=== PATIENT | female | born 1950 | race Caucasian/White ===

== ENCOUNTER → 2018-05-26 08:07 | Outpatient (CLI) | payer MEDICARE, SELFPAY ==
[2018-05-26 08:41] LABS: Abs Immature Grans 0.03 k/cumm (0.0-0.09); Absolute Basophil Count 0.04 k/cumm (0.0-0.2); Absolute Eosinophil Count 0.18 k/cumm (0.0-0.7); Absolute Lymphocyte Count 1.25 k/cumm (1.2-3.4); Absolute Monocyte Count 0.64 k/cumm (0.11-0.7); Absolute Neutrophil Count 5.29 k/cumm (1.2-6.7); Basophils % 0.5; Eosinophils % 2.4; HCT 39.8 % (36.0-46.0); HGB 13.3 g/dL (12.0-15.5); Immature Grans % 0.4; Lymphocytes % 16.8; Mean Corp. HGB Concentration 33.4 g/dL (32.0-36.0); Mean Corpuscular Hemoglobin 30.5 pg (27.0-33.0); Mean Corpuscular Volume 91.3 fL (80-95); Monocytes % 8.6; Neutrophils % 71.3; Platelet Count 199 x1000/uL (130-400); RBC 4.36 m/cumm (4.00-5.20); RBC Distribution Width 12.8 % (11.7-14.6); White Blood Cell Count 7.43 k/cumm (4.4-10.8)
[2018-05-26 09:48] LABS: ALT 25 U/L (12-78); AST 21 U/L (15-37); Albumin 3.7 g/dL (3.4-5.0); Alkaline Phosphatase 71 U/L (46-116); Anion Gap 6.6 mmol/L (3-11); BUN 16 mg/dL (7-18); Bilirubin, Total 0.4 mg/dL (0.2-1.0); CO2 27.4 mmol/L (21.0-32.0); CREATININE 0.99 mg/dL (0.55-1.02); Calcium 8.8 mg/dL (8.5-10.1); Chloride 106 mmol/L (98-107); Cholesterol 199 mg/dL (50-200); Estimated GFR 55.95 (mL/min/1.73m2); Glucose 101 mg/dL (70-100); HDL Cholesterol 42 mg/dL (40-60); LDL CHOLESTEROL 133 mg/dL (<100); Potassium 4.6 mmol/L (3.5-5.1); Sodium 140 mmol/L (136-145); Total Protein 7.2 g/dL (6.4-8.2); Triglyceride 114 mg/dL (30-150)
== END ==
PROVIDERS: PCP Nurse Practitioner; Visit Provider Nurse Practitioner
DX: E78.5 Hyperlipidemia, unspecified (principal); I10 Essential (primary) hypertension; J44.9 Chronic obstructive pulmonary disease, unspecified
CPT/HCPCS: 36415; 80053; 80061; 83721; 85025

== ENCOUNTER 2018-07-12 00:34 | Outpatient (CLI) | payer MEDICARE, SELFPAY ==
--- NOTE | 2018-07-12 11:11 | DI.MAMMO_ITS ---
SYMPTOM/DIAGNOSIS BREAST CA SCREENING Z12.31 MAMMOGRAMS: Mammograms were interpreted according to the usual protocol including computer analysis with CAD system, tomosynthesis and C view imaging. Comparison with prior examinations. Breast density B. No masses or microcalcifications are seen. There are stable nodules in both breasts. IMPRESSION: No evidence for malignancy. Yearly mammography is recommended. Category 2, B MQSA ASSESSMENT OF FINDINGS: Negative with benign findings. Category 2. Patient will receive a letter notifying them of these results. BI-RADS category B. There are scattered areas of fibroglandular density..
== END 2018-07-12 00:54 ==
PROVIDERS: PCP Nurse Practitioner; Visit Provider Nurse Practitioner
DX: Z12.31 Encounter for screening mammogram for malignant neoplasm of breast (principal)
CPT/HCPCS: 77063; 77067

== ENCOUNTER 2019-02-08 08:17 | Outpatient (REF) | payer MEDICARE, SELFPAY ==
[2019-02-09 11:48] LABS: ALT 30 U/L (12-78); AST 23 U/L (15-37); Albumin 3.7 g/dL (3.4-5.0); Alkaline Phosphatase 80 U/L (46-116); Anion Gap 8.7 mmol/L (3-11); BUN 13 mg/dL (7-18); Bilirubin, Total 0.3 mg/dL (0.2-1.0); CO2 27.3 mmol/L (21.0-32.0); CREATININE 0.87 mg/dL (0.55-1.02); Chloride 104 mmol/L (98-107); Cholesterol 214 mg/dL (50-200); Glucose 94 mg/dL (70-100); HDL Cholesterol 37 mg/dL (40-60); LDL CHOLESTEROL 142 mg/dL (<100); Potassium 4.5 mmol/L (3.5-5.1); Sodium 140 mmol/L (136-145); Total Protein 7.2 g/dL (6.4-8.2); Triglyceride 242 mg/dL (30-150)
[2019-02-09 11:55] LABS: HCT 39.9 % (36.0-46.0); HGB 13.1 g/dL (12.0-15.5); Mean Corp. HGB Concentration 32.8 g/dL (32.0-36.0); Mean Corpuscular Hemoglobin 29.7 pg (27.0-33.0); Mean Corpuscular Volume 90.5 fL (80-95); Platelet Count 224 x1000/uL (130-400); RBC 4.41 m/cumm (4.00-5.20); RBC Distribution Width 13.4 % (11.7-14.6); White Blood Cell Count 6.79 k/cumm (4.4-10.8)
== END 2019-02-08 08:37 ==
LOC: LBN 08:17
PROVIDERS: PCP Nurse Practitioner; Visit Provider Nurse Practitioner
DX: E78.5 Hyperlipidemia, unspecified (principal); I10 Essential (primary) hypertension; N18.9 Chronic kidney disease, unspecified; J44.9 Chronic obstructive pulmonary disease, unspecified
CPT/HCPCS: 80053; 80061; 83721; 85027

== ENCOUNTER 2019-08-14 01:47 | Outpatient (CLI) | payer MEDICARE, SELFPAY ==
--- NOTE | 2019-08-14 09:00 | DI.MAMMO_ITS ---
EXAM: MG MAMMO SCREENING CLINICAL HISTORY: screening. TECHNIQUE: Bilateral full field digital CC and MLO mammographic images were obtained with 3D tomosyn thesis and utilizing computer aided detection (CAD). COMPARISON: Available for comparison. FINDINGS: Masses/Architectural Distortion: No suspicious masses are present. There are stable bilateral breast nodules. Microcalcifications: No suspicious pleomorphic-type are seen. Skin Thickening/Nipple Retraction: None. IMPRESSION: 1. No significant interval change with no specific features of malignancy noted. 2. Unless there is more urgent need, screening mammography is recommended, as per [employer] guidelines. ACR BI-RAD Category- 2 Breast Density - Category B - Scattered areas of fibroglandular density A negative radiographic report should not delay biopsy if a dominant or clinically suspicious mass is present. Up to ten percent of cancers are not identified on mammography. A negative report may reinforce clinical impression. Adenosis and dense breasts may obscure an underlying neoplasm. False positive reports average 6 to 10%.
== END 2019-08-14 02:07 ==
PROVIDERS: PCP Nurse Practitioner; Visit Provider Nurse Practitioner
DX: Z12.31 Encounter for screening mammogram for malignant neoplasm of breast (principal)
CPT/HCPCS: 77063; 77067

== ENCOUNTER 2020-05-14 02:06 | Outpatient (CLI) | payer MEDICARE, SELFPAY ==
[2020-05-14 09:44] LABS: HCT 42.5 % (36.0-46.0); HGB 13.9 g/dL (12.0-15.5); Mean Corp. HGB Concentration 32.7 g/dL (32.0-36.0); Mean Corpuscular Volume 91.8 fL (80-95); Mean Platelet Volume 11.3 fL (8.0-11.0); Platelet Count 231 x1000/uL (130-400); RBC 4.63 m/cumm (4.00-5.20); RBC Distribution Width 13.1 % (11.7-14.6); White Blood Cell Count 6.64 k/cumm (4.4-10.8)
[2020-05-14 10:48] LABS: ALT 22 U/L (14-59); AST 18 U/L (15-37); Albumin 3.6 g/dL (3.4-5.0); Alkaline Phosphatase 67 U/L (46-116); Anion Gap 8.5 mmol/L (3-11); BUN 9 mg/dL (7-18); Bilirubin, Total 0.3 mg/dL (0.2-1.0); CO2 28.5 mmol/L (21.0-32.0); CREATININE 0.91 mg/dL (0.55-1.02); Calcium 9.2 mg/dL (8.5-10.1); Calculated LDL 127 mg/dL (<100); Chloride 106 mmol/L (98-107); Cholesterol 193 mg/dL (<200); Glucose 95 mg/dL (74-106); HDL Cholesterol 38 mg/dL (40-60); Potassium 4.8 mmol/L (3.5-5.1); Sodium 143 mmol/L (136-145); Total Protein 6.8 g/dL (6.4-8.2); Triglyceride 144 mg/dL (<150)
== END 2020-05-14 02:26 ==
PROVIDERS: PCP Nurse Practitioner; Visit Provider Nurse Practitioner
DX: E78.5 Hyperlipidemia, unspecified (principal); J44.9 Chronic obstructive pulmonary disease, unspecified; N18.9 Chronic kidney disease, unspecified; R00.2 Palpitations; R74.8 Abnormal levels of other serum enzymes
CPT/HCPCS: 36415; 80053; 80061; 85027

== ENCOUNTER 2021-06-11 14:55 | Outpatient (REF) | payer MEDICARE, SELFPAY ==
[2021-06-11 15:11] LABS: HCT 40.5 % (36.0-46.0); HGB 13.1 g/dL (11.2-15.7); MCH 29.7 pg (27.0-33.0); MCHC 32.3 % (32.0-36.0); MCV 91.8 fL (80-95); MPV 11.7 fL (8.0-11.0); Platelet Count 240 10^3/uL (130-400); RBC 4.41 10^6/uL (3.93-5.22); RDW 12.2 % (11.7-14.6); RDW-SD 41.4 fL; WBC 8.18 10^3/uL (4.4-10.8)
[2021-06-11 15:21] LABS: ALT 20 U/L (14-59); AST 23 U/L (15-37); Albumin 3.6 g/dL (3.4-5.0); Alkaline Phosphatase 64 U/L (46-116); BUN 13 mg/dL (7-18); Bilirubin, Total 0.2 mg/dL (0.2-1.0); Calcium 8.8 mg/dL (8.5-10.1); Calculated LDL 112 mg/dL (<100); Chloride 107 mmol/L (98-107); Cholesterol 185 mg/dL (<200); Estimated GFR 54.81 (mL/min/1.73m2); Glucose 116 mg/dL (74-106); HDL Cholesterol 44 mg/dL (40-60); Potassium 4.8 mmol/L (3.5-5.1); Sodium 143 mmol/L (136-145); Triglyceride 148 mg/dL (<150)
[2021-06-11 15:24] LABS: Hemoglobin A1C 5.9 % (<5.7)
== END 2021-06-11 14:56 | disposition home or self-care (01) ==
LOC: LBN 14:55
PROVIDERS: PCP Nurse Practitioner; Visit Provider Nurse Practitioner
DX: E78.5 Hyperlipidemia, unspecified; I10 Essential (primary) hypertension; J44.9 Chronic obstructive pulmonary disease, unspecified; N18.9 Chronic kidney disease, unspecified; E11.9 Type 2 diabetes mellitus without complications
CPT/HCPCS: 80053; 80061; 85027; 83036

== ENCOUNTER 2022-02-12 16:57 | Inpatient (IN) | payer MEDICARE, SELFPAY ==
[2022-02-12] VITALS (45 sets, daily range): BP systolic 146–187; BP diastolic 83–123; PULSE 88–119; RESP 4–29; TEMP 36.5–37.5; O2SAT 89–100
--- NOTE | 2022-02-12 16:45 | RT.EKG_ITS ---
APPROVED REPORT Exam: Resting ECG Reason for Exam: DYSPNEA Patient Location: E HR:106 bpm ECG Measurements Heart Rate 106 AXIS OH 164 P 61 QRSd 142 QRS 49 QT 361 T 120 QTc 479 Conclusion Sinus tachycardia LVH with secondary repolarization abnormality. ST elevation secondary to LVH. Similar to previous 03/29/17
--- NOTE | 2022-02-12 17:27 | ED.GENADUL_ITS ---
Discharge Plan Disposition Patient Disposition: [facility] INPATIENT Condition: Serious Discharge Details Clinical Impression: Non-ST elevation VA (NSTEMI), CHF exacerbation, COPD exacerbation Admit Date/Time: 02/12/22 22:07 Admit Provider: Jj Calles Attending Provider: Jj Calles Primary Care Provider: Kathleen Joyce ED Provider: Rola Valverde Discharge Data Discharge Date/Time-TO BE ENTERED AT DEPARTURE: 02/12/22 23:35 Medical Decision Making 71-year-old female with a history of COPD, hypertension, chronic kidney disease, degenerative joint disease, hyperlipidemia and depression presents to the ER with chief complaint of shortness of breath nausea vomiting diarrhea and fever at home for 3 days. Patient reports increased weakness, shortness of breath over the last month. She reports that she was recently diagnosed with diverticulitis and finished antibiotics on Wednesday she denies any abdominal pain. She is vaccinated for COVID. She denies any productive cough has been using her inhalers as prescribed. She denies any chest pain, back pain or shoulder pain. She does normally wear 2 L nasal cannula of oxygen at home 24 hours a day she is satting 97% on 2 L at this time. EKG does show a left bundle branch block with repolarization abnormality she does have some abnormal ST elevation in V4 V5 V6. 1707: EKG was reviewed by [Dr. Carson John ER attending, please see his official report review. There was no old EKG available for review. Cardiac work-up ordered including serial troponin, chest x-ray, 324 mg aspirin, COVID test, lipase and stool studies to rule out C. difficile due to recent antibiotic use and history of diverticulitis. Differential diagnosis includes not limited to COPD exacerbation, VA, NSTEMI, C. difficile, viral gastroenteritis, COVID-19, pneumonia. 1907: Initial troponin elevated at 152, lipase 65, COVID is negative, glucose 134, sodium 135 lactate 1.9 white blood cell count 10.94, 1918: [facility] transfer Center regarding patient case and details at this time they are only excepting if patient meets STEMI criteria. Repeat troponin and EKG ordered for now. [facility]AD CXR result: Clinical indication: Shortness of breath and other: HX of copd, R/O pna TECHNIQUE: Imaging protocol: XR of the chest. Views: 1 view. COMPARISON: CT CHEST FOR PULMONARY EMBOLUS 03/29/2017 9:53 PM FINDINGS: Lungs: Bilateral hyperinflation is present. Atelectasis and/or early infiltrative changes noted within both lung bases. Pleural spaces: There is no evidence of pneumothorax. There are no pleural effusions present. Heart/Mediastinum: Unremarkable. No cardiomegaly. Vasculature: The vasculature demonstrates diffuse mild atherosclerotic calcification. Bones/joints: The thoracic spine demonstrates mild degenerative changes at multiple levels. IMPRESSION: 1. Bilateral hyperinflation is present. 2. Atelectasis and/or early infiltrative changes noted within both lung bases. 1942: Spoke with Dr. Terry with [facility] cardiology regarding patient case and details he is requesting a old EKG to compare, at this time she does not think this is a STEMI, Will consult with [facility] cardi[facility] pending repeat troponin. This could be multifactorial. 2002: Repeat troponin 198. Patient reevaluation she is sitting on side of the bed tachypneic there is some mild expiratory wheezes bilaterally. She is hypertensive. Metoprolol IV ordered. 125 mg Solu-Medrol, DuoNeb ordered. Blood cultures x2. I did discuss possible pneumonia and the elevated troponin. 2026: [facility] Repaged to speak with Cardiology. 2037: Spoke again with Dr. Mcneil who requests more information and states she Cannot comment on if this is ACS or not I did discuss previous medical records and repeat troponin. 2043: [facility] Transfer Center contacted. 2100: Spoke with Dr. Samuel with cardiology at [facility] he does not recommend heparin drip at this time he does recommend admission for CHF exacerbation trending troponin, diuresing with 40 mg of Lasix and ordering a nuclear med perfusion scan. Hospitalist paged. Heparin drip cancelled. 2144: Dr. Calles agrees to accept patient for admission here. 2311: Received a call from [facility] cardiology Dr. Castillo again with [facility] who recommends anticoagulation, Cardiology consultation and repeat echo or Stress test. Patient receiving additional DuoNeb, increased wheezing, O2 sat decreased to 91%. On DuoNeb O2 sat 95%. Medical Records Medical records reviewed: Yes I reviewed the patient's medical records. Medical records narrative: Patient has had a exercise stress test in 2017, echocardiogram from 2017 shows Date of study: 03/30/2017 ? Transthoracic Echocardiography M-mode, complete 2D, complete spectral Doppler, and color Doppler *STUDY CONCLUSIONS* Summary: 1. Left ventricle: The cavity size was normal. Wall thickness was ?? normal. Systolic function was mildly reduced. The estimated ejection ?? fraction was 45-50%. Hypokinesis of the basal-midanteroseptal and ?? inferoseptal myocardium. Hypokinesis of the entireanterior ?? myocardium. 2. Right ventricle: The cavity size was normal. Wall thickness was ?? normal. Systolic function was normal. HPI General Mode of arrival: EMS . Date/Time Provider Initiated Documentation: 02/12/22 17:16 . Limitations to Documentation: no limitations . Information obtained by: patient, RN notes reviewed and old records reviewed . HPI Narrative: 71-year-old female with a history of COPD, hypertension, chronic kidney disease, degenerative joint disease, hyperlipidemia and depression presents to the ER with chief complaint of shortness of breath nausea vomiting diarrhea and fever at home for 3 days. Patient reports increased weakness, shortness of breath over the last month. She reports that she was recently diagnosed with diverticulitis and finished antibiotics on Wednesday she denies any abdominal pain. She is vaccinated for COVID. She denies any productive cough has been using her inhalers as prescribed. She denies any chest pain, back pain or shoulder pain. She does normally wear 2 L nasal cannula of oxygen at home 24 hours a day she is satting 97% on 2 L at this time. EKG does show a left bundle branch block with repolarization abnormality she does have some abnormal ST elevation in V4 V5 V6. Related Data Home Medications Medication Instructions Recorded Confirmed ascorbic acid (vitamin C) 1,000 mg 1,000 mg PO DAILY 03/29/17 02/12/22 tablet (C-1000) aspirin 81 mg tablet,delayed 81 mg PO DAILY 03/29/17 02/12/22 release (Aspir-) omega-3 fatty acids-fish oil 340 1 ea PO DAILY 03/29/17 02/12/22 mg-1,000 mg capsule (Fish Oil) bisacodyl 5 mg tablet (Correctol) 5 mg PO DAILY tab 01/19/20 02/12/22 bismuth subsalicylate 262 mg 2 tab PO DAILY PRN tab 01/19/20 02/12/22 tablet (Pepto-Bismol) calcium carbonate 333 mg-magnesium tab PO DAILY tab 01/19/20 01/27/22 oxide 133 mg-zinc gluc 5 mg tablet cholecalciferol (vitamin D3) 25 1,000 unit PO DAILY 01/19/20 02/12/22 mcg (1,000 unit) capsule denture care products #1 01/19/20 01/27/22 denture cleanser #1 tab 01/19/20 01/27/22 menthol 8 mg lozenges 8 mg MM DAILY PRN each 01/19/20 02/12/22 toothpaste (Sensodyne) #113 gm 01/19/20 01/27/22 Inogen Oxygen Concentrator #1 ea 04/01/20 01/27/22 Nasal Cannula O2 Tubing #2 each 05/23/20 01/27/22 ibuprofen 400 mg tablet 400 mg PO TID PRN #270 tab-cap 03/03/21 02/12/22 citalopram 20 mg tablet 40 mg PO DAILY #180 tab-cap 05/15/21 02/12/22 ipratropium 20 mcg-albuterol 100 1 puff IH QID #12 gm 05/16/21 02/12/22 mcg/actuation mist for inhalation (Combivent Respimat) atenolol 50 mg tablet 50 mg PO DAILY #90 tab-cap 06/09/21 02/12/22 betamethasone valerate 0.1 % 1 applic TOPICAL BID PRN #30 gm 10/13/21 02/12/22 topical cream tetrahydrozoline 0.05 % eye drops 1 drp OPHTHALMIC (EYE) TID #15 ml 10/23/21 02/12/22 albuterol sulfate 2.5 mg (3 mL) INHALATION Q4H PRN 12/01/21 02/12/22 #180 ml fenofibrate nanocrystallized 48 mg See Rx Instructions .ROUTE 12/01/21 02/12/22 tablet .COMPLEX #90 tab simvastatin 80 mg tablet See Rx Instructions .ROUTE 12/01/21 02/12/22 .COMPLEX #45 tab ipratropium bromide 0.02 % 5 ml INHALATION Q6H PRN #300 ml 12/16/21 02/12/22 solution for inhalation fluticasone propionate 50 See Rx Instructions .ROUTE 01/26/22 02/12/22 mcg/actuation nasal .COMPLEX #48 ml spray,suspension Oxygen Concentrator #1 ea 01/27/22 01/27/22 ciprofloxacin HCl 500 mg tablet 500 mg PO BID #20 tab 01/27/22 02/12/22 fluticasone furoate 100 1 inh INHALATION DAILY #60 ea 01/27/22 02/12/22 mcg-vilanterol 25 mcg/dose inhalation powder (Breo Ellipta) lisinopril 10 mg tablet 10 mg PO DAILY #90 tab-cap NS 01/27/22 02/12/22 omeprazole 40 mg capsule,delayed 40 mg PO DAILY #90 tab-cap 01/27/22 02/12/22 release umeclidinium 62.5 mcg/actuation 1 inh INHALATION DAILY #30 ea 01/27/22 02/12/22 blister powder for inhalation pregabalin 150 mg capsule (Lyrica) 150 mg PO BID #180 tab-cap 02/09/22 02/12/22 Previous Rx's Medication Instructions Recorded Inogen Oxygen Concentrator #1 ea 04/01/20 Nasal Cannula O2 Tubing #2 each 05/23/20 ibuprofen 400 mg tablet 400 mg PO TID PRN #270 tab-cap 03/03/21 citalopram 20 mg tablet 40 mg PO DAILY #180 tab-cap 05/15/21 ipratropium 20 mcg-albuterol 100 1 puff IH QID #12 gm 05/16/21 mcg/actuation mist for inhalation (Combivent Respimat) atenolol 50 mg tablet 50 mg PO DAILY #90 tab-cap 06/09/21 betamethasone valerate 0.1 % 1 applic TOPICAL BID PRN #30 gm 10/13/21 topical cream tetrahydrozoline 0.05 % eye drops 1 drp OPHTHALMIC (EYE) TID #15 ml 10/23/21 albuterol sulfate 2.5 mg (3 mL) INHALATION Q4H PRN 12/01/21 #180 ml fenofibrate nanocrystallized 48 mg See Rx Instructions .ROUTE 12/01/21 tablet .COMPLEX #90 tab simvastatin 80 mg tablet See Rx Instructions .ROUTE 12/01/21 .COMPLEX #45 tab ipratropium bromide 0.02 % 5 ml INHALATION Q6H PRN #300 ml 12/16/21 solution for inhalation fluticasone propionate 50 See Rx Instructions .ROUTE 01/26/22 mcg/actuation nasal .COMPLEX #48 ml spray,suspension Oxygen Concentrator #1 ea 01/27/22 ciprofloxacin HCl 500 mg tablet 500 mg PO BID #20 tab 01/27/22 fluticasone furoate 100 1 inh INHALATION DAILY #60 ea 01/27/22 mcg-vilanterol 25 mcg/dose inhalation powder (Breo Ellipta) lisinopril 10 mg tablet 10 mg PO DAILY #90 tab-cap NS 01/27/22 omeprazole 40 mg capsule,delayed 40 mg PO DAILY #90 tab-cap 01/27/22 release umeclidinium 62.5 mcg/actuation 1 inh INHALATION DAILY #30 ea 01/27/22 blister powder for inhalation pregabalin 150 mg capsule (Lyrica) 150 mg PO BID #180 tab-cap 02/09/22 Allergies Allergy/AdvReac Type Severity Reaction Status Date / Time Latex, Natural Rubber Allergy Intermediate rash; Verified 01/27/22 11:23 contact dermatitis codeine [Codeine] AdvReac Intermediate Headache Verified 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/22 11:23 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 Intermediate contact Uncoded 01/27/22 11:23 dermatitis General Stated Complaint: RespSymp ZACKERY: 3 Review of Systems All systems reviewed & are unremarkable except as noted in HPI and below Cardiovascular Cardiovascular: Denies chest pain, Denies pedal edema, Denies claudication, Denies lightheadedness, Denies radiating jaw, neck or arm pain and Reports dyspnea Respiratory Respiratory: Denies hemoptysis, Denies excessive phlegm production, Reports dyspnea and Denies wheezing Gastrointestinal Gastrointestinal: Reports as per HPI, Denies abdominal pain, Reports diarrhea, Reports nausea and Denies vomiting Allergic/Immunologic Allergic/Immunologic: Denies wheezing PFSH All Active Problems (Updated 02/12/22 @ 22:33 by Jj Calles MD) Diarrhea (Acute) Elevated lactic acid level (Acute) Non-ST elevation VA (NSTEMI) (Acute) CHF exacerbation (Acute) COPD exacerbation (Acute) Depression (Chronic 02/18/17) Exercise hypoxemia (Acute) ENEDELIA FOWLER III, MD, PULMONOLOGY Bronchiectasis without complication (Acute) Enedelia Fowler III, MD, 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 Gastroesophageal reflux disease (Acute 02/18/17) Fibromyalgia (Acute 02/18/17) Deviated nasal septum (Acute 07/01/17) DJD (degenerative joint disease) (Acute 02/18/17) Severe Chronic kidney disease (Acute 02/18/17) Palpitations (Acute) Elevated troponin I level (Acute) COPD (chronic obstructive pulmonary disease) (Acute) Gold stage 3, Enedelia Fowler MD Anxiety (Acute) Incidental lung nodule, > 3mm and < 8mm (Acute) Hypertension (Acute) Medical History Tobacco use disorder (02/26/17) Surgical History Dilation and curettage (~1984) Ligation of fallopian tube (~1984) Open Carpal Tunnel release Tonsillectomy and adenoidectomy Family History Mother Essential hypertension Heart disease COPD (chronic obstructive pulmonary disease) Father DJD (degenerative joint disease) Sister Hyperlipidemia Myocardial infarction Daughter [id number] deficiency Social History Smoking/Tobacco Use Status: Never Smoking risk assessment performed?: Yes Alcohol Intake: never Drug use: Never Substance use type: does not use Do you feel safe at home: Yes Do you feel safe in your relationship?: Yes History History Para 2 Hx # Term Pregnancies Multiple births Hx # Pregnancies Ectopic pregnancies AB induced Hx Number of Living Children AB spontaneous Exam Narrative Exam Narrative: Constitutional: Alert and oriented x3. Appears stated age. Normal body habitus. Head: Normocephalic, no trauma. Eyes: Pupils PERRL, Red reflex noted, EOM's intact. Eyelids symmetrical without lesions, discharge, or swelling. ENT: Bilateral TM's WNL, External ear normal to inspection, no mastoid TTP, swelling, or erythema, Nasal turbinates WNL, no nasal discharge. Normal dentition, Posterior pharynx WNL, no exudate. Chest: Mildly tachycardic at a rate of 100, S1, S2, distal pulses intact. Resp: Lungs diminished to auscultation bilaterally. prolonged expiratory phase. Abdomen: Soft, non-distended, Normoactive bowel sounds all 4 quads. Musculoskeletal: Unable to assess gait, 5/5 strength to all four extremities. No pedal edema noted. Skin: No suspicious rashes or lesions. Capillary refill less than 2 sec. Neurologic: Cranial nerves II-XII intact. Alert and oriented x 3. Motor: No deficits noted. Sensory: Intact bilaterally all 4 extremities. Reflexes: DTR's intact bilaterally.. Hematologic/Lymphatic: No ecchymosis, no lymphadenopathy. Course Vital Signs Vital signs: Vital Signs Temperature 36.9 C 02/12/22 16:58 Pulse 100 H 02/12/22 16:58 Respiratory Rate 20 02/12/22 16:58 Blood Pressure 176/89 H 02/12/22 16:58 Pulse Oximetry 97 02/12/22 16:58 Temperature 36.9 C 02/12/22 16:58 Temperature Source Tympanic 02/12/22 16:58 Pulse 100 H 02/12/22 16:58 Respiratory Rate 20 02/12/22 16:58 Respiratory Effort Short of Breath 02/12/22 17:14 Respiratory Depth Shallow 02/12/22 17:14 Blood Pressure 176/89 H 02/12/22 16:58 Blood Pressure Position Sitting 02/12/22 16:58 Pulse Oximetry 97 02/12/22 16:58 Oxygen Delivery Method Nasal Cannula 02/12/22 16:58 Oxygen Flow Rate 4 02/12/22 16:58
--- NOTE | 2022-02-12 17:45 | DI.RAD_ITS ---
Exam(s) XR PORTABLE CHEST AP EXAM: XR PORTABLE CHEST AP CLINICAL HISTORY: R/O PNA, SOB, Hx COPD TECHNIQUE: 2D digital imaging was performed. COMPARISON: CR,RF UPPER GI SERIES(P) from 01/25/2012 CT CHEST FOR PULMONARY EMBOLUS from 03/29/2017 FINDINGS: LUNGS: Underlying emphysematous and fibrotic changes. Question of mild patchy infiltrates versus mil d atelectasis. No focal consolidation. No pleural abnormality seen. HEART: Normal. MEDIASTINUM: Normal. BONES: Scoliosis. IMPRESSION: Question of mild atelectasis or early infiltrates. DATA REPOSITORY: RADIATION DOSE DELIVERED:
[2022-02-12 17:50] LABS: Source Nasal/Nares
[2022-02-12 17:53] LABS: Abs Immature Grans 0.03 10^3/uL (0.0-0.06); Absolute Basophil Count 0.03 10^3/uL (0.0-0.2); Absolute Eosinophil Count 0.02 10^3/uL (0.0-0.7); Absolute Lymphocyte Count 1.38 10^3/uL (1.2-3.4); Absolute Monocyte Count 0.71 10^3/uL (0.1-0.8); Basophils % 0.3; Eosinophils % 0.2; HCT 42.9 % (36.0-46.0); HGB 14.5 g/dL (11.2-15.7); Immature Grans % 0.3; Lymphocytes % 12.6; MCH 29.4 pg (27.0-33.0); MCHC 33.8 % (32.0-36.0); MCV 87 fL (80-95); MPV 10.6 fL (8.0-11.0); Monocytes % 6.5; Neutrophils % 80.1; Platelet Count 255 10^3/uL (130-400); RBC 4.93 10^6/uL (3.93-5.22); RDW 11.9 % (11.7-14.6); WBC 10.94 10^3/uL (4.4-10.8)
[2022-02-12] MEDS: Aspirin 81 MG CHEW 324 MG CH (17:57)
[2022-02-12 18:01] LABS: Absolute Neutrophil Count 8.76 10^3/uL (1.2-6.7)
[2022-02-12 18:15] LABS: ALT 27 U/L (14-59); AST 21 U/L (15-37); Alkaline Phosphatase 64 U/L (46-116); Anion Gap 8.3 mmol/L (3-11); BUN 11 mg/dL (7-18); Bilirubin, Total 0.5 mg/dL (0.2-1.0); CO2 28.7 mmol/L (21.0-32.0); CREATININE 0.9 mg/dL (0.55-1.02); Calcium 9.4 mg/dL (8.5-10.1); Chloride 98 mmol/L (98-107); Glucose 134 mg/dL (74-106); Lipase 65 U/L (73-393); Potassium 4.4 mmol/L (3.5-5.1); Sodium 135 mmol/L (136-145)
[2022-02-12 18:16] LABS: Troponin I 152 ng/L (<or=60)
--- NOTE | 2022-02-12 18:24 | NUR.NOTE ---
Nursing Note: Spoke to patient's daughter - updated on plan of care. Patient's phone given to her.
[2022-02-12 18:33] LABS: COVID-19 PCR Negative (Negative)
--- NOTE | 2022-02-12 18:36 | DI.VRAD_ITS ---
PROCEDURE INFORMATION: Exam: XR Chest Exam date and time: 02/12/2022 5:51 PM Age: 71 years old Clinical indication: Shortness of breath and other: HX of copd, R/O pna TECHNIQUE: Imaging protocol: XR of the chest. Views: 1 view. COMPARISON: CT CHEST FOR PULMONARY EMBOLUS 03/29/2017 9:53 PM FINDINGS: Lungs: Bilateral hyperinflation is present. Atelectasis and/or early infiltrative changes noted within both lung bases. Pleural spaces: There is no evidence of pneumothorax. There are no pleural effusions present. Heart/Mediastinum: Unremarkable. No cardiomegaly. Vasculature: The vasculature demonstrates diffuse mild atherosclerotic calcification. Bones/joints: The thoracic spine demonstrates mild degenerative changes at multiple levels. IMPRESSION: 1. Bilateral hyperinflation is present. 2. Atelectasis and/or early infiltrative changes noted within both lung bases. Dictated and Authenticated by: Andrea Bourne MD. Ordering:JORDAN Canela MD
[2022-02-12 18:46] LABS: Lactate 1.9 mmol/L (0.6-1.4)
--- NOTE | 2022-02-12 19:00 | RT.EKG_ITS ---
APPROVED REPORT Exam: Resting ECG Reason for Exam: Elevated Trop, Repeat Patient Location: E HR:95 bpm ECG Measurements Heart Rate 95 AXIS KS 153 P 83 QRSd 143 QRS 25 QT 388 T 135 QTc 487 Conclusion Sinus rhythm...normal P axis, V-rate 60- 99 Left bundle branch block...QRSd>120, broad/notched R
[2022-02-12 19:47] LABS: INR 1.1 (0.9-1.1); PTT Activated 25.5 sec (21.0-27.5); Prothrombin Time 10.8 sec (9.3-11.0)
[2022-02-12 20:01] LABS: Troponin I 198 ng/L (<or=60)
[2022-02-12 20:12] LABS: NT-proBNP 2501 pg/mL (<300)
[2022-02-12] MEDS: Albuterol/Ipratropium 3 ML UPD VIAL UPD (21:07)
[2022-02-12] MEDS: methylPREDNISolone SUCC 125 MG VIAL IVP (21:08)
[2022-02-12] MEDS: Metoprolol 5 MG/5 ML VIAL IVP (21:08)
[2022-02-12] MEDS: Furosemide 40 MG/4 ML VIAL IVP (21:15)
--- NOTE | 2022-02-12 22:21 | W.PM.HP.N ---
Assessment and Plan Assessment and plan (1) COPD exacerbation: Status: Acute Assessment and plan: Her main problem is a COPD exacerbation. I suspect that the slightly elevated troponin is probably stress related from the COPD exacerbation. I will treat her with piperacillin/tazobactam, bronchodilators and steroids. I am choosing the piperacillin because of a recent ciprofloxacin that she was on. I do not see a significant pneumonia on x-ray (2) Elevated troponin I level: Status: Acute Assessment and plan: I suspect the elevated troponin is due to the stress from her COPD exacerbation. We will check an echocardiogram tomorrow. Her troponins will be followed. (3) Elevated lactic acid level: Status: Acute Assessment and plan: This can be rechecked tomorrow. (4) Diarrhea: Status: Acute Assessment and plan: C. difficile study is pending. History of Present Illness History of Present Illness Chief Complaint: dyspnea Narrative: This 71-year-old female came to the hospital because of dyspnea. She has a history of COPD and is oxygen dependent. She normally uses 3 L/min but over the last week she has increased to 4 L/min. Her oximetries were ranging from 91-92 before she increased the oxygen and now she is running 93 to 94% oxygen saturation. Her breathing is gotten worse over the last 2 days. She was treated January 27 for diverticulitis with ciprofloxacin. She finished that antibiotic a few days ago. She lives by herself although her daughter lives nearby who helps her considerably. She has not been around anyone that has been sick. She has had 3 coronavirus vaccine doses. She not been traveling. She not been coughing but has had increasing shortness of breath. She has not had any chest pain, cough leg swelling. She thinks she had a fever but does not have a thermometer to check her temperature. She felt cold and hot and sweaty at times. She has had some diarrhea over the last 2 days has been no blood in it. She quit smoking in 2012. She does not drink alcohol. She presented to the emergency room and was found to have a slightly elevated lactate, BNP that was approximately 2500 and troponins have ranged from 152, was 200. [facility] cardiology was consulted as well as with [facility]. He received [facility] recommended diuresis and check a myocardial perfusion scan and follow troponins. He did receive some steroids and bronchodilators here but states she still feels short of breath and lays back. She did not complain of any orthopnea home. Review of Systems Constitutional Constitutional: Reports chills, Reports fever(s), Denies headache(s), Reports lethargy and Reports poor appetite ENT Ears, Nose, Mouth, and Throat: Denies headache(s) Cardiovascular Cardiovascular: Denies chest pain, Denies chest pain with activity, Denies irregular heart rhythm, Denies radiating jaw, neck or arm pain, Denies palpitations, Reports dyspnea, Reports dyspnea on exertion, Denies orthopnea and Denies slow heart rate Respiratory Respiratory: Denies cough, Denies hemoptysis, Denies pain with cough, Reports dyspnea and Reports dyspnea on exertion Gastrointestinal Gastrointestinal: Denies abdominal pain, Denies melena, Denies heartburn, Reports diarrhea, Reports nausea, Denies vomiting and Denies hematemesis Genitourinary Genitourinary: Denies difficulty voiding and Denies dysuria Neurologic Neurologic: Denies abnormal speech, Denies headache(s) and Denies convulsions Endocrine Endocrine: Denies palpitations PFSH All Active Problems (Updated 02/12/22 @ 22:33 by Jj Calles MD) Diarrhea (Acute) Elevated lactic acid level (Acute) Non-ST elevation [place] (NSTEMI) (Acute) CHF exacerbation (Acute) COPD exacerbation (Acute) Depression (Chronic 02/18/17) Exercise hypoxemia (Acute) ENEDELIA FOWLER III, MD, PULMONOLOGY Bronchiectasis without complication (Acute) Enedelia Fowler III, MD, regional account director Nasal congestion (Acute 07/01/17) Lung nodules (Acute 04/16/17) Hyperlipidemia (Acute 02/18/17) H/O contact dermatitis and eczema (Acute 02/18/17) Affects Hands, including the palms and the anticubital fossa, and her neck. 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 Gastroesophageal reflux disease (Acute 02/18/17) Fibromyalgia (Acute 02/18/17) Deviated nasal septum (Acute 07/01/17) DJD (degenerative joint disease) (Acute 02/18/17) Severe Chronic kidney disease (Acute 02/18/17) Palpitations (Acute) Elevated troponin I level (Acute) COPD (chronic obstructive pulmonary disease) (Acute) Gold stage 3, Enedelia Fowler MD Anxiety (Acute) Incidental lung nodule, > 3mm and < 8mm (Acute) Hypertension (Acute) Medical History Tobacco use disorder (02/26/17) Surgical History Dilation and curettage (~1984) Ligation of fallopian tube (~1984) Open Carpal Tunnel release Tonsillectomy and adenoidectomy Family History Mother Essential hypertension Heart disease COPD (chronic obstructive pulmonary disease) Father DJD (degenerative joint disease) Sister Hyperlipidemia Myocardial infarction Daughter [id number] deficiency Social History Smoking/Tobacco Use Status: Never Smoking risk assessment performed?: Yes Alcohol Intake: never Drug use: Never Substance use type: does not use Do you feel safe at home: Yes Do you feel safe in your relationship?: Yes History History Para 2 Hx # Term Pregnancies Multiple births Hx # Pregnancies Ectopic pregnancies AB induced Hx Number of Living Children AB spontaneous Meds Allergies and Home Medications Allergies Allergy/AdvReac Type Severity Reaction Status Date / Time Latex, Natural Rubber Allergy Intermediate rash; Verified 01/27/22 11:23 contact dermatitis codeine [Codeine] AdvReac Intermediate Headache Verified 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/22 11:23 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 Intermediate contact Uncoded 01/27/22 11:23 dermatitis Home Medications Medication Instructions Recorded Confirmed Type ascorbic acid (vitamin C) 1,000 mg 1,000 mg PO DAILY 03/29/17 02/12/22 History tablet (C-1000) aspirin 81 mg tablet,delayed 81 mg PO DAILY 03/29/17 02/12/22 History release (Aspir-) omega-3 fatty acids-fish oil 340 1 ea PO DAILY 03/29/17 02/12/22 History mg-1,000 mg capsule (Fish Oil) bisacodyl 5 mg tablet (Correctol) 5 mg PO DAILY tab 01/19/20 02/12/22 History bismuth subsalicylate 262 mg 2 tab PO DAILY PRN tab 01/19/20 02/12/22 History tablet (Pepto-Bismol) calcium carbonate 333 mg-magnesium tab PO DAILY tab 01/19/20 01/27/22 History oxide 133 mg-zinc gluc 5 mg tablet cholecalciferol (vitamin D3) 25 1,000 unit PO DAILY 01/19/20 02/12/22 History mcg (1,000 unit) capsule denture care products #1 01/19/20 01/27/22 History denture cleanser #1 tab 01/19/20 01/27/22 History menthol 8 mg lozenges 8 mg MM DAILY PRN each 01/19/20 02/12/22 History toothpaste (Sensodyne) #113 gm 01/19/20 01/27/22 History Inogen Oxygen Concentrator #1 ea 04/01/20 01/27/22 Rx Nasal Cannula O2 Tubing #2 each 05/23/20 01/27/22 Rx ibuprofen 400 mg tablet 400 mg PO TID PRN #270 tab-cap 03/03/21 02/12/22 Rx citalopram 20 mg tablet 40 mg PO DAILY #180 tab-cap 05/15/21 02/12/22 Rx ipratropium 20 mcg-albuterol 100 1 puff IH QID #12 gm 05/16/21 02/12/22 Rx mcg/actuation mist for inhalation (Combivent Respimat) atenolol 50 mg tablet 50 mg PO DAILY #90 tab-cap 06/09/21 02/12/22 Rx betamethasone valerate 0.1 % 1 applic TOPICAL BID PRN #30 gm 10/13/21 02/12/22 Rx topical cream tetrahydrozoline 0.05 % eye drops 1 drp OPHTHALMIC (EYE) TID #15 ml 10/23/21 02/12/22 Rx albuterol sulfate 2.5 mg (3 mL) INHALATION Q4H PRN 12/01/21 02/12/22 Rx #180 ml fenofibrate nanocrystallized 48 mg See Rx Instructions .ROUTE 12/01/21 02/12/22 Rx tablet .COMPLEX #90 tab simvastatin 80 mg tablet See Rx Instructions .ROUTE 12/01/21 02/12/22 Rx .COMPLEX #45 tab ipratropium bromide 0.02 % 5 ml INHALATION Q6H PRN #300 ml 12/16/21 02/12/22 Rx solution for inhalation fluticasone propionate 50 See Rx Instructions .ROUTE 01/26/22 02/12/22 Rx mcg/actuation nasal .COMPLEX #48 ml spray,suspension Oxygen Concentrator #1 ea 01/27/22 01/27/22 Rx ciprofloxacin HCl 500 mg tablet 500 mg PO BID #20 tab 01/27/22 02/12/22 Rx fluticasone furoate 100 1 inh INHALATION DAILY #60 ea 01/27/22 02/12/22 Rx mcg-vilanterol 25 mcg/dose inhalation powder (Breo Ellipta) lisinopril 10 mg tablet 10 mg PO DAILY #90 tab-cap NS 01/27/22 02/12/22 Rx omeprazole 40 mg capsule,delayed 40 mg PO DAILY #90 tab-cap 01/27/22 02/12/22 Rx release umeclidinium 62.5 mcg/actuation 1 inh INHALATION DAILY #30 ea 01/27/22 02/12/22 Rx blister powder for inhalation pregabalin 150 mg capsule (Lyrica) 150 mg PO BID #180 tab-cap 02/09/22 02/12/22 Rx Exam Const General: cooperative, not in acute distress and ill appearing Nutritional Appearance: obese Orientation: alert, awake and oriented x3 Neck Neck: normal visual inspection, trachea midline and no JVD Thyroid: thyroid normal Resp Auscultation: diminished lung sounds, no rales, no rhonchi and no wheezes Cardio Rate: regular rate Rhythm: regular rhythm Heart Sounds: S1 normal, S2 normal, no gallops and no murmurs GI Palpation: soft, no hepatosplenomegaly, not firm and nontender Skin General skin exam: no rashes or lesions noted Extrem General: normal to inspection, no calf tenderness, no clubbing, no cyanosis and no edema Results Labs Result diagrams: 02/12/22 17:24 02/12/22 17:24 Labs: Laboratory Results - last 24 hr 02/12/22 02/12/22 02/12/22 17:24 17:24 17:24 WBC 10.94 H RBC 4.93 Hgb 14.5 Hct 42.9 MCV 87 MCH 29.4 MCHC 33.8 RDW 11.9 Plt Count 255 MPV 10.6 Immature Gran % 0.3 Neutrophils % 80.1 Lymphocytes % 12.6 Monocytes % 6.5 Eosinophils % 0.2 Basophils % 0.3 Nucleated RBC % 0.0 Absolute Neutrophils 8.76 H Absolute Lymphocytes 1.38 Absolute Monocytes 0.71 Absolute Eosinophils 0.02 Absolute Basophils 0.03 PT INR APTT VBG Lactate Sodium 135 L Potassium 4.4 Chloride 98 Carbon Dioxide 28.7 Anion Gap 8.3 BUN 11 Creatinine 0.9 Estimated GFR/1.73 m2 >= 60.00 Glucose 134 H Calcium 9.4 Total Bilirubin 0.5 AST 21 ALT 27 Alkaline Phosphatase 64 Troponin I 152 H* NT-Pro-B Natriuret Pep Total Protein 8.0 Albumin 4.0 Lipase 65 COVID-19 Source Nasal/Nares SARS-CoV-2 (PCR) Negative 02/12/22 02/12/22 02/12/22 18:40 19:25 19:25 WBC RBC Hgb Hct MCV MCH MCHC RDW Plt Count MPV Immature Gran % Neutrophils % Lymphocytes % Monocytes % Eosinophils % Basophils % Nucleated RBC % Absolute Neutrophils Absolute Lymphocytes Absolute Monocytes Absolute Eosinophils Absolute Basophils PT 10.8 INR 1.1 APTT 25.5 VBG Lactate 1.9 H Sodium Potassium Chloride Carbon Dioxide Anion Gap BUN Creatinine Estimated GFR/1.73 m2 Glucose Calcium Total Bilirubin AST ALT Alkaline Phosphatase Troponin I 198 H* NT-Pro-B Natriuret Pep Total Protein Albumin Lipase COVID-19 Source SARS-CoV-2 (PCR) 02/12/22 19:25 WBC RBC Hgb Hct MCV MCH MCHC RDW Plt Count MPV Immature Gran % Neutrophils % Lymphocytes % Monocytes % Eosinophils % Basophils % Nucleated RBC % Absolute Neutrophils Absolute Lymphocytes Absolute Monocytes Absolute Eosinophils Absolute Basophils PT INR APTT VBG Lactate Sodium Potassium Chloride Carbon Dioxide Anion Gap BUN Creatinine Estimated GFR/1.73 m2 Glucose Calcium Total Bilirubin AST ALT Alkaline Phosphatase Troponin I NT-Pro-B Natriuret Pep 2501 H Total Protein Albumin Lipase COVID-19 Source SARS-CoV-2 (PCR) Last Vital Signs Temp 36.5 C 02/12/22 19:37 Pulse 103 H 02/12/22 21:38 Resp 29 H 02/12/22 21:50 BP 163/85 H 02/12/22 21:01 Pulse Ox 92 02/12/22 21:50
[2022-02-12] MEDS: Albuterol 2.5 MG/3 ML INH SOLN VIAL IH (22:59)
[2022-02-12] MEDS: PIPERACILLIN/TAZO 4.5 GM in Normal Saline 100 ML IVPB (23:00)
[2022-02-12] MEDS: Albuterol/Ipratropium 3 ML UPD VIAL (23:01)
[2022-02-12 23:30] LABS: BE (Venous) 4 mmol/L (-2-3); HCO3 (Venous) 29 mmol/L (23-28); O2 Sat (Venous) 64 %; TCO2 (Venous) 26 mmol/L (24-29); pCO2 (Venous) 51 mmHg (41-51); pH (Venous) 7.37 (7.31-7.41); pO2 (Venous) 35 mmHg
[2022-02-13] VITALS (10 sets, daily range): BP systolic 95–156; BP diastolic 58–79; PULSE 68–107; RESP 18–21; TEMP 36–37.5; O2SAT 88–97
[2022-02-13] MEDS: methylPREDNISolone SUCC 125 MG VIAL 80 MG IVP (01:35)
[2022-02-13] MEDS: Levalbuterol 1.25 MG/3 ML UPD VIAL UPD (01:35)
[2022-02-13 01:36] LABS: Troponin I 170 ng/L (<or=60)
[2022-02-13] MEDS: Enoxaparin 40 MG/0.4 ML SYR SC (01:46)
[2022-02-13] MEDS: Normal Saline Flush 10 ML SYR IVP ×3 (01:46→12:04)
[2022-02-13] MEDS: Pregabalin 50 MG CAP 150 MG PO ×3 (01:47→20:03)
[2022-02-13] MEDS: Simvastatin 40 MG TAB PO ×2 (01:47→20:03)
[2022-02-13 02:28] LABS: Bilirubin Negative (Negative); Blood Trace-intact (Negative); Clarity Clear (Clear); Glucose Negative (Negative); Ketones Negative (Negative); Leukocyte Esterase Trace (Negative); Nitrite Negative (Negative); Urobilinogen 0.2 EU/dL (Up TO 0.2)
[2022-02-13 02:41] LABS: Bacteria Few HPF (Negative); C & S Indicated? Yes; Casts Negative LPF (Negative); Crystals Few Amorphous HPF (Negative); Epithelial Cells Negative HPF (Negative); Mucus Negative (Negative); Other Cells Negative (Negative); RBC Negative HPF (0-2)
[2022-02-13] MEDS: Normal Saline 500 ML IV (05:38)
[2022-02-13] MEDS: PIPERACILLIN/TAZO 4.5 GM in Normal Saline 100 ML IVPB (05:39)
[2022-02-13] MEDS: Ipratropium 0.5 MG/2.5 ML UPD VIAL IH (05:40)
[2022-02-13 06:25] LABS: Lactate 1.9 mmol/L (0.6-1.4)
[2022-02-13 06:27] LABS: Abs Immature Grans 0.06 10^3/uL (0.0-0.06); Absolute Basophil Count 0.01 10^3/uL (0.0-0.2); Absolute Eosinophil Count 0.01 10^3/uL (0.0-0.7); Absolute Lymphocyte Count 0.59 10^3/uL (1.2-3.4); Absolute Neutrophil Count 8.99 10^3/uL (1.2-6.7); Basophils % 0.1; Eosinophils % 0.1; HCT 43.2 % (36.0-46.0); HGB 14.3 g/dL (11.2-15.7); Immature Grans % 0.6; MCH 29.3 pg (27.0-33.0); MCHC 33.1 % (32.0-36.0); MCV 89 fL (80-95); MPV 10.6 fL (8.0-11.0); Neutrophils % 92.2; Platelet Count 223 10^3/uL (130-400); RBC 4.88 10^6/uL (3.93-5.22); RDW 11.9 % (11.7-14.6); RDW-SD 38.1 fL; WBC 9.76 10^3/uL (4.4-10.8)
[2022-02-13 06:45] LABS: Anion Gap 11.2 mmol/L (3-11); BUN 18 mg/dL (7-18); CO2 27.8 mmol/L (21.0-32.0); CREATININE 1.2 mg/dL (0.55-1.02); Calcium 9.3 mg/dL (8.5-10.1); Chloride 97 mmol/L (98-107); Estimated GFR 44.29 (mL/min/1.73m2); Glucose 160 mg/dL (74-106); Potassium 3.8 mmol/L (3.5-5.1); Sodium 136 mmol/L (136-145)
[2022-02-13 06:46] LABS: Troponin I 128 ng/L (<or=60)
[2022-02-13] MEDS: Fenofibrate, Micronized 48 MG TAB PO (08:04)
[2022-02-13] MEDS: Aspirin E.C. 81 MG TABEC PO (08:04)
[2022-02-13] MEDS: Atenolol 50 MG TAB PO (08:05)
[2022-02-13] MEDS: Citalopram 20 MG TAB 40 MG PO (08:06)
[2022-02-13] MEDS: Omega-3 Fatty Acids 1000 MG CAP PO (08:06)
[2022-02-13] MEDS: Omeprazole 20 MG CAPCR 40 MG PO (08:06)
[2022-02-13] MEDS: Bisacodyl 5 MG TABEC PO (08:06)
[2022-02-13] MEDS: Lisinopril 10 MG TAB PO (08:06)
--- NOTE | 2022-02-13 08:25 | CCONE_ITS ---
Date of service: 02/13/22 Time of Service: 08:25 Assessment and Plan Assessment and plan (1) COPD exacerbation: Status: Acute Assessment and plan: This is the primary problem. I agree with the hospitalist in this regard. It is being appropriately addressed (2) Demand ischemia: Status: Acute Assessment and plan: Type II myocardial infarction, due to demand ischemia, due to COPD exacerbation I do not think the patient requires systemic anticoagulation (3) Hypertension: Status: Acute Assessment and plan: Chronic (4) Elevated troponin I level: Status: Acute Assessment and plan: See #2 At some point she should have a pharmacologic myocardial perfusion imaging study repeated. This does not necessarily need to be done as an inpatient (5) Cardiomyopathy: Status: Acute Assessment and plan: Patient has previously documented mild left ventricular dysfunction based on echocardiogram from 2017. I do not think that she has congestive heart failure based on the information available. When echocardiogram is available, this should be repeated (6) LBBB (left bundle branch block): Status: Acute Assessment and plan: Chronic, dating back at least to 2017 History of Present Illness History of Present Illness Chief Complaint: Shortness of breath Narrative: This is 1 of several [facility] admissions for this 71-year-old woman. She reportedly has a history of chronic obstructive pulmonary disease which is oxygen dependent. She has a chronic left bundle branch block. In 2017 she had an echocardiogram which showed mildly reduced left ventricular systolic function with an EF of 45 to 50%. A myocardial perfusion imaging study done at that time showed no evidence of myocardial ischemia Patient presented to the hospital complaining of worsening shortness of breath and fever. She is currently on enteric precautions because of diarrhea and she was not interviewed or examined. The chart was reviewed in detail Findings have included a mildly elevated troponin, initially 198 and following up to 170 and 128 EKG shows a left bundle branch block, no acute change Chest x-ray describes hyperinflation, no evidence of vascular congestion The patient reportedly did not experience chest discomfort Review of Systems Narrative: Not obtained, patient not examined COUNT INCLUDES THE [facility] All Active Problems (Updated 02/13/22 @ 08:29 by Nano Garcia MD) LBBB (left bundle branch block) (Acute) Cardiomyopathy (Acute) Demand ischemia (Acute) Diarrhea (Acute) Elevated lactic acid level (Acute) Non-ST elevation [place] (NSTEMI) (Acute) CHF exacerbation (Acute) COPD exacerbation (Acute) Depression (Chronic 02/18/17) Exercise hypoxemia (Acute) ENEDELIA FOWLER III, MD, PULMONOLOGY Bronchiectasis without complication (Acute) Enedelia Fowler III, MD, application chemist Nasal congestion (Acute 07/01/17) Lung nodules (Acute 04/16/17) Hyperlipidemia (Acute 02/18/17) H/O contact dermatitis and eczema (Acute 02/18/17) Affects Hands, including the palms and the anticubital fossa, and her neck. 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 Gastroesophageal reflux disease (Acute 02/18/17) Fibromyalgia (Acute 02/18/17) Deviated nasal septum (Acute 07/01/17) DJD (degenerative joint disease) (Acute 02/18/17) Severe Chronic kidney disease (Acute 02/18/17) Palpitations (Acute) Elevated troponin I level (Acute) COPD (chronic obstructive pulmonary disease) (Acute) Gold stage 3, Enedelia Fowler MD Anxiety (Acute) Incidental lung nodule, > 3mm and < 8mm (Acute) Hypertension (Acute) Medical History Tobacco use disorder (02/26/17) Surgical History Dilation and curettage (~1984) Ligation of fallopian tube (~1984) Open Carpal Tunnel release Tonsillectomy and adenoidectomy Family History Mother Essential hypertension Heart disease COPD (chronic obstructive pulmonary disease) Father DJD (degenerative joint disease) Sister Hyperlipidemia Myocardial infarction Daughter [id number] deficiency Social History Smoking/Tobacco Use Status: Never Smoking risk assessment performed?: Yes Alcohol Intake: never Drug use: Never Substance use type: does not use Do you feel safe at home: Yes Do you feel safe in your relationship?: Yes History History Para 2 Hx # Term Pregnancies Multiple births Hx # Pregnancies Ectopic pregnancies AB induced Hx Number of Living Children AB spontaneous Exam Narrative Exam Narrative: Patient was not examined Results Last Vital Signs Temp 37.4 C 02/13/22 07:27 Pulse 107 H 02/13/22 07:27 Resp 18 02/13/22 07:27 BP 156/79 H 02/13/22 07:27 Pulse Ox 88 L 02/13/22 07:27 Labs Result diagrams: 02/13/22 06:20 02/13/22 06:20 Labs: Laboratory Results - last 24 hr 02/12/22 02/12/22 02/12/22 17:24 17:24 17:24 WBC 10.94 H RBC 4.93 Hgb 14.5 Hct 42.9 MCV 87 MCH 29.4 MCHC 33.8 RDW 11.9 Plt Count 255 MPV 10.6 Immature Gran % 0.3 Neutrophils % 80.1 Lymphocytes % 12.6 Monocytes % 6.5 Eosinophils % 0.2 Basophils % 0.3 Nucleated RBC % 0.0 Absolute Neutrophils 8.76 H Absolute Lymphocytes 1.38 Absolute Monocytes 0.71 Absolute Eosinophils 0.02 Absolute Basophils 0.03 PT INR APTT VBG pH VBG pCO2 VBG pO2 VBG HCO3 VBG Total CO2 VBG O2 Saturation VBG Base Excess VBG Lactate Sodium 135 L Potassium 4.4 Chloride 98 Carbon Dioxide 28.7 Anion Gap 8.3 BUN 11 Creatinine 0.9 Estimated GFR/1.73 m2 >= 60.00 Glucose 134 H Calcium 9.4 Total Bilirubin 0.5 AST 21 ALT 27 Alkaline Phosphatase 64 Troponin I 152 H* NT-Pro-B Natriuret Pep Total Protein 8.0 Albumin 4.0 Lipase 65 Urine Color Urine Clarity Urine pH Ur Specific Radcliffe Urine Protein Urine Ketones Urine Blood Urine Nitrite Urine Bilirubin Urine Urobilinogen Ur Leukocyte Esterase Urine RBC Urine WBC Ur Epithelial Cells Urine Crystals Urine Bacteria Urine Casts Urine Mucus Urine Other Ur Culture Indicated? Urine Glucose COVID-19 Source Nasal/Nares SARS-CoV-2 (PCR) Negative 02/12/22 02/12/22 02/12/22 18:40 19:25 19:25 WBC RBC Hgb Hct MCV MCH MCHC RDW Plt Count MPV Immature Gran % Neutrophils % Lymphocytes % Monocytes % Eosinophils % Basophils % Nucleated RBC % Absolute Neutrophils Absolute Lymphocytes Absolute Monocytes Absolute Eosinophils Absolute Basophils PT 10.8 INR 1.1 APTT 25.5 VBG pH VBG pCO2 VBG pO2 VBG HCO3 VBG Total CO2 VBG O2 Saturation VBG Base Excess VBG Lactate 1.9 H Sodium Potassium Chloride Carbon Dioxide Anion Gap BUN Creatinine Estimated GFR/1.73 m2 Glucose Calcium Total Bilirubin AST ALT Alkaline Phosphatase Troponin I 198 H* NT-Pro-B Natriuret Pep Total Protein Albumin Lipase Urine Color Urine Clarity Urine pH Ur Specific Radcliffe Urine Protein Urine Ketones Urine Blood Urine Nitrite Urine Bilirubin Urine Urobilinogen Ur Leukocyte Esterase Urine RBC Urine WBC Ur Epithelial Cells Urine Crystals Urine Bacteria Urine Casts Urine Mucus Urine Other Ur Culture Indicated? Urine Glucose COVID-19 Source SARS-CoV-2 (PCR) 02/12/22 02/12/22 02/13/22 19:25 23:26 00:33 WBC RBC Hgb Hct MCV MCH MCHC RDW Plt Count MPV Immature Gran % Neutrophils % Lymphocytes % Monocytes % Eosinophils % Basophils % Nucleated RBC % Absolute Neutrophils Absolute Lymphocytes Absolute Monocytes Absolute Eosinophils Absolute Basophils PT INR APTT VBG pH 7.37 VBG pCO2 51 VBG pO2 35 VBG HCO3 29 H VBG Total CO2 26 VBG O2 Saturation 64 VBG Base Excess 4 H VBG Lactate Sodium Potassium Chloride Carbon Dioxide Anion Gap BUN Creatinine Estimated GFR/1.73 m2 Glucose Calcium Total Bilirubin AST ALT Alkaline Phosphatase Troponin I NT-Pro-B Natriuret Pep 2501 H Total Protein Albumin Lipase Urine Color Yellow Urine Clarity Clear Urine pH 5.0 Ur Specific Radcliffe 1.020 Urine Protein Negative Urine Ketones Negative Urine Blood Trace-intact H Urine Nitrite Negative Urine Bilirubin Negative Urine Urobilinogen 0.2 Ur Leukocyte Esterase Trace H Urine RBC Negative Urine WBC 3-5 Ur Epithelial Cells Negative Urine Crystals Few Amorphous Urine Bacteria Few Urine Casts Negative Urine Mucus Negative Urine Other Negative Ur Culture Indicated? Yes Urine Glucose Negative COVID-19 Source SARS-CoV-2 (PCR) 02/13/22 02/13/22 02/13/22 01:05 06:20 06:20 WBC 9.76 RBC 4.88 Hgb 14.3 Hct 43.2 MCV 89 MCH 29.3 MCHC 33.1 D RDW 11.9 Plt Count 223 MPV 10.6 Immature Gran % 0.6 Neutrophils % 92.2 Lymphocytes % 6.0 Monocytes % 1.0 Eosinophils % 0.1 Basophils % 0.1 Nucleated RBC % 0.0 Absolute Neutrophils 8.99 H Absolute Lymphocytes 0.59 L Absolute Monocytes 0.10 Absolute Eosinophils 0.01 Absolute Basophils 0.01 PT INR APTT VBG pH VBG pCO2 VBG pO2 VBG HCO3 VBG Total CO2 VBG O2 Saturation VBG Base Excess VBG Lactate Sodium 136 Potassium 3.8 Chloride 97 L Carbon Dioxide 27.8 Anion Gap 11.2 H BUN 18 Creatinine 1.2 H Estimated GFR/1.73 m2 44.29 Glucose 160 H Calcium 9.3 Total Bilirubin AST ALT Alkaline Phosphatase Troponin I 170 H* 128 H* NT-Pro-B Natriuret Pep Total Protein Albumin Lipase Urine Color Urine Clarity Urine pH Ur Specific Radcliffe Urine Protein Urine Ketones Urine Blood Urine Nitrite Urine Bilirubin Urine Urobilinogen Ur Leukocyte Esterase Urine RBC Urine WBC Ur Epithelial Cells Urine Crystals Urine Bacteria Urine Casts Urine Mucus Urine Other Ur Culture Indicated? Urine Glucose COVID-19 Source SARS-CoV-2 (PCR) 02/13/22 06:20 WBC RBC Hgb Hct MCV MCH MCHC RDW Plt Count MPV Immature Gran % Neutrophils % Lymphocytes % Monocytes % Eosinophils % Basophils % Nucleated RBC % Absolute Neutrophils Absolute Lymphocytes Absolute Monocytes Absolute Eosinophils Absolute Basophils PT INR APTT VBG pH VBG pCO2 VBG pO2 VBG HCO3 VBG Total CO2 VBG O2 Saturation VBG Base Excess VBG Lactate 1.9 H Sodium Potassium Chloride Carbon Dioxide Anion Gap BUN Creatinine Estimated GFR/1.73 m2 Glucose Calcium Total Bilirubin AST ALT Alkaline Phosphatase Troponin I NT-Pro-B Natriuret Pep Total Protein Albumin Lipase Urine Color Urine Clarity Urine pH Ur Specific Radcliffe Urine Protein Urine Ketones Urine Blood Urine Nitrite Urine Bilirubin Urine Urobilinogen Ur Leukocyte Esterase Urine RBC Urine WBC Ur Epithelial Cells Urine Crystals Urine Bacteria Urine Casts Urine Mucus Urine Other Ur Culture Indicated? Urine Glucose COVID-19 Source SARS-CoV-2 (PCR)
--- NOTE | 2022-02-13 08:30 | RT.EKG_ITS ---
APPROVED REPORT Exam: Resting ECG Reason for Exam: NSTEMI Patient Location: I HR:96 bpm ECG Measurements Heart Rate 96 AXIS NM 169 P 80 QRSd 142 QRS 25 QT 392 T 154 QTc 496 Conclusion Sinus rhythm... Left bundle branch block...QRSd>120, broad/notched R
--- NOTE | 2022-02-13 09:10 | DI.RAD_ITS ---
Exam(s) XR CHEST 2V PA LATERAL EXAM: XR CHEST 2V PA LATERAL CLINICAL HISTORY: dyspnea, copd exac. TECHNIQUE: 2D digital imaging was performed. COMPARISON: CR,XR XR PORTABLE CHEST AP from 02/12/2022 FINDINGS: MEDIASTINUM: Normal. HEART: Normal. PULMONARY VASCULATURE: Normal. LUNGS: Fibrotic changes. No visible infiltrate, effusion or pulmonary edema. PLEURAL SPACE: No pleural effusion or pneumothorax. BONE:Unremarkable for age. IMPRESSION: No acute abnormality. DATA REPOSITORY: RADIATION DOSE DELIVERED:
[2022-02-13] MEDS: Fluticasone NASAL SPRAY 16 GM BTL NS ×2 (09:51→20:02)
[2022-02-13 10:31] LABS: Procalcitonin < 0.1 ng/mL
[2022-02-13] MEDS: cefTRIAXone 1 GM/50 ML BAG IVPB (12:04)
[2022-02-13 13:30] LABS: Lab Add On Test DONE
--- NOTE | 2022-02-13 14:49 | PHA.REVIEW ---
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 Cardiology consult for + troponin: recommends MPI as outpt, elevated trops likely due to demand ischemia from COPD exacerbation, Hx of NSTEMI. Tapering IV steroids, has scheduled updrafts - Renal Dosing Renal Dosing: BUN 18 mg/dL (7-18) 02/13/22 06:20 Creatinine 1.2 mg/dL (0.55-1.02) H 02/13/22 06:20 Medications needing adjustments: Intervened (Zosyn 4.5gram q6h started overnight, should be renally adjusted, MD decided to change to Ceftriaxone) List of meds needing interventions: Zosyn (dc'd), watch Lovenox dose closely, Lyrica dose max 225mg/day for Fibromyalgia....currently 300mg/day, will ask provider to adjust - Anticoagulation Anticoagulation: Hgb 14.3 g/dL (11.2-15.7) 02/13/22 06:20 Hct 43.2 % (36.0-46.0) 02/13/22 06:20 Plt Count 223 10^3/uL (130-400) 02/13/22 06:20 INR 1.1 (0.9-1.1) 02/12/22 19:25 Creatinine 1.2 mg/dL (0.55-1.02) H 02/13/22 06:20 DVT Prophylaxis: Reviewed Medications: Enoxaparin (watch CrCl closely if SCr worsens, will require dose adjustment to 30mg) - Opiate Usage Evaluate Pain Scale/Pains Meds: N/A - Relevant Labs Sodium 136 mmol/L (136-145) 02/13/22 06:20 Potassium 3.8 mmol/L (3.5-5.1) 02/13/22 06:20 Chloride 97 mmol/L (98-107) L 02/13/22 06:20 Electrolytes, C-Reactive P, ESR: Reviewed (Procal <0.1, Probnp 2501, Troponin trending down) - DM Control DM Control: Glucose 160 mg/dL (74-106) H 02/13/22 06:20 Insulin Dosing: Reviewed (On IV steroids, not diabetic) - Heart Failure/TX Heart Failure/TX: Troponin I 128 ng/L (<or=60) H* 02/13/22 06:20 NT-Pro-B Natriuret Pep 2501 pg/mL (<300) H 02/12/22 19:25 EF%, SHITAL's, B-Blockers, Diuretics: Reviewed (Atenolol, Lisinopril) - BP Control BP Control: Blood Pressure 100/63 Blood Pressure 156/79 Blood Pressure 114/69 - Qtc Review If Elevated: Reviewed (QTC 487) List meds needing interventions: Citalopram, Symbicort...monitor - IV to PO Switch IV Medications: Reviewed (IV steroids, IV Anbx) - Home Meds Home Med List reviewed: Reviewed Relevent Home Meds Not ordered & why?: Symbicort substituted for Breo-Ellipta home med, Patient's own med (Betamethasone valerate cream-NF, Visine eye drops-NF) - Current meds Current Medication Order Review: Intervened (Will request dose adjustment of Lyrica for renal function)
--- NOTE | 2022-02-13 16:25 | W.PM.PROGNOT ---
Date of Service Date of service: 02/13/22 Time of Service: 12:00 Assessment and Plan Assessment and plan (1) COPD exacerbation: Status: Acute Assessment and plan: Her main problem is a COPD exacerbation. Pip/ivonne disontinued. Ceftriaxone 1 gm every 24 h IV started. (2) Elevated troponin I level: Status: Acute Assessment and plan: Troponins down trending 0 (3) Elevated lactic acid level: Status: Resolved Assessment and plan: This can be rechecked tomorrow. (4) Diarrhea: Status: Resolved Assessment and plan: C. difficile study is pending. Subjective Subjective Patient reports: no new complaints, feels better, tolerating liquids well, tolerating a regular diet, voiding w/o difficulty, vomiting and shortness of breath (decreased); denies nausea or fever Exam Const General: cooperative, not in acute distress and ill appearing Nutritional Appearance: obese Orientation: alert, awake and oriented x3 Neck Neck: normal visual inspection, trachea midline and no JVD Thyroid: thyroid normal Chest Chest: normal inspection of the chest Resp Effort & Inspection: able to speak in complete sentences and cough Quality of cough: dry Auscultation: diminished lung sounds, no rales, no rhonchi and no wheezes Cardio Rate: regular rate Rhythm: regular rhythm Heart Sounds: S1 normal, S2 normal, no gallops and no murmurs GI Palpation: soft, no hepatosplenomegaly, not firm and nontender Skin General skin exam: no rashes or lesions noted Extrem General: normal to inspection, no calf tenderness, no clubbing, no cyanosis and no edema Objective Last Vital Signs Temp 37.1 C 02/13/22 15:34 Pulse 85 02/13/22 15:34 Resp 20 02/13/22 15:34 BP 99/66 L 02/13/22 15:34 Pulse Ox 90 L 02/13/22 15:34 Laboratory Results - last 24 hr 02/12/22 02/12/22 02/12/22 17:24 17:24 17:24 WBC 10.94 H RBC 4.93 Hgb 14.5 Hct 42.9 MCV 87 MCH 29.4 MCHC 33.8 RDW 11.9 Plt Count 255 MPV 10.6 Immature Gran % 0.3 Neutrophils % 80.1 Lymphocytes % 12.6 Monocytes % 6.5 Eosinophils % 0.2 Basophils % 0.3 Nucleated RBC % 0.0 Absolute Neutrophils 8.76 H Absolute Lymphocytes 1.38 Absolute Monocytes 0.71 Absolute Eosinophils 0.02 Absolute Basophils 0.03 PT INR APTT VBG pH VBG pCO2 VBG pO2 VBG HCO3 VBG Total CO2 VBG O2 Saturation VBG Base Excess VBG Lactate Sodium 135 L Potassium 4.4 Chloride 98 Carbon Dioxide 28.7 Anion Gap 8.3 BUN 11 Creatinine 0.9 Estimated GFR/1.73 m2 >= 60.00 Glucose 134 H Calcium 9.4 Total Bilirubin 0.5 AST 21 ALT 27 Alkaline Phosphatase 64 Troponin I 152 H* NT-Pro-B Natriuret Pep Total Protein 8.0 Albumin 4.0 Lipase 65 Procalcitonin Urine Color Urine Clarity Urine pH Ur Specific [place] Urine Protein Urine Ketones Urine Blood Urine Nitrite Urine Bilirubin Urine Urobilinogen Ur Leukocyte Esterase Urine RBC Urine WBC Ur Epithelial Cells Urine Crystals Urine Bacteria Urine Casts Urine Mucus Urine Other Ur Culture Indicated? Urine Glucose COVID-19 Source Nasal/Nares SARS-CoV-2 (PCR) Negative Add-On Test Request 02/12/22 02/12/22 02/12/22 18:40 19:25 19:25 WBC RBC Hgb Hct MCV MCH MCHC RDW Plt Count MPV Immature Gran % Neutrophils % Lymphocytes % Monocytes % Eosinophils % Basophils % Nucleated RBC % Absolute Neutrophils Absolute Lymphocytes Absolute Monocytes Absolute Eosinophils Absolute Basophils PT 10.8 INR 1.1 APTT 25.5 VBG pH VBG pCO2 VBG pO2 VBG HCO3 VBG Total CO2 VBG O2 Saturation VBG Base Excess VBG Lactate 1.9 H Sodium Potassium Chloride Carbon Dioxide Anion Gap BUN Creatinine Estimated GFR/1.73 m2 Glucose Calcium Total Bilirubin AST ALT Alkaline Phosphatase Troponin I 198 H* NT-Pro-B Natriuret Pep Total Protein Albumin Lipase Procalcitonin Urine Color Urine Clarity Urine pH Ur Specific [place] Urine Protein Urine Ketones Urine Blood Urine Nitrite Urine Bilirubin Urine Urobilinogen Ur Leukocyte Esterase Urine RBC Urine WBC Ur Epithelial Cells Urine Crystals Urine Bacteria Urine Casts Urine Mucus Urine Other Ur Culture Indicated? Urine Glucose COVID-19 Source SARS-CoV-2 (PCR) Add-On Test Request 02/12/22 02/12/22 02/13/22 19:25 23:26 00:33 WBC RBC Hgb Hct MCV MCH MCHC RDW Plt Count MPV Immature Gran % Neutrophils % Lymphocytes % Monocytes % Eosinophils % Basophils % Nucleated RBC % Absolute Neutrophils Absolute Lymphocytes Absolute Monocytes Absolute Eosinophils Absolute Basophils PT INR APTT VBG pH 7.37 VBG pCO2 51 VBG pO2 35 VBG HCO3 29 H VBG Total CO2 26 VBG O2 Saturation 64 VBG Base Excess 4 H VBG Lactate Sodium Potassium Chloride Carbon Dioxide Anion Gap BUN Creatinine Estimated GFR/1.73 m2 Glucose Calcium Total Bilirubin AST ALT Alkaline Phosphatase Troponin I NT-Pro-B Natriuret Pep 2501 H Total Protein Albumin Lipase Procalcitonin Urine Color Yellow Urine Clarity Clear Urine pH 5.0 Ur Specific [place] 1.020 Urine Protein Negative Urine Ketones Negative Urine Blood Trace-intact H Urine Nitrite Negative Urine Bilirubin Negative Urine Urobilinogen 0.2 Ur Leukocyte Esterase Trace H Urine RBC Negative Urine WBC 3-5 Ur Epithelial Cells Negative Urine Crystals Few Amorphous Urine Bacteria Few Urine Casts Negative Urine Mucus Negative Urine Other Negative Ur Culture Indicated? Yes Urine Glucose Negative COVID-19 Source SARS-CoV-2 (PCR) Add-On Test Request 02/13/22 02/13/22 02/13/22 01:05 06:20 06:20 WBC 9.76 RBC 4.88 Hgb 14.3 Hct 43.2 MCV 89 MCH 29.3 MCHC 33.1 D RDW 11.9 Plt Count 223 MPV 10.6 Immature Gran % 0.6 Neutrophils % 92.2 Lymphocytes % 6.0 Monocytes % 1.0 Eosinophils % 0.1 Basophils % 0.1 Nucleated RBC % 0.0 Absolute Neutrophils 8.99 H Absolute Lymphocytes 0.59 L Absolute Monocytes 0.10 Absolute Eosinophils 0.01 Absolute Basophils 0.01 PT INR APTT VBG pH VBG pCO2 VBG pO2 VBG HCO3 VBG Total CO2 VBG O2 Saturation VBG Base Excess VBG Lactate Sodium 136 Potassium 3.8 Chloride 97 L Carbon Dioxide 27.8 Anion Gap 11.2 H BUN 18 Creatinine 1.2 H Estimated GFR/1.73 m2 44.29 Glucose 160 H Calcium 9.3 Total Bilirubin AST ALT Alkaline Phosphatase Troponin I 170 H* 128 H* NT-Pro-B Natriuret Pep Total Protein Albumin Lipase Procalcitonin Urine Color Urine Clarity Urine pH Ur Specific [place] Urine Protein Urine Ketones Urine Blood Urine Nitrite Urine Bilirubin Urine Urobilinogen Ur Leukocyte Esterase Urine RBC Urine WBC Ur Epithelial Cells Urine Crystals Urine Bacteria Urine Casts Urine Mucus Urine Other Ur Culture Indicated? Urine Glucose COVID-19 Source SARS-CoV-2 (PCR) Add-On Test Request 02/13/22 02/13/22 02/13/22 06:20 06:20 06:20 WBC RBC Hgb Hct MCV MCH MCHC RDW Plt Count MPV Immature Gran % Neutrophils % Lymphocytes % Monocytes % Eosinophils % Basophils % Nucleated RBC % Absolute Neutrophils Absolute Lymphocytes Absolute Monocytes Absolute Eosinophils Absolute Basophils PT INR APTT VBG pH VBG pCO2 VBG pO2 VBG HCO3 VBG Total CO2 VBG O2 Saturation VBG Base Excess VBG Lactate 1.9 H Sodium Potassium Chloride Carbon Dioxide Anion Gap BUN Creatinine Estimated GFR/1.73 m2 Glucose Calcium Total Bilirubin AST ALT Alkaline Phosphatase Troponin I NT-Pro-B Natriuret Pep Total Protein Albumin Lipase Procalcitonin < 0.1 Urine Color Urine Clarity Urine pH Ur Specific [place] Urine Protein Urine Ketones Urine Blood Urine Nitrite Urine Bilirubin Urine Urobilinogen Ur Leukocyte Esterase Urine RBC Urine WBC Ur Epithelial Cells Urine Crystals Urine Bacteria Urine Casts Urine Mucus Urine Other Ur Culture Indicated? Urine Glucose COVID-19 Source SARS-CoV-2 (PCR) Add-On Test Request DONE Reviewed Pertinent PMH: Yes
--- NOTE | 2022-02-13 16:44 | INITIAL_ITS ---
- If Service Date Differs Date of service: 02/13/22 Time of Service: 16:44 Care Management Initial Assess REASON FOR HOSPITALIZATION:: COPD Exacerbation PAST MEDICAL HISTORY/PAST SURGICAL HISTORY:: Diarrhea (Acute). Elevated lactic acid level (Acute). Non-ST elevation [place] (NSTEMI) (Acute). CHF exacerbation (Acute). COPD exacerbation (Acute). Depression (Chronic 02/18/17). Exercise hypoxemia (Acute). ENEDELIA FOWLER III, MD, PULMONOLOGY. Bronchiectasis without complication (Acute). 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 Nasal congestion (Acute 07/01/17). Lung nodules (Acute 04/16/17). Hyperlipidemia (Acute 02/18/17). H/O contact dermatitis and eczema (Acute 02/18/17). Affects Hands, including the palms and the anticubital fossa, and her neck. 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 Gastroesophageal reflux disease (Acute 02/18/17). Fibromyalgia (Acute 02/18/17). Deviated nasal septum (Acute 07/01/17). DJD (degenerative joint disease) (Acute 02/18/17). Severe. Chronic kidney disease (Acute 02/18/17). Palpitations (Acute). Elevated troponin I level (Acute). COPD (chronic obstructive pulmonary disease) (Acute). Gold stage 3, Enedelia Fowler MD. Anxiety (Acute). Incidental lung nodule, > 3mm and < 8mm (Acute). Hypertension (Acute). Medical History . Tobacco use disorder (02/26/17). Surgical History . Dilation and curettage (~1984). Ligation of fallopian tube (~1984). Open Carpal Tunnel release. Tonsillectomy and adenoidectomy PREVIOUS FUNCTIONAL STATUS/SOCIAL/FAMILY SUPPORTS:: Celia resides alone in her apartment in [place]. She reports a large family, all who are all very supportive. 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 Enjoys spending time with her children, grandchildren, and gardening. Her main support person is her daughter, Jame who also helps with groceries and housekeeping. She also has oxygen at home, but is independent with most ADLs. CURRENT FUNCTIONAL STATUS:: Celia continues to be closely monitored and treated for CHF. Awaiting ECHO per MD, troponins are being trended as well. CM continues to follow. ADVANCE DIRECTIVES:: None on file. Has patient been provided with info about the portal/API?: Yes Did the patient sign up for the portal?: Yes CODE STATUS:: Full Code INSURANCE COVERAGE / FINANCIAL ISSUES:: Medicare, Financial Asst CURRENT HOME/COMMUNITY SERVICES/EQUIPMENT:: Oxygen, grab bars, tub seat, handrails, ramp, walker PRIMARY CARE PHYSICIAN:: Kathleen Joyce POTENTIAL DISCHARGE NEEDS:: ECHO, trending troponins. Follow up appointments. PATIENT/FAMILY EDUCATION NEEDS:: Review discharge instructions, discuss Ask Me Three. ANTICIPATED BARRIERS TO DISCHARGE:: Awaiting ECHO. TRANSPORTATION:: Via private vehicle with family. PLAN:: Anticipate Celia will return home once medically cleared, she will be evaluated for additional needs prior to discharge. CM continues to follow.
[2022-02-13] MEDS: methylPREDNISolone SUCC 40 MG VIAL IVP (20:02)
[2022-02-13] MEDS: Budesonide/Formoterol 80/4.5 6.9 GM 60 PUFF INH IH (20:02)
[2022-02-14 03:44] VITALS: BP 96/56; PULSE 66; RESP 20; TEMP 35.9; O2SAT 99
[2022-02-14 05:54] LABS: HCT 40.4 % (36.0-46.0); HGB 13.3 g/dL (11.2-15.7); MCH 29.6 pg (27.0-33.0); MCHC 32.9 % (32.0-36.0); MCV 90 fL (80-95); MPV 10.7 fL (8.0-11.0); Platelet Count 248 10^3/uL (130-400); RDW-SD 39.2 fL; WBC 13.52 10^3/uL (4.4-10.8)
[2022-02-14 06:19] VITALS: PULSE 78
[2022-02-14 07:18] VITALS: BP 127/82; PULSE 81; RESP 18; TEMP 36.4; O2SAT 95
[2022-02-14] MEDS: Budesonide/Formoterol 80/4.5 6.9 GM 60 PUFF INH IH (07:27)
[2022-02-14] MEDS: Umeclidinium 7 CAP INHALER IH (07:28)
[2022-02-14 07:49] VITALS: PULSE 76
[2022-02-14] MEDS: methylPREDNISolone SUCC 40 MG VIAL IVP (08:02)
[2022-02-14] MEDS: Normal Saline Flush 10 ML SYR IVP (08:02)
[2022-02-14] MEDS: Fenofibrate, Micronized 48 MG TAB PO (08:03)
[2022-02-14] MEDS: Enoxaparin 40 MG/0.4 ML SYR SC (08:03)
[2022-02-14] MEDS: Omeprazole 20 MG CAPCR 40 MG PO (08:04)
[2022-02-14] MEDS: Omega-3 Fatty Acids 1000 MG CAP PO (08:04)
[2022-02-14] MEDS: Lisinopril 10 MG TAB PO (08:04)
[2022-02-14] MEDS: Citalopram 20 MG TAB 40 MG PO (08:05)
[2022-02-14] MEDS: Bisacodyl 5 MG TABEC PO (08:05)
[2022-02-14] MEDS: Aspirin E.C. 81 MG TABEC PO (08:05)
[2022-02-14] MEDS: Atenolol 50 MG TAB PO (08:05)
[2022-02-14] MEDS: Fluticasone NASAL SPRAY 16 GM BTL NS (08:07)
[2022-02-14] MEDS: Normal Saline 500 ML 100 ML IV (11:56)
[2022-02-14] MEDS: cefTRIAXone 1 GM/50 ML BAG IVPB (11:56)
[2022-02-14 12:03] VITALS: BP 113/68; PULSE 77; RESP 18; TEMP 37.2; O2SAT 90
--- NOTE | 2022-02-14 12:30 | W.PM.DS.N ---
Date of service: 02/14/22 Time of Service: 12:30 DS: Diagnosis Discharge Diagnosis (1) COPD exacerbation: Status: Acute Asessment and Plan: Pt was started on Methylprdnisolone IV Will be discharged home prednisone 40 mg oral daily for 5 days then stop. Will continue COPD home drug regimen upon discharge. (2) Elevated troponin I level: Status: Acute Asessment and Plan: Resolved (3) Diarrhea: Status: Resolved Asessment and Plan: Resolved Discharge Plan Disposition Patient Disposition: HOME Condition: Stable Discharge Details Reason For Visit: COPD Exacerbation Admit Date/Time: 02/12/22 22:07 Admit Provider: Jj Calles Attending Provider: Jj Calles Primary Care Provider: Kathleen Joyce Hospital Course Hospital Course: patient presented to the ED for shortness of breath. work up in the ED showed increased oxygen requirement from her baseline of 3 to 4-5 l/nc. Differentials on admission initially included heart failure vs copd exacerbation. Cardiology was consulted and recommendations are for outpatient myocardial perfusion and echocardiogram which will be deferred to outpatient provider to arrange. Work up most consistent with COPD exacerbation and managed with IV methylprednisolone, IV ceftriaxone, short acting bronchodilators, and combination LABA-corticosteroids. Patient is improving and stable, feeling that she is back to baseline. She will be discharged home on her home med regimen for COPD. Patient verbalized that she understood that she must take her rescue inhaler if she feels increased shortness of breath. Procalcitonin was negative and ceftriaxone was discontinued prior to discharge. 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 Troponin was elevated and peaked at 170 but trended down and at 120 at discharge most likely demand ischemia, patient remained chest pain free and hemodynamically stable. discharge discussed with DR Roe. Home Meds and New Rx's Prescriptions: New prednisone 20 mg tablet 40 mg PO DAILY Qty: 10 0RF Continued (DME) Nasal Cannula O2 Tubing Qty: 2 12RF Rx Instructions: As directed omeprazole 40 mg capsule,delayed release(DR/EC) 40 mg PO DAILY Qty: 90 3RF Breo Ellipta 100-25 mcg/dose blister with device 1 inh inhalation DAILY Qty: 60 12RF lisinopril 10 mg tablet 10 mg PO DAILY Qty: 90 3RF umeclidinium 62.5 mcg/actuation blister with device 1 inh inhalation DAILY Qty: 30 12RF (DME) Oxygen Concentrator with portability See Rx Instructions .Route .MEDSUPPLY Qty: 1 0RF Rx Instructions: As directed. Desaturates to 79% on RA at rest. calcium carb-mag ox-zinc gluc 333-133-5 mg tablet PO DAILY 0RF cholecalciferol (vitamin D3) 25 mcg (1,000 unit) capsule 1,000 unit PO DAILY 0RF Correctol 5 mg tablet 5 mg PO DAILY 0RF Pepto-Bismol 262 mg tablet 2 tab PO DAILY PRN0RF Rx Instructions: do not exceed 16 tabs per 24 hrs menthol 8 mg lozenge 8 mg MM DAILY PRN0RF (DME) Sensodyne Toothpaste See Rx Instructions .ROUTE .MEDSUPPLY Qty: 113 0RF Rx Instructions: daily as needed (DME) denture care products Cream See Rx Instructions .ROUTE .MEDSUPPLY Qty: 1 0RF Rx Instructions: daily ([facility] denture cleanser Tablet, Effervescent See Rx Instructions .ROUTE .MEDSUPPLY Qty: 1 0RF Rx Instructions: daily (DME) Inogen Oxygen Concentrator 3L NC Qty: 1 0RF Rx Instructions: 3L NC ibuprofen 400 mg tablet 400 mg PO TID PRN (Reason: fever or pain) Qty: 270 3RF citalopram 20 mg tablet 40 mg PO DAILY Qty: 180 3RF Combivent Respimat 20-100 mcg/actuation mist 1 puff IH QID Qty: 12 3RF Rx Instructions: Please dispense 3 month supply if insurance allows atenolol 50 mg tablet 50 mg PO DAILY Qty: 90 3RF betamethasone valerate 0.1 % cream 1 applic Topical BID PRN (Reason: rash hands) Qty: 30 6RF Rx Instructions: APPLY TO HANDS NEEDED tetrahydrozoline 0.05 % drops 1 drp ophthalmic (eye) TID Qty: 15 12RF Rx Instructions: OU TID PRN fenofibrate nanocrystallized 48 mg tablet See Rx Instructions .ROUTE .COMPLEX Qty: 90 3RF Dose Instruction: TAKE ONE TABLET BY MOUTH EVERY DAY Rx Instructions: TAKE ONE TABLET BY MOUTH EVERY DAY simvastatin 80 mg tablet See Rx Instructions .ROUTE .COMPLEX Qty: 45 3RF Dose Instruction: TAKE 1/2 TABLET BY MOUTH DAILY Rx Instructions: TAKE 1/2 TABLET BY MOUTH DAILY albuterol sulfate 2.5 mg /3 mL (0.083 %) solution for nebulization 2.5 mg inhalation Q4H PRN (Reason: shortness of breath or wheezing) Qty: 180 3RF fluticasone propionate 50 mcg/actuation spray,suspension See Rx Instructions .ROUTE .COMPLEX Qty: 48 3RF Dose Instruction: INSTILL 2 SPRAYS NASALLY TWICE DAILY Rx Instructions: INSTILL 2 SPRAYS NASALLY TWICE DAILY pregabalin [Lyrica] 150 mg capsule 150 mg PO BID Qty: 180 2RF ipratropium bromide 0.02 % Solution 2.5 ml INHALATION Q8H PRN PRN (Reason: Shortness Of Breath Or Wheezing) 0RF ascorbic acid (vitamin C) [C-1000] 1,000 MG tablet 1,000 mg PO DAILY 0RF aspirin [Aspir-81] 81 MG tablet,delayed release (DR/EC) 81 mg PO DAILY 0RF Fish Oil 1 EACH capsule 1 ea PO DAILY 0RF Discontinued ciprofloxacin HCl 500 mg tablet 500 mg PO BID Qty: 20 0RF Discharge Instructions Instructions: COPD (Chronic Obstructive Pulmonary Disease) (DC) Stand Alone Forms: Nursing Discharge Form Referrals: Kathleen Joyce NP [Primary Care Provider] - (Please call Wednesday to make an appointment for 1 week.) Activity:: Activity as Tolerated Equipment/Supplies:: No Equipment Needed Diet:: As Tolerated Discharge Orders Discharge Orders: Discharge Order (Routine); Ordered 02/14/22 Ordered By: Tammy Mancilla Discharge Data Discharge Date/Time-TO BE ENTERED AT DEPARTURE: 02/14/22 13:27 DS: Summary Time Spent with Patient providing and/or coordinating discharge services: Greater than 30 minutes Status at Discharge Functional status at discharge: independent ambulation Overall status at discharge: patient is back to baseline Mental Status: mental status grossly normal Speech and Movement: speech and movement normal Mood: congruent mood Affect: normal affect Exam Const General: cooperative and not in acute distress Nutritional Appearance: obese Orientation: alert, awake and oriented x3 Neck Neck: normal visual inspection and no JVD Chest Chest: normal inspection of the chest Resp Effort & Inspection: able to speak in complete sentences Auscultation: diminished lung sounds, no rales, no rhonchi and no wheezes Cardio Rate: regular rate Rhythm: regular rhythm GI Palpation: soft and nontender Skin General skin exam: no rashes or lesions noted Extrem General: normal to inspection, no calf tenderness and no edema Psych Mental Status: mental status grossly normal Speech and Movement: speech and movement normal Mood: congruent mood Affect: normal affect DS: Data Vitals/I&O Vitals and I&O: Vital Signs Temperature 99.0 F 02/14/22 12:03 Temperature Source Tympanic 02/14/22 12:03 Pulse 77 02/14/22 12:03 Pulse Rhythm Regular 02/14/22 09:14 Pulse 107 H 02/12/22 21:50 Respiratory Rate 18 02/14/22 12:03 Respiratory Effort Non-Labored 02/14/22 09:14 Respiratory Depth Normal 02/14/22 09:14 Respiratory Pattern Normal 02/14/22 09:14 Blood Pressure 113/68 02/14/22 12:03 Blood Pressure Mean 105 02/12/22 21:01 Blood Pressure Position Sitting 02/12/22 16:58 Pulse Oximetry 90 L 02/14/22 12:03 Oxygen Delivery Method Nasal Cannula 02/14/22 12:03 Oxygen Flow Rate 4 02/14/22 12:03 Pain Level 0 02/14/22 03:44 Intake & Output 02/13/22 02/14/22 02/14/22 23:59 11:59 23:59 Intake Total 50.813 / 350.813 360 / 360 Output Total 400 / 1150 400 / 400 Balance -349.187 / -799.187 -40 / -40 Weight 155 lb 13.869 oz Intake: IV 50.813 / 300.813 0 / 0 Oral 0 / 50 360 / 360 Output: Urine 400 / 1150 400 / 400 Other: Urine Color Yellow Straw Urine Appearance Clear Clear Urine Odor Strong Voiding Methods Toilet Bedside Commode Data Completed and Pending Labs on day of discharge: Labs from last 24 hours 02/14/22 02/13/22 05:32 06:20 WBC 13.52 H RBC 4.50 Hgb 13.3 Hct 40.4 MCV 90 MCH 29.6 MCHC 32.9 RDW 12.0 Plt Count 248 MPV 10.7 Add-On Test Request DONE Preliminary micro results at discharge 02/13/22 00:33 Urine Culture - Preliminary Urine - Reflex from Ua 02/12/22 20:36 Blood Culture - Preliminary Blood NO GROWTH 24 HOURS 02/12/22 20:30 Blood Culture - Preliminary Blood NO GROWTH 24 HOURS PFSH All Active Problems (Updated 02/15/22 @ 00:04 by ELINA VÁZQUEZ) Cardiomyopathy (Acute) Demand ischemia (Acute) Non-ST elevation [place] (NSTEMI) (Acute) CHF exacerbation (Acute) COPD exacerbation (Acute) Depression (Chronic 02/18/17) Exercise hypoxemia (Acute) ENEDELIA FOWLER III, MD, PULMONOLOGY Bronchiectasis without complication (Acute) 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 Gastroesophageal reflux disease (Acute 02/18/17) Fibromyalgia (Acute 02/18/17) Deviated nasal septum (Acute 07/01/17) DJD (degenerative joint disease) (Acute 02/18/17) Severe Chronic kidney disease (Acute 02/18/17) Palpitations (Acute) Elevated troponin I level (Acute) COPD (chronic obstructive pulmonary disease) (Acute) Gold stage 3, Enedelia Fowler MD Anxiety (Acute) Incidental lung nodule, > 3mm and < 8mm (Acute) Hypertension (Acute) Medical History Tobacco use disorder (02/26/17) Surgical History Dilation and curettage (~1984) Ligation of fallopian tube (~1984) Open Carpal Tunnel release Tonsillectomy and adenoidectomy Family History Mother Essential hypertension Heart disease COPD (chronic obstructive pulmonary disease) Father DJD (degenerative joint disease) Sister Hyperlipidemia Myocardial infarction Daughter [id number] deficiency Social History Smoking/Tobacco Use Status: Never Smoking risk assessment performed?: Yes Alcohol Intake: never Drug use: Never Substance use type: does not use Do you feel safe at home: Yes Do you feel safe in your relationship?: Yes History History Para 2 Hx # Term Pregnancies Multiple births Hx # Pregnancies Ectopic pregnancies AB induced Hx Number of Living Children AB spontaneous
--- NOTE | 2022-02-14 16:23 | PDOC.CMDIS ---
- If Service Date Differs Date of service: 02/14/22 Time of Service: 16:23 LACE Index Scoring Tool - Questions: Length of Stay (in days): 2 Acuity (Admit via E.D.?): Yes Comorbidities: Congestive Heart Failure, Chronic Pulmonary Disease E.D. Visits: 1 - Answers: Total Score: 11 Risk of Readmission: High Risk Care Management Discharge Reason for Hospitalization: COPD Exacerbation Discharge Plan: Celia is discharged home with no services. She will follow up with her PCP and plan of care as instructed. She is transported home via private vehicle by family. Patient/Family Education Needs: Review of discharge instructions; discuss [employer] Me [employer].
== END 2022-02-14 13:27 | disposition home or self-care (01) | DRG 190 ==
LOC: ER 22:45 → MS 23:32
PROVIDERS: Family Medicine; Nurse Practitioner Family; Admitting Provider Family Medicine; Emergency Provider Registered Nurse Emergency; PCP Nurse Practitioner; Visit Provider Family Medicine
DX: J44.1 Chronic obstructive pulmonary disease with (acute) exacerbation (principal); I21.A1 Myocardial infarction type 2; E87.2 Acidosis; I42.9 Cardiomyopathy, unspecified; I12.9 Hypertensive chronic kidney disease with stage 1 through stage 4 chronic kidney disease, or unspecified chronic kidney disease; N18.9 Chronic kidney disease, unspecified; E78.5 Hyperlipidemia, unspecified; F32.A Depression, unspecified; I44.7 Left bundle-branch block, unspecified; R19.7 Diarrhea, unspecified; Z99.81 Dependence on supplemental oxygen; I25.2 Old myocardial infarction; R91.8 Other nonspecific abnormal finding of lung field; M79.7 Fibromyalgia; K21.9 Gastro-esophageal reflux disease without esophagitis; F41.9 Anxiety disorder, unspecified
CPT/HCPCS: 36415; 80048; 80053; 82805; 83690; 84145; 85027; 87040; 87635; 93005; 94640; 96361; 96374; 96375; 99222; 99285; J1650; 71045; 71046; 81003; 81015; 83605; 83880; 84484; 85025; 85610; 85730; 87086; 93010; 99223; J0696; J1940; J2543; J2930; J7613; J7614; J7620; J7644

== ENCOUNTER → 2022-02-13 07:38 | Outpatient (BNVA) | payer MEDICARE, SELFPAY | PROVIDERS: PCP Nurse Practitioner; Referring Provider Nurse Practitioner; Visit Provider Internal Medicine Cardiovascular Disease | DX: R69 Illness, unspecified (principal) ==

== ENCOUNTER → 2022-03-18 07:46 | Outpatient (CLI) | payer MEDICARE, SELFPAY | PROVIDERS: PCP Nurse Practitioner; Visit Provider Nurse Practitioner ==

== ENCOUNTER 2022-05-19 13:06 | Inpatient (IN) | payer MEDICARE, SELFPAY ==
[2022-05-19] VITALS (44 sets, daily range): BP systolic 114–185; BP diastolic 63–126; PULSE 102–137; RESP 8–36; TEMP 36–36.7; O2SAT 88–97
--- NOTE | 2022-05-19 13:00 | RT.EKG_ITS ---
APPROVED REPORT Exam: Resting ECG Reason for Exam: sob Patient Location: E HR:123 bpm ECG Measurements Heart Rate 123 AXIS AR 135 P 82 QRSd 130 QRS 55 QT 348 T 194 QTc 498 Conclusion Sinus tachycardia...rate> 99 LVH with secondary repolarization abnormality...multi-LVH criteria, abnrm ST-T Sinus. LBBB. No STEMI. No significant change from previous EKG.
--- NOTE | 2022-05-19 13:00 | DI.RAD_ITS ---
Exam(s) XR PORTABLE CHEST AP EXAM: XR PORTABLE CHEST AP CLINICAL HISTORY: sob, r/o acute disease TECHNIQUE: 2D digital imaging was performed of the chest. One image was obtained. An AP view was ob tained. COMPARISON: CR,XR XR PORTABLE CHEST AP from 02/12/2022 CR XR CHEST 2V PA LATERAL from 02/13/2022 FINDINGS: MEDIASTINUM: Normal. HEART: Normal. PULMONARY VASCULATURE: Normal. LUNGS: There is a question of pulmonary nodule overlying the posterior aspect of the left 6th rib. T here is overlying monitoring equipment. The lungs are hyperinflated consistent with underlying COPD. No focal consolidating infiltrates are present. PLEURAL SPACE: No pleural effusion or pneumothorax. BONE:Within normal limits for the patient's age. OTHER FINDINGS:Normal. IMPRESSION: 1. No focal consolidating infiltrate. 2. COPD. 3. Question of a pulmonary nodule in the upper left mid lung. There are superimposing structures in this region and a dedicated PA and lateral view of the chest within the department is recommended for further evaluation. DATA REPOSITORY: RADIATION DOSE DELIVERED:
[2022-05-19] MEDS: Levalbuterol 1.25 MG/3 ML UPD VIAL UPD (13:14)
[2022-05-19 13:15] LABS: Source Nasal/Nares
--- NOTE | 2022-05-19 13:16 | ED.GENADUL_ITS ---
Discharge Plan Disposition Patient Disposition: [facility] INPATIENT Condition: Stable Discharge Details Clinical Impression: Acute exacerbation of chronic obstructive pulmonary disease, Acute exacerbation of congestive heart failure, Elevated troponin Admit Date/Time: 05/19/22 16:58 Admit Provider: Skye Navas Attending Provider: Skye Navas Primary Care Provider: Kathleen Joyce ED Provider: Cathryn Taylor Discharge Data Discharge Date/Time-TO BE ENTERED AT DEPARTURE: 05/19/22 17:33 Medical Decision Making 1300 -- 71-year-old female with a history of former tobacco dependence, COPD chronically on 3 L nasal cannula oxygen, fibromyalgia, anxiety, hypertension, hyperlipidemia who presents for fatigue and shortness of breath for the past several days. Oxygen saturation 98% on 5 L on arrival. Respiratory rate 30s. She has diminished breath sounds throughout. She appears significantly anxious. She has no lower extremity edema or crackles on lung exam. Differential diagnosis includes COPD, CHF, COVID, pneumonia, ACS, pneumothorax. Will obtain screening labs, portable chest x-ray, give duo nebs, Solu-Medrol, Ativan and reassess. ABG notes a pH of 7.4, PCO2 42, PO2 69. After DuoNeb, she has oxygen saturation 91% on 5 L and appears more comfortable but still anxious. We will give a dose of morphine. Labs reviewed. White blood cell count 14.94. Magnesium 1.6. Troponin 137. EKG notes questionable ST elevation in anterior leads but this did not appear significantly different compared to previous EKG with left bundle branch block from January 2022. Magnesium 1.6, will replete. Will order full dose aspirin and consult [facility] cardiology. Suspect most likely demand ischemia in the setting of COPD versus CHF. 1400 --patient reassessed and she feels better. Breath sounds improved throughout. Heart rate slightly decreased to 120s. Oxygen saturation 93% on 4 L. 1500 --discussed with [facility] cardiology and feel that the EKG does not appear significantly different from previous EKG in January 2022. No recommendation for NSTEMI treatment at this time. Would like repeat troponin. BNP 21017. We will give 40 mg Lasix IV. COVID-negative. 1630 -- Troponin uptrending to 144. EKG no significant change from earlier today. EKGs reviewed with [facility] cardiology and does not appear c/w STEMI or NSTEMI and no recommendation for nstemi treatement. Pt does not want transfer to [facility]. [facility] recommends trending troponins and EKGs and obtaining echocardiogram. CT chest negative for PE but does note a 2 cm right upper lung mass which is concerning for possible carcinoma. These findings were reviewed with patient and daughter at bedside. Daughter feels that patient would likely not want intervention for this lung mass. Patient appears much more comfortable, heart rate 110s, oxygen saturation on percent on 4 L. Case discussed with hospitalist who accepts patient for admission. Medical Records Medical records reviewed: Yes I reviewed the patient's medical records. Imaging Data Radiologic Study: Radiologist's impression: XR PORTABLE CHEST AP CLINICAL HISTORY:? sob, r/o acute disease TECHNIQUE:? 2D digital imaging was performed of the chest. One image was obtained.? An AP view was obtained. COMPARISON:? CR,XR XR PORTABLE CHEST AP from 02/12/2022 CR XR CHEST 2V PA ? LATERAL from 02/13/2022 FINDINGS: MEDIASTINUM: Normal.? HEART: Normal. PULMONARY VASCULATURE: Normal. LUNGS: There is a question of pulmonary nodule overlying the posterior aspect of the left 6th rib.? There is overlying monitoring equipment.? The lungs are hyperinflated consistent with underlying COPD.? No focal consolidating infiltrates are present. PLEURAL SPACE: No pleural effusion or pneumothorax. BONE:Within normal limits for the patient's age. OTHER FINDINGS:Normal.? IMPRESSION: 1. No focal consolidating infiltrate. 2. COPD. 3. Question of a pulmonary nodule in the upper left mid lung.? There are superimposing structures in this region and a dedicated PA and lateral view of the chest within the department is recommended for further evaluation.? CT CHEST PE CTA CLINICAL HISTORY: ? shortness of breath, r/o PE. TECHNIQUE:? Imaging Protocol:? Axial CT angiography was performed with multi- slice acquisition and multi-planar and/or 3D reconstructions. CONTRAST MATERIAL:? Intravenous: Omnipaque 350 contrast volume:100 mL COMPARISON:? CT CHEST FOR PULMONARY EMBOLUS from 03/29/2017 FINDINGS: Tracheobronchial tree: Patent where visualized. Pulmonary parenchyma: There is a 2 x 1.6 cm spiculated mass in the right upper lobe.? No other pulmonary nodules are seen.? No consolidating infiltrates are pr esent.? Moderate centrilobular emphysematous changes are present.? Pulmonary Arteries: No evidence of filling defect to suggest pulmonary emboli. Mediastinum and Julia: No dominant adenopathy or fluid collection.? The esophagus is unremarkable.? Visualized thyroid gland: Unremarkable.? Pleura: No effusion or pneumothorax. Heart: The heart is not dilated. No coronary artery calcifications are seen. No pericardial effusion.? Aorta: Thoracic aorta non-dilated. No evidence of dissection. Atherosclerosis is present. Upper abdomen:? There is a cyst again seen in the left kidney.? Soft tissues: Unremarkable.? Bones: Within normal limits for the patient's age. IMPRESSION: 1. No evidence of pulmonary embolism, thoracic aortic dissection or aneurysm.? 2. 2 x 1.6 cm spiculated nodule in the right upper lobe.? Primary diagnostic concern is for bronchogenic carcinoma.? PET-CT scan should be considered for further evaluation. 3. Moderate centrilobular emphysema. Lab Data Lab results reviewed: Yes I reviewed the patient's lab results. Labs: Laboratory Tests Range/Units 05/19/22 05/19/22 05/19/22 13:05 13:10 13:10 WBC (4.4-10.8) 10^3/uL RBC (3.93-5.22) 10^6/uL Hgb (11.2-15.7) g/dL Hct (36.0-46.0) % MCV (80-95) fL MCH (27.0-33.0) pg MCHC (32.0-36.0) % RDW (11.7-14.6) % Plt Count (130-400) 10^3/uL MPV (8.0-11.0) fL Immature Gran % Neutrophils % Lymphocytes % Monocytes % Eosinophils % Basophils % Nucleated RBC % (0.0-0.3) % Absolute Neutrophils (1.2-6.7) 10^3/uL Absolute Lymphocytes (1.2-3.4) 10^3/uL Absolute Monocytes (0.1-0.8) 10^3/uL Absolute Eosinophils (0.0-0.7) 10^3/uL Absolute Basophils (0.0-0.2) 10^3/uL ABG Sample Site ABG pH (7.35-7.45) ABG pCO2 (35-45) mmHg ABG pO2 (80-105) mmHg ABG HCO3 (22-26) mmol/L ABG Total CO2 (23-27) mmol/L ABG O2 Saturation (95-98) % ABG Base Excess (-2-3) mmol/L Oxygen Liter Flow L Sodium (136-145) mmol/L 138 Potassium (3.5-5.1) mmol/L 3.8 Chloride (98-107) mmol/L 99 Carbon Dioxide (21.0-32.0) mmol/L 26.9 Anion Gap (3-11) mmol/L 12.1 H BUN (7-18) mg/dL 23 H Creatinine (0.55-1.02) mg/dL 1.2 H Estimated GFR/1.73 m2 (mL/min/1.73m2) 44.29 Glucose (74-106) mg/dL 147 H Calcium (8.5-10.1) mg/dL 11.0 H Magnesium (1.8-2.4) mg/dL 1.6 L Total Bilirubin (0.2-1.0) mg/dL 0.7 AST (15-37) U/L 35 ALT (14-59) U/L 30 Alkaline Phosphatase (46-116) U/L 68 Troponin I (<or=60) ng/L 137 H* NT-Pro-B Natriuret Pep (<300) pg/mL 46071 H Total Protein (6.4-8.2) g/dL 9.0 H Albumin (3.4-5.0) g/dL 4.5 Procalcitonin ng/mL COVID-19 Source Nasal/Nares SARS-CoV-2 (PCR) (Negative) Negative Range/Units 05/19/22 05/19/22 05/19/22 13:10 13:10 13:35 WBC (4.4-10.8) 10^3/uL 14.94 H RBC (3.93-5.22) 10^6/uL 5.42 H Hgb (11.2-15.7) g/dL 16.1 H Hct (36.0-46.0) % 47.5 H MCV (80-95) fL 88 MCH (27.0-33.0) pg 29.7 MCHC (32.0-36.0) % 33.9 RDW (11.7-14.6) % 12.3 Plt Count (130-400) 10^3/uL 389 MPV (8.0-11.0) fL 11.3 H Immature Gran % 0.6 Neutrophils % 86.3 Lymphocytes % 7.6 Monocytes % 5.2 Eosinophils % 0.0 Basophils % 0.3 Nucleated RBC % (0.0-0.3) % 0.0 Absolute Neutrophils (1.2-6.7) 10^3/uL 12.89 H Absolute Lymphocytes (1.2-3.4) 10^3/uL 1.14 L Absolute Monocytes (0.1-0.8) 10^3/uL 0.78 Absolute Eosinophils (0.0-0.7) 10^3/uL 0.00 Absolute Basophils (0.0-0.2) 10^3/uL 0.04 ABG Sample Site Left Radial ABG pH (7.35-7.45) 7.40 ABG pCO2 (35-45) mmHg 42 ABG pO2 (80-105) mmHg 69 L ABG HCO3 (22-26) mmol/L 26 ABG Total CO2 (23-27) mmol/L 23 ABG O2 Saturation (95-98) % 93 L ABG Base Excess (-2-3) mmol/L 1 Oxygen Liter Flow L 5 Sodium (136-145) mmol/L Potassium (3.5-5.1) mmol/L Chloride (98-107) mmol/L Carbon Dioxide (21.0-32.0) mmol/L Anion Gap (3-11) mmol/L BUN (7-18) mg/dL Creatinine (0.55-1.02) mg/dL Estimated GFR/1.73 m2 (mL/min/1.73m2) Glucose (74-106) mg/dL Calcium (8.5-10.1) mg/dL Magnesium (1.8-2.4) mg/dL Total Bilirubin (0.2-1.0) mg/dL AST (15-37) U/L ALT (14-59) U/L Alkaline Phosphatase (46-116) U/L Troponin I (<or=60) ng/L NT-Pro-B Natriuret Pep (<300) pg/mL Total Protein (6.4-8.2) g/dL Albumin (3.4-5.0) g/dL Procalcitonin ng/mL < 0.1 COVID-19 Source SARS-CoV-2 (PCR) (Negative) Range/Units 05/19/22 15:40 WBC (4.4-10.8) 10^3/uL RBC (3.93-5.22) 10^6/uL Hgb (11.2-15.7) g/dL Hct (36.0-46.0) % MCV (80-95) fL MCH (27.0-33.0) pg MCHC (32.0-36.0) % RDW (11.7-14.6) % Plt Count (130-400) 10^3/uL MPV (8.0-11.0) fL Immature Gran % Neutrophils % Lymphocytes % Monocytes % Eosinophils % Basophils % Nucleated RBC % (0.0-0.3) % Absolute Neutrophils (1.2-6.7) 10^3/uL Absolute Lymphocytes (1.2-3.4) 10^3/uL Absolute Monocytes (0.1-0.8) 10^3/uL Absolute Eosinophils (0.0-0.7) 10^3/uL Absolute Basophils (0.0-0.2) 10^3/uL ABG Sample Site ABG pH (7.35-7.45) ABG pCO2 (35-45) mmHg ABG pO2 (80-105) mmHg ABG HCO3 (22-26) mmol/L ABG Total CO2 (23-27) mmol/L ABG O2 Saturation (95-98) % ABG Base Excess (-2-3) mmol/L Oxygen Liter Flow L Sodium (136-145) mmol/L Potassium (3.5-5.1) mmol/L Chloride (98-107) mmol/L Carbon Dioxide (21.0-32.0) mmol/L Anion Gap (3-11) mmol/L BUN (7-18) mg/dL Creatinine (0.55-1.02) mg/dL Estimated GFR/1.73 m2 (mL/min/1.73m2) Glucose (74-106) mg/dL Calcium (8.5-10.1) mg/dL Magnesium (1.8-2.4) mg/dL Total Bilirubin (0.2-1.0) mg/dL AST (15-37) U/L ALT (14-59) U/L Alkaline Phosphatase (46-116) U/L Troponin I (<or=60) ng/L 144 H* NT-Pro-B Natriuret Pep (<300) pg/mL Total Protein (6.4-8.2) g/dL Albumin (3.4-5.0) g/dL Procalcitonin ng/mL COVID-19 Source SARS-CoV-2 (PCR) (Negative) ECG Data Attestation: I personally reviewed and interpreted this ECG (s) as follows: Interpretation: #1 -- Rate of 123, sinus, questionable anterior ST elevation but does not meet full criteria for STEMI. No significant change from previous EKG. #2 -- Rate of 127, sinus, LBBB, no STEMI, no significant change from previous EKG. HPI General Mode of arrival: EMS . Date/Time Provider Initiated Documentation: 05/19/22 13:32 . Limitations to Documentation: no limitations . Information obtained by: patient . HPI Narrative: Patient is a 71-year-old female with a former history of tobacco dependence, COPD chronically on 3 L nasal cannula oxygen, CHF, NSTEMI hypertension, who was admitted 3 months ago for COPD and CHF exacerbation presents with fatigue and shortness of breath for the past few days. EMS reports which oxygen saturation of 86 to 88% on 6 L O2 and was unable to tolerate facemask. She was reportedly started on IV fluids and given 1 dose of albuterol en route per EMS. She states he has felt warm at times but denies any known fever. She denies any cough, chest pain, vomiting, diarrhea. She states she has received a total of 3 doses of the COVID-vaccine. Related Data Home Medications Medication Instructions Recorded Confirmed ascorbic acid (vitamin C) 1,000 mg 1,000 mg PO DAILY 03/29/17 05/19/22 tablet (C-1000) aspirin 81 mg tablet,delayed 81 mg PO DAILY 03/29/17 05/19/22 release (Aspir-) omega-3 fatty acids-fish oil 340 1 ea PO DAILY 03/29/17 05/19/22 mg-1,000 mg capsule (Fish Oil) bisacodyl 5 mg tablet (Correctol) 5 mg PO DAILY 01/19/20 05/19/22 bismuth subsalicylate 262 mg 2 tab PO DAILY PRN 01/19/20 05/19/22 tablet (Pepto-Bismol) calcium carbonate 333 mg-magnesium 1 tab PO DAILY 01/19/20 05/19/22 oxide 133 mg-zinc gluc 5 mg tablet cholecalciferol (vitamin D3) 25 1,000 unit PO DAILY 01/19/20 05/19/22 mcg (1,000 unit) capsule denture care products ##1 01/19/20 02/17/22 denture cleanser #1 tab 01/19/20 02/17/22 menthol 8 mg lozenges 8 mg mucous membrane DAILY PRN 01/19/20 05/19/22 toothpaste (Sensodyne toothpaste) #113 grams 01/19/20 02/17/22 Inogen Oxygen Concentrator #1 ea 04/01/20 02/17/22 Nasal Cannula O2 Tubing #2 ea 05/23/20 02/17/22 ibuprofen 400 mg tablet 400 mg PO TID PRN fever or pain 03/03/21 05/19/22 #270 tab-caps atenolol 50 mg tablet 50 mg PO DAILY #90 tab-caps 06/09/21 05/19/22 betamethasone valerate 0.1 % 1 applic topical BID PRN rash 10/13/21 05/19/22 topical cream hands #30 grams tetrahydrozoline 0.05 % eye drops 1 drp ophthalmic (eye) TID #15 mL 10/23/21 05/19/22 albuterol sulfate 2.5 mg/3 mL 2.5 mg (3 mL) inhalation Q4H PRN 12/01/21 05/19/22 (0.083 %) solution for nebulization shortness of breath or wheezing #180 mL fenofibrate nanocrystallized 48 mg See Rx Instructions .Route 12/01/21 05/19/22 tablet .COMPLEX #90 tabs simvastatin 80 mg tablet See Rx Instructions .Route 12/01/21 05/19/22 .COMPLEX #45 tabs fluticasone propionate 50 See Rx Instructions .Route 01/26/22 05/19/22 mcg/actuation nasal .COMPLEX #48 mL spray,suspension Oxygen Concentrator #1 ea 01/27/22 02/17/22 lisinopril 10 mg tablet 10 mg PO DAILY #90 tab-caps 01/27/22 05/19/22 omeprazole 40 mg capsule,delayed 40 mg PO DAILY #90 tab-caps 01/27/22 05/19/22 release umeclidinium 62.5 mcg/actuation 1 inh inhalation DAILY #30 ea 01/27/22 05/19/22 blister powder for inhalation pregabalin 150 mg capsule (Lyrica) 150 mg PO BID #180 tab-caps 02/09/22 05/19/22 ipratropium bromide 0.02 % 2.5 ml inhalation Q8H PRN PRN 02/13/22 05/19/22 solution for inhalation Shortness Of Breath Or Wheezing prednisone 20 mg tablet 40 mg PO DAILY #10 tabs 02/14/22 02/17/22 budesonide-formoterol HFA 80 2 puff inhalation BID #10.2 grams 02/17/22 02/17/22 mcg-4.5 mcg/actuation aerosol inhaler (Symbicort) ipratropium 20 mcg-albuterol 100 1 puff inhalation QID #12 grams 04/06/22 05/19/22 mcg/actuation mist for inhalation (Combivent Respimat) citalopram 20 mg tablet 40 mg PO DAILY #180 tab-caps 05/11/22 05/19/22 Previous Rx's Medication Instructions Recorded Inogen Oxygen Concentrator #1 ea 04/01/20 Nasal Cannula O2 Tubing #2 ea 05/23/20 ibuprofen 400 mg tablet 400 mg PO TID PRN fever or pain 03/03/21 #270 tab-caps atenolol 50 mg tablet 50 mg PO DAILY #90 tab-caps 06/09/21 betamethasone valerate 0.1 % 1 applic topical BID PRN rash 10/13/21 topical cream hands #30 grams tetrahydrozoline 0.05 % eye drops 1 drp ophthalmic (eye) TID #15 mL 10/23/21 albuterol sulfate 2.5 mg/3 mL 2.5 mg (3 mL) inhalation Q4H PRN 12/01/21 (0.083 %) solution for nebulization shortness of breath or wheezing #180 mL fenofibrate nanocrystallized 48 mg See Rx Instructions .Route 12/01/21 tablet .COMPLEX #90 tabs simvastatin 80 mg tablet See Rx Instructions .Route 12/01/21 .COMPLEX #45 tabs fluticasone propionate 50 See Rx Instructions .Route 01/26/22 mcg/actuation nasal .COMPLEX #48 mL spray,suspension Oxygen Concentrator #1 ea 01/27/22 lisinopril 10 mg tablet 10 mg PO DAILY #90 tab-caps 01/27/22 omeprazole 40 mg capsule,delayed 40 mg PO DAILY #90 tab-caps 01/27/22 release umeclidinium 62.5 mcg/actuation 1 inh inhalation DAILY #30 ea 01/27/22 blister powder for inhalation pregabalin 150 mg capsule (Lyrica) 150 mg PO BID #180 tab-caps 02/09/22 prednisone 20 mg tablet 40 mg PO DAILY #10 tabs 02/14/22 budesonide-formoterol HFA 80 2 puff inhalation BID #10.2 grams 02/17/22 mcg-4.5 mcg/actuation aerosol inhaler (Symbicort) ipratropium 20 mcg-albuterol 100 1 puff inhalation QID #12 grams 04/06/22 mcg/actuation mist for inhalation (Combivent Respimat) citalopram 20 mg tablet 40 mg PO DAILY #180 tab-caps 05/11/22 Allergies Allergy/AdvReac Type Severity Reaction Status Date / Time Latex, Natural Rubber Allergy Intermediate rash; Verified 05/19/22 13:01 contact dermatitis codeine [Codeine] AdvReac Intermediate Headache Verified 05/19/22 13:01 household coater carbon paper Allergy Intermediate contact Uncoded 05/19/22 13:01 dermatitis General Stated Complaint: SOB ZACKERY: 2 Review of Systems All systems reviewed & are unremarkable except as noted in HPI and below Constitutional Constitutional: Denies chills, Denies excessive sweating, Reports fatigue, Denies fever(s), Denies weakness and Denies weight loss Eyes Eyes: Reports system reviewed and no additional complaints, except as documented and Denies blurry vision ENT Ears, Nose, Mouth, and Throat: Denies vertigo, Denies dizziness, Denies otalgia, Denies nasal congestion, Denies sore throat and Denies throat swelling Cardiovascular Cardiovascular: Denies chest pain, Denies syncope, Denies rapid heart rate and Reports dyspnea Respiratory Respiratory: Denies chest congestion, Denies cough, Denies pain on inspiration and Reports dyspnea Gastrointestinal Gastrointestinal: Denies abdominal pain, Denies diarrhea and Denies vomiting Genitourinary Genitourinary: Denies hematuria, Denies dysuria and Denies flank pain Musculoskeletal Musculoskeletal: Denies back pain and Denies joint swelling Integumentary/Breasts Skin/Breast: Denies lesions and Denies rash Neurologic Neurologic: Denies behavioral changes, Denies confusion, Denies vertigo, Denies dizziness, Denies syncope, Denies localized weakness and Denies weakness Psychiatric Psychiatric: Denies behavioral changes, Denies confusion and Denies depression Endocrine Endocrine: Denies excessive sweating and Reports fatigue Hematologic/Lymphatic Hematologic/Lymphatic: Denies easy bruising and Denies lymphadenopathy Allergic/Immunologic Allergic/Immunologic: Denies throat swelling PFSH All Active Problems (Updated 05/20/22 @ 17:23 by Tammy Mancilla, BRYANNA) Discharge planning issues (Acute) Acute exacerbation of chronic obstructive pulmonary disease (Acute) Acute exacerbation of congestive heart failure (Acute) Elevated troponin (Acute) Demand ischemia (Acute) CHF exacerbation (Acute) COPD exacerbation (Acute) Exercise hypoxemia (Acute) ENEDELIA FOWLER III, MD, PULMONOLOGY Bronchiectasis without complication (Acute) Enedelia Fowler III, MD, information technology professor Nasal congestion (Acute 07/01/17) Lung nodules (Acute 04/16/17) H/O contact dermatitis and eczema (Acute 02/18/17) Affects Hands, including the palms and the anticubital fossa, and her neck. 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 Deviated nasal septum (Acute 07/01/17) DJD (degenerative joint disease) (Acute 02/18/17) Severe Palpitations (Acute) Elevated troponin I level (Acute) COPD (chronic obstructive pulmonary disease) (Acute) Gold stage 3, Enedelia Fowler MD Incidental lung nodule, > 3mm and < 8mm (Acute) Hypertension (Acute) Medical History (Updated 05/20/22 @ 17:23 by Tammy Mancilla NP) Anxiety Cardiomyopathy CHF (congestive heart failure) Chronic kidney disease (02/18/17) COPD (chronic obstructive pulmonary disease) on chronic supplemental oxygen Depression (02/18/17) Fibromyalgia (02/18/17) Gastroesophageal reflux disease (02/18/17) Hyperlipidemia (02/18/17) LBBB (left bundle branch block) Non-ST elevation RI (NSTEMI) Surgical History Dilation and curettage (~1984) Ligation of fallopian tube (~1984) Open Carpal Tunnel release Tonsillectomy and adenoidectomy Family History Mother Essential hypertension Heart disease COPD (chronic obstructive pulmonary disease) Father DJD (degenerative joint disease) Sister Hyperlipidemia Myocardial infarction Daughter [id number] deficiency Social History Smoking/Tobacco Use Status: Former Tobacco Use tobacco type: cigarettes Quit Date: 10/18/13 Smoking risk assessment performed?: Yes Alcohol Intake: never Drug use: Never Substance use type: does not use Do you feel safe at home: Yes Do you feel safe in your relationship?: Yes History History Para 2 Hx # Term Pregnancies Multiple births Hx # Pregnancies Ectopic pregnancies AB induced Hx Number of Living Children AB spontaneous Exam Const General: cooperative Orientation: alert and awake HENMT Head: normal to inspection Ears: hearing grossly normal bilaterally, external ears normal and TM's normal bilaterally General nose exam: external nose normal Face and sinus: normal facial exam Mouth: mucous membranes dry Teeth and gingiva: dentition normal Throat: posterior oropharynx normal Eyes General: appearance normal, both eyes and all related structures Eyelids: eyelids normal Pupils: PERRL EOM: EOM intact bilaterally Neck Neck: normal visual inspection Lymphatic: no lymphadenopathy noted Chest Chest: normal inspection of the chest Resp Effort & Inspection: normal respiratory effort and able to speak in complete sentences Auscultation: diminished lung sounds bilaterally throughout Cardio Rate: tachycardic Rhythm: regular rhythm GI Inspection: normal to inspection Palpation: soft, not firm, no guarding, no hepatosplenomegaly, no masses and nontender Auscultation: normal bowel sounds Back/Spine/Pelvis Back: no CVA tenderness Skin General skin exam: no rashes or lesions noted Neuro General: patient alert and patient awake Cognition: normal cognition Speech: speech normal Gait: normal gait Motor: muscle tone normal throughout Sensory Exam: no sensory deficits noted Extrem General: normal to inspection, full ROM, capillary refill normal and no edema Psych Appearance: grossly normal Mental Status: mental status grossly normal Speech and Movement: speech and movement normal Affect: normal affect Thought Process: normal Course Vital Signs Vital signs: Vital Signs Temperature 97.0 F L 05/19/22 12:56 Pulse 130 H 05/19/22 12:56 Respiratory Rate 33 H 05/19/22 12:56 Pulse Oximetry 90 L 05/19/22 12:56 Temperature 97.0 F L 05/19/22 12:56 Pulse 130 H 05/19/22 12:56 Respiratory Rate 33 H 05/19/22 12:56 Respiratory Effort Accessory Muscle Use 05/19/22 12:58 Blood Pressure Position Sitting 05/19/22 12:56 Pulse Oximetry 90 L 05/19/22 12:56 Oxygen Delivery Method Nasal Cannula 05/19/22 12:56 Oxygen Flow Rate 6 05/19/22 12:56 Pain Level 0 05/19/22 12:56 Lab/Test Results Lab/Test Results: Laboratory Tests Range/Units 05/19/22 13:10 COVID-19 Source Nasal/Nares Critical Care Time Critical Care Time Critical Care Time: Yes Total Critical Care Time: 30 Attestation: I spent 30 minutes of critical care time with this patient. This does not include time spent on separately reported billable procedures.
[2022-05-19] MEDS: Ipratropium 0.5 MG/2.5 ML UPD VIAL UPD ×2 (13:18→19:47)
[2022-05-19 13:20] LABS: Abs Immature Grans 0.09 10^3/uL (0.0-0.06); Absolute Basophil Count 0.04 10^3/uL (0.0-0.2); Absolute Lymphocyte Count 1.14 10^3/uL (1.2-3.4); Absolute Monocyte Count 0.78 10^3/uL (0.1-0.8); Absolute Neutrophil Count 12.89 10^3/uL (1.2-6.7); Basophils % 0.3; HCT 47.5 % (36.0-46.0); HGB 16.1 g/dL (11.2-15.7); Immature Grans % 0.6; Lymphocytes % 7.6; MCH 29.7 pg (27.0-33.0); MCHC 33.9 % (32.0-36.0); MCV 88 fL (80-95); MPV 11.3 fL (8.0-11.0); Monocytes % 5.2; Neutrophils % 86.3; Platelet Count 389 10^3/uL (130-400); RBC 5.42 10^6/uL (3.93-5.22); RDW 12.3 % (11.7-14.6); RDW-SD 39.2 fL; WBC 14.94 10^3/uL (4.4-10.8)
[2022-05-19] MEDS: LORazepam 20 MG/10 ML VIAL IVP ×2 (13:20→16:45)
[2022-05-19] MEDS: Normal Saline 250 ML IV (13:28)
[2022-05-19] MEDS: methylPREDNISolone SUCC 125 MG VIAL IVP (13:29)
[2022-05-19 13:37] LABS: ALT 30 U/L (14-59); AST 35 U/L (15-37); Albumin 4.5 g/dL (3.4-5.0); Alkaline Phosphatase 68 U/L (46-116); Anion Gap 12.1 mmol/L (3-11); BUN 23 mg/dL (7-18); Bilirubin, Total 0.7 mg/dL (0.2-1.0); CO2 26.9 mmol/L (21.0-32.0); CREATININE 1.2 mg/dL (0.55-1.02); Chloride 99 mmol/L (98-107); Estimated GFR 44.29 (mL/min/1.73m2); Glucose 147 mg/dL (74-106); Magnesium 1.6 mg/dL (1.8-2.4); Potassium 3.8 mmol/L (3.5-5.1); Sodium 138 mmol/L (136-145)
[2022-05-19 13:39] LABS: BE 1 mmol/L (-2-3); HCO3 26 mmol/L (22-26); pCO2 42 mmHg (35-45); pO2 69 mmHg (80-105); sO2 93 % (95-98); tCO2 23 mmol/L (23-27)
[2022-05-19 13:41] LABS: Troponin I 137 ng/L (<or=60)
[2022-05-19 13:43] LABS: FIO2L 5 L; Site Left Radial
--- NOTE | 2022-05-19 13:57 | NUR.NOTE ---
Nursing Note:O2 titrated to 4 l/m via NC, sats 91-92%, continue to monitor.
[2022-05-19] MEDS: Aspirin 325 MG TAB PO (14:10)
[2022-05-19] MEDS: MAGNESIUM SULFATE 2 GM/50 ML BAG IVPB (14:10)
[2022-05-19] MEDS: MORPHine 4 MG/ML SYR IVP (14:11)
[2022-05-19 14:14] LABS: COVID-19 PCR Negative (Negative)
--- NOTE | 2022-05-19 14:27 | NUR.NOTE ---
Nursing Note: Pt daughter at bedside, pt reports feeling better denies pain or new concerns, remains on 4 l/m NC with sats 90-92%, continue to monitor.
--- NOTE | 2022-05-19 14:30 | DI.CT_ITS ---
Exam(s) CT CHEST PE CTA EXAM: CT CHEST PE CTA CLINICAL HISTORY: shortness of breath, r/o PE. TECHNIQUE: Imaging Protocol: Axial CT angiography was performed with multi-slice acquisition and mu lti-planar and/or 3D reconstructions. CONTRAST MATERIAL: Intravenous: Omnipaque 350 contrast volume:100 mL COMPARISON: CT CHEST FOR PULMONARY EMBOLUS from 03/29/2017 FINDINGS: Tracheobronchial tree: Patent where visualized. Pulmonary parenchyma: There is a 2 x 1.6 cm spiculated mass in the right upper lobe. No other pulmon mehul nodules are seen. No consolidating infiltrates are present. Moderate centrilobular emphysematou s changes are present. Pulmonary Arteries: No evidence of filling defect to suggest pulmonary emboli. Mediastinum and Julia: No dominant adenopathy or fluid collection. The esophagus is unremarkable. Visualized thyroid gland: Unremarkable. Pleura: No effusion or pneumothorax. Heart: The heart is not dilated. No coronary artery calcifications are seen. No pericardial effusion. Aorta: Thoracic aorta non-dilated. No evidence of dissection. Atherosclerosis is present. Upper abdomen: There is a cyst again seen in the left kidney. Soft tissues: Unremarkable. Bones: Within normal limits for the patient's age. IMPRESSION: 1. No evidence of pulmonary embolism, thoracic aortic dissection or aneurysm. 2. 2 x 1.6 cm spiculated nodule in the right upper lobe. Primary diagnostic concern is for bronchoge jimbo carcinoma. PET-CT scan should be considered for further evaluation. 3. Moderate centrilobular emphysema. 4. Results of this exam have been verbally communicated with provider. RADIATION DOSE DELIVERED: 433.2mGy.cm Total DLP DATA REPOSITORY: All CT scans at this facility are submitted to the National Radiology Data Registry (NRDR) Dose Index Registry (DIR) with the [employer] (ACR). RADIATION OPTIMIZATION: All CT scans at this facility use at least one of these dose optimization te chniques: automated exposure control; mA and/or kV adjustment per patient size (includes targeted exa ms where dose is matched to clinical indication); or iterative reconstruction.
[2022-05-19 14:50] LABS: NT-proBNP 11240 pg/mL (<300)
--- NOTE | 2022-05-19 15:00 | RT.EKG_ITS ---
APPROVED REPORT Exam: Resting ECG Reason for Exam: sob Patient Location: E HR:127 bpm ECG Measurements Heart Rate 127 AXIS NJ 130 P 79 QRSd 138 QRS 59 QT 353 T 221 QTc 514 Conclusion Sinus tachycardia...rate> 99 Left bundle branch block...QRSd>120, broad/notched R ST elevation secondary to IVCD...Multiple VCG criteria. Sinus. LBBB. No STEMI. I have reviewed and interpreted ECG and agree with software generated interpretation.
--- NOTE | 2022-05-19 15:02 | NUR.NOTE ---
Nursing Note: Pt to DI via stretcher for ordered exam, no new complaints.
[2022-05-19 15:07] LABS: Procalcitonin < 0.1 ng/mL
[2022-05-19] MEDS: Normal Saline Flush 10 ML SYR IVP ×2 (15:16→20:33)
[2022-05-19] MEDS: Omnipaque 350 MG/ML 100 ML BTL IJ (15:18)
--- NOTE | 2022-05-19 15:46 | NUR.NOTE ---
Nursing Note: Pt return from DI, monitor continued, O2 via NC 4 l/m via NC, pt states breathing feels good, repeat EKG done, repeat trop. drawn. Daughter remains at bedside.
[2022-05-19] MEDS: Furosemide 40 MG/4 ML VIAL IVP (15:49)
[2022-05-19 16:21] LABS: Troponin I 144 ng/L (<or=60)
--- NOTE | 2022-05-19 16:55 | NUR.NOTE ---
Nursing Note: Pt up to [facility] to void, medicated w/ativan for sympton control, daughter remains at bedside. Pt sitting in recliner per request. Continue to monitor.
--- NOTE | 2022-05-19 16:59 | W.PM.HP.N ---
Date of service: 05/19/22 Time of Service: 16:59 Assessment and Plan Assessment and plan (1) COPD exacerbation: Status: Acute Assessment and plan: responded to nebs, given steroids. no antibiotics indicated at this time. admit to med/surg covid negative continue schedule inhalers, steroids, wean oxygen as able discussed code status, would like to remain full code for now. unsure if really would want ventilator but not wanting to decide now. palliative consult will be placed to help with decision making. (2) Acute exacerbation of congestive heart failure: Status: Acute Assessment and plan: receive IV lasix in the ED monitor I&O, weights will check echo in am. on asa, bb and jude. (3) Demand ischemia: Status: Acute Assessment and plan: ED provider reviewed EKG and troponins with DR Nune[place] [facility] no acute changes on EKG and trops flat. will continue to trend overnight. does not want transfer [place] [facility] (4) Lung nodules: Status: Acute (5) Hypertension: Status: Acute Assessment and plan: continue lisinopril monitor and adjust as needed. discussed with DR Navas History of Present Illness History of Present Illness Chief Complaint: shortness of breath Narrative: 71-year-old female with a history of former tobacco dependence, COPD chronically on 3 L nasal cannula oxygen, fibromyalgia, anxiety, hypertension, hyperlipidemia who presents for fatigue and shortness of breath for the past several days. work up in the ED most concerning for copd exacerbation. she received IV steroids, updrafts with improvement in her symptoms. her procal normal so no indication for abx. she was given lasix 40 mg IVP for some possible CHF. she will be admitted to hospitalist services for further evaluation and management Review of Systems All systems reviewed & are unremarkable except as noted in HPI and below Constitutional Constitutional: Denies fever(s) Cardiovascular Cardiovascular: Denies chest pain and Reports dyspnea Respiratory Respiratory: Reports dyspnea Gastrointestinal Gastrointestinal: Denies abdominal pain PFSH All Active Problems (Updated 05/19/22 @ 17:22 by Cathryn Taylor DO) Acute exacerbation of chronic obstructive pulmonary disease (Acute) Acute exacerbation of congestive heart failure (Acute) Elevated troponin (Acute) Demand ischemia (Acute) CHF exacerbation (Acute) COPD exacerbation (Acute) Exercise hypoxemia (Acute) ENEDELIA FOWLER III, MD, PULMONOLOGY Bronchiectasis without complication (Acute) Enedelia Fowler III, MD, 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 Deviated nasal septum (Acute 07/01/17) DJD (degenerative joint disease) (Acute 02/18/17) Severe Palpitations (Acute) Elevated troponin I level (Acute) COPD (chronic obstructive pulmonary disease) (Acute) Gold stage 3, Enedelia Fowler MD Incidental lung nodule, > 3mm and < 8mm (Acute) Hypertension (Acute) Medical History (Updated 05/19/22 @ 17:22 by Cathryn Taylor DO) Anxiety Cardiomyopathy CHF (congestive heart failure) Chronic kidney disease (02/18/17) COPD (chronic obstructive pulmonary disease) on chronic supplemental oxygen Depression (02/18/17) Fibromyalgia (02/18/17) Gastroesophageal reflux disease (02/18/17) Hyperlipidemia (02/18/17) LBBB (left bundle branch block) Non-ST elevation CT (NSTEMI) Surgical History Dilation and curettage (~1984) Ligation of fallopian tube (~1984) Open Carpal Tunnel release Tonsillectomy and adenoidectomy Family History Mother Essential hypertension Heart disease COPD (chronic obstructive pulmonary disease) Father DJD (degenerative joint disease) Sister Hyperlipidemia Myocardial infarction Daughter [id number] deficiency Social History Smoking/Tobacco Use Status: Former Tobacco Use tobacco type: cigarettes Quit Date: 10/18/13 Smoking risk assessment performed?: Yes Alcohol Intake: never Drug use: Never Substance use type: does not use Do you feel safe at home: Yes Do you feel safe in your relationship?: Yes History History Para 2 Hx # Term Pregnancies Multiple births Hx # Pregnancies Ectopic pregnancies AB induced Hx Number of Living Children AB spontaneous Meds Allergies and Home Medications Allergies Allergy/AdvReac Type Severity Reaction Status Date / Time Latex, Natural Rubber Allergy Intermediate rash; Verified 05/19/22 13:01 contact dermatitis codeine [Codeine] AdvReac Intermediate Headache Verified 05/19/22 13:01 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 Intermediate contact Uncoded 05/19/22 13:01 dermatitis Home Medications Medication Instructions Recorded Confirmed Type ascorbic acid (vitamin C) 1,000 mg 1,000 mg PO DAILY 03/29/17 05/19/22 History tablet (C-1000) aspirin 81 mg tablet,delayed 81 mg PO DAILY 03/29/17 05/19/22 History release (Aspir-) omega-3 fatty acids-fish oil 340 1 ea PO DAILY 03/29/17 05/19/22 History mg-1,000 mg capsule (Fish Oil) bisacodyl 5 mg tablet (Correctol) 5 mg PO DAILY 01/19/20 05/19/22 History bismuth subsalicylate 262 mg 2 tab PO DAILY PRN 01/19/20 05/19/22 History tablet (Pepto-Bismol) calcium carbonate 333 mg-magnesium 1 tab PO DAILY 01/19/20 05/19/22 History oxide 133 mg-zinc gluc 5 mg tablet cholecalciferol (vitamin D3) 25 1,000 unit PO DAILY 01/19/20 05/19/22 History mcg (1,000 unit) capsule denture care products ##1 01/19/20 02/17/22 History denture cleanser #1 tab 01/19/20 02/17/22 History menthol 8 mg lozenges 8 mg mucous membrane DAILY PRN 01/19/20 05/19/22 History toothpaste (Sensodyne toothpaste) #113 grams 01/19/20 02/17/22 History [employer] Oxygen Concentrator #1 ea 04/01/20 02/17/22 Rx Nasal Cannula O2 Tubing #2 ea 05/23/20 02/17/22 Rx ibuprofen 400 mg tablet 400 mg PO TID PRN fever or pain 03/03/21 05/19/22 Rx #270 tab-caps atenolol 50 mg tablet 50 mg PO DAILY #90 tab-caps 06/09/21 05/19/22 Rx betamethasone valerate 0.1 % 1 applic topical BID PRN rash 10/13/21 05/19/22 Rx topical cream hands #30 grams tetrahydrozoline 0.05 % eye drops 1 drp ophthalmic (eye) TID #15 mL 10/23/21 05/19/22 Rx albuterol sulfate 2.5 mg/3 mL 2.5 mg (3 mL) inhalation Q4H PRN 12/01/21 05/19/22 Rx (0.083 %) solution for nebulization shortness of breath or wheezing #180 mL fenofibrate nanocrystallized 48 mg See Rx Instructions .Route 12/01/21 05/19/22 Rx tablet .COMPLEX #90 tabs simvastatin 80 mg tablet See Rx Instructions .Route 12/01/21 05/19/22 Rx .COMPLEX #45 tabs fluticasone propionate 50 See Rx Instructions .Route 01/26/22 05/19/22 Rx mcg/actuation nasal .COMPLEX #48 mL spray,suspension Oxygen Concentrator #1 ea 01/27/22 02/17/22 Rx lisinopril 10 mg tablet 10 mg PO DAILY #90 tab-caps 01/27/22 05/19/22 Rx omeprazole 40 mg capsule,delayed 40 mg PO DAILY #90 tab-caps 01/27/22 05/19/22 Rx release umeclidinium 62.5 mcg/actuation 1 inh inhalation DAILY #30 ea 01/27/22 05/19/22 Rx blister powder for inhalation pregabalin 150 mg capsule (Lyrica) 150 mg PO BID #180 tab-caps 02/09/22 05/19/22 Rx ipratropium bromide 0.02 % 2.5 ml inhalation Q8H PRN PRN 02/13/22 05/19/22 History solution for inhalation Shortness Of Breath Or Wheezing prednisone 20 mg tablet 40 mg PO DAILY #10 tabs 02/14/22 02/17/22 Rx budesonide-formoterol HFA 80 2 puff inhalation BID #10.2 grams 02/17/22 02/17/22 Rx mcg-4.5 mcg/actuation aerosol inhaler (Symbicort) ipratropium 20 mcg-albuterol 100 1 puff inhalation QID #12 grams 04/06/22 05/19/22 Rx mcg/actuation mist for inhalation (Combivent Respimat) citalopram 20 mg tablet 40 mg PO DAILY #180 tab-caps 05/11/22 05/19/22 Rx Exam Const General: cooperative, acute distress moderate and respiratory, frail appearing and ill appearing (older than stated age) chronically Nutritional Appearance: average body habitus Orientation: alert, awake and oriented x3 HENMT Head: normal to inspection, normocephalic and atraumatic Resp Effort & Inspection: respiratory distress, tachypneic and uses accessory muscles Auscultation: diminished lung sounds (throughout ), no rales, no rhonchi and no wheezes Cardio Rate: tachycardic Rhythm: regular rhythm Neuro General: patient alert, patient awake and patient oriented x3 Extrem General: no pedal edema Results Labs Result diagrams: 05/19/22 13:10 05/19/22 13:10 Labs: Laboratory Results - last 24 hr 05/19/22 05/19/22 05/19/22 13:05 13:10 13:10 WBC RBC Hgb Hct MCV MCH MCHC RDW Plt Count MPV Immature Gran % Neutrophils % Lymphocytes % Monocytes % Eosinophils % Basophils % Nucleated RBC % Absolute Neutrophils Absolute Lymphocytes Absolute Monocytes Absolute Eosinophils Absolute Basophils ABG Sample Site ABG pH ABG pCO2 ABG pO2 ABG HCO3 ABG Total CO2 ABG O2 Saturation ABG Base Excess Oxygen Liter Flow Sodium 138 Potassium 3.8 Chloride 99 Carbon Dioxide 26.9 Anion Gap 12.1 H BUN 23 H Creatinine 1.2 H Estimated GFR/1.73 m2 44.29 Glucose 147 H Calcium 11.0 H Magnesium 1.6 L Total Bilirubin 0.7 AST 35 ALT 30 Alkaline Phosphatase 68 Troponin I 137 H* NT-Pro-B Natriuret Pep 06869 H Total Protein 9.0 H Albumin 4.5 Procalcitonin COVID-19 Source Nasal/Nares SARS-CoV-2 (PCR) Negative 05/19/22 05/19/22 05/19/22 13:10 13:10 13:35 WBC 14.94 H RBC 5.42 H Hgb 16.1 H Hct 47.5 H MCV 88 MCH 29.7 MCHC 33.9 RDW 12.3 Plt Count 389 MPV 11.3 H Immature Gran % 0.6 Neutrophils % 86.3 Lymphocytes % 7.6 Monocytes % 5.2 Eosinophils % 0.0 Basophils % 0.3 Nucleated RBC % 0.0 Absolute Neutrophils 12.89 H Absolute Lymphocytes 1.14 L Absolute Monocytes 0.78 Absolute Eosinophils 0.00 Absolute Basophils 0.04 ABG Sample Site Left Radial ABG pH 7.40 ABG pCO2 42 ABG pO2 69 L ABG HCO3 26 ABG Total CO2 23 ABG O2 Saturation 93 L ABG Base Excess 1 Oxygen Liter Flow 5 Sodium Potassium Chloride Carbon Dioxide Anion Gap BUN Creatinine Estimated GFR/1.73 m2 Glucose Calcium Magnesium Total Bilirubin AST ALT Alkaline Phosphatase Troponin I NT-Pro-B Natriuret Pep Total Protein Albumin Procalcitonin < 0.1 COVID-19 Source SARS-CoV-2 (PCR) 05/19/22 15:40 WBC RBC Hgb Hct MCV MCH MCHC RDW Plt Count MPV Immature Gran % Neutrophils % Lymphocytes % Monocytes % Eosinophils % Basophils % Nucleated RBC % Absolute Neutrophils Absolute Lymphocytes Absolute Monocytes Absolute Eosinophils Absolute Basophils ABG Sample Site ABG pH ABG pCO2 ABG pO2 ABG HCO3 ABG Total CO2 ABG O2 Saturation ABG Base Excess Oxygen Liter Flow Sodium Potassium Chloride Carbon Dioxide Anion Gap BUN Creatinine Estimated GFR/1.73 m2 Glucose Calcium Magnesium Total Bilirubin AST ALT Alkaline Phosphatase Troponin I 144 H* NT-Pro-B Natriuret Pep Total Protein Albumin Procalcitonin COVID-19 Source SARS-CoV-2 (PCR) Last Vital Signs Temp 36.1 C L 05/19/22 12:56 Pulse 128 H 05/19/22 15:45 Resp 25 H 05/19/22 15:45 BP 149/126 H 05/19/22 15:45 Pulse Ox 90 L 05/19/22 15:45
[2022-05-19] MEDS: Pregabalin 50 MG CAP 150 MG PO (19:47)
[2022-05-19] MEDS: Enoxaparin 40 MG/0.4 ML SYR SC (19:47)
[2022-05-19] MEDS: Simvastatin 40 MG TAB PO (19:47)
[2022-05-19 20:24] LABS: Troponin I 109 ng/L (<or=60)
[2022-05-20] VITALS (18 sets, daily range): BP systolic 86–134; BP diastolic 54–80; PULSE 58–122; RESP 8–24; TEMP 36–37.5; O2SAT 91–98
[2022-05-20 06:59] LABS: Abs Immature Grans 0.06 10^3/uL (0.0-0.06); Absolute Basophil Count 0.01 10^3/uL (0.0-0.2); Absolute Lymphocyte Count 1.14 10^3/uL (1.2-3.4); Absolute Neutrophil Count 8.96 10^3/uL (1.2-6.7); Basophils % 0.1; HCT 44.9 % (36.0-46.0); HGB 14.7 g/dL (11.2-15.7); Immature Grans % 0.5; Lymphocytes % 10.4; MCH 29.7 pg (27.0-33.0); MCHC 32.7 % (32.0-36.0); MCV 91 fL (80-95); MPV 11.4 fL (8.0-11.0); Monocytes % 7.3; Neutrophils % 81.7; Platelet Count 317 10^3/uL (130-400); RBC 4.95 10^6/uL (3.93-5.22); RDW 12.8 % (11.7-14.6); RDW-SD 41.8 fL; WBC 10.97 10^3/uL (4.4-10.8)
[2022-05-20 07:15] LABS: Anion Gap 10.8 mmol/L (3-11); BUN 38 mg/dL (7-18); CO2 29.2 mmol/L (21.0-32.0); CREATININE 1.2 mg/dL (0.55-1.02); Calcium 10.3 mg/dL (8.5-10.1); Chloride 100 mmol/L (98-107); Estimated GFR 44.29 (mL/min/1.73m2); Glucose 137 mg/dL (74-106); Magnesium 2.4 mg/dL (1.8-2.4); Potassium 3.7 mmol/L (3.5-5.1); Sodium 140 mmol/L (136-145)
[2022-05-20] MEDS: Umeclidinium 7 CAP INHALER IH (07:31)
[2022-05-20] MEDS: Ipratropium 0.5 MG/2.5 ML UPD VIAL UPD ×4 (07:32→19:44)
[2022-05-20] MEDS: Aspirin E.C. 81 MG TABEC PO (08:20)
[2022-05-20] MEDS: Citalopram 20 MG TAB 40 MG PO (08:20)
[2022-05-20] MEDS: Fenofibrate, Micronized 48 MG TAB PO (08:20)
[2022-05-20] MEDS: Omega-3 Fatty Acids 1000 MG CAP PO (08:20)
[2022-05-20] MEDS: Cholecalciferol (Vitamin D3) 1,000 UNIT TAB 1000 UNITS PO (08:20)
[2022-05-20] MEDS: Pregabalin 50 MG CAP 150 MG PO ×2 (08:20→19:39)
[2022-05-20] MEDS: Omeprazole 20 MG CAPCR 40 MG PO (08:20)
[2022-05-20] MEDS: Furosemide 20 MG/2 ML VIAL 40 MG IVP ×2 (08:20→16:00)
[2022-05-20] MEDS: Lisinopril 10 MG TAB PO (08:21)
[2022-05-20] MEDS: predniSONE 20 MG TAB 40 MG PO (08:21)
[2022-05-20] MEDS: Atenolol 50 MG TAB PO (08:21)
[2022-05-20] MEDS: Ascorbic Acid 500 MG TAB 1000 MG PO (08:21)
[2022-05-20] MEDS: Normal Saline Flush 10 ML SYR IVP ×3 (08:21→22:29)
--- NOTE | 2022-05-20 08:33 | INITIAL_ITS ---
- If Service Date Differs Date of service: 05/20/22 Time of Service: 08:33 Care Management Initial Assess REASON FOR HOSPITALIZATION:: Acute COPD Exacerbation PAST MEDICAL HISTORY/PAST SURGICAL HISTORY:: All Active Problems (Updated 05/19/22 @ 17:22 by Cathryn Taylor DO). Acute exacerbation of chronic obstructive pulmonary disease (Acute). Acute exacerbation of congestive heart failure (Acute). Elevated troponin (Acute). Demand ischemia (Acute). CHF exacerbation (Acute). COPD exacerbation (Acute). Exercise hypoxemia (Acute). ENEDELIA FOWLER III, MD, PULMONOLOGY. Bronchiectasis without complication (Acute). 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 Nasal congestion (Acute 07/01/17). Lung nodules (Acute 04/16/17). H/O contact dermatitis and eczema (Acute 02/18/17). Affects Hands, including the palms and the anticubital fossa, and her neck. 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 Deviated nasal septum (Acute 07/01/17). DJD (degenerative joint disease) (Acute 02/18/17). Severe. Palpitations (Acute). Elevated troponin I level (Acute). COPD (chronic obstructive pulmonary disease) (Acute). Gold stage 3, Enedelia Fowler MD. Incidental lung nodule, > 3mm and < 8mm (Acute). Hypertension (Acute). Medical History (Updated 05/19/22 @ 17:22 by Cathryn Taylor DO). Anxiety. Cardiomyopathy. CHF (congestive heart failure). Chronic kidney disease (02/18/17). COPD (chronic obstructive pulmonary disease). on chronic supplemental oxygen. Depression (02/18/17). Fibromyalgia (02/18/17). Gastroesophageal reflux disease (02/18/17). Hyperlipidemia (02/18/17). LBBB (left bundle branch block). Non-ST elevation [place] (NSTEMI). Surgical History . Dilation and curettage (~1984). Ligation of fallopian tube (~1984). Open Carpal Tunnel release. Tonsillectomy and adenoidectomy PREVIOUS FUNCTIONAL STATUS/SOCIAL/FAMILY SUPPORTS:: Celia is retired and resides alone in her apartment in [place]. She is independent with most of ADLs. Her main support person is her daughter, Jame who she identifies as her paid caregiver through [employer]. Jame helps her with transportation, housekeeping and grocery shopping. Timmy shares that she has a large family, all who are all very supportive. She enjoys spending time with her children, grandchildren and likes to garden. CURRENT FUNCTIONAL STATUS:: Celia was lying in bed when CM met with her. She is alert, oriented and easy to engage in conversation. Celia shares that her daughter is her caregiver through [employer]. Celia is familiar with [facility] and [facility], and not interested at this time. She is however agreeable to a palliative consult and HH services, if needed. ADVANCE DIRECTIVES:: On File, [facility]CA is Jame Nava Has patient been provided with info about the portal/API?: Yes Did the patient sign up for the portal?: Yes CODE STATUS:: Full Code INSURANCE COVERAGE / FINANCIAL ISSUES:: Medicare. Financial Assist CURRENT HOME/COMMUNITY SERVICES/EQUIPMENT:: Celia is connected with [employer]: Caregiver/daughter Jame: helps with housekeeping, grocery shopping, transportation etc. Grab bars, tub seat, handrails, ramp, FWW walker. Oxygen through [employer] PRIMARY CARE PHYSICIAN:: Kathleen Joyce POTENTIAL DISCHARGE NEEDS:: Outpatient follow up appointments, New [facility] services (if indicated) PATIENT/FAMILY EDUCATION NEEDS:: Review discharge instructions, discuss Ask Me Three. TRANSPORTATION:: Via private vehicle with daughter Jame. PLAN:: Anticipate, Celia will return home with new [facility] RN/PT/OT (if indicated) once medically cleared per provider. She will transport via private vehicle with Jame. Celia will follow discharge plan of care as prescribed and follow up with Palliative Care and Community providers.
--- NOTE | 2022-05-20 10:52 | CHAPLAIN ---
Celia was resting in bed when I visited. She said she is feeling better, but was given medicine that gave her the shakes so she was shaking during the night. She was waiting to meet with the doctor, and I don't know what kind of news I'll get. BRYANNA Munoz, came in while I was there. Celia's daughter, Joaquín, also arrived. Celia had told me that Joaquín has visited her and she expects her granddaughter, Zenon, to visit today.
--- NOTE | 2022-05-20 11:20 | W.PM.PROGNOT ---
Date of Service Date of service: 05/20/22 Time of Service: 11:20 Assessment and Plan Assessment and plan (1) COPD exacerbation: Status: Acute Assessment and plan: responded to nebs, given steroids. no antibiotics indicated at this time. covid negative continue schedule inhalers, steroids, wean oxygen as able discussed code status, would like to remain full code for now. unsure if really would want ventilator but not wanting to decide now. palliative consult will be placed to help with decision making. (2) Acute exacerbation of congestive heart failure: Status: Acute Assessment and plan: continue BID lasix monitor I&O, weights echo results pending on asa, bb and jude. (3) Demand ischemia: Status: Acute Assessment and plan: ED provider reviewed EKG and troponins [place]une[place] [facility] [place] acute changes on EKG and trops flat. remained flat, does not want transfer to [facility] (4) Lung nodules: Status: Acute Assessment and plan: will f/u outpatient (5) Hypertension: Status: Acute Assessment and plan: continue lisinopril monitor and adjust as needed. (6) Discharge planning issues: Status: Acute Assessment and plan: anticipate discharge to retirement facility vs home with home health services. discussed with DR Navas Subjective Subjective Patient reports: no new complaints, feels better, tolerating liquids well, tolerating a regular diet, shortness of breath and afebrile Exam Const General: cooperative, frail appearing and ill appearing (older than stated age) chronically Nutritional Appearance: average body habitus Orientation: alert, awake and oriented x3 HENMT Head: normal to inspection, normocephalic and atraumatic Resp Auscultation: diminished lung sounds (throughout ), no rales, no rhonchi and no wheezes Cardio Rate: tachycardic Rhythm: regular rhythm Neuro General: patient alert, patient awake and patient oriented x3 Extrem General: no pedal edema Objective Last Vital Signs Temp 37.5 C 05/20/22 07:20 Pulse 121 H 05/20/22 07:32 Resp 23 05/20/22 07:20 BP 134/80 05/20/22 07:20 Pulse Ox 91 L 05/20/22 07:32 Laboratory Results - last 24 hr 05/19/22 05/19/22 05/19/22 13:05 13:10 13:10 WBC RBC Hgb Hct MCV MCH MCHC RDW Plt Count MPV Immature Gran % Neutrophils % Lymphocytes % Monocytes % Eosinophils % Basophils % Nucleated RBC % Absolute Neutrophils Absolute Lymphocytes Absolute Monocytes Absolute Eosinophils Absolute Basophils ABG Sample Site ABG pH ABG pCO2 ABG pO2 ABG HCO3 ABG Total CO2 ABG O2 Saturation ABG Base Excess Oxygen Liter Flow Sodium 138 Potassium 3.8 Chloride 99 Carbon Dioxide 26.9 Anion Gap 12.1 H BUN 23 H Creatinine 1.2 H Estimated GFR/1.73 m2 44.29 Glucose 147 H Calcium 11.0 H Magnesium 1.6 L Total Bilirubin 0.7 AST 35 ALT 30 Alkaline Phosphatase 68 Troponin I 137 H* NT-Pro-B Natriuret Pep 06502 H Total Protein 9.0 H Albumin 4.5 Procalcitonin COVID-19 Source Nasal/Nares SARS-CoV-2 (PCR) Negative 05/19/22 05/19/22 05/19/22 13:10 13:10 13:35 WBC 14.94 H RBC 5.42 H Hgb 16.1 H Hct 47.5 H MCV 88 MCH 29.7 MCHC 33.9 RDW 12.3 Plt Count 389 MPV 11.3 H Immature Gran % 0.6 Neutrophils % 86.3 Lymphocytes % 7.6 Monocytes % 5.2 Eosinophils % 0.0 Basophils % 0.3 Nucleated RBC % 0.0 Absolute Neutrophils 12.89 H Absolute Lymphocytes 1.14 L Absolute Monocytes 0.78 Absolute Eosinophils 0.00 Absolute Basophils 0.04 ABG Sample Site Left Radial ABG pH 7.40 ABG pCO2 42 ABG pO2 69 L ABG HCO3 26 ABG Total CO2 23 ABG O2 Saturation 93 L ABG Base Excess 1 Oxygen Liter Flow 5 Sodium Potassium Chloride Carbon Dioxide Anion Gap BUN Creatinine Estimated GFR/1.73 m2 Glucose Calcium Magnesium Total Bilirubin AST ALT Alkaline Phosphatase Troponin I NT-Pro-B Natriuret Pep Total Protein Albumin Procalcitonin < 0.1 COVID-19 Source SARS-CoV-2 (PCR) 05/19/22 05/19/22 05/20/22 15:40 19:56 06:05 WBC RBC Hgb Hct MCV MCH MCHC RDW Plt Count MPV Immature Gran % Neutrophils % Lymphocytes % Monocytes % Eosinophils % Basophils % Nucleated RBC % Absolute Neutrophils Absolute Lymphocytes Absolute Monocytes Absolute Eosinophils Absolute Basophils ABG Sample Site ABG pH ABG pCO2 ABG pO2 ABG HCO3 ABG Total CO2 ABG O2 Saturation ABG Base Excess Oxygen Liter Flow Sodium 140 Potassium 3.7 Chloride 100 Carbon Dioxide 29.2 Anion Gap 10.8 BUN 38 H Creatinine 1.2 H Estimated GFR/1.73 m2 44.29 Glucose 137 H Calcium 10.3 H Magnesium 2.4 Total Bilirubin AST ALT Alkaline Phosphatase Troponin I 144 H* 109 H* NT-Pro-B Natriuret Pep Total Protein Albumin Procalcitonin COVID-19 Source SARS-CoV-2 (PCR) 05/20/22 06:05 WBC 10.97 H RBC 4.95 Hgb 14.7 Hct 44.9 MCV 91 MCH 29.7 MCHC 32.7 RDW 12.8 Plt Count 317 MPV 11.4 H Immature Gran % 0.5 Neutrophils % 81.7 Lymphocytes % 10.4 Monocytes % 7.3 Eosinophils % 0.0 Basophils % 0.1 Nucleated RBC % 0.0 Absolute Neutrophils 8.96 H Absolute Lymphocytes 1.14 L Absolute Monocytes 0.80 Absolute Eosinophils 0.00 Absolute Basophils 0.01 ABG Sample Site ABG pH ABG pCO2 ABG pO2 ABG HCO3 ABG Total CO2 ABG O2 Saturation ABG Base Excess Oxygen Liter Flow Sodium Potassium Chloride Carbon Dioxide Anion Gap BUN Creatinine Estimated GFR/1.73 m2 Glucose Calcium Magnesium Total Bilirubin AST ALT Alkaline Phosphatase Troponin I NT-Pro-B Natriuret Pep Total Protein Albumin Procalcitonin COVID-19 Source SARS-CoV-2 (PCR)
[2022-05-20] MEDS: Enoxaparin 40 MG/0.4 ML SYR SC (18:03)
[2022-05-20] MEDS: Simvastatin 40 MG TAB PO (19:39)
[2022-05-20] MEDS: Normal Saline 250 ML IV (22:34)
[2022-05-21] VITALS (11 sets, daily range): BP systolic 98–113; BP diastolic 60–65; PULSE 57–105; RESP 17–20; TEMP 35.6–36.8; O2SAT 87–98
[2022-05-21] MEDS: Normal Saline 250 ML IV (01:29)
[2022-05-21 07:29] LABS: Anion Gap 4.3 mmol/L (3-11); BUN 66 mg/dL (7-18); CO2 31.7 mmol/L (21.0-32.0); CREATININE 2.9 mg/dL (0.55-1.02); Calcium 8.4 mg/dL (8.5-10.1); Chloride 99 mmol/L (98-107); Glucose 92 mg/dL (74-106); Potassium 3.5 mmol/L (3.5-5.1); Sodium 135 mmol/L (136-145)
[2022-05-21] MEDS: Pregabalin 50 MG CAP 150 MG PO (07:33)
[2022-05-21] MEDS: Fenofibrate, Micronized 48 MG TAB PO (07:33)
[2022-05-21] MEDS: Furosemide 20 MG/2 ML VIAL 40 MG IVP (07:33)
[2022-05-21] MEDS: Lisinopril 10 MG TAB PO (07:34)
[2022-05-21] MEDS: Cholecalciferol (Vitamin D3) 1,000 UNIT TAB 1000 UNITS PO (07:34)
[2022-05-21] MEDS: Omega-3 Fatty Acids 1000 MG CAP PO (07:34)
[2022-05-21] MEDS: Citalopram 20 MG TAB 40 MG PO (07:34)
[2022-05-21] MEDS: Aspirin E.C. 81 MG TABEC PO (07:34)
[2022-05-21] MEDS: Omeprazole 20 MG CAPCR 40 MG PO (07:34)
[2022-05-21] MEDS: Atenolol 50 MG TAB PO (07:34)
[2022-05-21] MEDS: Ascorbic Acid 500 MG TAB 1000 MG PO (07:34)
[2022-05-21] MEDS: predniSONE 20 MG TAB 40 MG PO (07:34)
[2022-05-21] MEDS: Normal Saline Flush 10 ML SYR IVP (07:35)
[2022-05-21] MEDS: Mylanta Suspension 30 ML CUP PO (08:23)
[2022-05-21] MEDS: Ipratropium 0.5 MG/2.5 ML UPD VIAL UPD ×4 (08:32→19:24)
[2022-05-21] MEDS: Levalbuterol 1.25 MG/3 ML UPD VIAL UPD ×3 (08:33→16:21)
[2022-05-21] MEDS: Umeclidinium 7 CAP INHALER IH (08:33)
[2022-05-21] MEDS: Acetaminophen 325 MG TAB PO ×2 (08:58→16:18)
[2022-05-21] MEDS: Normal Saline 500 ML IV (09:32)
--- NOTE | 2022-05-21 11:11 | PDOC.CMPRO ---
- If Service Date Differs Date of service: 05/21/22 Time of Service: 11:11 Care Management Progress Note S/O: Celia remains inpatient, pleasant in interaction and daily visits with family. CM requested PT consult from ENVIRONMENTAL SERVICES TECHNICIAN, CM continues to follow. A: 71 year old female admitted to [facility] 05/19/22 for acute exacerbation of COPD and CHF P: Celia will return home with new [facility] RN/PT/OT (if indicated) once medically cleared per provider. She will transport via private vehicle with J[facility]. Celia will follow discharge plan of care as prescribed and follow up with Palliative Care and Community providers.
--- NOTE | 2022-05-21 11:49 | PGE_ITS ---
Date of Service Date of service: 05/21/22 Time of Service: 11:49 Assessment and Plan Assessment and plan (1) COPD exacerbation: Status: Acute Assessment and plan: responded to nebs, given steroids. no antibiotics indicated at this time. covid negative continue schedule inhalers, steroids, wean oxygen as able discussed code status, would like to remain full code for now. unsure if really would want ventilator but not wanting to decide now. palliative consult will be placed to help with decision making. (2) Acute exacerbation of congestive heart failure: Status: Acute Assessment and plan: appears dry now lasix stopped in setting of TARIQ monitor I&O, weights on asa, bb and jude (placed on hold for TARIQ). echo: LV normal size, mildly reduced, EF 45% (3) Demand ischemia: Status: Acute Assessment and plan: ED provider reviewed EKG and troponins with DR Nunez from cardiology at [facility]. no acute changes on EKG and trops flat. remained flat, does not want transfer to [facility] (4) Lung nodules: Status: Acute Assessment and plan: will f/u outpatient (5) Hypertension: Status: Acute Assessment and plan: blood pressures soft, discontinue lisinopril (TARIQ) monitor and adjust as needed. (6) Acute kidney injury: Status: Acute Assessment and plan: will stop IV lasix, given fluid bolus lisinopril placed on hold avoid nephrotoxic drugs, renal dosing (7) Discharge planning issues: Status: Acute Assessment and plan: anticipate discharge to half-way facility vs home with home health services. discussed with Dr Gibbs Subjective Subjective Patient reports: no new complaints, feels better, tolerating liquids well, tolerating a regular diet, shortness of breath (markedly improved and at baseline) and afebrile; denies nausea Exam Const General: cooperative, frail appearing and ill appearing (older than stated age) chronically Nutritional Appearance: average body habitus Orientation: alert, awake and oriented x3 HENMT Head: normal to inspection, normocephalic and atraumatic Mouth: moist mucous membranes abnormal (dry) Resp Auscultation: diminished lung sounds (throughout but moving more air than yesterday), no rales, no rhonchi and wheezes expiratory wheezes and lower bilaterally (faint) Cardio Rate: tachycardic Rhythm: regular rhythm Skin General skin exam: no rashes or lesions noted, abnormal elasticity, decreased turgor (tenting) and dry skin Neuro General: patient alert, patient awake and patient oriented x3 Extrem General: no pedal edema Objective Last Vital Signs Temp 36.8 C 05/21/22 11:13 Pulse 66 05/21/22 11:13 Resp 18 05/21/22 11:13 BP 99/63 L 05/21/22 11:13 Pulse Ox 96 05/21/22 11:13 Laboratory Results - last 24 hr 05/21/22 06:43 Sodium 135 L Potassium 3.5 Chloride 99 Carbon Dioxide 31.7 Anion Gap 4.3 BUN 66 H Creatinine 2.9 H D Estimated GFR/1.73 m2 16.00 Glucose 92 Calcium 8.4 L
[2022-05-21] MEDS: Potassium Chloride 20 MEQ TABCR PO (12:08)
--- NOTE | 2022-05-21 12:20 | RESPIRATORY ---
Pt has her own Inogen System at home. Pt states that she personally bought her Inogen system out of pocket, as well as her home O2 concentrator. Pt gets al of her extra O2 supples on [employer] as needed and does not use a DME company. Pt's daughter stated she will bring in the Inogen system for the pt's discharge. Pt's baseline is 3 Lpm 24/7 at home.
--- NOTE | 2022-05-21 14:35 | IN_ITS ---
Date of service: 05/21/22 Time of Service: 14:35 PT Notes Visit Reasons: Acute Exacerbation of COPD and CHF Physical Therapy Inpatient Initial Evaluation Date: 05/21/2022 Referring Doctor: Tammy Mancilla NP PT Orders: PT CONSULT: Eval/treat Precautions: Fall. Standard. Low endurance, needs frequent rests. Activity as tolerated. on 3 L of O2/min via NC. Patient Profile/Admitting Diagnosis: Celia is a 71-year-old female who presented to the ED on 05/19/2022 due to complaints of worsening fatigue and shortness of breath for the past several days. Patient is diagnosed with COPD exacerbation, CHF exacerbation, demand ischemia, lung nodule, and hypertension. PMHX: All Active Problems?(Updated 05/19/22 @ 17:22 by Cathryn Taylor DO) Acute exacerbation of chronic obstructive pulmonary disease (Acute) Acute exacerbation of congestive heart failure (Acute) Elevated troponin (Acute) Demand ischemia (Acute) CHF exacerbation (Acute) COPD exacerbation (Acute) Exercise hypoxemia (Acute) ENEDELIA FOWLER III, MD, PULMONOLOGY Bronchiectasis without complication (Acute) Enedelia Fowler III, MD, cleaning and washing equipment operator Nasal congestion (Acute 07/01/17) Lung nodules (Acute 04/16/17) H/O contact dermatitis and eczema (Acute 02/18/17) Affects Hands, including the palms and the anticubital fossa, and her neck. 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 Deviated nasal septum (Acute 07/01/17) DJD (degenerative joint disease) (Acute 02/18/17) Severe Palpitations (Acute) Elevated troponin I level (Acute) COPD (chronic obstructive pulmonary disease) (Acute) Gold stage 3, Enedelia Fowler MDIncidental lung nodule, > 3mm and < 8mm (Acute) Hypertension (Acute) Medical History?(Updated 05/19/22 @ 17:22 by Cathryn Taylor DO) Anxiety Cardiomyopathy CHF (congestive heart failure) Chronic kidney disease (02/18/17) COPD (chronic obstructive pulmonary disease) on chronic supplemental oxygen Depression (02/18/17) Fibromyalgia (02/18/17) Gastroesophageal reflux disease (02/18/17) Hyperlipidemia (02/18/17) LBBB (left bundle branch block) Non-ST elevation [place] (NSTEMI) Surgical History? Dilation and curettage (~1984) Ligation of fallopian tube (~1984) Open Carpal Tunnel release Tonsillectomy and adenoidectomy Social History/Home Situation: Lives alone in a private home with 4 steps to enter. Sister and sister's family live downstairs from her. She is independent with mobility ADLs using no assistive device. Intermittently able to do her own self-care, meals, and dressing. On chronic oxygen supplementation at 3 L/min via NC at home. Daughter and granddaughter helps whenever needed. Equipment Owned/DME: 4WW, SPC Subjective: Agreeable to PT consult. Reports some minimal shortness of breath with activity that resolved with rest. Denies headache, chest pain, and dizziness throughout session. Be able to either home health PT or SNF placement depending on what she will need. Does not feel safe going home today or tomorrow. Objective: General Observation: Supine in bed, sleeping but was able to awaken when her name was called. Oxygen supp via NC in place. On consistent oxygen pulse oximeter. Telemetry monitoring in place. Mental Status: Alert and oriented as to person, place, time, and purpose. Able to pay attention, focus, and respond appropriately. Pain: Denies Vital Signs: SaO2 ranged from 84% to 92% on 3L during mobility assessment ROM: Right Upper Extremity: Shoulder Flexion WFL. Shoulder abduction WFL. Elbow flexion WFL. Wrist flexion WFL. Functional opening and closing of hand WFL. Left Upper Extremity: Shoulder Flexion WFL. Shoulder abduction WFL. Elbow flexion WFL. Wrist flexion WFL. Functional opening and closing of hand WFL. Right Lower Extremity: Hip flexion WFL. Hip abduction WFL. Knee flexion WFL. Ankle dorsiflexion WFL. Ankle plantarflexion WFL. Left Lower Extremity: Hip flexion WFL. Hip abduction WFL. Knee flexion WFL. Ankle dorsiflexion WFL. Ankle plantarflexion WFL. Strength: Right Upper Extremity: Shoulder flexors 4-/5. Shoulder abductors 4-/5. Elbow flexors 4-/5. Elbow extensors 4-/5. Ultrasound Applications Specialist strong. Left Upper Extremity: Shoulder flexors 4-/5. Shoulder abductors 4-/5. Elbow flexors 4-/5. Elbow extensors 4-/5. Ultrasound Applications Specialist strong. Right Lower Extremity: Hip flexors 4-/5. Hip abductors 4-/5. Knee flexors 4-/5. Knee extensors 4-/5. Ankle dorsiflexors 4-/5. Ankle plantarflexors 4-/5. Left Lower Extremity: Hip flexors 4-/5. Hip abductors 4-/5. Knee flexors 4-/5. Knee extensors 4-/5. Ankle dorsiflexors 4-/5. Ankle plantarflexors 4-/5. Bed Mobility/Transfers: Supine to sit with stand by assist Sit to stand with contact-guard assist Stand to sit with standby assist Bed to reclining chair contact-guard assist Gait: Instructed patient with level surface ambulation of 150 feet requiring assist. Sandra decreased. Step height decreased. Step length decreased. Oxygen saturation ranged from 85% to 92% on 3 L of oxygen during ambulation activity. Mild shortness of breath no loss of balance. Patient minimal fatigue from activity. Balance: Static Sitting: Normal Dynamic Sitting: Normal Static Standing: Fair Dynamic Standing: Fair Special Tests: Mobility Limitations Standardized Measure [facility] AM-PAC 6 clicks Basic Mobility Inpatient Short Form: Raw Score: 18 CMS Score: 47% deficit Informed Consent/Education: Patient was instructed in purpose of PT consult and plan of care. Agreeable to proceed with established PT POC to achieve personal goals. Assessment: Patient presents with clinical signs and symptoms consistent with current/admitting diagnoses that have resulted to mobility limitations, gait instability, generalized weakness, and overall ADL decline as demonstrated by the following impairment level findings: 1. Decreased strength to B UE/LE major muscle groups 2. Impaired sitting/standing balance 3. Impaired activity tolerance 4. Shortness of breath 5. Fatigue Impairments are contributing to the following functional limitations: 1. Decline in bed mobility skills 2. Decline in transfer skills 3. Difficulty with ambulation without assistive device and physical assistance 4. Increased completion time for mobility ADL performance 5. Increased risk for falls 6. Difficulty with managing steps alone safely Patient is assessed as a 77212 moderate complexity based on the following: History: 71-year-old female with past medical history as indicated above Examination: Demonstrable impairment in strength, balance, and mobility level with underlying impairments and functional limitations as exhibited above as well as deficit score of 47% utilizing the [facility] Mobility Inpatient Short Form Presentation: Evolving Decision Makin moderate complexity Goals: Goals X1 week 1. Supine-Sit independent 2. Sit-Supine independent 3. Sit-Stand independent 4. Stand-Sit independent with 4WW 5. Bed-Chair independent with 4WW 6. Chair-Bed independent with 4WW 7. Independent gait on level surface with use of 4WW for at least 100 feet without report of pain nor dyspnea 8. Independent stair negotiation while holding onto 1 rail for at least 5 steps without report of pain nor dyspnea 9. Independent with home exercise program 10. Good static and dynamic standing balance/tolerance Plan of Care/Treatment Plan: 1-2x/day, 7 days/week x 1 week. Plan of care has been reviewed with the PUBLIC INFORMATION RELATIONS MANAGER providing the service under Physical Therapy direction. Initiate Physical Therapy intervention for pain management as needed, strengthening, bed mobility, transfers, gait, stairs, balance training, and use of assistive device. DISCHARGE RECOMMENDATIONS: [] Home with no services [] [X] Home with services. Patient will benefit from home health PT services in order to progress mobility level using least restrictive assistive ambulatory device, assess home safety, identify additional equipment needs, and establish a functional maintenance program that will increase ability of patient to remain at home. [] Home with outpatient PT [] [] SNF for continued rehabilitation [] [] Intermediate Care [] [] SNF versus LTC based on ability to participate and progress [] TREATMENT CODE/TIME: 05529 x 20 minutes, 23522 x 25 minutes beginning at 14:35 PM. Thank you for the opportunity to participate in the care of this patient. Fernanda Mercado PT, DPT, CLT [facility] [place], [place]
--- NOTE | 2022-05-21 16:08 | CHAPLAIN ---
I had a follow up visit with Celia today. She said she is feeling better, moving and talking more easily. She said she [facility] before going home. When I asked what she does to relax, Celia stated that she is often very anxious. Her daughter was treated for breast cancer last year, and Celai worries about her daughter's health. She has a hard time not worrying, and sometimes watches tv as a distraction. This summer has been especially hard on her breathing because of higher than usual temperatures.
[2022-05-21] MEDS: Enoxaparin 30 MG/0.3 ML SYR SC (17:45)
[2022-05-21] MEDS: Simvastatin 40 MG TAB PO (19:23)
[2022-05-22] VITALS (9 sets, daily range): BP systolic 122–137; BP diastolic 69–84; PULSE 62–77; RESP 8–18; TEMP 36.4–36.7; O2SAT 92–99
[2022-05-22 07:09] LABS: HCT 36.4 % (36.0-46.0); MCH 29.9 pg (27.0-33.0); MCV 91 fL (80-95); MPV 11.3 fL (8.0-11.0); Platelet Count 196 10^3/uL (130-400); RBC 4.01 10^6/uL (3.93-5.22); RDW 11.9 % (11.7-14.6); RDW-SD 40.2 fL; WBC 10.95 10^3/uL (4.4-10.8)
[2022-05-22] MEDS: Ipratropium 0.5 MG/2.5 ML UPD VIAL UPD ×2 (07:44→12:36)
[2022-05-22] MEDS: Umeclidinium 7 CAP INHALER IH (07:44)
[2022-05-22] MEDS: Levalbuterol 1.25 MG/3 ML UPD VIAL UPD ×2 (07:47→12:36)
[2022-05-22] MEDS: Normal Saline Flush 10 ML SYR IVP (08:00)
[2022-05-22] MEDS: Cholecalciferol (Vitamin D3) 1,000 UNIT TAB 1000 UNITS PO (08:00)
[2022-05-22] MEDS: Ascorbic Acid 500 MG TAB 1000 MG PO (08:01)
[2022-05-22] MEDS: predniSONE 20 MG TAB 40 MG PO (08:01)
[2022-05-22] MEDS: Atenolol 50 MG TAB PO (08:01)
[2022-05-22] MEDS: Omega-3 Fatty Acids 1000 MG CAP PO (08:01)
[2022-05-22] MEDS: Pregabalin 25 MG CAP 75 MG PO (08:01)
[2022-05-22] MEDS: Aspirin E.C. 81 MG TABEC PO (08:01)
[2022-05-22] MEDS: Omeprazole 20 MG CAPCR 40 MG PO (08:02)
[2022-05-22] MEDS: Citalopram 20 MG TAB 40 MG PO (08:02)
--- NOTE | 2022-05-22 08:34 | CMPROGNOTE_ITS ---
- If Service Date Differs Date of service: 05/22/22 Time of Service: 08:34 Care Management Progress Note S/O: Celia was lying in bed when CM met with her. She is alert, oriented and easy to engage in conversation. She would like to discharge home with New [facility] service. She has caregiver services through [facility]. Palliative care is also consulted. Celia shares that she is flexible with her discharge plan and would be willing to go to [facility] for STR, if absolutely needed. CM faxed referral to [facility]. A: 71 year old female admitted to [facility] 05/19/22 for acute exacerbation of COPD and CHF P: Celia will discharge to SNF for STR vs return home with new [facility] RN/PT/OT (if indicated) once medically cleared per provider. Transportation will be dependent on disposition. Celia will follow discharge plan of care as prescribed and follow up with Palliative Care and Community providers.
[2022-05-22 10:05] LABS: Anion Gap 7.4 mmol/L (3-11); BUN 55 mg/dL (7-18); CO2 30.6 mmol/L (21.0-32.0); CREATININE 1.4 mg/dL (0.55-1.02); Calcium 8.7 mg/dL (8.5-10.1); Chloride 99 mmol/L (98-107); Estimated GFR 37.07 (mL/min/1.73m2); Glucose 99 mg/dL (74-106); Sodium 137 mmol/L (136-145)
[2022-05-22] MEDS: Fluticasone NASAL SPRAY 16 GM BTL NS (12:54)
--- NOTE | 2022-05-22 13:21 | PT.INTREAT ---
Date of service: 05/22/22 Time of Service: 13:04 PT Notes Visit Reasons: Acute Exacerbation of COPD and CHF Inpatient Physical Therapy Treatment Note [facility] Date: 05/22/2022 PRECAUTIONS: Fall, activity as tolerated SUBJECTIVE: Celia is pleasant and agreeable to participating in PT. She reports that she feels tired today, but she will do what she can. OBJECTIVE: PAIN: No c/o pain BED MOBILITY/TRANSFERS Supine-sit: I with HOB at 40 degrees Sit-stand: SBA Stand-sit: SBA GAIT Assistive Device: FWW Weight bearing: Full Assist: SBA Distance: 150' Deviation: Mild SOB, slow pacing VITALS: SaO2: unable to get good reading via finger probe, patient asymptomatic on 2L O2 supplemental O2 with gait training ASSESSMENT: Patient demonstrates limited activity tolerance due to fatigue. She tolerates gait training with very mild SOB on 2L supplemental O2. PLAN: Continue with global strengthening and general conditioning for improved activity tolerance. TREATMENT CODE/TIME: 10 minutes; 99136 (13:04)
[2022-05-22] MEDS: Refresh PLUS Eye Drops 0.4ml 1 EACH OU (13:55)
--- NOTE | 2022-05-22 14:17 | W.PM.PROGNOT ---
Date of Service Date of service: 05/22/22 Time of Service: 14:17 Assessment and Plan Assessment and plan (1) COPD exacerbation: Status: Acute Assessment and plan: responded to nebs, given steroids. no antibiotics indicated at this time. covid negative continue schedule inhalers, steroids, at home oxygen delivery discussed code status, would like to remain full code for now. unsure if really would want ventilator but not wanting to decide now. palliative consult will be placed to help with decision making. (2) Acute exacerbation of congestive heart failure: Status: Acute Assessment and plan: appears euvolemic continue to monitor I&O, weights on asa, bb and jude (placed on hold for TARIQ). echo: LV normal size, mildly reduced, EF 45% (3) Demand ischemia: Status: Resolved Assessment and plan: ED provider reviewed EKG and troponins with DR Nunez from cardiology at [facility]. no acute changes on EKG and trops flat. remained flat, does not want transfer to [facility] (4) Lung nodules: Status: Acute Assessment and plan: will f/u outpatient (5) Hypertension: Status: Acute Assessment and plan: blood pressures stable, Continue to hold lisinopril (TARIQ) for now monitor and adjust as needed. (6) Acute kidney injury: Status: Acute Assessment and plan: improving. no further lasix or fluids at this time lisinopril placed on hold avoid nephrotoxic drugs, renal dosing check labs in am. (7) Discharge planning issues: Status: Acute Assessment and plan: anticipate discharge to [facility], case management consulted and referrals will be sent. discussed with Dr Gibbs Subjective Subjective Patient reports: no new complaints, feels better, tolerating liquids well, tolerating a regular diet, shortness of breath (at baseline) and afebrile Exam Const General: cooperative, frail appearing and ill appearing (older than stated age) chronically Nutritional Appearance: average body habitus Orientation: alert, awake and oriented x3 HENMT Head: normal to inspection, normocephalic and atraumatic Mouth: moist mucous membranes abnormal (dry) Resp Auscultation: diminished lung sounds (throughout but moving more air than yesterday), no rales, no rhonchi and wheezes expiratory wheezes and lower bilaterally (faint) Cardio Rate: tachycardic Rhythm: regular rhythm Skin General skin exam: no rashes or lesions noted Neuro General: patient alert, patient awake and patient oriented x3 Extrem General: no pedal edema Objective Last Vital Signs Temp 36.7 C 05/22/22 11:12 Pulse 68 05/22/22 11:12 Resp 18 05/22/22 11:12 BP 122/69 05/22/22 11:12 Pulse Ox 92 05/22/22 11:12 Laboratory Results - last 24 hr 05/22/22 05/22/22 06:45 06:45 WBC 10.95 H RBC 4.01 Hgb 12.0 D Hct 36.4 MCV 91 MCH 29.9 MCHC 33.0 RDW 11.9 Plt Count 196 MPV 11.3 H Sodium 137 Potassium 4.0 Chloride 99 Carbon Dioxide 30.6 Anion Gap 7.4 BUN 55 H Creatinine 1.4 H D Estimated GFR/1.73 m2 37.07 Glucose 99 Calcium 8.7
--- NOTE | 2022-05-22 15:15 | W.PM.DS.N ---
Date of service: 05/22/22 Time of Service: 15:15 DS: Diagnosis Discharge Diagnosis (1) COPD exacerbation: Status: Acute (2) Acute exacerbation of congestive heart failure: Status: Acute (3) Demand ischemia: Status: Resolved (4) Lung nodules: Status: Acute (5) Hypertension: Status: Acute (6) Acute kidney injury: Status: Acute Discharge Plan Disposition Patient Disposition: SNF (LEVEL 1) [facility] Condition: Stable Discharge Details Reason For Visit: Acute Exacerbation of COPD and CHF Admit Date/Time: 05/19/22 16:58 Admit Provider: Skye Navas Attending Provider: Skye Navas Primary Care Provider: Kathleen Joyce Hospital Course Hospital Course: This is a 71-year-old female with a history of former tobacco dependence, COPD chronically on 3 L nasal cannula oxygen, fibromyalgia, anxiety, hypertension, hyperlipidemia who presented to the emergency department for c/o fatigue and shortness of breath.? Her work up in the ED most concerning for copd exacerbation.?She received IV steroids, updrafts with improvement in her symptoms. her procal normal so no indication for antibiotics.? She was given lasix 40 mg IVP for some possible CHF and admitted to the hospitalist services for further evaluation and management. she continued to received treatment for copd exacerbation and IV lasix. Echocardiogram showed EF of 45%, unable to assess regional wall motion d/t limited images, right ventricle normal size and function. One day of diuresis and her creatinine increased from 1.2 to 2.9 with BUN 38 to 66. Her lasix was stopped and she was given 3 fluid boluses. She was also noted to be hypotensive with sbp in high 90's. this improved with hydration and creatinine now down to 1.4 and BP 120's. will defer further medication recommendations such as entresto and jardiance to outpatient providers in setting of recent TARIQ and hypotension. Her respiratory status has returned to baseline and she is oxygenating well on her home O2 flow of 3 liters nc. She should continue prednisone burst of 40 mg daily for 4 more days to complete a 7 day course. she was working with physical therapy and will benefit from inpatient rehabilitation and referrals sent. she has been accepted by [facility] and rehab. \ discharge discussed with Dr Gibbs [place] Meds and New Rx's Prescriptions: Continued budesonide-formoterol [Symbicort] 80-4.5 mcg/actuation HFA aerosol inhaler 2 puff inhalation BID Qty: 10.2 12RF (DME) Nasal Cannula O2 Tubing Qty: 2 12RF Rx Instructions: As directed omeprazole 40 mg capsule,delayed release(DR/EC) 40 mg PO DAILY Qty: 90 3RF lisinopril 10 mg tablet 10 mg PO DAILY Qty: 90 3RF umeclidinium 62.5 mcg/actuation blister with device 1 inh inhalation DAILY Qty: 30 12RF (DME) Oxygen Concentrator with portability See Rx Instructions .Route .MEDSUPPLY Qty: 1 0RF Rx Instructions: As directed. Desaturates to 79% on RA at rest. calcium carb-mag ox-zinc gluc 333-133-5 mg tablet 1 tab PO DAILY cholecalciferol (vitamin D3) 25 mcg (1,000 unit) capsule 1,000 unit PO DAILY Correctol 5 mg tablet 5 mg PO DAILY Pepto-Bismol 262 mg tablet 2 tab PO DAILY PRN Rx Instructions: do not exceed 16 tabs per 24 hrs menthol 8 mg lozenge 8 mg MM DAILY PRN (DME) Sensodyne Toothpaste See Rx Instructions .ROUTE .MEDSUPPLY Qty: 113 Rx Instructions: daily as needed (DME) denture care products Cream See Rx Instructions .ROUTE .MEDSUPPLY Qty: 1 Rx Instructions: daily (DME) denture cleanser Tablet, Effervescent See Rx Instructions .ROUTE .MEDSUPPLY Qty: 1 Rx Instructions: daily (DME) Inogen Oxygen Concentrator 3L NC Qty: 1 0RF Rx Instructions: 3L NC ibuprofen 400 mg tablet 400 mg PO TID PRN (Reason: fever or pain) Qty: 270 3RF atenolol 50 mg tablet 50 mg PO DAILY Qty: 90 3RF betamethasone valerate 0.1 % cream 1 applic Topical BID PRN (Reason: rash hands) Qty: 30 6RF Rx Instructions: APPLY TO HANDS NEEDED tetrahydrozoline 0.05 % drops 1 drp ophthalmic (eye) TID Qty: 15 12RF Rx Instructions: OU TID PRN fenofibrate nanocrystallized 48 mg tablet See Rx Instructions .ROUTE .COMPLEX Qty: 90 3RF Dose Instruction: TAKE ONE TABLET BY MOUTH EVERY DAY Rx Instructions: TAKE ONE TABLET BY MOUTH EVERY DAY simvastatin 80 mg tablet See Rx Instructions .ROUTE .COMPLEX Qty: 45 3RF Dose Instruction: TAKE 1/2 TABLET BY MOUTH DAILY Rx Instructions: TAKE 1/2 TABLET BY MOUTH DAILY albuterol sulfate 2.5 mg /3 mL (0.083 %) solution for nebulization 2.5 mg inhalation Q4H PRN (Reason: shortness of breath or wheezing) Qty: 180 3RF fluticasone propionate 50 mcg/actuation spray,suspension See Rx Instructions .ROUTE .COMPLEX Qty: 48 3RF Dose Instruction: INSTILL 2 SPRAYS NASALLY TWICE DAILY Rx Instructions: INSTILL 2 SPRAYS NASALLY TWICE DAILY pregabalin [Lyrica] 150 mg capsule 150 mg PO BID Qty: 180 2RF Combivent Respimat 20-100 mcg/actuation mist 1 puff IH QID Qty: 12 3RF Rx Instructions: Please dispense 3 month supply if insurance allows citalopram 20 mg tablet 40 mg PO DAILY Qty: 180 3RF ipratropium bromide 0.02 % Solution 2.5 ml INHALATION Q8H PRN PRN (Reason: Shortness Of Breath Or Wheezing) prednisone 20 mg tablet 40 mg PO DAILY Qty: 10 0RF ascorbic acid (vitamin C) [C-1000] 1,000 MG tablet 1,000 mg PO DAILY aspirin [Aspir-81] 81 MG tablet,delayed release (DR/EC) 81 mg PO DAILY Fish Oil 1 EACH capsule 1 ea PO DAILY Discharge Instructions Instructions: COPD (Chronic Obstructive Pulmonary Disease) (DC) Stand Alone Forms: Nursing Discharge Form Referrals: Kathleen Joyce NP [Primary Care Provider] - (upon discharge from rehab) Activity:: Activity as Tolerated Equipment/Supplies:: No Equipment Needed Diet:: As Tolerated Discharge Orders Discharge Orders: Discharge Order (Routine); Ordered 05/22/22 Ordered By: Tammy Mancilla DS: Summary Time Spent with Patient providing and/or coordinating discharge services: Greater than 30 minutes Status at Discharge Functional status at discharge: uses cane/walker Overall status at discharge: patient is progressing back to baseline Mental Status: mental status grossly normal Speech and Movement: speech and movement normal Mood: congruent mood Affect: normal affect Exam Const General: cooperative, frail appearing and ill appearing (older than stated age) chronically Nutritional Appearance: average body habitus Orientation: alert, awake and oriented x3 HENMT Head: normal to inspection, normocephalic and atraumatic Mouth: moist mucous membranes abnormal (dry) Resp Auscultation: diminished lung sounds (throughout but moving more air than yesterday), no rales, no rhonchi and wheezes expiratory wheezes and lower bilaterally (faint) Cardio Rhythm: regular rhythm Skin General skin exam: no rashes or lesions noted and abnormal elasticity Neuro General: patient alert, patient awake and patient oriented x3 Extrem General: no pedal edema Psych Mental Status: mental status grossly normal Speech and Movement: speech and movement normal Mood: congruent mood Affect: normal affect DS: Data Vitals/I&O Vitals and I&O: Vital Signs Temperature 36.7 C 05/22/22 15:00 Temperature Source Tympanic 05/22/22 15:00 Pulse 73 05/22/22 15:00 Pulse Rhythm Regular 05/22/22 07:53 Pulse 113 H 05/19/22 17:25 Respiratory Rate 18 05/22/22 15:00 Respiratory Effort 05/22/22 07:53 Respiratory Depth Normal 05/22/22 07:53 Respiratory Pattern Normal 05/22/22 07:53 Blood Pressure 134/70 05/22/22 15:00 Blood Pressure Mean 83 05/19/22 17:25 Blood Pressure Position Sitting 05/19/22 12:56 Pulse Oximetry 93 05/22/22 15:00 Oxygen Delivery Method Nasal Cannula 05/22/22 15:00 Oxygen Flow Rate 3 05/22/22 15:00 Pain Level 0 05/22/22 10:08 Comment 05/22/22 10:08 Intake & Output 05/21/22 05/22/22 05/22/22 23:59 11:59 23:59 Intake Total 400 / 1350 410 / 410 0 / 410 Output Total 550 / 650 1425 / 2150 725 / 2150 Balance -150 / 700 -1015 / -1740 -725 / -1740 Weight 70.1 kg Intake: IV Oral 400 / 600 400 / 400 0 / 400 Output: Urine 550 / 650 1425 / 2150 725 / 2150 Other: Urine Color Yellow Yellow Yellow Straw Urine Appearance Cloudy Clear Clear Voiding Methods Indwelling Catheter Indwelling Catheter Data Completed and Pending Labs on day of discharge: Labs from last 24 hours 05/22/22 05/22/22 06:45 06:45 WBC 10.95 H RBC 4.01 Hgb 12.0 D Hct 36.4 MCV 91 MCH 29.9 MCHC 33.0 RDW 11.9 Plt Count 196 MPV 11.3 H Sodium 137 Potassium 4.0 Chloride 99 Carbon Dioxide 30.6 Anion Gap 7.4 BUN 55 H Creatinine 1.4 H D Estimated GFR/1.73 m2 37.07 Glucose 99 Calcium 8.7 PFSH All Active Problems (Updated 05/22/22 @ 14:19 by Tammy Mancilla NP) Acute kidney injury (Acute) Discharge planning issues (Acute) Acute exacerbation of chronic obstructive pulmonary disease (Acute) Acute exacerbation of congestive heart failure (Acute) Elevated troponin (Acute) CHF exacerbation (Acute) COPD exacerbation (Acute) Exercise hypoxemia (Acute) ENEDELIA FOWLER III, MD, PULMONOLOGY Bronchiectasis without complication (Acute) 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 Deviated nasal septum (Acute 07/01/17) DJD (degenerative joint disease) (Acute 02/18/17) Severe Palpitations (Acute) Elevated troponin I level (Acute) COPD (chronic obstructive pulmonary disease) (Acute) Gold stage 3, Enedelia Fowler MD Incidental lung nodule, > 3mm and < 8mm (Acute) Hypertension (Acute) Medical History (Updated 05/22/22 @ 14:19 by Tammy Mancilla NP) Anxiety Cardiomyopathy CHF (congestive heart failure) Chronic kidney disease (02/18/17) COPD (chronic obstructive pulmonary disease) on chronic supplemental oxygen Depression (02/18/17) Fibromyalgia (02/18/17) Gastroesophageal reflux disease (02/18/17) Hyperlipidemia (02/18/17) LBBB (left bundle branch block) Non-ST elevation [place] (NSTEMI) Surgical History Dilation and curettage (~1984) Ligation of fallopian tube (~1984) Open Carpal Tunnel release Tonsillectomy and adenoidectomy Family History Mother Essential hypertension Heart disease COPD (chronic obstructive pulmonary disease) Father DJD (degenerative joint disease) Sister Hyperlipidemia Myocardial infarction Daughter Gquys-[id number] deficiency Social History Smoking/Tobacco Use Status: Former Tobacco Use tobacco type: cigarettes Quit Date: 10/18/13 Smoking risk assessment performed?: Yes Alcohol Intake: never Drug use: Never Substance use type: does not use Do you feel safe at home: Yes Do you feel safe in your relationship?: Yes History History Para 2 Hx # Term Pregnancies Multiple births Hx # Pregnancies Ectopic pregnancies AB induced Hx Number of Living Children AB spontaneous
--- NOTE | 2022-05-22 15:15 | PDOC.CMDIS ---
- If Service Date Differs Date of service: 05/22/22 Time of Service: 15:15 LACE Index Scoring Tool - Questions: Length of Stay (in days): 3 Acuity (Admit via E.D.?): Yes Comorbidities: Previous M.I., Congestive Heart Failure, Chronic Pulmonary Disease, Liver or Renal Disease E.D. Visits: 2 - Answers: Total Score: 13 Risk of Readmission: High Risk Care Management Discharge Reason for Hospitalization: Acute COPD Exacerbation Discharge Plan: Celia is discharged to [facility] for STR prior to returning home. Transport provided by facility w/c van. Pt will follow up with her community providers and discharge plan of care as prescribed. Celia spoke with her daughter Jame about this discharge plan prior to discharging. Patient/Family Education Needs: Review discharge instructions, limitations, medications and plan to follow up with community providers. ask me three. Services Needed at Discharge: Group Home Facility ([facility] for STR)
--- NOTE | 2022-05-22 18:40 | INDS_ITS ---
Date of service: 05/22/22 PT Notes Visit Reasons: Acute Exacerbation of COPD and CHF Physical Therapy Inpatient Initial Evaluation Date: 05/22/2022 Dates of Ssrvice: 05/21/2022 through 05/22/2022 This is a clinical summary of care provided for the duration of dates listed above. No charge was made in the completion of this documentation. Referring Doctor:Jerzy Mancilla NP PT Orders: PT CONSULT: Eval/treat Precautions: Fall. Standard. Low endurance, needs frequent rests.? Activity as tolerated. on 3 L of O2/min via NC. Patient Profile/Admitting Diagnosis:? Celia is a 71-year-old female who presented to the ED on 05/19/2022 due to complaints of worsening fatigue and shortness of breath for the past several days.? Patient is diagnosed with COPD exacerbation, CHF exacerbation, demand ischemia, lung nodule, and hypertension. 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 Deviated nasal septum (Acute 07/01/17) DJD (degenerative joint disease) (Acute 02/18/17) Severe Palpitations (Acute) Elevated troponin I level (Acute) COPD (chronic obstructive pulmonary disease) (Acute) Gold stage 3, Enedelia Fowler MDIncidental lung nodule, > 3mm and < 8mm (Acute) Hypertension (Acute) Medical History?(Updated 05/19/22 @ 17:22 by Cathryn Taylor DO) Anxiety Cardiomyopathy CHF (congestive heart failure) Chronic kidney disease (02/18/17) COPD (chronic obstructive pulmonary disease) on chronic supplemental oxygen Depression (02/18/17) Fibromyalgia (02/18/17) Gastroesophageal reflux disease (02/18/17) Hyperlipidemia (02/18/17) LBBB (left bundle branch block) Non-ST elevation [place] (NSTEMI) Surgical History? Dilation and curettage (~1984) Ligation of fallopian tube (~1984) Open Carpal Tunnel release Tonsillectomy and adenoidectomy Social History/Home Situation: Lives alone in a private home with 4 steps to enter.? Sister and sister's family live downstairs from her.? She is independent with mobility ADLs using no assistive device.? Intermittently able to do her own self-care, meals, and dressing.? On chronic oxygen supplementation at 3 L/min via NC at home.? Daughter and granddaughter helps whenever needed. Equipment Owned/DME: 4WW, SPC Subjective: NT. See most recent INTERMEDIATE CARD TENDER notes. Objective: General Observation: NT. See most recent INTERMEDIATE CARD TENDER notes. Mental Status: NT. See most recent INTERMEDIATE CARD TENDER notes. Pain: NT. See most recent INTERMEDIATE CARD TENDER notes. Vital Signs: NT. See most recent INTERMEDIATE CARD TENDER notes. ROM: Right Upper Extremity: ? Shoulder Flexion WFL. Shoulder abduction WFL. Elbow flexion WFL. Wrist flexion WFL. Functional opening and closing of hand WFL. Left Upper Extremity:? Shoulder Flexion WFL. Shoulder abduction WFL. Elbow flexion WFL. Wrist flexion WFL. Functional opening and closing of hand WFL. Right Lower Extremity: Hip flexion WFL. Hip abduction WFL. Knee flexion WFL. Ankle dorsiflexion WFL. Ankle plantarflexion WFL. Left Lower Extremity: Hip flexion WFL. Hip abduction WFL. Knee flexion WFL. Ankle dorsiflexion WFL. Ankle plantarflexion WFL. Strength: Right Upper Extremity: Shoulder flexors 4-/5. Shoulder abductors 4-/5. Elbow flexors 4-/5. Elbow extensors 4-/5. Order Selector strong. Left Upper Extremity: Shoulder flexors 4-/5. Shoulder abductors 4-/5. Elbow flexors 4-/5. Elbow extensors 4-/5. Order Selector strong. Right Lower Extremity: Hip flexors 4-/5. Hip abductors 4-/5. Knee flexors 4-/5. Knee extensors 4-/5. Ankle dorsiflexors 4-/5. Ankle plantarflexors 4-/5. Left Lower Extremity: Hip flexors 4-/5. Hip abductors 4-/5. Knee flexors 4-/5. Knee extensors 4-/5. Ankle dorsiflexors 4-/5. Ankle plantarflexors 4-/5. BED MOBILITY/TRANSFERS? Supine-sit: I with HOB at 40 degrees? Sit-stand: SBA ? Stand-sit: SBA ? GAIT? Assistive Device: FWW ? Weight bearing: Full Assist: SBA? Distance:? 150'? Deviation: Mild SOB, slow pacing ? Balance: Static Sitting: Normal Dynamic Sitting: Normal Static Standing: Fair Dynamic Standing: Fair Assessment: Patient presents with clinical signs and symptoms consistent with current/admitting diagnoses that have resulted to mobility limitations, gait instability, generalized weakness, and overall ADL decline as demonstrated by the following impairment level findings: 1.? Decreased strength to B UE/LE major muscle groups 2.? Impaired sitting/standing balance 3.? Impaired activity tolerance 4.? Shortness of breath 5.? Fatigue Impairments are contributing to the following functional limitations: 1.? Decline in bed mobility skills 2.? Decline in transfer skills 3.? Difficulty with ambulation without assistive device and physical assistance 4.? Increased completion time for mobility ADL performance 5.? Increased risk for falls 6.? Difficulty with managing steps alone safely Goals: Goals X1 week 1. Supine-Sit independent MET 2. Sit-Supine independent NOT MET 3. Sit-Stand independent NOT MET 4. Stand-Sit independent with 4WW NOT MET 5. Bed-Chair independent with 4WW NOT MET 6. Chair-Bed independent with 4WW NOT MET 7. Independent gait on level surface with use of 4WW for at least 100 feet without report of pain nor dyspnea NOT MET 8. Independent stair negotiation while holding onto 1 rail for at least 5 steps without report of pain nor dyspnea NOT MET 9. Independent with home exercise program NOT MET 10. Good static and dynamic standing balance/tolerance NOT MET DISCHARGE RECOMMENDATIONS: [] ? Home with no services [] [X] ? Home with services.? Patient will benefit from home health PT services in order to progress mobility level using least restrictive assistive ambulatory device, assess home safety, identify additional equipment needs, and establish a functional maintenance program that will increase ability of patient to remain at home. [] ? Home with outpatient PT [] [] ? SNF for continued rehabilitation [] [] ? Desk Director Care [] [] ? SNF versus LTC based on ability to participate and progress [] TREATMENT CODE/TIME: WAGNER Thank you for the opportunity to participate in the care of this patient. Fernanda Mercado PT, DPT, CLT [facility] [place], [place]
== END 2022-05-22 15:53 | disposition skilled nursing facility (03) | DRG 191 ==
LOC: ER 17:17 → MS 17:33
PROVIDERS: Family Medicine; Nurse Practitioner Acute Care; Admitting Provider Internal Medicine; Emergency Provider Physician Assistant; PCP Nurse Practitioner; Visit Provider Internal Medicine
DX: J44.1 Chronic obstructive pulmonary disease with (acute) exacerbation (principal); I13.0 Hypertensive heart and chronic kidney disease with heart failure and stage 1 through stage 4 chronic kidney disease, or unspecified chronic kidney disease; I24.8 Other forms of acute ischemic heart disease; N17.9 Acute kidney failure, unspecified; I42.9 Cardiomyopathy, unspecified; R91.8 Other nonspecific abnormal finding of lung field; I50.9 Heart failure, unspecified; Z99.81 Dependence on supplemental oxygen; M79.7 Fibromyalgia; F41.9 Anxiety disorder, unspecified; E78.5 Hyperlipidemia, unspecified; N18.9 Chronic kidney disease, unspecified; K21.9 Gastro-esophageal reflux disease without esophagitis; F32.A Depression, unspecified; I44.7 Left bundle-branch block, unspecified; I25.2 Old myocardial infarction; I95.9 Hypotension, unspecified
CPT/HCPCS: 36415; 71275; 80048; 80053; 82805; 84145; 85027; 87635; 93005; 94640; 96361; 96365; 96366; 96375; 96376; 97162; 97530; 99291; J1650; 71045; 83735; 83880; 84484; 85025; 93010; 93306; 94664; 94667; 94760; 99223; 99233; 99239; J1940; J1941; J2270; J2930; J3490; J7512; J7614; J7644

== ENCOUNTER 2022-05-23 08:59 | Emergency (ER) | payer MEDICARE, SELFPAY ==
[2022-05-23 08:58] VITALS: BP 177/89; PULSE 79; RESP 16; TEMP 36.3; O2SAT 95
--- NOTE | 2022-05-23 09:07 | ED.GENADUL_ITS ---
Discharge Plan Disposition Patient Disposition: SNF (LEVEL 1) [facility] Discharge Details Clinical Impression: COPD (chronic obstructive pulmonary disease) Primary Care Provider: Kathleen Joyce ED Provider: Donny Huber Home Meds and New Rx's Prescriptions: No Action budesonide-formoterol [Symbicort] 80-4.5 mcg/actuation HFA aerosol inhaler 2 puff inhalation BID Qty: 10.2 12RF (DME) Nasal Cannula O2 Tubing Qty: 2 12RF Rx Instructions: As directed omeprazole 40 mg capsule,delayed release(DR/EC) 40 mg PO DAILY Qty: 90 3RF lisinopril 10 mg tablet 10 mg PO DAILY Qty: 90 3RF umeclidinium 62.5 mcg/actuation blister with device 1 inh inhalation DAILY Qty: 30 12RF (DME) Oxygen Concentrator with portability See Rx Instructions .Route .MEDSUPPLY Qty: 1 0RF Rx Instructions: As directed. Desaturates to 79% on RA at rest. calcium carb-mag ox-zinc gluc 333-133-5 mg tablet 1 tab PO DAILY cholecalciferol (vitamin D3) 25 mcg (1,000 unit) capsule 1,000 unit PO DAILY Correctol 5 mg tablet 5 mg PO DAILY Pepto-Bismol 262 mg tablet 2 tab PO DAILY PRN Rx Instructions: do not exceed 16 tabs per 24 hrs menthol 8 mg lozenge 8 mg MM DAILY PRN (DME) Sensodyne Toothpaste See Rx Instructions .ROUTE .MEDSUPPLY Qty: 113 Rx Instructions: daily as needed (DME) denture care products Cream See Rx Instructions .ROUTE .MEDSUPPLY Qty: 1 Rx Instructions: daily (DME) denture cleanser Tablet, Effervescent See Rx Instructions .ROUTE .MEDSUPPLY Qty: 1 Rx Instructions: daily (DME) Inogen Oxygen Concentrator 3L NC Qty: 1 0RF Rx Instructions: 3L NC ibuprofen 400 mg tablet 400 mg PO TID PRN (Reason: fever or pain) Qty: 270 3RF atenolol 50 mg tablet 50 mg PO DAILY Qty: 90 3RF betamethasone valerate 0.1 % cream 1 applic Topical BID PRN (Reason: rash hands) Qty: 30 6RF Rx Instructions: APPLY TO HANDS NEEDED tetrahydrozoline 0.05 % drops 1 drp ophthalmic (eye) TID Qty: 15 12RF Rx Instructions: OU TID PRN fenofibrate nanocrystallized 48 mg tablet See Rx Instructions .ROUTE .COMPLEX Qty: 90 3RF Dose Instruction: TAKE ONE TABLET BY MOUTH EVERY DAY Rx Instructions: TAKE ONE TABLET BY MOUTH EVERY DAY simvastatin 80 mg tablet See Rx Instructions .ROUTE .COMPLEX Qty: 45 3RF Dose Instruction: TAKE 1/2 TABLET BY MOUTH DAILY Rx Instructions: TAKE 1/2 TABLET BY MOUTH DAILY albuterol sulfate 2.5 mg /3 mL (0.083 %) solution for nebulization 2.5 mg inhalation Q4H PRN (Reason: shortness of breath or wheezing) Qty: 180 3RF fluticasone propionate 50 mcg/actuation spray,suspension See Rx Instructions .ROUTE .COMPLEX Qty: 48 3RF Dose Instruction: INSTILL 2 SPRAYS NASALLY TWICE DAILY Rx Instructions: INSTILL 2 SPRAYS NASALLY TWICE DAILY pregabalin [Lyrica] 150 mg capsule 150 mg PO BID Qty: 180 2RF Combivent Respimat 20-100 mcg/actuation mist 1 puff IH QID Qty: 12 3RF Rx Instructions: Please dispense 3 month supply if insurance allows citalopram 20 mg tablet 40 mg PO DAILY Qty: 180 3RF ipratropium bromide 0.02 % Solution 2.5 ml INHALATION Q8H PRN PRN (Reason: Shortness Of Breath Or Wheezing) prednisone 20 mg tablet 40 mg PO DAILY Qty: 10 0RF ascorbic acid (vitamin C) [C-1000] 1,000 MG tablet 1,000 mg PO DAILY aspirin [Aspir-81] 81 MG tablet,delayed release (DR/EC) 81 mg PO DAILY Fish Oil 1 EACH capsule 1 ea PO DAILY Discharge Instructions Additional Instructions: It is imperative that the patient maintain her nasal cannula with her oxygen. She is oxygen dependent and being off the oxygen will make her confused HPI General Date/Time Provider Initiated Documentation: 05/23/22 09:06 . HPI Narrative: 71-year-old lady sent from jail for evaluation of altered mental status. She was discharged from the hospital yesterday, she has been admitted for COPD exacerbation. She has been at the jail for less than 24 hours. She was found to be off her oxygen this morning with saturation 70s and 80s. She is oxygen dependent COPD year. She was argumentative with staff stating that she did not want to be there., EMS was activated and she was placed back on oxygen with normalization of her mental status and transferred to the emergency department. Upon arrival to the emergency department she has no complaints. She reemphasized the fact that she does not want to be in the jail and would rather be home but she also acknowledges that she was told that it was unsafe for her to go home, in she also extremely pelvis that her son does not want her at home because she needs more care than he can provide for her. She denies any headaches, chest pain, any increasing shortness of breath, no abdominal pain. Related Data Home Medications Medication Instructions Recorded Confirmed ascorbic acid (vitamin C) 1,000 mg 1,000 mg PO DAILY 03/29/17 05/23/22 tablet (C-1000) aspirin 81 mg tablet,delayed 81 mg PO DAILY 03/29/17 05/23/22 release (Aspir-) omega-3 fatty acids-fish oil 340 1 ea PO DAILY 03/29/17 05/23/22 mg-1,000 mg capsule (Fish Oil) bisacodyl 5 mg tablet (Correctol) 5 mg PO DAILY 01/19/20 05/23/22 bismuth subsalicylate 262 mg 2 tab PO DAILY PRN 01/19/20 05/23/22 tablet (Pepto-Bismol) calcium carbonate 333 mg-magnesium 1 tab PO DAILY 01/19/20 05/23/22 oxide 133 mg-zinc gluc 5 mg tablet cholecalciferol (vitamin D3) 25 1,000 unit PO DAILY 01/19/20 05/23/22 mcg (1,000 unit) capsule denture care products ##1 01/19/20 05/23/22 denture cleanser #1 tab 01/19/20 05/23/22 menthol 8 mg lozenges 8 mg mucous membrane DAILY PRN 01/19/20 05/23/22 toothpaste (Sensodyne toothpaste) #113 grams 01/19/20 05/23/22 Inogen Oxygen Concentrator #1 ea 04/01/20 05/23/22 Nasal Cannula O2 Tubing #2 ea 05/23/20 05/23/22 ibuprofen 400 mg tablet 400 mg PO TID PRN fever or pain 03/03/21 05/23/22 #270 tab-caps atenolol 50 mg tablet 50 mg PO DAILY #90 tab-caps 06/09/21 05/23/22 betamethasone valerate 0.1 % 1 applic topical BID PRN rash 10/13/21 05/23/22 topical cream hands #30 grams tetrahydrozoline 0.05 % eye drops 1 drp ophthalmic (eye) TID #15 mL 10/23/21 05/23/22 albuterol sulfate 2.5 mg/3 mL 2.5 mg (3 mL) inhalation Q4H PRN 12/01/21 05/23/22 (0.083 %) solution for nebulization shortness of breath or wheezing #180 mL fenofibrate nanocrystallized 48 mg See Rx Instructions .Route 12/01/21 05/23/22 tablet .COMPLEX #90 tabs simvastatin 80 mg tablet See Rx Instructions .Route 12/01/21 05/23/22 .COMPLEX #45 tabs fluticasone propionate 50 See Rx Instructions .Route 01/26/22 05/23/22 mcg/actuation nasal .COMPLEX #48 mL spray,suspension Oxygen Concentrator #1 ea 01/27/22 05/23/22 lisinopril 10 mg tablet 10 mg PO DAILY #90 tab-caps 01/27/22 05/23/22 omeprazole 40 mg capsule,delayed 40 mg PO DAILY #90 tab-caps 01/27/22 05/23/22 release umeclidinium 62.5 mcg/actuation 1 inh inhalation DAILY #30 ea 01/27/22 05/23/22 blister powder for inhalation pregabalin 150 mg capsule (Lyrica) 150 mg PO BID #180 tab-caps 02/09/22 05/23/22 ipratropium bromide 0.02 % 2.5 ml inhalation Q8H PRN PRN 02/13/22 05/23/22 solution for inhalation Shortness Of Breath Or Wheezing prednisone 20 mg tablet 40 mg PO DAILY #10 tabs 02/14/22 05/23/22 budesonide-formoterol HFA 80 2 puff inhalation BID #10.2 grams 02/17/22 05/23/22 mcg-4.5 mcg/actuation aerosol inhaler (Symbicort) ipratropium 20 mcg-albuterol 100 1 puff inhalation QID #12 grams 04/06/22 05/23/22 mcg/actuation mist for inhalation (Combivent Respimat) citalopram 20 mg tablet 40 mg PO DAILY #180 tab-caps 05/11/22 05/23/22 Previous Rx's Medication Instructions Recorded Inogen Oxygen Concentrator #1 ea 04/01/20 Nasal Cannula O2 Tubing #2 ea 05/23/20 ibuprofen 400 mg tablet 400 mg PO TID PRN fever or pain 03/03/21 #270 tab-caps atenolol 50 mg tablet 50 mg PO DAILY #90 tab-caps 06/09/21 betamethasone valerate 0.1 % 1 applic topical BID PRN rash 10/13/21 topical cream hands #30 grams tetrahydrozoline 0.05 % eye drops 1 drp ophthalmic (eye) TID #15 mL 10/23/21 albuterol sulfate 2.5 mg/3 mL 2.5 mg (3 mL) inhalation Q4H PRN 12/01/21 (0.083 %) solution for nebulization shortness of breath or wheezing #180 mL fenofibrate nanocrystallized 48 mg See Rx Instructions .Route 12/01/21 tablet .COMPLEX #90 tabs simvastatin 80 mg tablet See Rx Instructions .Route 12/01/21 .COMPLEX #45 tabs fluticasone propionate 50 See Rx Instructions .Route 01/26/22 mcg/actuation nasal .COMPLEX #48 mL spray,suspension Oxygen Concentrator #1 ea 01/27/22 lisinopril 10 mg tablet 10 mg PO DAILY #90 tab-caps 01/27/22 omeprazole 40 mg capsule,delayed 40 mg PO DAILY #90 tab-caps 01/27/22 release umeclidinium 62.5 mcg/actuation 1 inh inhalation DAILY #30 ea 01/27/22 blister powder for inhalation pregabalin 150 mg capsule (Lyrica) 150 mg PO BID #180 tab-caps 02/09/22 prednisone 20 mg tablet 40 mg PO DAILY #10 tabs 02/14/22 budesonide-formoterol HFA 80 2 puff inhalation BID #10.2 grams 02/17/22 mcg-4.5 mcg/actuation aerosol inhaler (Symbicort) ipratropium 20 mcg-albuterol 100 1 puff inhalation QID #12 grams 04/06/22 mcg/actuation mist for inhalation (Combivent Respimat) citalopram 20 mg tablet 40 mg PO DAILY #180 tab-caps 05/11/22 Allergies Allergy/AdvReac Type Severity Reaction Status Date / Time Latex, Natural Rubber Allergy Intermediate rash; Verified 05/19/22 13:01 contact dermatitis codeine [Codeine] AdvReac Intermediate Headache Verified 05/19/22 13:01 household pattern stamper Allergy Intermediate contact Uncoded 05/19/22 13:01 dermatitis General Stated Complaint: AMS/LOC ZACKERY: 3 Review of Systems Narrative: Constitutional negative for fevers and chills. Negative for malaise fatigue HEENT no sore throat Cardiovascular no chest pain Respiratory chronic shortness of breath worse with exertion, oxygen dependence currently without any respiratory complaints is very department. no abdominal pain no nausea vomiting GI no dysuria frequency MSK no myalgias no arthralgias Skin no rashes Neurological no headaches Hematological not on blood thinners PFSH All Active Problems (Updated 05/23/22 @ 09:40 by Donny Huber MD) Acute kidney injury (Acute) Acute exacerbation of chronic obstructive pulmonary disease (Acute) Acute exacerbation of congestive heart failure (Acute) Elevated troponin (Acute) CHF exacerbation (Acute) COPD exacerbation (Acute) Exercise hypoxemia (Acute) ENEDELIA FOWLER III, MD, PULMONOLOGY Bronchiectasis without complication (Acute) Enedelia Fowler III, MD, printer assistant Nasal congestion (Acute 07/01/17) Lung nodules (Acute 04/16/17) H/O contact dermatitis and eczema (Acute 02/18/17) Affects Hands, including the palms and the anticubital fossa, and her neck. 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 Deviated nasal septum (Acute 07/01/17) DJD (degenerative joint disease) (Acute 02/18/17) Severe Palpitations (Acute) Elevated troponin I level (Acute) COPD (chronic obstructive pulmonary disease) (Acute) Gold stage 3, Enedelia Fowler MD Incidental lung nodule, > 3mm and < 8mm (Acute) Hypertension (Acute) Medical History (Updated 05/23/22 @ 09:40 by Donny Huber MD) Anxiety Cardiomyopathy CHF (congestive heart failure) Chronic kidney disease (02/18/17) COPD (chronic obstructive pulmonary disease) on chronic supplemental oxygen Depression (02/18/17) Fibromyalgia (02/18/17) Gastroesophageal reflux disease (02/18/17) Hyperlipidemia (02/18/17) LBBB (left bundle branch block) Non-ST elevation OK (NSTEMI) Surgical History Dilation and curettage (~1984) Ligation of fallopian tube (~1984) Open Carpal Tunnel release Tonsillectomy and adenoidectomy Family History Mother Essential hypertension Heart disease COPD (chronic obstructive pulmonary disease) Father DJD (degenerative joint disease) Sister Hyperlipidemia Myocardial infarction Daughter [id number] deficiency Social History Smoking/Tobacco Use Status: Former Tobacco Use tobacco type: cigarettes Quit Date: 10/18/13 Smoking risk assessment performed?: Yes Alcohol Intake: never Drug use: Never Substance use type: does not use Do you feel safe at home: Yes Do you feel safe in your relationship?: Yes History History Para 2 Hx # Term Pregnancies Multiple births Hx # Pregnancies Ectopic pregnancies AB induced Hx Number of Living Children AB spontaneous Exam Narrative Exam Narrative: Awake alert [place] x3 calm no acute distress, Nasal cannula with normal work of breathing HEENT PERRLA EOMI MMM anicteric Supple neck Chest is clear to auscultation bilaterally with decreased breath sounds bilaterally Regular rhythm and rate no murmurs Abdomen soft nondistended nontender Back normal inspection MSK moving all 4 extremities. No lower extremity edema Skin no rashes Psych adequate mood and affect. Neuro grossly intact. Course Patient arrived to the emergency department with normal mental status. She acknowledges that she does not want to be in the jail but that she cannot be home alone. I have discussed this with her son who says that it is not prudent for her to be home alone and he cannot take care of his mother at home. Agree that her combativeness at the jail is most probably secondary to the hypoxia from her not using her oxygen. Again currently in the emergency department asymptomatic. She will be observed for short period in the emergency department and discharged back to the jail. Vital Signs Vital signs: Vital Signs Temperature 36.3 C L 05/23/22 08:58 Pulse 79 05/23/22 08:58 Respiratory Rate 16 05/23/22 08:58 Blood Pressure 177/89 H 05/23/22 08:58 Pulse Oximetry 95 05/23/22 08:58 Temperature 36.3 C L 05/23/22 08:58 Temperature Source Temporal Artery Scan 05/23/22 08:58 Pulse 79 05/23/22 08:58 Respiratory Rate 16 05/23/22 08:58 Respiratory Effort 05/23/22 09:03 Blood Pressure 177/89 H 05/23/22 08:58 Blood Pressure Position Sitting 05/23/22 08:58 Pulse Oximetry 95 05/23/22 08:58 Oxygen Delivery Method Nasal Cannula 05/23/22 08:58 Pain Level 0 05/23/22 08:58
[2022-05-23 09:50] VITALS: RESP 18; O2SAT 95
[2022-05-23 10:42] VITALS: RESP 22
== END 2022-05-23 10:42 | disposition skilled nursing facility (03) ==
PROVIDERS: Emergency Provider Emergency Medicine; PCP Nurse Practitioner
DX: J44.9 Chronic obstructive pulmonary disease, unspecified (principal); Z99.81 Dependence on supplemental oxygen; Z87.891 Personal history of nicotine dependence; Z79.51 Long term (current) use of inhaled steroids; Z79.52 Long term (current) use of systemic steroids
CPT/HCPCS: 99283; 99282

== ENCOUNTER 2022-05-28 15:59 | Outpatient (REF) | payer MEDICARE, SELFPAY ==
[2022-05-28 16:47] LABS: Abs Immature Grans 0.19 10^3/uL (0.0-0.06); Absolute Basophil Count 0.05 10^3/uL (0.0-0.2); Absolute Eosinophil Count 0.21 10^3/uL (0.0-0.7); Absolute Lymphocyte Count 1.88 10^3/uL (1.2-3.4); Absolute Monocyte Count 1.06 10^3/uL (0.1-0.8); Basophils % 0.4; Eosinophils % 1.6; HCT 38.7 % (36.0-46.0); HGB 12.8 g/dL (11.2-15.7); Immature Grans % 1.4; Lymphocytes % 14.2; MCH 30.4 pg (27.0-33.0); MCHC 33.1 % (32.0-36.0); MCV 92 fL (80-95); MPV 12.1 fL (8.0-11.0); Neutrophils % 74.4; Platelet Count 232 10^3/uL (130-400); RBC 4.21 10^6/uL (3.93-5.22); RDW 12.2 % (11.7-14.6); RDW-SD 41.2 fL; WBC 13.22 10^3/uL (4.4-10.8)
[2022-05-28 16:49] LABS: Absolute Neutrophil Count 9.84 10^3/uL (1.2-6.7)
[2022-05-28 16:52] LABS: Anion Gap 4.6 mmol/L (3-11); BUN 13 mg/dL (7-18); CO2 36.4 mmol/L (21.0-32.0); CREATININE 0.9 mg/dL (0.55-1.02); Calcium 8.9 mg/dL (8.5-10.1); Chloride 101 mmol/L (98-107); Glucose 98 mg/dL (74-106); Potassium 4.2 mmol/L (3.5-5.1); Sodium 142 mmol/L (136-145)
== END 2022-05-28 16:00 | disposition home or self-care (01) ==
LOC: LBN 15:59
PROVIDERS: PCP Nurse Practitioner; Visit Provider Family Medicine
DX: I50.9 Heart failure, unspecified (principal); I10 Essential (primary) hypertension
CPT/HCPCS: 80048; 85025

== ENCOUNTER 2022-06-29 16:47 | Inpatient (IN) | payer MEDICARE, SELFPAY ==
[2022-06-29] VITALS (44 sets, daily range): BP systolic 84–198; BP diastolic 54–122; PULSE 0–138; RESP 4–31; TEMP 36.8–38.2; O2SAT 85–98
--- NOTE | 2022-06-29 17:15 | DI.RAD_ITS ---
Exam(s) XR PORTABLE CHEST AP EXAM: XR PORTABLE CHEST AP CLINICAL HISTORY: SOB and fever TECHNIQUE: 2D digital imaging was performed. COMPARISON: CR XR CHEST 2V PA LATERAL from 02/13/2022 CR XR PORTABLE CHEST AP from 05/19/[address] CHEST PE CTA from 05/19/2022 FINDINGS: LUNGS: Underlying emphysematous and fibrotic changes. There is a question of superimposed increased densities in the lung bases. A left upper lobe nodule is again noted. No pleural abnormality seen. HEART: Normal. AORTA: Normal. BONES: Unremarkable for age. Soft tissues: Unremarkable. IMPRESSION: Question of increased densities in the lung bases which could represent atelectasis versus pneumonia. Clinical correlation recommended. Left upper lobe nodule. This had a suspicious appearance on christopher or CT. DATA REPOSITORY: RADIATION DOSE DELIVERED:
[2022-06-29] MEDS: methylPREDNISolone SUCC 125 MG VIAL IVP (17:48)
[2022-06-29] MEDS: Normal Saline 500 ML IV (17:48)
[2022-06-29] MEDS: Albuterol/Ipratropium 3 ML UPD VIAL UPD (17:48)
[2022-06-29 17:51] LABS: Lactate 0.8 mmol/L (0.6-1.4)
[2022-06-29 18:16] LABS: ALT 25 U/L (14-59); AST 23 U/L (15-37); Albumin 3.4 g/dL (3.4-5.0); Alkaline Phosphatase 65 U/L (46-116); Anion Gap 5.9 mmol/L (3-11); BUN 13 mg/dL (7-18); Bilirubin, Total 0.6 mg/dL (0.2-1.0); C-Reactive Protein 11.26 mg/dL (0.0-0.3); CO2 33.1 mmol/L (21.0-32.0); CREATININE 0.7 mg/dL (0.55-1.02); Calcium 9.3 mg/dL (8.5-10.1); Chloride 100 mmol/L (98-107); Estimated GFR 92.41 (mL/min/1.73m2); Glucose 129 mg/dL (74-106); LDH 189 U/L (81-234); Potassium 3.9 mmol/L (3.5-5.1); Sodium 139 mmol/L (136-145); Total Protein 7.8 g/dL (6.4-8.2); Troponin I < 50 ng/L (<or=60)
[2022-06-29 18:35] LABS: COVID-19 PCR Negative (Negative); Influenza A PCR Negative (Negative); Influenza B PCR Negative (Negative); RSV PCR Negative (Negative)
[2022-06-29 18:41] LABS: Source Nasopharynx
[2022-06-29 18:44] LABS: Ferritin 101 ng/mL (8-252)
[2022-06-29 18:47] LABS: Abs Immature Grans 0.07 10^3/uL (0.0-0.06); Absolute Basophil Count 0.03 10^3/uL (0.0-0.2); Absolute Monocyte Count 1.11 10^3/uL (0.1-0.8); Absolute Neutrophil Count 14.31 10^3/uL (1.2-6.7); Basophils % 0.2; HCT 35.6 % (36.0-46.0); Immature Grans % 0.4; Lymphocytes % 6.6; MCH 30.3 pg (27.0-33.0); MCHC 33.7 % (32.0-36.0); MCV 90 fL (80-95); MPV 11.3 fL (8.0-11.0); Monocytes % 6.7; Neutrophils % 86.1; Platelet Count 171 10^3/uL (130-400); RBC 3.96 10^6/uL (3.93-5.22); RDW 11.9 % (11.7-14.6); RDW-SD 39.6 fL; WBC 16.62 10^3/uL (4.4-10.8)
[2022-06-29 18:48] LABS: D-Dimer 677 ng/mlFEU (<500)
--- NOTE | 2022-06-29 20:17 | DI.VRAD_ITS ---
PROCEDURE INFORMATION: Exam: XR Chest Exam date and time: 06/29/2022 6:59 PM Age: 71 years old Clinical indication: Other: SOB and fever TECHNIQUE: Imaging protocol: Radiologic exam of the chest. Views: 1 view. COMPARISON: 1. CR XR PORTABLE CHEST AP 05/19/2022 2:[address] CHEST PE CTA 05/19/2022 3:47 PM FINDINGS: Lungs: There is pulmonary hyperinflation consistent with known emphysematous changes. There is redemonstration of the pulmonary nodule in the left upper lobe. In the left lower lobe, there are nonspecific confluent opacities. Pleural spaces: No pleural effusion or pneumothorax. Heart/Mediastinum: Normal in size. Bones/joints: No acute fracture is identified. IMPRESSION: 1. Interim development of confluent opacities in the left lower lobe that may be secondary to atelectasis or in the appropriate clinical setting, pneumonia. 2. Redemonstration of the left upper lobe nodule, no significantly changed from the comparison AP view of the chest and CTA of the chest of 05/19/2022. Dictated and Authenticated by: Eric Hathaway MD. Ordering:[id number] Paulino MD
--- NOTE | 2022-06-29 21:00 | RT.EKG_ITS ---
APPROVED REPORT Exam: Resting ECG Reason for Exam: sob Patient Location: E HR:101 bpm ECG Measurements Heart Rate 101 AXIS MA 162 P 88 QRSd 140 QRS 42 QT 387 T 89 QTc 503 Conclusion Sinus tachycardia...rate> 99 Left bundle branch block...QRSd>120, broad/notched R ST elevation secondary to IVCD...Multiple VCG criteria Physician: LBBB, negative for sgarbossa
[2022-06-29 21:59] LABS: Troponin I < 50 ng/L (<or=60)
--- NOTE | 2022-06-29 22:49 | W.ED.GENAD ---
Discharge Plan Disposition Patient Disposition: [facility] INPATIENT Condition: Fair Discharge Details Clinical Impression: Pneumonia, COPD exacerbation Admit Date/Time: 06/29/22 23:15 Admit Provider: Lazaro Jj Attending Provider: Lazaro Jj Primary Care Provider: Kathleen Joyce ED Provider: Jefferson Sargent Discharge Data Discharge Date/Time-TO BE ENTERED AT DEPARTURE: 06/29/22 23:49 Medical Decision Making Patient presenting to the emergency department for chief complaint of shortness of breath and not feeling well. She states that yesterday she started feeling like she was coming down with a cold but today became acutely short of breath. Patient has oxygen dependent COPD along with pulmonary nodule anxiety with panic attacks, history of CHF cardiomyopathy, chronic kidney disease hyperlipidemia and CAD. Physical exam shows a chronically ill-appearing patient with noted tachycardia but is able to speak in full sentences and is otherwise stable. We will plan on checking labs, COVID, chest x-ray. Pending results we will give patient duo nebs and Solu-Medrol. Review of vital signs show slightly hypertensive tachycardic patient that is febrile with O2 sat of 90%. Patient is typically on 3 to 4 L of oxygen. EMS did report that patient was not on oxygen when they arrived. Labs show a significant leukocytosis with shift, slightly elevated D-dimer but with age adjustment is none worrisome for thrombosis. Normal lactate. CMP with elevated carbon oxide level negative initial troponin, slightly elevated CRP and patient negative for COVID influenza and RSV. Chest x-ray does show concerning finding of left lower lobe opacities along with a left upper lobe nodule with no significant change compared to previous imaging. We will start patient on ceftriaxone and doxycycline IV and plan on admitting patient for COPD exacerbation and acute pneumonia. Imaging Data Radiologic Study: Attestation: I personally reviewed and interpreted this imaging study as follows: Imaging: X-Ray Radiologist's impression: FINDINGS: Lungs: There is pulmonary hyperinflation consistent with known emphysematous changes. There is redemonstration of the pulmonary nodule in the left upper lobe. In the left lower lobe, there are nonspecific confluent opacities. Pleural spaces: No pleural effusion or pneumothorax. Heart/Mediastinum: Normal in size. Bones/joints: No acute fracture is identified. IMPRESSION: 1. Interim development of confluent opacities in the left lower lobe that may be secondary to atelectasis or in the appropriate clinical setting, pneumonia. 2. Redemonstration of the left upper lobe nodule, no significantly changed from the comparison AP view of the chest and CTA of the chest of 05/19/2022. Lab Data Lab results reviewed: Yes I reviewed the patient's lab results. HPI General Mode of arrival: EMS. Date/Time Provider Initiated Documentation: 06/29/22 17:04. Limitations to Documentation: no limitations. Information obtained by: patient and RN notes reviewed. History of Present Illness 71 year old F presents to the emergency department with the chief complaint of Shortness of breath, feeling ill, described as moderate and similar to prior episodes, with intensity rated at 5. Quality is described as other (Tightness), and is localized to the chest. Patient reports no radiation. Patient started experiencing this day(s) (1) Related Data Home Medications Medication Instructions Recorded Confirmed ascorbic acid (vitamin C) 1,000 mg 1,000 mg PO DAILY 03/29/17 06/30/22 tablet (C-1000) aspirin 81 mg tablet,delayed 81 mg PO DAILY 03/29/17 06/30/22 release (Aspir-) omega-3 fatty acids-fish oil 340 1 ea PO DAILY 03/29/17 06/30/22 mg-1,000 mg capsule (Fish Oil) bisacodyl 5 mg tablet (Correctol) 5 mg PO PRN PRN 01/19/20 06/30/22 bismuth subsalicylate 262 mg 2 tab PO DAILY PRN 01/19/20 06/30/22 tablet (Pepto-Bismol) calcium carbonate 333 mg-magnesium 1 tab PO DAILY 01/19/20 06/30/22 oxide 133 mg-zinc gluc 5 mg tablet cholecalciferol (vitamin D3) 25 1,000 unit PO DAILY 01/19/20 06/30/22 mcg (1,000 unit) capsule denture care products ##1 01/19/20 06/24/22 denture cleanser #1 tab 01/19/20 06/24/22 menthol 8 mg lozenges 8 mg mucous membrane DAILY PRN 01/19/20 06/30/22 toothpaste (Sensodyne toothpaste) #113 grams 01/19/20 05/23/22 Inogen Oxygen Concentrator #1 ea 04/01/20 06/24/22 Nasal Cannula O2 Tubing #2 ea 05/23/20 05/23/22 betamethasone valerate 0.1 % 1 applic topical BID PRN rash 10/13/21 06/30/22 topical cream hands #30 grams tetrahydrozoline 0.05 % eye drops 1 drp ophthalmic (eye) TID #15 mL 10/23/21 06/30/22 albuterol sulfate 2.5 mg/3 mL 2.5 mg (3 mL) inhalation Q4H PRN 12/01/21 06/30/22 (0.083 %) solution for nebulization shortness of breath or wheezing #180 mL fenofibrate nanocrystallized 48 mg See Rx Instructions .Route 12/01/21 06/30/22 tablet .COMPLEX #90 tabs fluticasone propionate 50 See Rx Instructions .Route 01/26/22 06/30/22 mcg/actuation nasal .COMPLEX #48 mL spray,suspension Oxygen Concentrator #1 ea 01/27/22 05/23/22 lisinopril 10 mg tablet 10 mg PO DAILY #90 tab-caps 01/27/22 06/30/22 omeprazole 40 mg capsule,delayed 40 mg PO DAILY #90 tab-caps 01/27/22 06/30/22 release umeclidinium 62.5 mcg/actuation 1 inh inhalation DAILY #30 ea 01/27/22 06/30/22 blister powder for inhalation pregabalin 150 mg capsule (Lyrica) 150 mg PO BID #180 tab-caps 02/09/22 06/30/22 budesonide-formoterol HFA 80 2 puff inhalation BID #10.2 grams 02/17/22 06/30/22 mcg-4.5 mcg/actuation aerosol inhaler (Symbicort) ipratropium 20 mcg-albuterol 100 1 puff inhalation QID #12 grams 04/06/22 06/30/22 mcg/actuation mist for inhalation (Combivent Respimat) citalopram 20 mg tablet 40 mg PO DAILY #180 tab-caps 05/11/22 06/30/22 ondansetron HCl 4 mg tablet 4 mg PO Q6H 06/23/22 06/30/22 zinc gluconate 50 mg tablet 50 mg PO DAILY 06/23/22 06/30/22 Nebulizer machine for HHN #1 ea 06/24/22 06/24/22 Nebulizer supplies/tubing #1 ea 06/24/22 06/24/22 ipratropium bromide 0.02 % 2.5 ml inhalation Q8H PRN PRN 06/24/22 06/30/22 solution for inhalation Shortness Of Breath Or Wheezing #150 mL lorazepam 0.5 mg tablet 0.5 mg PO DAILY PRN anxiety #20 06/24/22 06/30/22 tabs atenolol 50 mg tablet 50 mg PO DAILY #90 tab-caps 06/25/22 06/30/22 ibuprofen 400 mg tablet 400 mg PO TID PRN fever or pain 06/25/22 06/30/22 #270 tab-caps Previous Rx's Medication Instructions Recorded Inogen Oxygen Concentrator #1 ea 04/01/20 Nasal Cannula O2 Tubing #2 ea 05/23/20 betamethasone valerate 0.1 % 1 applic topical BID PRN rash 10/13/21 topical cream hands #30 grams tetrahydrozoline 0.05 % eye drops 1 drp ophthalmic (eye) TID #15 mL 10/23/21 albuterol sulfate 2.5 mg/3 mL 2.5 mg (3 mL) inhalation Q4H PRN 12/01/21 (0.083 %) solution for nebulization shortness of breath or wheezing #180 mL fenofibrate nanocrystallized 48 mg See Rx Instructions .Route 12/01/21 tablet .COMPLEX #90 tabs fluticasone propionate 50 See Rx Instructions .Route 01/26/22 mcg/actuation nasal .COMPLEX #48 mL spray,suspension Oxygen Concentrator #1 ea 01/27/22 lisinopril 10 mg tablet 10 mg PO DAILY #90 tab-caps 01/27/22 omeprazole 40 mg capsule,delayed 40 mg PO DAILY #90 tab-caps 01/27/22 release umeclidinium 62.5 mcg/actuation 1 inh inhalation DAILY #30 ea 01/27/22 blister powder for inhalation pregabalin 150 mg capsule (Lyrica) 150 mg PO BID #180 tab-caps 02/09/22 budesonide-formoterol HFA 80 2 puff inhalation BID #10.2 grams 02/17/22 mcg-4.5 mcg/actuation aerosol inhaler (Symbicort) ipratropium 20 mcg-albuterol 100 1 puff inhalation QID #12 grams 04/06/22 mcg/actuation mist for inhalation (Combivent Respimat) citalopram 20 mg tablet 40 mg PO DAILY #180 tab-caps 05/11/22 Nebulizer machine for HHN #1 ea 06/24/22 Nebulizer supplies/tubing #1 ea 06/24/22 ipratropium bromide 0.02 % 2.5 ml inhalation Q8H PRN PRN 06/24/22 solution for inhalation Shortness Of Breath Or Wheezing #150 mL lorazepam 0.5 mg tablet 0.5 mg PO DAILY PRN anxiety #20 06/24/22 tabs atenolol 50 mg tablet 50 mg PO DAILY #90 tab-caps 06/25/22 ibuprofen 400 mg tablet 400 mg PO TID PRN fever or pain 06/25/22 #270 tab-caps Allergies Allergy/AdvReac Type Severity Reaction Status Date / Time Latex, Natural Rubber Allergy Intermediate rash; Verified 06/24/22 11:55 contact dermatitis codeine [Codeine] AdvReac Intermediate Headache Verified 06/24/22 11:[address] transcriber Allergy Intermediate contact Uncoded 06/24/22 11:55 dermatitis General Stated Complaint: RespSymp ZACKERY: 2 Review of Systems Constitutional Constitutional: Reports chills, Reports fever(s) and Reports malaise Cardiovascular Cardiovascular: Denies chest pain, Reports dyspnea and Reports dyspnea on exertion Respiratory Respiratory: Reports chest congestion, Reports cough, Reports dyspnea and Reports dyspnea on exertion Gastrointestinal Gastrointestinal: Denies abdominal pain, Denies diarrhea, Denies nausea and Denies vomiting Genitourinary Genitourinary: Denies dysuria Musculoskeletal Musculoskeletal: Denies myalgias Integumentary/Breasts Skin/Breast: Denies rash [facility] All Active Problems (Updated 06/30/22 @ 16:31 by Tammy Mancilla NP) Discharge planning issues (Acute) Pneumonia (Acute) Mass of upper lobe of right lung (Acute) Acute kidney injury (Acute) Acute exacerbation of chronic obstructive pulmonary disease (Acute) Acute exacerbation of congestive heart failure (Acute) Elevated troponin (Acute) CHF exacerbation (Acute) COPD exacerbation (Acute) Exercise hypoxemia (Acute) ENEDELIA FOWLER III, MD, PULMONOLOGY Bronchiectasis without complication (Acute) Enedelia Fowler III, MD, practice coordinator Nasal congestion (Acute 07/01/17) Lung nodules (Acute 04/16/17) H/O contact dermatitis and eczema (Acute 02/18/17) Affects Hands, including the palms and the anticubital fossa, and her neck. 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 Deviated nasal septum (Acute 07/01/17) DJD (degenerative joint disease) (Acute 02/18/17) Severe Palpitations (Acute) Elevated troponin I level (Acute) COPD (chronic obstructive pulmonary disease) (Acute) Gold stage 3, Enedelia Fowler MD Incidental lung nodule, > 3mm and < 8mm (Acute) Hypertension (Acute) Medical History Anxiety Cardiomyopathy CHF (congestive heart failure) Chronic kidney disease (02/18/17) COPD (chronic obstructive pulmonary disease) on chronic supplemental oxygen Depression (02/18/17) Fibromyalgia (02/18/17) Gastroesophageal reflux disease (02/18/17) Hyperlipidemia (02/18/17) LBBB (left bundle branch block) Non-ST elevation OR (NSTEMI) Surgical History Dilation and curettage (~1984) Ligation of fallopian tube (~1984) Open Carpal Tunnel release Tonsillectomy and adenoidectomy Family History Mother Essential hypertension Heart disease COPD (chronic obstructive pulmonary disease) Father DJD (degenerative joint disease) Sister Hyperlipidemia Myocardial infarction Daughter [id number] deficiency Social History Smoking/Tobacco Use Status: Former Tobacco Use tobacco type: cigarettes Quit Date: 10/18/13 Smoking risk assessment performed?: Yes Alcohol Intake: never Drug use: Never Substance use type: does not use Do you feel safe at home: Yes Do you feel safe in your relationship?: Yes History History Para 2 Hx # Term Pregnancies Multiple births Hx # Pregnancies Ectopic pregnancies AB induced Hx Number of Living Children AB spontaneous Exam Const General: cooperative, not in acute distress and ill appearing chronically Nutritional Appearance: overweight Orientation: alert, awake and oriented x3 HENMT Head: normal to inspection, normocephalic and atraumatic Ears: hearing grossly normal bilaterally General nose exam: external nose normal Face and sinus: no erythema Mouth: oral mucosae normal, no drooling, no muffled voice and no trismus Throat: posterior oropharynx normal Neck Neck: normal visual inspection, no meningeal signs, trachea midline and supple Resp Effort & Inspection: normal respiratory effort, able to speak in complete sentences and cough Quality of cough: dry Auscultation: diminished lung sounds bilaterally throughout Cardio Rate: tachycardic Rhythm: regular rhythm Heart Sounds: S1 normal and S2 normal Skin General skin exam: no rashes or lesions noted and dry skin (warm) Neuro General: patient alert, patient awake, patient oriented x3 and moves all extremities Cognition: normal cognition Speech: speech normal Course Vital Signs Vital signs: Vital Signs Temperature 38.2 C H 06/29/22 16:53 Pulse 136 H 06/29/22 16:53 Respiratory Rate 24 06/29/22 16:53 Blood Pressure 162/94 H 06/29/22 16:53 Pulse Oximetry 90 L 06/29/22 16:53 Temperature 36.8 C 06/29/22 20:27 Temperature Source Tympanic 06/29/22 20:27 Pulse 102 H 06/29/22 20:27 Respiratory Rate 24 06/29/22 16:53 Respiratory Effort Labored 06/29/22 17:17 Respiratory Depth Normal 06/29/22 17:15 Blood Pressure 153/54 H 06/29/22 20:27 Blood Pressure Mean 79 06/29/22 20:27 Blood Pressure Position Sitting 06/29/22 16:53 Pulse Oximetry 95 06/29/22 20:30 Oxygen Delivery Method Nasal Cannula 06/29/22 20:27 Oxygen Flow Rate 3 06/29/22 20:27 Comment 06/29/22 20:27 Lab/Test Results Lab/Test Results: 06/29/22 06:30 Blood Blood Culture - Pending 06/29/22 06:40 Blood Blood Culture - Pending Laboratory Tests Range/Units 06/29/22 06/29/22 06/29/22 06:30 17:43 17:43 WBC (4.4-10.8) 10^3/uL 16.62 H RBC (3.93-5.22) 10^6/uL 3.96 Hgb (11.2-15.7) g/dL 12.0 Hct (36.0-46.0) % 35.6 L MCV (80-95) fL 90 MCH (27.0-33.0) pg 30.3 MCHC (32.0-36.0) % 33.7 RDW (11.7-14.6) % 11.9 Plt Count (130-400) 10^3/uL 171 MPV (8.0-11.0) fL 11.3 H Immature Gran % 0.4 Neutrophils % 86.1 Lymphocytes % 6.6 Monocytes % 6.7 Eosinophils % 0.0 Basophils % 0.2 Nucleated RBC % (0.0-0.3) % 0.0 Absolute Neutrophils (1.2-6.7) 10^3/uL 14.31 H Absolute Lymphocytes (1.2-3.4) 10^3/uL 1.10 L Absolute Monocytes (0.1-0.8) 10^3/uL 1.11 H Absolute Eosinophils (0.0-0.7) 10^3/uL 0.00 Absolute Basophils (0.0-0.2) 10^3/uL 0.03 D-Dimer (<500) ng/mlFEU VBG Lactate (0.6-1.4) mmol/L Sodium (136-145) mmol/L 139 Potassium (3.5-5.1) mmol/L 3.9 Chloride (98-107) mmol/L 100 Carbon Dioxide (21.0-32.0) mmol/L 33.1 H Anion Gap (3-11) mmol/L 5.9 BUN (7-18) mg/dL 13 Creatinine (0.55-1.02) mg/dL 0.7 Est GFR (CKD-EPI 2020) (mL/min/1.73m2) 92.41 Glucose (74-106) mg/dL 129 H Calcium (8.5-10.1) mg/dL 9.3 Ferritin (8-252) ng/mL 101 Total Bilirubin (0.2-1.0) mg/dL 0.6 AST (15-37) U/L 23 ALT (14-59) U/L 25 Alkaline Phosphatase (46-116) U/L 65 Lactate Dehydrogenase (81-234) U/L 189 Troponin I (<or=60) ng/L < 50 C-Reactive Protein (0.0-0.3) mg/dL 11.26 H Total Protein (6.4-8.2) g/dL 7.8 Albumin (3.4-5.0) g/dL 3.4 COVID-19 Source Nasopharynx SARS-CoV-2 (PCR) (Negative) Negative Influenza Type A (PCR) (Negative) Negative Influenza Type B (PCR) (Negative) Negative RSV (PCR) (Negative) Negative Range/Units 06/29/22 06/29/22 06/29/22 17:43 17:43 21:25 WBC (4.4-10.8) 10^3/uL RBC (3.93-5.22) 10^6/uL Hgb (11.2-15.7) g/dL Hct (36.0-46.0) % MCV (80-95) fL MCH (27.0-33.0) pg MCHC (32.0-36.0) % RDW (11.7-14.6) % Plt Count (130-400) 10^3/uL MPV (8.0-11.0) fL Immature Gran % Neutrophils % Lymphocytes % Monocytes % Eosinophils % Basophils % Nucleated RBC % (0.0-0.3) % Absolute Neutrophils (1.2-6.7) 10^3/uL Absolute Lymphocytes (1.2-3.4) 10^3/uL Absolute Monocytes (0.1-0.8) 10^3/uL Absolute Eosinophils (0.0-0.7) 10^3/uL Absolute Basophils (0.0-0.2) 10^3/uL D-Dimer (<500) ng/mlFEU 677 H VBG Lactate (0.6-1.4) mmol/L 0.8 Sodium (136-145) mmol/L Potassium (3.5-5.1) mmol/L Chloride (98-107) mmol/L Carbon Dioxide (21.0-32.0) mmol/L Anion Gap (3-11) mmol/L BUN (7-18) mg/dL Creatinine (0.55-1.02) mg/dL Est GFR (CKD-EPI 2020) (mL/min/1.73m2) Glucose (74-106) mg/dL Calcium (8.5-10.1) mg/dL Ferritin (8-252) ng/mL Total Bilirubin (0.2-1.0) mg/dL AST (15-37) U/L ALT (14-59) U/L Alkaline Phosphatase (46-116) U/L Lactate Dehydrogenase (81-234) U/L Troponin I (<or=60) ng/L < 50 C-Reactive Protein (0.0-0.3) mg/dL Total Protein (6.4-8.2) g/dL Albumin (3.4-5.0) g/dL COVID-19 Source SARS-CoV-2 (PCR) (Negative) Influenza Type A (PCR) (Negative) Influenza Type B (PCR) (Negative) RSV (PCR) (Negative)
[2022-06-29] MEDS: DOXYCYCLINE 100 MG in Normal Saline 100 ML IVPB (22:52)
--- NOTE | 2022-06-29 23:05 | HPE_ITS ---
Date of service: 06/29/22 Time of Service: 23:05 Assessment and Plan Assessment and plan (1) Pneumonia: Status: Acute Assessment and plan: Pneumonia with COPD exacerbation. Will continue empiric Rocephin and Doxy along with duonebs and steroids. Per prior history remains Full Code. As to requested placement, advised to speak with social insurance administrator in AM History of Present Illness History of Present Illness Chief Complaint: SOB Narrative: 71 female with h/o COPD here with 2 days of worsening cough and SOB. In ER findings of note for temp 38.2, white count 16 and CXR showing LLL infiltrate. COVID is negative. Blood cxx obtained and patient given Rocephin and Doxy along with Duonebs and steroids. I was asked to evaluate for admission. States daughter had a cold last week, thinks she had something similar, though she is quite vague on details. Patient states she has been feeling poorly all summer and is asking about placement to a shelter, feels she just can't manage alone any longer. Review of Systems Narrative: per HPI PFSH All Active Problems (Updated 06/29/22 @ 23:11 by Jefferson Sargent NP) Pneumonia (Acute) Mass of upper lobe of right lung (Acute) Acute kidney injury (Acute) Acute exacerbation of chronic obstructive pulmonary disease (Acute) Acute exacerbation of congestive heart failure (Acute) Elevated troponin (Acute) CHF exacerbation (Acute) COPD exacerbation (Acute) Exercise hypoxemia (Acute) ENEDELIA FOWLER III, MD, PULMONOLOGY Bronchiectasis without complication (Acute) Enedelia Fowler III, MD, pug mill operator helper Nasal congestion (Acute 07/01/17) Lung nodules (Acute 04/16/17) H/O contact dermatitis and eczema (Acute 02/18/17) Affects Hands, including the palms and the anticubital fossa, and her neck. 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 Deviated nasal septum (Acute 07/01/17) DJD (degenerative joint disease) (Acute 02/18/17) Severe Palpitations (Acute) Elevated troponin I level (Acute) COPD (chronic obstructive pulmonary disease) (Acute) Gold stage 3, Enedelia Fowler MD Incidental lung nodule, > 3mm and < 8mm (Acute) Hypertension (Acute) Medical History Anxiety Cardiomyopathy CHF (congestive heart failure) Chronic kidney disease (02/18/17) COPD (chronic obstructive pulmonary disease) on chronic supplemental oxygen Depression (02/18/17) Fibromyalgia (02/18/17) Gastroesophageal reflux disease (02/18/17) Hyperlipidemia (02/18/17) LBBB (left bundle branch block) Non-ST elevation [place] (NSTEMI) Surgical History Dilation and curettage (~1984) Ligation of fallopian tube (~1984) Open Carpal Tunnel release Tonsillectomy and adenoidectomy Family History Mother Essential hypertension Heart disease COPD (chronic obstructive pulmonary disease) Father DJD (degenerative joint disease) Sister Hyperlipidemia Myocardial infarction Daughter [id number] deficiency Social History Smoking/Tobacco Use Status: Former Tobacco Use tobacco type: cigarettes Quit Date: 10/18/13 Smoking risk assessment performed?: Yes Alcohol Intake: never Drug use: Never Substance use type: does not use Do you feel safe at home: Yes Do you feel safe in your relationship?: Yes History History Para 2 Hx # Term Pregnancies Multiple births Hx # Pregnancies Ectopic pregnancies AB induced Hx Number of Living Children AB spontaneous Meds Allergies and Home Medications Allergies Allergy/AdvReac Type Severity Reaction Status Date / Time Latex, Natural Rubber Allergy Intermediate rash; Verified 06/24/22 11:55 contact dermatitis codeine [Codeine] AdvReac Intermediate Headache Verified 06/24/22 11:55 household pressure controller Allergy Intermediate contact Uncoded 06/24/22 11:55 dermatitis Home Medications Medication Instructions Recorded Confirmed Type ascorbic acid (vitamin C) 1,000 mg 1,000 mg PO DAILY 03/29/17 06/24/22 History tablet (C-1000) aspirin 81 mg tablet,delayed 81 mg PO DAILY 03/29/17 06/24/22 History release (Aspir-) omega-3 fatty acids-fish oil 340 1 ea PO DAILY 03/29/17 05/23/22 History mg-1,000 mg capsule (Fish Oil) bisacodyl 5 mg tablet (Correctol) 5 mg PO DAILY 01/19/20 05/23/22 History bismuth subsalicylate 262 mg 2 tab PO DAILY PRN 01/19/20 06/24/22 History tablet (Pepto-Bismol) calcium carbonate 333 mg-magnesium 1 tab PO DAILY 01/19/20 06/24/22 History oxide 133 mg-zinc gluc 5 mg tablet cholecalciferol (vitamin D3) 25 1,000 unit PO DAILY 01/19/20 06/24/22 History mcg (1,000 unit) capsule denture care products ##1 01/19/20 06/24/22 History denture cleanser #1 tab 01/19/20 06/24/22 History menthol 8 mg lozenges 8 mg mucous membrane DAILY PRN 01/19/20 05/23/22 History toothpaste (Sensodyne toothpaste) #113 grams 01/19/20 05/23/22 History [employer] Oxygen Concentrator #1 ea 04/01/20 06/24/22 Rx Nasal Cannula O2 Tubing #2 ea 05/23/20 05/23/22 Rx betamethasone valerate 0.1 % 1 applic topical BID PRN rash 10/13/21 06/24/22 Rx topical cream hands #30 grams tetrahydrozoline 0.05 % eye drops 1 drp ophthalmic (eye) TID #15 mL 10/23/21 05/23/22 Rx albuterol sulfate 2.5 mg/3 mL 2.5 mg (3 mL) inhalation Q4H PRN 12/01/21 05/23/22 Rx (0.083 %) solution for nebulization shortness of breath or wheezing #180 mL fenofibrate nanocrystallized 48 mg See Rx Instructions .Route 12/01/21 06/24/22 Rx tablet .COMPLEX #90 tabs simvastatin 80 mg tablet See Rx Instructions .Route 12/01/21 05/23/22 Rx .COMPLEX #45 tabs fluticasone propionate 50 See Rx Instructions .Route 01/26/22 06/24/22 Rx mcg/actuation nasal .COMPLEX #48 mL spray,suspension Oxygen Concentrator #1 ea 01/27/22 05/23/22 Rx lisinopril 10 mg tablet 10 mg PO DAILY #90 tab-caps 01/27/22 05/23/22 Rx omeprazole 40 mg capsule,delayed 40 mg PO DAILY #90 tab-caps 01/27/22 05/23/22 Rx release umeclidinium 62.5 mcg/actuation 1 inh inhalation DAILY #30 ea 01/27/22 06/24/22 Rx blister powder for inhalation pregabalin 150 mg capsule (Lyrica) 150 mg PO BID #180 tab-caps 02/09/22 06/24/22 Rx prednisone 20 mg tablet 40 mg PO DAILY #10 tabs 02/14/22 05/23/22 Rx budesonide-formoterol HFA 80 2 puff inhalation BID #10.2 grams 02/17/22 06/24/22 Rx mcg-4.5 mcg/actuation aerosol inhaler (Symbicort) ipratropium 20 mcg-albuterol 100 1 puff inhalation QID #12 grams 04/06/22 06/24/22 Rx mcg/actuation mist for inhalation (Combivent Respimat) citalopram 20 mg tablet 40 mg PO DAILY #180 tab-caps 05/11/22 06/24/22 Rx ondansetron HCl 4 mg tablet 4 mg PO Q6H 06/23/22 06/24/22 History zinc gluconate 50 mg tablet 50 mg PO DAILY 06/23/22 06/24/22 History Nebulizer machine for HHN #1 ea 06/24/22 06/24/22 Rx Nebulizer supplies/tubing #1 ea 06/24/22 06/24/22 Rx ipratropium bromide 0.02 % 2.5 ml inhalation Q8H PRN PRN 06/24/22 06/24/22 Rx solution for inhalation Shortness Of Breath Or Wheezing #150 mL lorazepam 0.5 mg tablet 0.5 mg PO DAILY PRN anxiety #20 06/24/22 06/24/22 Rx tabs atenolol 50 mg tablet 50 mg PO DAILY #90 tab-caps 06/25/22 Rx ibuprofen 400 mg tablet 400 mg PO TID PRN fever or pain 06/25/22 Rx #270 tab-caps Exam Narrative Exam Narrative: 152/54, 102, 36.8 (38.2 max), 24, 05% 3L. HEENT atraumatic; neck supple; lungs severely diminished; heart RRR/distant; abdomen soft and NT; extremities w/o e anjana; neuro Ox3, moves all 4s Results Labs Result diagrams: 06/29/22 06:30 06/29/22 17:43 Labs: Laboratory Results - last 24 hr 06/29/22 06/29/22 06/29/22 06:30 17:43 17:43 WBC 16.62 H RBC 3.96 Hgb 12.0 Hct 35.6 L MCV 90 MCH 30.3 MCHC 33.7 RDW 11.9 Plt Count 171 MPV 11.3 H Immature Gran % 0.4 Neutrophils % 86.1 Lymphocytes % 6.6 Monocytes % 6.7 Eosinophils % 0.0 Basophils % 0.2 Nucleated RBC % 0.0 Absolute Neutrophils 14.31 H Absolute Lymphocytes 1.10 L Absolute Monocytes 1.11 H Absolute Eosinophils 0.00 Absolute Basophils 0.03 D-Dimer VBG Lactate Sodium 139 Potassium 3.9 Chloride 100 Carbon Dioxide 33.1 H Anion Gap 5.9 BUN 13 Creatinine 0.7 Est GFR (CKD-EPI 2020) 92.41 Glucose 129 H Calcium 9.3 Ferritin 101 Total Bilirubin 0.6 AST 23 ALT 25 Alkaline Phosphatase 65 Lactate Dehydrogenase 189 Troponin I < 50 C-Reactive Protein 11.26 H Total Protein 7.8 Albumin 3.4 COVID-19 Source Nasopharynx SARS-CoV-2 (PCR) Negative Influenza Type A (PCR) Negative Influenza Type B (PCR) Negative RSV (PCR) Negative 06/29/22 06/29/22 06/29/22 17:43 17:43 21:25 WBC RBC Hgb Hct MCV MCH MCHC RDW Plt Count MPV Immature Gran % Neutrophils % Lymphocytes % Monocytes % Eosinophils % Basophils % Nucleated RBC % Absolute Neutrophils Absolute Lymphocytes Absolute Monocytes Absolute Eosinophils Absolute Basophils D-Dimer 677 H VBG Lactate 0.8 Sodium Potassium Chloride Carbon Dioxide Anion Gap BUN Creatinine Est GFR (CKD-EPI 2020) Glucose Calcium Ferritin Total Bilirubin AST ALT Alkaline Phosphatase Lactate Dehydrogenase Troponin I < 50 C-Reactive Protein Total Protein Albumin COVID-19 Source SARS-CoV-2 (PCR) Influenza Type A (PCR) Influenza Type B (PCR) RSV (PCR) Last Vital Signs Temp 36.8 C 06/29/22 20:27 Pulse 102 H 06/29/22 20:27 Resp 24 06/29/22 16:53 BP 153/54 H 06/29/22 20:27 Pulse Ox 95 06/29/22 20:30
[2022-06-30 00:05] VITALS: BP 160/81; PULSE 100; PULSE 101; RESP 20; RESP 22; TEMP 36.6; O2SAT 93
[2022-06-30] MEDS: methylPREDNISolone SUCC 40 MG VIAL IVP ×3 (01:11→17:21)
[2022-06-30 07:32] VITALS: BP 151/71; PULSE 89; RESP 20; TEMP 36; O2SAT 97
[2022-06-30] MEDS: Ondansetron 4 MG TAB PO (07:52)
[2022-06-30] MEDS: Normal Saline Flush 10 ML SYR IVP ×3 (09:06→17:21)
[2022-06-30] MEDS: Lisinopril 10 MG TAB PO (09:09)
[2022-06-30] MEDS: Pregabalin 100 MG CAP PO ×2 (09:09→19:33)
[2022-06-30] MEDS: Pregabalin 50 MG CAP PO ×2 (09:09→19:33)
[2022-06-30] MEDS: Aspirin E.C. 81 MG TABEC PO (09:09)
[2022-06-30] MEDS: Atenolol 50 MG TAB PO (09:09)
[2022-06-30] MEDS: Omeprazole 20 MG CAPCR 40 MG PO (09:09)
--- NOTE | 2022-06-30 09:22 | INITIAL_ITS ---
- If Service Date Differs Date of service: 06/30/22 Time of Service: 09: Care Management Initial Assess REASON FOR HOSPITALIZATION:: Pneumonia with COPD exacerbation. PAST MEDICAL HISTORY/PAST SURGICAL HISTORY:: All Active Problems (Updated 06/29/22 @ 23:11 by Jefferson Sargent NP). Pneumonia (Acute). Mass of upper lobe of right lung (Acute). Acute kidney injury (Acute). Acute exacerbation of chronic obstructive pulmonary disease (Acute). Acute exacerbation of congestive heart failure (Acute). Elevated troponin (Acute). CHF exacerbation (Acute). COPD exacerbation (Acute). Exercise hypoxemia (Acute). ENEDELIA FOWLER III, MD, PULMONOLOGY. Bronchiectasis without complication (Acute). Enedelia Fowler III, MD, piping designer. Nasal congestion (Acute 07/01/17). Lung nodules (Acute 04/16/17). H/O contact dermatitis and eczema (Acute 02/18/17). Affects Hands, including the palms and the anticubital fossa, and her neck. 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 Deviated nasal septum (Acute 07/01/17). DJD (degenerative joint disease) (Acute 02/18/17). Severe. Palpitations (Acute). Elevated troponin I level (Acute). COPD (chronic obstructive pulmonary disease) (Acute). Gold stage 3, Enedelia Fowler MD. Incide ntal lung nodule, > 3mm and < 8mm (Acute). Hypertension (Acute). Medical History . Anxiety. Cardiomyopathy. CHF (congestive heart failure). Chronic kidney disease (02/18/17). COPD (chronic obstructive pulmonary disease). on chronic supplemental oxygen. Depression (02/18/17). Fibromyalgia (02/18/17). Gastroesophageal reflux disease (02/18/17). Hyperlipidemia (02/18/17). LBBB (left bundle branch block). Non-ST elevation [place] (NSTEMI). Surgical History . Dilation and curettage (~1984). Ligation of fallopian tube (~1984). Open Carpal Tunnel release. Tonsillectomy and adenoidectomy PREVIOUS FUNCTIONAL STATUS/SOCIAL/FAMILY SUPPORTS:: Celia is retired and resides alone in her apartment in [place]. She is independent with most of ADLs. Her main support person is her daughter, Jame who is her appointed caregiver through [facility]. Jame helps her with transportation, housekeeping and grocery shopping. Timmy shares that she has a large family, all who are all very supportive. She enjoys spending time with her children, grandchildren and likes to garden. CURRENT FUNCTIONAL STATUS:: Celia is lying in bed when CM met with her. She is awake, alert and able to engage in coversation. She has home O2 at baseline and finding it increasingly hard to manage at home on her own. She was discharged from [facility] just over a month ago. Her daughter Jame is very helpful and is going to try to complete a LTM application as soon as she can. Jame is also wondering about placement at the [facility] and is going to contact them for an application. ADVANCE DIRECTIVES:: On File, [facility]CA is Jame Nava Has patient been provided with info about the portal/API?: Yes Did the patient sign up for the portal?: Yes (Prior to admission) CODE STATUS:: Full Code INSURANCE COVERAGE / FINANCIAL ISSUES:: Medicare. Financial asst 100 CURRENT HOME/COMMUNITY SERVICES/EQUIPMENT:: Celia is connected with [facility]: Caregiver/daughter Jame: helps with housekeeping, grocery shopping, transportation etc. Grab bars, tub seat, handrails, ramp, FWW walker. Oxygen through [employer] PRIMARY CARE PHYSICIAN:: Kathleen Joyce POTENTIAL DISCHARGE NEEDS:: Outpatient follow up appointments, New [facility] services, SNF placement vs. LTC. LTM application. PATIENT/FAMILY EDUCATION NEEDS:: Review discharge instructions, limitations, medications and plan to follow up with community providers. Review [employer]. TRANSPORTATION:: Via private vehicle with daughter Jame. PLAN:: Anticipate, Celia will return home with new H RN/PT/OT once medically cleared vs discharge to SNF for STR. Transportation will be dependent on disposition. Patients daughter Joaquín will inquire about LTM and is also calling the [facility] for an application for admission. Palliative consult is placed. Celia will follow discharge plan of care as prescribed and Community providers.
[2022-06-30] MEDS: Citalopram 20 MG TAB 40 MG PO (11:39)
[2022-06-30] MEDS: DOXYCYCLINE 100 MG in Normal Saline 100 ML IVPB ×2 (11:40→21:11)
[2022-06-30] MEDS: Albuterol/Ipratropium 3 ML UPD VIAL UPD (13:10)
[2022-06-30 15:28] VITALS: BP 105/58; PULSE 76; RESP 20; TEMP 37; O2SAT 94
--- NOTE | 2022-06-30 16:06 | W.PM.PROGNOT ---
Date of Service Date of service: 06/30/22 Time of Service: 16:07 Assessment and Plan Assessment and plan (1) Pneumonia: Status: Acute Assessment and plan: Pneumonia with COPD exacerbation. Will continue empiric Rocephin and Doxy day 2 along with duonebs and steroids. Per prior history remains Full Code. (2) COPD exacerbation: Status: Acute Assessment and plan: as above (3) Mass of upper lobe of right lung: Status: Acute Assessment and plan: being followed outpatient (4) Hypertension: Status: Acute Assessment and plan: blood pressure has been controlled, continue home medication (5) Discharge planning issues: Status: Acute Assessment and plan: palliative care consulted care management following. discussed with Dr Roe . Subjective Subjective Patient reports: no new complaints, feels better, tolerating liquids well, shortness of breath and afebrile Exam Const General: cooperative, frail appearing and ill appearing chronically Nutritional Appearance: average body habitus Orientation: alert, awake and oriented x3 HENMT Head: normal to inspection, normocephalic and atraumatic Mouth: oral mucosae normal Resp Effort & Inspection: labored Auscultation: diminished lung sounds (throughout, coarse scattered, no wheeze) Cardio Rate: regular rate Rhythm: regular rhythm GI Inspection: normal to inspection Palpation: soft Auscultation: normal bowel sounds Skin General skin exam: no rashes or lesions noted Neuro General: patient alert, patient awake, patient oriented x3 and no focal motor deficits Cognition: normal cognition Speech: speech normal Motor: muscle tone normal throughout Extrem General: normal to inspection and full ROM Objective Last Vital Signs Temp 37 C 06/30/22 15:28 Pulse 76 06/30/22 15:28 Resp 20 06/30/22 15:28 BP 105/58 L 06/30/22 15:28 Pulse Ox 94 06/30/22 15:28 Laboratory Results - last 24 hr 06/29/22 06/29/22 06/29/22 06:30 17:43 17:43 WBC 16.62 H RBC 3.96 Hgb 12.0 Hct 35.6 L MCV 90 MCH 30.3 MCHC 33.7 RDW 11.9 Plt Count 171 MPV 11.3 H Immature Gran % 0.4 Neutrophils % 86.1 Lymphocytes % 6.6 Monocytes % 6.7 Eosinophils % 0.0 Basophils % 0.2 Nucleated RBC % 0.0 Absolute Neutrophils 14.31 H Absolute Lymphocytes 1.10 L Absolute Monocytes 1.11 H Absolute Eosinophils 0.00 Absolute Basophils 0.03 D-Dimer VBG Lactate Sodium 139 Potassium 3.9 Chloride 100 Carbon Dioxide 33.1 H Anion Gap 5.9 BUN 13 Creatinine 0.7 Est GFR (CKD-EPI 2020) 92.41 Glucose 129 H Calcium 9.3 Ferritin 101 Total Bilirubin 0.6 AST 23 ALT 25 Alkaline Phosphatase 65 Lactate Dehydrogenase 189 Troponin I < 50 C-Reactive Protein 11.26 H Total Protein 7.8 Albumin 3.4 COVID-19 Source Nasopharynx SARS-CoV-2 (PCR) Negative Influenza Type A (PCR) Negative Influenza Type B (PCR) Negative RSV (PCR) Negative 06/29/22 06/29/22 06/29/22 17:43 17:43 21:25 WBC RBC Hgb Hct MCV MCH MCHC RDW Plt Count MPV Immature Gran % Neutrophils % Lymphocytes % Monocytes % Eosinophils % Basophils % Nucleated RBC % Absolute Neutrophils Absolute Lymphocytes Absolute Monocytes Absolute Eosinophils Absolute Basophils D-Dimer 677 H VBG Lactate 0.8 Sodium Potassium Chloride Carbon Dioxide Anion Gap BUN Creatinine Est GFR (CKD-EPI 2020) Glucose Calcium Ferritin Total Bilirubin AST ALT Alkaline Phosphatase Lactate Dehydrogenase Troponin I < 50 C-Reactive Protein Total Protein Albumin COVID-19 Source SARS-CoV-2 (PCR) Influenza Type A (PCR) Influenza Type B (PCR) RSV (PCR)
[2022-06-30 19:32] VITALS: RESP 2; RESP 4
[2022-06-30] MEDS: Ipratropium 0.5 MG/2.5 ML UPD VIAL UPD (19:32)
[2022-06-30] MEDS: Melatonin 3 MG TAB 9 MG PO (19:33)
[2022-06-30] MEDS: Fluticasone NASAL SPRAY 16 GM BTL NS (19:33)
[2022-06-30] MEDS: LORazepam 0.5 MG TAB PO (19:34)
[2022-06-30] MEDS: Acetaminophen 325 MG TAB 650 MG PO (19:34)
[2022-06-30 20:02] VITALS: RESP 1
[2022-06-30] MEDS: cefTRIAXone 1 GM/50 ML BAG IVPB (22:29)
[2022-06-30 23:11] VITALS: BP 110/60; PULSE 75; RESP 20; TEMP 36.7; O2SAT 94
[2022-07-01] MEDS: methylPREDNISolone SUCC 40 MG VIAL IVP ×2 (00:35→07:28)
[2022-07-01 07:03] LABS: Absolute Basophil Count 0.02 10^3/uL (0.0-0.2); Absolute Monocyte Count 0.33 10^3/uL (0.1-0.8); Basophils % 0.2; HCT 33.2 % (36.0-46.0); HGB 10.9 g/dL (11.2-15.7); Immature Grans % 0.9; Lymphocytes % 5.8; MCH 30.1 pg (27.0-33.0); MCHC 32.8 % (32.0-36.0); MCV 92 fL (80-95); MPV 11.6 fL (8.0-11.0); Neutrophils % 90.1; Platelet Count 177 10^3/uL (130-400); RBC 3.62 10^6/uL (3.93-5.22); RDW 11.9 % (11.7-14.6); RDW-SD 40.3 fL; WBC 11.13 10^3/uL (4.4-10.8)
[2022-07-01 07:09] LABS: Anion Gap 2.5 mmol/L (3-11); BUN 26 mg/dL (7-18); CO2 34.5 mmol/L (21.0-32.0); CREATININE 0.8 mg/dL (0.55-1.02); Calcium 9.4 mg/dL (8.5-10.1); Chloride 103 mmol/L (98-107); Estimated GFR 78.72 (mL/min/1.73m2); Glucose 158 mg/dL (74-106); Potassium 4.3 mmol/L (3.5-5.1); Sodium 140 mmol/L (136-145)
[2022-07-01 07:10] LABS: Absolute Lymphocyte Count 0.65 10^3/uL (1.2-3.4); Absolute Neutrophil Count 10.03 10^3/uL (1.2-6.7)
[2022-07-01 07:25] VITALS: BP 159/80; PULSE 73; RESP 16; TEMP 36.6; O2SAT 95
[2022-07-01] MEDS: Normal Saline Flush 10 ML SYR IVP (07:27)
[2022-07-01] MEDS: Omeprazole 20 MG CAPCR 40 MG PO (07:27)
[2022-07-01 07:55] VITALS: PULSE 75; RESP 16; RESP 8; O2SAT 90
[2022-07-01] MEDS: Ipratropium 0.5 MG/2.5 ML UPD VIAL UPD ×2 (07:55→12:05)
[2022-07-01 07:58] VITALS: RESP 8
[2022-07-01] MEDS: Levalbuterol 1.25 MG/3 ML UPD VIAL UPD (07:58)
[2022-07-01] MEDS: Pregabalin 100 MG CAP PO (08:32)
[2022-07-01] MEDS: Citalopram 20 MG TAB 40 MG PO (08:32)
[2022-07-01] MEDS: Lisinopril 10 MG TAB PO (08:32)
[2022-07-01] MEDS: Atenolol 50 MG TAB PO (08:32)
[2022-07-01] MEDS: Pregabalin 50 MG CAP PO (08:32)
[2022-07-01] MEDS: Aspirin E.C. 81 MG TABEC PO (08:32)
[2022-07-01] MEDS: Fluticasone NASAL SPRAY 16 GM BTL NS (08:35)
--- NOTE | 2022-07-01 09:26 | PDOC.CMPRO ---
- If Service Date Differs Date of service: 07/01/22 Time of Service: 09:26 Care Management Progress Note S/O: Celia is back to her baseline and medically ready for discharge, per provider. CM discussed discharge to home with Celia who shares that she has increased anxiety about her prognosis/[place] [facility] [place]. Her PCP is aware of her increased anxiety and prescribed her Lorazapam last week. CM reviewed concerns with Hospitalist and pts daughter. Melatonin is added and follow up with PCP is recommended. In addition, Celia accepts [facility] services and is interested in a Palliative Consult. Celia and Jame are working on a LTM application and discussing LTC options. CM will continue to support discharge planning considerations. A: 71 year old female admitted to [facility] on 06/29/22 for Pneumonia, COPD P: Anticipate, Celia will return home with new [facility] RN/PT/OT once medically cleared vs discharge to SNF for STR. Transportation will be dependent on disposition. Patients daughter Joaquín will inquire about LTM and is also calling the [facility] for an application for admission. Palliative consult is placed. Celia will follow discharge plan of care as prescribed and Community providers.
[2022-07-01] MEDS: DOXYCYCLINE 100 MG in Normal Saline 100 ML IVPB (10:32)
[2022-07-01 12:05] VITALS: PULSE 73; RESP 8; O2SAT 95
[2022-07-01 12:06] VITALS: RESP 8
--- NOTE | 2022-07-01 12:08 | PDOC.HHF2F_ITS ---
Home Health Certification Home Health Certification: 1. Encounter Date and Reason I certify that Celia Nava was seen by Jasmin Marquis NP on 07/01/22 and that I had a [id number] encounter with this patient that meets the physician face to face encounter requirements. 2. Clinical Findings Supporting Skilled Need and Homebound Status I certify that home health services are medically necessary, include either intermittent usp and/or physical/speech therapy, and that this patient is homebound in that absences from the home require considerable and taxing effort and are infrequent or of short duration, or are attributable to the need to receive medical care. [X] (a) Attached documentation from encounter provides clinical findings supporting skilled need and homebound status (including what assistance patient requires to leave the home). The encounter with the patient was in whole, or in part, for the following medical condition, which is the primary reason for home health care:? Pneumonia,COPD Detention:? Skilled observation, assessment and intervention of the patient?s condition including ?symptom control, vital signs, diet, disease process; education regarding medication and respiratory device teaching to the patient and care givers, to avoid further complications of her chronic condition. Physical Therapy: Assess and plan an exercise program to regain movement and strength, teach safety, energy conservation, and any assistive device evaluation and education. Occupational Therapy: Assess and teach ability to perform ADL?s, safety. RAPID TRANSIT OPERATOR: Assessment of social and emotional factors related to chronic disease, appropriate action to obtain available financial and community resources available. Homebound:? Patient is unable to ambulate further than 20 feet without frequent rest periods due to poor endurance and developing shortness of breath. 3. Certification and Authentication I certify that I composed the above information based on my clinical judgement relating to this patient's medical condition and, if applicable, clinical findings communicated to me by the NPP or inpatient physician who performed the Home Health Referral. All further orders will be obtained through Kathleen Joyce APRN
--- NOTE | 2022-07-01 12:56 | DSE_ITS ---
DS: Diagnosis Discharge Diagnosis (1) Pneumonia: Status: Acute (2) COPD exacerbation: Status: Acute (3) Mass of upper lobe of right lung: Status: Acute (4) Hypertension: Status: Acute (5) Discharge planning issues: Status: Acute Discharge Plan Disposition Patient Disposition: HOME W/HOME HEALTH SERVICE Condition: Fair Discharge Details Reason For Visit: Pneumonia,COPD Admit Date/Time: 06/29/22 23:15 Admit Provider: Lazaro Jj Attending Provider: Lazaro Jj Primary Care Provider: Kathleen Joyce Hospital Course Hospital Course: This 71 year old female with h/o COPD presented to the [facility] emergency department with 2 days of worsening cough and SOB. In ER temp 38.2, white count 16 and CXR showing LLL infiltrate. COVID is negative. Blood cx obtained and patient given Rocephin and Doxy along with Duonebs and steroids. Patient states she has been feeling poorly all summer. Today she stated she was feeling back to her baseline and wanted to go home. Her WBC is down to 11, her vital signs are stable, she has no temperature. Blood cultures are negative. She is discharged ble stable to home with doxycycline and prednisone, and home health PT, OT, EMERGENCY MEDICAL TECH and nursing. Home Meds and New Rx's Prescriptions: New melatonin 3 mg Tablet 9 mg PO HS PRN PRN (Reason: Insomnia) Qty: 0 0RF prednisone 20 mg tablet 40 mg PO DAILY 3 Days Qty: 6 0RF doxycycline hyclate 100 mg capsule 100 mg PO BID 5 Days Qty: 10 0RF Continued budesonide-formoterol [Symbicort] 80-4.5 mcg/actuation HFA aerosol inhaler 2 puff inhalation BID Qty: 10.2 12RF (DME) Nasal Cannula O2 Tubing Qty: 2 12RF Rx Instructions: As directed omeprazole 40 mg capsule,delayed release(DR/EC) 40 mg PO DAILY Qty: 90 3RF lisinopril 10 mg tablet 10 mg PO DAILY Qty: 90 3RF umeclidinium 62.5 mcg/actuation blister with device 1 inh inhalation DAILY Qty: 30 12RF (DME) Oxygen Concentrator with portability See Rx Instructions .Route .MEDSUPPLY Qty: 1 0RF Rx Instructions: As directed. Desaturates to 79% on RA at rest. zinc gluconate 50 mg tablet 50 mg PO DAILY ondansetron HCl 4 mg tablet 4 mg PO Q6H lorazepam 0.5 mg tablet 0.5 mg PO DAILY PRN (Reason: anxiety) Qty: 20 0RF ipratropium bromide 0.02 % solution 2.5 ml INHALATION Q8H PRN PRN (Reason: Shortness Of Breath Or Wheezing) Qty: 150 3RF (DME) Nebulizer machine for HHN See Rx Instructions .Route .MEDSUPPLY Qty: 1 0RF Rx Instructions: As directed (DME) Nebulizer supplies/tubing See Rx Instructions .Route .MEDSUPPLY Qty: 1 12RF Rx Instructions: As directed calcium carb-mag ox-zinc gluc 333-133-5 mg tablet 1 tab PO DAILY cholecalciferol (vitamin D3) 25 mcg (1,000 unit) capsule 1,000 unit PO DAILY Correctol 5 mg tablet 5 mg PO PRN PRN Pepto-Bismol 262 mg tablet 2 tab PO DAILY PRN Rx Instructions: do not exceed 16 tabs per 24 hrs menthol 8 mg lozenge 8 mg MM DAILY PRN (DME) Sensodyne Toothpaste See Rx Instructions .ROUTE .MEDSUPPLY Qty: 113 Rx Instructions: daily as needed (DME) denture care products Cream See Rx Instructions .ROUTE .MEDSUPPLY Qty: 1 Rx Instructions: daily (DME) denture cleanser Tablet, Effervescent See Rx Instructions .ROUTE .MEDSUPPLY Qty: 1 Rx Instructions: daily (DME) Inogen Oxygen Concentrator 3L NC Qty: 1 0RF Rx Instructions: 3L NC betamethasone valerate 0.1 % cream 1 applic Topical BID PRN (Reason: rash hands) Qty: 30 6RF Rx Instructions: APPLY TO HANDS NEEDED tetrahydrozoline 0.05 % drops 1 drp ophthalmic (eye) TID Qty: 15 12RF Rx Instructions: OU TID PRN fenofibrate nanocrystallized 48 mg tablet See Rx Instructions .ROUTE .COMPLEX Qty: 90 3RF Dose Instruction: TAKE ONE TABLET BY MOUTH EVERY DAY Rx Instructions: TAKE ONE TABLET BY MOUTH EVERY DAY albuterol sulfate 2.5 mg /3 mL (0.083 %) solution for nebulization 2.5 mg inhalation Q4H PRN (Reason: shortness of breath or wheezing) Qty: 180 3RF fluticasone propionate 50 mcg/actuation spray,suspension See Rx Instructions .ROUTE .COMPLEX Qty: 48 3RF Dose Instruction: INSTILL 2 SPRAYS NASALLY TWICE DAILY Rx Instructions: INSTILL 2 SPRAYS NASALLY TWICE DAILY pregabalin [Lyrica] 150 mg capsule 150 mg PO BID Qty: 180 2RF Combivent Respimat 20-100 mcg/actuation mist 1 puff IH QID Qty: 12 3RF Rx Instructions: Please dispense 3 month supply if insurance allows citalopram 20 mg tablet 40 mg PO DAILY Qty: 180 3RF atenolol 50 mg tablet 50 mg PO DAILY Qty: 90 3RF ibuprofen 400 mg tablet 400 mg PO TID PRN (Reason: fever or pain) Qty: 270 3RF ascorbic acid (vitamin C) [C-1000] 1,000 MG tablet 1,000 mg PO DAILY aspirin [Aspir-81] 81 MG tablet,delayed release (DR/EC) 81 mg PO DAILY Fish Oil 1 EACH capsule 1 ea PO DAILY Discharge Instructions Instructions: Doxycycline (By mouth), Prednisone (By mouth), COPD (Chronic Obstructive Pulmonary Disease) (DC) Additional Instructions: Home Health will call you with an appointment to see you in your home. Stand Alone Forms: Nursing Discharge Form Referrals: Kathleen Joyce NP [Primary Care Provider] - 07/15/22 1:45 pm (See in 1-2 weeks) Activity:: Activity as Tolerated Equipment/Supplies:: Walker Diet:: Low Sodium Discharge Orders Discharge Orders: Discharge Order (Routine); Ordered 07/01/22 Ordered By: Jasmin Marquis Discharge Data Discharge Date/Time-TO BE ENTERED AT DEPARTURE: 07/01/22 14:08 DS: Summary Time Spent with Patient providing and/or coordinating discharge services: Less than 30 minutes Status at Discharge Functional status at discharge: uses cane/walker Overall status at discharge: patient is back to baseline Mental Status: mental status grossly normal Speech and Movement: speech and movement normal Mood: congruent mood Affect: normal affect Exam Const General: cooperative, frail appearing and ill appearing chronically Nutritional Appearance: average body habitus Orientation: alert, awake and oriented x3 HENMT Head: normal to inspection, normocephalic and atraumatic Mouth: oral mucosae normal Resp Effort & Inspection: normal respiratory effort, able to speak in complete sentences, no cough and respiratory distress Auscultation: clear to auscultation bilaterally (distant ), no rales, no rhonchi and no wheezes Cardio Rate: regular rate Rhythm: regular rhythm GI Inspection: normal to inspection Palpation: soft Auscultation: normal bowel sounds Skin General skin exam: no rashes or lesions noted Neuro General: patient alert, patient awake, patient oriented x3 and no focal motor deficits Cognition: normal cognition Speech: speech normal Motor: muscle tone normal throughout Extrem General: normal to inspection and full ROM Psych Mental Status: mental status grossly normal Speech and Movement: speech and movement normal Mood: congruent mood Affect: normal affect DS: Data Vitals/I&O Vitals and I&O: Vital Signs Temperature 36.6 C 07/01/22 07:25 Temperature Source Tympanic 07/01/22 07:25 Pulse 73 07/01/22 12:05 Pulse Rhythm Regular 07/01/22 11:02 Pulse 0 L 06/29/22 22:37 Respiratory Rate 16 07/01/22 07:55 Respiratory Effort 07/01/22 11:02 Respiratory Depth Normal 07/01/22 11:02 Respiratory Pattern Normal 07/01/22 11:02 Blood Pressure 159/80 H 07/01/22 07:25 Blood Pressure Mean 69 06/29/22 22:31 Blood Pressure Position Sitting 06/29/22 16:53 Pulse Oximetry 95 07/01/22 12:05 Oxygen Delivery Method Nasal Cannula 07/01/22 12:05 Oxygen Flow Rate 3 07/01/22 12:05 Pain Level 0 07/01/22 07:25 Comment 06/30/22 00:05 Intake & Output 06/30/22 07/01/22 07/01/22 23:59 11:59 23:59 Intake Total 1110 / 1810 100 / 100 Balance 1110 / 1810 100 / 100 Intake: IV 250 / 250 100 / 100 Oral 860 / 1560 Other: Urine Color Yellow Urine Appearance Clear Clear Comment pT stated she used the toilet. pT goes to the bathroom independently. Voiding Methods Toilet Toilet Data Completed and Pending Labs on day of discharge: Labs from last 24 hours 07/01/22 07/01/22 06:00 06:00 WBC 11.13 H RBC 3.62 L Hgb 10.9 L Hct 33.2 L MCV 92 MCH 30.1 MCHC 32.8 RDW 11.9 Plt Count 177 MPV 11.6 H Immature Gran % 0.9 Neutrophils % 90.1 Lymphocytes % 5.8 Monocytes % 3.0 Eosinophils % 0.0 Basophils % 0.2 Nucleated RBC % 0.0 Absolute Neutrophils 10.03 H Absolute Lymphocytes 0.65 L Absolute Monocytes 0.33 Absolute Eosinophils 0.00 Absolute Basophils 0.02 Sodium 140 Potassium 4.3 Chloride 103 Carbon Dioxide 34.5 H Anion Gap 2.5 L BUN 26 H Creatinine 0.8 Est GFR (CKD-EPI 2020) 78.72 Glucose 158 H Calcium 9.4 Preliminary micro results at discharge 06/29/22 06:30 Blood Culture - Preliminary Blood NO GROWTH 24 HOURS 06/29/22 06:40 Blood Culture - Preliminary Blood NO GROWTH 24 HOURS PFSH All Active Problems (Updated 06/30/22 @ 16:31 by Tammy Mancilla NP) Discharge planning issues (Acute) Pneumonia (Acute) Mass of upper lobe of right lung (Acute) Acute kidney injury (Acute) Acute exacerbation of chronic obstructive pulmonary disease (Acute) Acute exacerbation of congestive heart failure (Acute) Elevated troponin (Acute) CHF exacerbation (Acute) COPD exacerbation (Acute) Exercise hypoxemia (Acute) ENEDELIA FOWLER III, MD, PULMONOLOGY Bronchiectasis without complication (Acute) Enedelia Fowler III, MD, senior service aide Nasal congestion (Acute 07/01/17) Lung nodules (Acute 04/16/17) H/O contact dermatitis and eczema (Acute 02/18/17) Affects Hands, including the palms and the anticubital fossa, and her neck. 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 Deviated nasal septum (Acute 07/01/17) DJD (degenerative joint disease) (Acute 02/18/17) Severe Palpitations (Acute) Elevated troponin I level (Acute) COPD (chronic obstructive pulmonary disease) (Acute) Gold stage 3, Enedelia Fowler MD Incidental lung nodule, > 3mm and < 8mm (Acute) Hypertension (Acute) Medical History Anxiety Cardiomyopathy CHF (congestive heart failure) Chronic kidney disease (02/18/17) COPD (chronic obstructive pulmonary disease) on chronic supplemental oxygen Depression (02/18/17) Fibromyalgia (02/18/17) Gastroesophageal reflux disease (02/18/17) Hyperlipidemia (02/18/17) LBBB (left bundle branch block) Non-ST elevation PR (NSTEMI) Surgical History Dilation and curettage (~1984) Ligation of fallopian tube (~1984) Open Carpal Tunnel release Tonsillectomy and adenoidectomy Family History Mother Essential hypertension Heart disease COPD (chronic obstructive pulmonary disease) Father DJD (degenerative joint disease) Sister Hyperlipidemia Myocardial infarction Daughter [id number] deficiency Social History Smoking/Tobacco Use Status: Former Tobacco Use tobacco type: cigarettes Quit Date: 10/18/13 Smoking risk assessment performed?: Yes Alcohol Intake: never Drug use: Never Substance use type: does not use Do you feel safe at home: Yes Do you feel safe in your relationship?: Yes History History Para 2 Hx # Term Pregnancies Multiple births Hx # Pregnancies Ectopic pregnancies AB induced Hx Number of Living Children AB spontaneous
--- NOTE | 2022-07-01 13:10 | CMDISCH_ITS ---
- If Service Date Differs Date of service: 07/01/22 Time of Service: 13:10 LACE Index Scoring Tool - Questions: Length of Stay (in days): 2 Acuity (Admit via E.D.?): Yes Comorbidities: Previous M.I., Congestive Heart Failure, Chronic Pulmonary Disease, Liver or Renal Disease E.D. Visits: 4 - Answers: Total Score: 14 Risk of Readmission: High Risk Care Management Discharge Reason for Hospitalization: Pneumonia with COPD exacerbation. Discharge Plan: Celia is discharged home via private vehicle with family. New [facility] RN,PT,OT,TRACTOR MECHANIC HELPER services are ordered and New RX's are transmitted to [facility]. Celia will follow up with her community providers and discharge plan of care as prescribed. Celia defers referral's to SNF and LTC for placement at this time. However, patients daughter Jame is actively working on a LTM application to help with LTC considerations and planning. Jame is also looking into placement at the [facility] and CM encouraged her to call for an application. Prior to discharge, Celia agreed to a Palliative consult. Order is placed and providers plan to consult Celia and support her goals of care in the community. Patient/Family Education Needs: Review discharge instructions, medications, limitations and plan to follow up with [facility] and community providers. Review ask me three. Services Needed at Discharge: Home Health Care Services ([facility] RN,PT,OT,TRACTOR MECHANIC HELPER. CM notified [facility] of discharge.)
== END 2022-07-01 14:08 | disposition home health service (06) | DRG 190 ==
LOC: ER 23:51 → MS 23:54
PROVIDERS: Nurse Practitioner Acute Care; Admitting Provider General Practice; Emergency Provider Nurse Practitioner Family; PCP Nurse Practitioner; Visit Provider General Practice
DX: J44.0 Chronic obstructive pulmonary disease with (acute) lower respiratory infection (principal); J18.9 Pneumonia, unspecified organism; I13.0 Hypertensive heart and chronic kidney disease with heart failure and stage 1 through stage 4 chronic kidney disease, or unspecified chronic kidney disease; I42.9 Cardiomyopathy, unspecified; N17.9 Acute kidney failure, unspecified; J44.1 Chronic obstructive pulmonary disease with (acute) exacerbation; Z99.81 Dependence on supplemental oxygen; F41.0 Panic disorder [episodic paroxysmal anxiety]; I50.9 Heart failure, unspecified; R91.8 Other nonspecific abnormal finding of lung field; R74.8 Abnormal levels of other serum enzymes; F41.9 Anxiety disorder, unspecified; N18.9 Chronic kidney disease, unspecified; M79.7 Fibromyalgia; F32.A Depression, unspecified; K21.9 Gastro-esophageal reflux disease without esophagitis; E78.5 Hyperlipidemia, unspecified; I25.2 Old myocardial infarction; I44.7 Left bundle-branch block, unspecified; Z87.891 Personal history of nicotine dependence
CPT/HCPCS: 36410; 36415; 80048; 80053; 87040; 87637; 93005; 94640; 96361; 96365; 96367; 96375; 99285; 71045; 82728; 83605; 83615; 84484; 85025; 85379; 86140; 93010; 99222; 99233; 99238; J0696; J2930; J7614; J7620; J7644; J8597

== ENCOUNTER → 2022-07-22 01:29 | Outpatient (CLI) | payer MEDICARE, SELFPAY ==
--- NOTE | 2022-07-22 08:34 | DI.MAMMO_ITS ---
Exam(s) MAMMO SCREENING EXAM: MAMMO SCREENING CLINICAL HISTORY: screening,z12.39 TECHNIQUE: Mammograms were interpreted according to the usual protocol including computer analysis w [employer] CAD system, tomosynthesis and C-view imaging. COMPARISON: No exams were available for comparison 2012 through 2018 FINDINGS: The breasts are composed of scattered fibroglandular densities, Breast Density category B. No suspicious masses or suspicious microcalcifications are seen. There there are stable bilateral br east nodules, consistent with intramammary lymph nodes. Stable benign calcifications.. No skin thickening or abnormal axillary lymph nodes are seen. There has been no significant change from prior exams. IMPRESSION: BI-RADS Cat 2 - Benign Findings Yearly screening mammography is recommended. Breast Density - Category B, scattered fibroglandular densities. A negative radiographic report should not delay biopsy if a dominant or clinically suspicious mass is present. Up to ten percent of cancers are not identified on mammography. A negative report may reinforce clinical impression. Adenosis and dense breasts may obscure an underlying neoplasm. False positive reports average 6 to 10%. Patient will receive a letter notifying them of these results.
== END ==
PROVIDERS: PCP Nurse Practitioner; Visit Provider Nurse Practitioner
DX: Z12.31 Encounter for screening mammogram for malignant neoplasm of breast (principal); N60.81 Other benign mammary dysplasias of right breast; N60.82 Other benign mammary dysplasias of left breast
CPT/HCPCS: 77063; 77067

== ENCOUNTER 2022-10-15 23:47 | Inpatient (IN) | payer MEDICARE, SELFPAY ==
[2022-10-15] MEDS: Albuterol/Ipratropium 3 ML UPD VIAL (23:45)
--- NOTE | 2022-10-15 23:45 | RT.EKG_ITS ---
APPROVED REPORT Exam: Resting ECG Reason for Exam: SOB Patient Location: E HR:130 bpm ECG Measurements Heart Rate 130 AXIS LA 122 P 58 QRSd 145 QRS 0 QT 340 T 185 QTc 501 Conclusion Sinus tachycardia...rate> 99 Multiple ventricular premature complexes...V complexes w/ short R-R intervls IVCD, consider LBBB...QRSd>120, notch/slur R I aVL V5-6 ST elevation secondary to IVCD...Multiple VCG criteria. Sinus. PVCs. No significant change compared to previous EKG. No STEMI. I have reviewed and interpreted ECG and agree with software generated interpretation.
[2022-10-15 23:51] VITALS: BP 141/97; PULSE 129; RESP 23; RESP 27; TEMP 36.3; O2SAT 88; O2SAT 91
[2022-10-15 23:56] VITALS: BP 141/97; PULSE 129; PULSE 131; RESP 26; O2SAT 89
[2022-10-16] VITALS (78 sets, daily range): BP systolic 99–212; BP diastolic 54–196; PULSE 71–136; RESP 1–39; TEMP 36.1–37; O2SAT 84–99
[2022-10-16] MEDS: Levalbuterol 1.25 MG/3 ML UPD VIAL 2.5 MG UPD (00:08)
[2022-10-16] MEDS: LORazepam 2 MG/ML VIAL 0.5 MG IVP (00:10)
[2022-10-16] MEDS: methylPREDNISolone SUCC 125 MG VIAL IVP (00:16)
--- NOTE | 2022-10-16 00:23 | ED.GENADUL_ITS ---
Discharge Plan Disposition Patient Disposition: Admit to [facility] Condition: Stable Discharge Details Chief Complaint: SOB Clinical Impression: Acute exacerbation of chronic obstructive pulmonary disease, Hypokalemia, Hypomagnesemia Primary Care Provider: Kathleen Joyce ED Provider: Cathryn Taylor Home Meds and New Rx's Prescriptions: No Action lorazepam 0.5 mg tablet 0.5 mg PO DAILY PRN (Reason: anxiety) Qty: 30 5RF (DME) Nasal Cannula O2 Tubing Qty: 2 12RF Rx Instructions: As directed lisinopril 10 mg tablet 10 mg PO DAILY Qty: 90 3RF (DME) Oxygen Concentrator with portability See Rx Instructions .Route .MEDSUPPLY Qty: 1 0RF Rx Instructions: As directed. Desaturates to 79% on RA at rest. ondansetron HCl 4 mg tablet 4 mg PO Q6H ipratropium bromide 0.02 % solution 2.5 ml INHALATION Q8H PRN PRN (Reason: Shortness Of Breath Or Wheezing) Qty: 150 3RF (DME) Nebulizer machine for HHN See Rx Instructions .Route .MEDSUPPLY Qty: 1 0RF Rx Instructions: As directed (DME) Nebulizer supplies/tubing See Rx Instructions .Route .MEDSUPPLY Qty: 1 12RF Rx Instructions: As directed Correctol 5 mg tablet 5 mg PO PRN PRN Pepto-Bismol 262 mg tablet 2 tab PO DAILY PRN Rx Instructions: do not exceed 16 tabs per 24 hrs menthol 8 mg lozenge 8 mg MM DAILY PRN (DME) Sensodyne Toothpaste See Rx Instructions .ROUTE .MEDSUPPLY Qty: 113 Rx Instructions: daily as needed (DME) denture care products Cream See Rx Instructions .ROUTE .MEDSUPPLY Qty: 1 Rx Instructions: daily (DME) denture cleanser Tablet, Effervescent See Rx Instructions .ROUTE .MEDSUPPLY Qty: 1 Rx Instructions: daily (DME) Inogen Oxygen Concentrator 3L NC Qty: 1 0RF Rx Instructions: 3L NC betamethasone valerate 0.1 % cream 1 applic Topical BID PRN (Reason: rash hands) Qty: 30 6RF Rx Instructions: APPLY TO HANDS NEEDED fenofibrate nanocrystallized 48 mg tablet See Rx Instructions .ROUTE .COMPLEX Qty: 90 3RF Dose Instruction: TAKE ONE TABLET BY MOUTH EVERY DAY Rx Instructions: TAKE ONE TABLET BY MOUTH EVERY DAY citalopram 20 mg tablet 40 mg PO DAILY Qty: 180 3RF atenolol 50 mg tablet 50 mg PO DAILY Qty: 90 3RF ascorbic acid (vitamin C) [C-1000] 1,000 mg tablet 1,000 mg PO DAILY Qty: 30 12RF aspirin 81 mg tablet,delayed release (DR/EC) 81 mg PO DAILY Qty: 30 12RF calcium carb-mag ox-zinc gluc 333-133-5 mg tablet 1 tab PO DAILY Qty: 30 12RF cholecalciferol (vitamin D3) 25 mcg (1,000 unit) capsule 1,000 unit PO DAILY Qty: 30 12RF melatonin 3 mg tablet 9 mg PO HS PRN PRN (Reason: Insomnia) Qty: 90 12RF omeprazole 40 mg capsule,delayed release(DR/EC) 40 mg PO DAILY Qty: 30 12RF pregabalin [Lyrica] 150 mg capsule 150 mg PO BID Qty: 60 5RF omega-3 fatty acids-fish oil [Fish Oil] 360-1,200 mg capsule 1 cap PO DAILY Qty: 30 12RF tetrahydrozoline 0.05 % drops 1 drp ophthalmic (eye) TID Qty: 15 12RF Rx Instructions: OU TID PRN fluticasone furoate-vilanterol [Breo Ellipta] 100-25 mcg/dose blister with device 1 inh inhalation DAILY Qty: 60 12RF fluticasone propionate 50 mcg/actuation spray,suspension See Rx Instructions .ROUTE .COMPLEX Qty: 48 3RF Dose Instruction: INSTILL 2 SPRAYS NASALLY TWICE DAILY Rx Instructions: INSTILL 2 SPRAYS NASALLY TWICE DAILY ibuprofen 400 mg tablet 400 mg PO TID PRN (Reason: fever or pain) Qty: 270 3RF Combivent Respimat 20-100 mcg/actuation mist 1 puff IH QID Qty: 12 3RF Rx Instructions: Please dispense 3 month supply if insurance allows umeclidinium 62.5 mcg/actuation blister with device 1 inh inhalation DAILY Qty: 30 12RF simvastatin 40 mg tablet 40 mg PO DAILY Qty: 90 3RF Medical Decision Making 0010 -- 71-year-old female with a history of tobacco smoking, oxygen dependent COPD chronically on 3 L nasal cannula O2, hypertension, hyperlipidemia, GERD, chronic kidney disease, cardiomyopathy, fibromyalgia, anxiety and depression presents for flulike symptoms for 1 week getting progressively worse with worsening shortness of breath tonight. Also admits to nausea. Oxygen saturation 88% on 3 L on arrival. Patient has diminished breath sounds throughout and demonstrates moderate respiratory distress. RT paged. After receiving DuoNeb she admitted to improvement in symptoms but admitted to feeling restless and jittery. Will order Xopenex, screening labs, portable chest x-ray, IV Solu-Medrol, fluvid. 0130 -- Labs reviewed. White blood cell count 14.88. Potassium 2.9, will replete. Troponin negative. Magnesium 1.2, will replete. Fluvid negative. Patient reassessed and she states she overall feels better but still has shortness of breath. She demonstrates pursed lip breathing. Her oxygen saturation is 85% on baseline 3 L but states she just got up to use the commode. We will continue to monitor. We will give an albuterol neb in addition to a dose of Ativan as she appears anxious as well. Review chest x-ray negative for obvious acute findings. Patient will likely need to be admitted for continued observation, nebs and monitoring of electrolytes. 0220 --patient admitted to some persistent shortness of breath. She has difficulty with holding the nebulizer and appears restless. We will give a dose of Ativan and morphine and placed on BiPAP. 0250 --patient appears much more comfortable on BiPAP. Oxygen saturation 94%. Will admit for continued observation, trending off BiPAP, as needed nebs and monitoring of electrolytes. Discussed with hospitalist who accepts patient for admission. 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 Medical Records Medical records reviewed: Yes I reviewed the patient's medical records. Imaging Data Radiologic Study: Radiologist's impression: ?XR Chest Exam date and time: 10/16/2022 12:44 AM Age: 71 years old Clinical indication: Cough and shortness of breath; Additional info: Cough, SOB, R/O acute disease TECHNIQUE: Imaging protocol: Radiologic exam of the chest. Views: 1 view. COMPARISON: XR PORTABLE CHEST AP 06/29/2022 6:59 PM FINDINGS: Lungs: No acute lung infiltrates or edema. Patchy areas of chronic bilateral lung disease are noted suggesting areas of chronic scar or atelectatic type change. Similar features on prior study 06/29/2022. Previous CTA chest from 05/19/2022 describes a spiculated lesion in the right upper lobe. There is also emphysematous disease noted. Pleural spaces: Blunting of the right costophrenic angle suggesting a minor right pleural effusion. This is new since previous study. Heart/Mediastinum: Normal heart size. Bones/joints: Thoracic spine mild dextroscoliosis. IMPRESSION: 1. Chronic bilateral lung disease. 2. No acute infiltrates or edema. 3. Minor right pleural effusion with blunted costophrenic angle. Lab Data Lab results reviewed: Yes I reviewed the patient's lab results. Labs: Laboratory Tests Range/Units 10/16/22 10/16/22 10/16/22 00:08 00:43 00:43 WBC (4.4-10.8) 10^3/uL 14.88 H RBC (3.93-5.22) 10^6/uL 4.18 Hgb (11.2-15.7) g/dL 12.3 Hct (36.0-46.0) % 37.4 MCV (80-95) fL 90 MCH (27.0-33.0) pg 29.4 MCHC (32.0-36.0) % 32.9 RDW (11.7-14.6) % 11.7 Plt Count (130-400) 10^3/uL 230 MPV (8.0-11.0) fL 11.6 H Immature Gran % 0.7 Neutrophils % 79.7 Lymphocytes % 11.4 Monocytes % 7.8 Eosinophils % 0.1 Basophils % 0.3 Nucleated RBC % (0.0-0.3) % 0.0 Absolute Neutrophils (1.2-6.7) 10^3/uL 11.86 H Absolute Lymphocytes (1.2-3.4) 10^3/uL 1.70 Absolute Monocytes (0.1-0.8) 10^3/uL 1.16 H Absolute Eosinophils (0.0-0.7) 10^3/uL 0.01 Absolute Basophils (0.0-0.2) 10^3/uL 0.04 Sodium (136-145) mmol/L 138 Potassium (3.5-5.1) mmol/L 2.9 L Chloride (98-107) mmol/L 96 L Carbon Dioxide (21.0-32.0) mmol/L 34.8 H Anion Gap (3-11) mmol/L 7.2 BUN (7-18) mg/dL 8 Creatinine (0.55-1.02) mg/dL 0.8 Est GFR (CKD-EPI 2020) (mL/min/1.73m2) 78.72 Glucose (74-106) mg/dL 167 H Calcium (8.5-10.1) mg/dL 9.4 Magnesium (1.8-2.4) mg/dL 1.2 L Total Bilirubin (0.2-1.0) mg/dL 0.4 AST (15-37) U/L 20 ALT (14-59) U/L 20 Alkaline Phosphatase (46-116) U/L 97 Troponin I (<or=60) ng/L < 50 Total Protein (6.4-8.2) g/dL 7.7 Albumin (3.4-5.0) g/dL 3.2 L COVID-19 Source Nasopharynx SARS-CoV-2 (PCR) (Negative) Negative Influenza Type A (PCR) (Negative) Negative Influenza Type B (PCR) (Negative) Negative RSV (PCR) (Negative) Negative ECG Data Attestation: I personally reviewed and interpreted this ECG (s) as follows: Interpretation: Rate of 130, sinus, PVCs, no significant change compared to previous EKG, no STEMI. HPI General Mode of arrival: ambulatory . Date/Time Provider Initiated Documentation: 10/16/22 00:23 . Limitations to Documentation: no limitations . Information obtained by: patient . HPI Narrative: Patient is a 71-year-old female with a history of former tobacco smoking, oxygen dependent COPD on 3L nasal cannula, CHF, hypertension, hyperlipidemia, GERD, chronic kidney disease, cardiomyopathy, depression, fibromyalgia, anxiety presents from home for increasing shortness of breath over the past week. Patient states she feels that she has been sick with the flu all week but getting progressively worse. She admits to anxiety and states she feels this contributes to her symptoms. She endorses nausea but denies any chest or abdominal pain. She denies any known fever, vomiting or diarrhea. Related Data Home Medications Medication Instructions Recorded Confirmed bisacodyl 5 mg tablet (Correctol) 5 mg PO PRN PRN 01/19/20 10/16/22 bismuth subsalicylate 262 mg 2 tab PO DAILY PRN 01/19/20 10/16/22 tablet (Pepto-Bismol) denture care products ##1 01/19/20 10/16/22 denture cleanser #1 tab 01/19/20 10/16/22 menthol 8 mg lozenges 8 mg mucous membrane DAILY PRN 01/19/20 10/16/22 toothpaste (Sensodyne toothpaste) #113 grams 01/19/20 10/16/22 Inogen Oxygen Concentrator #1 ea 04/01/20 10/16/22 Nasal Cannula O2 Tubing #2 ea 05/23/20 10/16/22 betamethasone valerate 0.1 % 1 applic topical BID PRN rash 10/13/21 10/16/22 topical cream hands #30 grams fenofibrate nanocrystallized 48 mg See Rx Instructions .Route 12/01/21 10/16/22 tablet .COMPLEX #90 tabs Oxygen Concentrator #1 ea 01/27/22 10/16/22 lisinopril 10 mg tablet 10 mg PO DAILY #90 tab-caps 01/27/22 10/16/22 citalopram 20 mg tablet 40 mg PO DAILY #180 tab-caps 05/11/22 10/16/22 ondansetron HCl 4 mg tablet 4 mg PO Q6H 06/23/22 10/16/22 Nebulizer machine for HHN #1 ea 06/24/22 10/16/22 Nebulizer supplies/tubing #1 ea 06/24/22 10/16/22 ipratropium bromide 0.02 % 2.5 ml inhalation Q8H PRN PRN 06/24/22 10/16/22 solution for inhalation Shortness Of Breath Or Wheezing #150 mL atenolol 50 mg tablet 50 mg PO DAILY #90 tab-caps 06/25/22 10/16/22 ascorbic acid (vitamin C) 1,000 mg 1,000 mg PO DAILY #30 tabs 08/24/22 10/16/22 tablet (C-1000) aspirin 81 mg tablet,delayed 81 mg PO DAILY #30 tabs 08/24/22 10/16/22 release calcium carbonate 333 mg-magnesium 1 tab PO DAILY #30 tabs 08/24/22 10/16/22 oxide 133 mg-zinc gluc 5 mg tablet cholecalciferol (vitamin D3) 25 1,000 unit PO DAILY #30 caps 08/24/22 10/16/22 mcg (1,000 unit) capsule melatonin 3 mg tablet 9 mg PO HS PRN PRN Insomnia #90 08/24/22 10/16/22 tabs omeprazole 40 mg capsule,delayed 40 mg PO DAILY #30 tab-caps 08/24/22 10/16/22 release pregabalin 150 mg capsule (Lyrica) 150 mg PO BID #60 tab-caps 08/24/22 10/16/22 omega-3 fatty acids-fish oil 360 1 cap PO DAILY #30 caps 08/25/22 10/16/22 mg-1,200 mg capsule (Fish Oil) lorazepam 0.5 mg tablet 0.5 mg PO DAILY PRN anxiety #30 09/07/22 10/16/22 tabs fluticasone furoate 100 1 inh inhalation DAILY #60 ea 09/15/22 10/16/22 mcg-vilanterol 25 mcg/dose inhalation powder (Breo Ellipta) fluticasone propionate 50 See Rx Instructions .Route 09/15/22 10/16/22 mcg/actuation nasal .COMPLEX #48 mL spray,suspension ibuprofen 400 mg tablet 400 mg PO TID PRN fever or pain 09/15/22 10/16/22 #270 tab-caps ipratropium 20 mcg-albuterol 100 1 puff inhalation QID #12 grams 09/15/22 10/16/22 mcg/actuation mist for inhalation (Combivent Respimat) simvastatin 40 mg tablet 40 mg PO DAILY #90 tabs 09/15/22 10/16/22 tetrahydrozoline 0.05 % eye drops 1 drp ophthalmic (eye) TID #15 mL 09/15/22 10/16/22 umeclidinium 62.5 mcg/actuation 1 inh inhalation DAILY #30 ea 09/15/22 10/16/22 blister powder for inhalation Previous Rx's Medication Instructions Recorded Inogen Oxygen Concentrator #1 ea 04/01/20 Nasal Cannula O2 Tubing #2 ea 05/23/20 betamethasone valerate 0.1 % 1 applic topical BID PRN rash 10/13/21 topical cream hands #30 grams fenofibrate nanocrystallized 48 mg See Rx Instructions .Route 12/01/21 tablet .COMPLEX #90 tabs Oxygen Concentrator #1 ea 01/27/22 lisinopril 10 mg tablet 10 mg PO DAILY #90 tab-caps 01/27/22 citalopram 20 mg tablet 40 mg PO DAILY #180 tab-caps 05/11/22 Nebulizer machine for HHN #1 ea 06/24/22 Nebulizer supplies/tubing #1 ea 06/24/22 ipratropium bromide 0.02 % 2.5 ml inhalation Q8H PRN PRN 06/24/22 solution for inhalation Shortness Of Breath Or Wheezing #150 mL atenolol 50 mg tablet 50 mg PO DAILY #90 tab-caps 06/25/22 ascorbic acid (vitamin C) 1,000 mg 1,000 mg PO DAILY #30 tabs 08/24/22 tablet (C-1000) aspirin 81 mg tablet,delayed 81 mg PO DAILY #30 tabs 08/24/22 release calcium carbonate 333 mg-magnesium 1 tab PO DAILY #30 tabs 08/24/22 oxide 133 mg-zinc gluc 5 mg tablet cholecalciferol (vitamin D3) 25 1,000 unit PO DAILY #30 caps 08/24/22 mcg (1,000 unit) capsule melatonin 3 mg tablet 9 mg PO HS PRN PRN Insomnia #90 08/24/22 tabs omeprazole 40 mg capsule,delayed 40 mg PO DAILY #30 tab-caps 08/24/22 release pregabalin 150 mg capsule (Lyrica) 150 mg PO BID #60 tab-caps 08/24/22 omega-3 fatty acids-fish oil 360 1 cap PO DAILY #30 caps 08/25/22 mg-1,200 mg capsule (Fish Oil) lorazepam 0.5 mg tablet 0.5 mg PO DAILY PRN anxiety #30 09/07/22 tabs fluticasone furoate 100 1 inh inhalation DAILY #60 ea 09/15/22 mcg-vilanterol 25 mcg/dose inhalation powder (Breo Ellipta) fluticasone propionate 50 See Rx Instructions .Route 09/15/22 mcg/actuation nasal .COMPLEX #48 mL spray,suspension ibuprofen 400 mg tablet 400 mg PO TID PRN fever or pain 09/15/22 #270 tab-caps ipratropium 20 mcg-albuterol 100 1 puff inhalation QID #12 grams 09/15/22 mcg/actuation mist for inhalation (Combivent Respimat) simvastatin 40 mg tablet 40 mg PO DAILY #90 tabs 09/15/22 tetrahydrozoline 0.05 % eye drops 1 drp ophthalmic (eye) TID #15 mL 09/15/22 umeclidinium 62.5 mcg/actuation 1 inh inhalation DAILY #30 ea 09/15/22 blister powder for inhalation Allergies Allergy/AdvReac Type Severity Reaction Status Date / Time Latex, Natural Rubber Allergy Intermediate rash; Verified 10/16/22 02:33 contact dermatitis codeine [Codeine] AdvReac Intermediate Headache Verified 10/16/22 02:33 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 Allergy Intermediate contact Uncoded 10/16/22 02:33 dermatitis General Stated Complaint: SOB ZACKERY: 2 Review of Systems All systems reviewed & are unremarkable except as noted in HPI and below Constitutional Constitutional: Reports as per HPI, Denies chills and Denies fever(s) Eyes Eyes: Denies blurry vision ENT Ears, Nose, Mouth, and Throat: Denies dizziness, Denies sore throat and Denies throat swelling Cardiovascular Cardiovascular: Denies chest pain and Reports dyspnea Respiratory Respiratory: Reports cough and Reports dyspnea Gastrointestinal Gastrointestinal: Denies abdominal pain, Denies diarrhea, Reports nausea and Denies vomiting Genitourinary Genitourinary: Denies hematuria and Denies dysuria Musculoskeletal Musculoskeletal: Denies back pain and Denies numbness Integumentary/Breasts Skin/Breast: Denies lesions and Denies rash Neurologic Neurologic: Denies dizziness, Denies localized weakness and Denies numbness Allergic/Immunologic Allergic/Immunologic: Denies throat swelling PFS All Active Problems (Updated 10/16/22 @ 03:41 by Cathryn Taylor DO) Acute exacerbation of chronic obstructive pulmonary disease (Acute) Hypokalemia (Acute) Hypomagnesemia (Acute) Pneumonia (Acute) Mass of upper lobe of right lung (Acute) Acute kidney injury (Acute) Acute exacerbation of congestive heart failure (Acute) Elevated troponin (Acute) CHF exacerbation (Acute) COPD exacerbation (Acute) Exercise hypoxemia (Acute) ENEDELIA FOWLER III, MD, PULMONOLOGY Bronchiectasis without complication (Acute) Enedelia Fowler III, MD, director social welfare Nasal congestion (Acute 07/01/17) Lung nodules (Acute 04/16/17) 10/07/22 [facility] RAD/Oncology for [facility] Planning H/O contact dermatitis and eczema (Acute 02/18/17) Affects Hands, including the palms and the anticubital fossa, and her neck. 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 Deviated nasal septum (Acute 07/01/17) DJD (degenerative joint disease) (Acute 02/18/17) Severe Palpitations (Acute) Elevated troponin I level (Acute) COPD (chronic obstructive pulmonary disease) (Acute) Gold stage 3, Enedelia Fowler MD Incidental lung nodule, > 3mm and < 8mm (Acute) Hypertension (Acute) Medical History Anxiety Cardiomyopathy CHF (congestive heart failure) Chronic kidney disease (02/18/17) COPD (chronic obstructive pulmonary disease) on chronic supplemental oxygen Depression (02/18/17) Fibromyalgia (02/18/17) Gastroesophageal reflux disease (02/18/17) Hyperlipidemia (02/18/17) LBBB (left bundle branch block) Non-ST elevation IN (NSTEMI) Surgical History Dilation and curettage (~1984) Ligation of fallopian tube (~1984) Open Carpal Tunnel release Tonsillectomy and adenoidectomy Family History Mother Essential hypertension Heart disease COPD (chronic obstructive pulmonary disease) Father DJD (degenerative joint disease) Sister Hyperlipidemia Myocardial infarction Daughter [id number] deficiency Social History Smoking/Tobacco Use Status: Former Tobacco Use tobacco type: cigarettes Quit Date: 10/18/13 Smoking risk assessment performed?: Yes Alcohol Intake: never Drug use: Never Substance use type: does not use Do you feel safe at home: Yes Do you feel safe in your relationship?: Yes History History Para 2 Hx # Term Pregnancies Multiple births Hx # Pregnancies Ectopic pregnancies AB induced Hx Number of Living Children AB spontaneous Exam Const General: cooperative and acute distress respiratory Orientation: alert, awake and oriented x3 HENMT Head: normal to inspection Ears: hearing grossly normal bilaterally and external ears normal Face and sinus: normal facial exam Eyes General: appearance normal, both eyes and all related structures Pupils: PERRL EOM: EOM intact bilaterally Neck Neck: normal visual inspection and No submandibular swelling Lymphatic: no lymphadenopathy noted Chest Chest: normal inspection of the chest and no tenderness Resp Effort & Inspection: normal respiratory effort and able to speak in complete sentences Auscultation: diminished lung sounds bilaterally throughout Cardio Rate: tachycardic Rhythm: regular rhythm GI Inspection: normal to inspection Palpation: soft, not firm, not rigid and nontender Auscultation: normal bowel sounds Back/Spine/Pelvis Thoracic/Lumbar Spine: thoracic and lumbar spine normal to inspection Skin General skin exam: no rashes or lesions noted Neuro General: patient alert, patient awake and patient oriented x3 Cognition: normal cognition Speech: speech normal Motor: muscle tone normal throughout Sensory Exam: no sensory deficits noted Extrem General: normal to inspection, full ROM, capillary refill normal, no calf tenderness bilaterally and no edema Psych Appearance: grossly normal Mental Status: mental status grossly normal Speech and Movement: speech and movement normal Affect: normal affect Course Vital Signs Vital signs: Vital Signs Temperature 97.3 F L 10/15/22 23:51 Pulse 129 H 10/15/22 23:51 Respiratory Rate 23 10/15/22 23:51 Blood Pressure 141/97 H 10/15/22 23:51 Pulse Oximetry 88 L 10/15/22 23:51 Temperature 97.3 F L 10/15/22 23:51 Temperature Source Skin 10/15/22 23:51 Pulse 127 H 10/16/22 00:08 Respiratory Rate 19 10/16/22 00:08 Respiratory Effort Labored 10/15/22 23:51 Blood Pressure 141/97 H 10/15/22 23:51 Blood Pressure Position Supine 10/15/22 23:51 Pulse Oximetry 91 L 10/16/22 00:08 Oxygen Delivery Method Nasal Cannula 10/16/22 00:08 Oxygen Flow Rate 3 10/16/22 00:08
--- NOTE | 2022-10-16 00:30 | DI.RAD_ITS ---
Exam(s) XR PORTABLE CHEST AP EXAM: XR PORTABLE CHEST AP CLINICAL HISTORY: cough, sob, r/o acute disease TECHNIQUE: 2D digital imaging was performed. COMPARISON: CR XR PORTABLE CHEST AP from 05/19/[address] CHEST PE CTA from 05/19/2022 CR,XR XR PORTABLE CHEST AP from 06/29/2022 FINDINGS: LUNGS: There are chronic interstitial changes in areas of scarring. Underlying emphysematous changes are present. A mass is vaguely noted in the left upper lobe. No superimposed infiltrate. Minimal blunting at the right costophrenic angle could indicate a tiny effusion. HEART: Normal size. AORTA: Normal diameter. BONES: Unremarkable for age. Soft tissues: Unremarkable. IMPRESSION: Tiny right pleural effusion. Underlying chronic pulmonary changes. Left upper lobe mass. No new fi ndings. DATA REPOSITORY: RADIATION DOSE DELIVERED:
[2022-10-16 00:46] LABS: Absolute Monocyte Count 1.16 10^3/uL (0.1-0.8); Absolute Neutrophil Count 11.86 10^3/uL (1.2-6.7); Basophils % 0.3; Eosinophils % 0.1; HCT 37.4 % (36.0-46.0); HGB 12.3 g/dL (11.2-15.7); Immature Grans % 0.7; Lymphocytes % 11.4; MCH 29.4 pg (27.0-33.0); MCHC 32.9 % (32.0-36.0); MCV 90 fL (80-95); MPV 11.6 fL (8.0-11.0); Monocytes % 7.8; Neutrophils % 79.7; Platelet Count 230 10^3/uL (130-400); RBC 4.18 10^6/uL (3.93-5.22); RDW 11.7 % (11.7-14.6); RDW-SD 38.2 fL; WBC 14.88 10^3/uL (4.4-10.8)
[2022-10-16 00:47] LABS: Absolute Basophil Count 0.04 10^3/uL (0.0-0.2); Absolute Eosinophil Count 0.01 10^3/uL (0.0-0.7)
[2022-10-16 00:48] LABS: COVID-19 PCR Negative (Negative); Influenza A PCR Negative (Negative); Influenza B PCR Negative (Negative); RSV PCR Negative (Negative)
[2022-10-16 00:59] LABS: Source Nasopharynx
[2022-10-16 01:05] LABS: ALT 20 U/L (14-59); AST 20 U/L (15-37); Albumin 3.2 g/dL (3.4-5.0); Alkaline Phosphatase 97 U/L (46-116); Anion Gap 7.2 mmol/L (3-11); BUN 8 mg/dL (7-18); Bilirubin, Total 0.4 mg/dL (0.2-1.0); CO2 34.8 mmol/L (21.0-32.0); CREATININE 0.8 mg/dL (0.55-1.02); Calcium 9.4 mg/dL (8.5-10.1); Chloride 96 mmol/L (98-107); Estimated GFR 78.72 (mL/min/1.73m2); Glucose 167 mg/dL (74-106); Magnesium 1.2 mg/dL (1.8-2.4); Sodium 138 mmol/L (136-145); Total Protein 7.7 g/dL (6.4-8.2); Troponin I < 50 ng/L (<or=60)
[2022-10-16 01:08] LABS: Potassium 2.9 mmol/L (3.5-5.1)
[2022-10-16] MEDS: LORazepam 2 MG/ML VIAL 1 MG IVP (01:35)
[2022-10-16] MEDS: Potassium Chloride 20 MEQ TABCR 40 MEQ PO ×2 (01:40→08:55)
[2022-10-16] MEDS: MAGNESIUM SULFATE 2 GM/50 ML BAG IVPB ×2 (01:45→08:51)
[2022-10-16] MEDS: POTASSIUM CHLORIDE 20 MEQ/100 ML BAG 50 MEQ IVPB (01:50)
[2022-10-16] MEDS: MORPHine 4 MG/ML SYR IVP (02:05)
--- NOTE | 2022-10-16 02:06 | DI.VRAD_ITS ---
PROCEDURE INFORMATION: Exam: XR Chest Exam date and time: 10/16/2022 12:44 AM Age: 71 years old Clinical indication: Cough and shortness of breath; Additional info: Cough, SOB, R/O acute disease TECHNIQUE: Imaging protocol: Radiologic exam of the chest. Views: 1 view. COMPARISON: XR PORTABLE CHEST AP 06/29/2022 6:59 PM FINDINGS: Lungs: No acute lung infiltrates or edema. Patchy areas of chronic bilateral lung disease are noted suggesting areas of chronic scar or atelectatic type change. Similar features on prior study 06/29/2022. Previous CTA chest from 05/19/2022 describes a spiculated lesion in the right upper lobe. There is also emphysematous disease noted. Pleural spaces: Blunting of the right costophrenic angle suggesting a minor right pleural effusion. This is new since previous study. Heart/Mediastinum: Normal heart size. Bones/joints: Thoracic spine mild dextroscoliosis. IMPRESSION: 1. Chronic bilateral lung disease. 2. No acute infiltrates or edema. 3. Minor right pleural effusion with blunted costophrenic angle. Dictated and Authenticated by: Danis Bess MD. Ordering:MARTA Lockett MD
[2022-10-16 03:24] LABS: BUN 8 mg/dL (7-18); CREATININE 0.6 mg/dL (0.55-1.02); Calcium 9.2 mg/dL (8.5-10.1); Chloride 98 mmol/L (98-107); Glucose 193 mg/dL (74-106); Potassium 3.1 mmol/L (3.5-5.1); Sodium 138 mmol/L (136-145)
--- NOTE | 2022-10-16 05:30 | W.PM.HP.N ---
Date of service: 10/16/22 Time of Service: 05:30 Assessment and Plan Assessment and plan (1) Acute on chronic respiratory failure with hypoxia: Status: Acute Assessment and plan: Suspect this is due to acute exacerbation of COPD in addition to some degree of acute on chronic systolic CHF. Check proBNP. Treat COPD exacerbation with steroids, scheduled + prn nebs, symbicort, antitussives. Obtain sputum culture. check procalcitonin. Check VBG. (2) Acute exacerbation of chronic obstructive pulmonary disease: Status: Acute Assessment and plan: As above (3) Cardiomyopathy: Assessment and plan: CHFrEF. LVEF 45% on echo from 06/08. Obtain proBNP. Will give a dose of furosemide 20 mg IV x1. (4) Hypokalemia: Status: Acute Assessment and plan: Replete, replete magnesium. (5) Hypomagnesemia: Status: Acute Assessment and plan: Replete, recheck in am (6) DVT prophylaxis: Status: Acute Assessment and plan: SC enoxaparin (7) Discharge planning issues: Status: Acute Assessment and plan: Full code Admit to [facility]. History of Present Illness History of Present Illness Chief Complaint: shortness of breath Narrative: Ms Nava is a 71 year old female with PMHx of oxygen-dependent COPD, chronic hypoxic respiratory failure on 3L of O2 by NH, past tobacco use, cardiomyopathy/CHFrEF (LVEF of 45%), HTN, Hyperlipidemia, GERD, who presented to [facility] ED c/o shortness of breath x 1 month, but getting worse since her 1 week of URI sx. Shortness of breath has gotten especially bad last night. The patient describes subjective fevers, chills, runny nose, sore throat, cough productive of mejia sputum. On arrival to ER, the patient was saturating 88% on her usual 3L of O2 and was in moderate respiratory distress. [place] better with duonebs, but continued to feel short of breath. Overnight, ended up receiving ativan, morphine, and being placed on BiPAP, which was very helpful. Hospitalist admission was requested. On my exam, the patient had just been taken off of BiPAP and was transitioned to 3 L of O2 by NH. She is feeling much better. Review of Systems All systems reviewed & are unremarkable except as noted in HPI and below PFSH All Active Problems (Updated 10/16/22 @ 05:40 by Skye Navas MD) Discharge planning issues (Acute) DVT prophylaxis (Acute) Acute on chronic respiratory failure with hypoxia (Acute) Acute exacerbation of chronic obstructive pulmonary disease (Acute) Hypokalemia (Acute) Hypomagnesemia (Acute) Pneumonia (Acute) Mass of upper lobe of right lung (Acute) Acute kidney injury (Acute) Acute exacerbation of congestive heart failure (Acute) Elevated troponin (Acute) CHF exacerbation (Acute) COPD exacerbation (Acute) Exercise hypoxemia (Acute) ENEDELIA FOWLER III, MD, PULMONOLOGY Bronchiectasis without complication (Acute) Enedelia Fowler III, MD, director talent management Nasal congestion (Acute 07/01/17) Lung nodules (Acute 04/16/17) 10/07/22 [facility] RAD/Oncology for Radiation Planning H/O contact dermatitis and eczema (Acute 02/18/17) Affects Hands, including the palms and the anticubital fossa, and her neck. 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 Deviated nasal septum (Acute 07/01/17) DJD (degenerative joint disease) (Acute 02/18/17) Severe Palpitations (Acute) Elevated troponin I level (Acute) COPD (chronic obstructive pulmonary disease) (Acute) Gold stage 3, Enedelia Fowler MD Incidental lung nodule, > 3mm and < 8mm (Acute) Hypertension (Acute) Medical History Anxiety Cardiomyopathy CHF (congestive heart failure) Chronic kidney disease (02/18/17) COPD (chronic obstructive pulmonary disease) on chronic supplemental oxygen Depression (02/18/17) Fibromyalgia (02/18/17) Gastroesophageal reflux disease (02/18/17) Hyperlipidemia (02/18/17) LBBB (left bundle branch block) Non-ST elevation [place] (NSTEMI) Surgical History Dilation and curettage (~1984) Ligation of fallopian tube (~1984) Open Carpal Tunnel release Tonsillectomy and adenoidectomy Family History Mother Essential hypertension Heart disease COPD (chronic obstructive pulmonary disease) Father DJD (degenerative joint disease) Sister Hyperlipidemia Myocardial infarction Daughter Rgxyd-[id number]-[id number] deficiency Social History Smoking/Tobacco Use Status: Former Tobacco Use tobacco type: cigarettes Quit Date: 10/18/13 Smoking risk assessment performed?: Yes Alcohol Intake: never Drug use: Never Substance use type: does not use Do you feel safe at home: Yes Do you feel safe in your relationship?: Yes History History Para 2 Hx # Term Pregnancies Multiple births Hx # Pregnancies Ectopic pregnancies AB induced Hx Number of Living Children AB spontaneous Meds Allergies and Home Medications Allergies Allergy/AdvReac Type Severity Reaction Status Date / Time Latex, Natural Rubber Allergy Intermediate rash; Verified 10/16/22 02:33 contact dermatitis codeine [Codeine] AdvReac Intermediate Headache Verified 10/16/22 02:33 household 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 Allergy Intermediate contact Uncoded 10/16/22 02:33 dermatitis Home Medications Medication Instructions Recorded Confirmed Type bisacodyl 5 mg tablet (Correctol) 5 mg PO PRN PRN 01/19/20 10/16/22 History bismuth subsalicylate 262 mg 2 tab PO DAILY PRN 01/19/20 10/16/22 History tablet (Pepto-Bismol) denture care products ##1 01/19/20 10/16/22 History denture cleanser #1 tab 01/19/20 10/16/22 History menthol 8 mg lozenges 8 mg mucous membrane DAILY PRN 01/19/20 10/16/22 History toothpaste (Sensodyne toothpaste) #113 grams 01/19/20 10/16/22 History [employer] Oxygen Concentrator #1 ea 04/01/20 10/16/22 Rx Nasal Cannula O2 Tubing #2 ea 05/23/20 10/16/22 Rx betamethasone valerate 0.1 % 1 applic topical BID PRN rash 10/13/21 10/16/22 Rx topical cream hands #30 grams fenofibrate nanocrystallized 48 mg See Rx Instructions .Route 12/01/21 10/16/22 Rx tablet .COMPLEX #90 tabs Oxygen Concentrator #1 ea 01/27/22 10/16/22 Rx lisinopril 10 mg tablet 10 mg PO DAILY #90 tab-caps 01/27/22 10/16/22 Rx citalopram 20 mg tablet 40 mg PO DAILY #180 tab-caps 05/11/22 10/16/22 Rx ondansetron HCl 4 mg tablet 4 mg PO Q6H 06/23/22 10/16/22 History Nebulizer machine for HHN #1 ea 06/24/22 10/16/22 Rx Nebulizer supplies/tubing #1 ea 06/24/22 10/16/22 Rx ipratropium bromide 0.02 % 2.5 ml inhalation Q8H PRN PRN 06/24/22 10/16/22 Rx solution for inhalation Shortness Of Breath Or Wheezing #150 mL atenolol 50 mg tablet 50 mg PO DAILY #90 tab-caps 06/25/22 10/16/22 Rx ascorbic acid (vitamin C) 1,000 mg 1,000 mg PO DAILY #30 tabs 08/24/22 10/16/22 Rx tablet (C-1000) aspirin 81 mg tablet,delayed 81 mg PO DAILY #30 tabs 08/24/22 10/16/22 Rx release calcium carbonate 333 mg-magnesium 1 tab PO DAILY #30 tabs 08/24/22 10/16/22 Rx oxide 133 mg-zinc gluc 5 mg tablet cholecalciferol (vitamin D3) 25 1,000 unit PO DAILY #30 caps 08/24/22 10/16/22 Rx mcg (1,000 unit) capsule melatonin 3 mg tablet 9 mg PO HS PRN PRN Insomnia #90 08/24/22 10/16/22 Rx tabs omeprazole 40 mg capsule,delayed 40 mg PO DAILY #30 tab-caps 08/24/22 10/16/22 Rx release pregabalin 150 mg capsule (Lyrica) 150 mg PO BID #60 tab-caps 08/24/22 10/16/22 Rx omega-3 fatty acids-fish oil 360 1 cap PO DAILY #30 caps 08/25/22 10/16/22 Rx mg-1,200 mg capsule (Fish Oil) lorazepam 0.5 mg tablet 0.5 mg PO DAILY PRN anxiety #30 09/07/22 10/16/22 Rx tabs fluticasone furoate 100 1 inh inhalation DAILY #60 ea 09/15/22 10/16/22 Rx mcg-vilanterol 25 mcg/dose inhalation powder (Breo Ellipta) fluticasone propionate 50 See Rx Instructions .Route 09/15/22 10/16/22 Rx mcg/actuation nasal .COMPLEX #48 mL spray,suspension ibuprofen 400 mg tablet 400 mg PO TID PRN fever or pain 09/15/22 10/16/22 Rx #270 tab-caps ipratropium 20 mcg-albuterol 100 1 puff inhalation QID #12 grams 09/15/22 10/16/22 Rx mcg/actuation mist for inhalation (Combivent Respimat) simvastatin 40 mg tablet 40 mg PO DAILY #90 tabs 09/15/22 10/16/22 Rx tetrahydrozoline 0.05 % eye drops 1 drp ophthalmic (eye) TID #15 mL 09/15/22 10/16/22 Rx umeclidinium 62.5 mcg/actuation 1 inh inhalation DAILY #30 ea 09/15/22 10/16/22 Rx blister powder for inhalation Exam Narrative Exam Narrative: General: Pleasant elderly female who is not in respiratory distress, A&Ox3, appears quite comfortable, speaking in 3-5 word phrases Neurological: A&Ox3, n ofocal deficits Psychiatric: Appropriate speech pattern/content Skin: Visible skin intact HEENT: Atraumatic, normocephalic, EOMI, dry MM, clear oropharynx, no submandibular or cervical lymphadenopathy, no goiter or JVD Cardiovascular: RRR, tachycardic Lungs: Rales and expiratory rhonchi B Gastrointestinal: soft, nontender, nondistended Genitourinary: deferred Extremities: no edema BLEs, 1+ pedal pulses B Results Imaging Additional studies: CXR; 1. Chronic bilateral lung disease. 2. No acute infiltrates or edema. 3. Minor right pleural effusion with blunted costophrenic angle. EKG: ST, LBBB (old) Labs Result diagrams: 10/16/22 00:43 10/16/22 03:00 Labs: Laboratory Results - last 24 hr 10/16/22 10/16/22 10/16/22 00:08 00:43 00:43 WBC 14.88 H RBC 4.18 Hgb 12.3 Hct 37.4 MCV 90 MCH 29.4 MCHC 32.9 RDW 11.7 Plt Count 230 MPV 11.6 H Immature Gran % 0.7 Neutrophils % 79.7 Lymphocytes % 11.4 Monocytes % 7.8 Eosinophils % 0.1 Basophils % 0.3 Nucleated RBC % 0.0 Absolute Neutrophils 11.86 H Absolute Lymphocytes 1.70 Absolute Monocytes 1.16 H Absolute Eosinophils 0.01 Absolute Basophils 0.04 Sodium 138 Potassium 2.9 L Chloride 96 L Carbon Dioxide 34.8 H Anion Gap 7.2 BUN 8 Creatinine 0.8 Est GFR (CKD-EPI 2020) 78.72 Glucose 167 H Calcium 9.4 Magnesium 1.2 L Total Bilirubin 0.4 AST 20 ALT 20 Alkaline Phosphatase 97 Troponin I < 50 Total Protein 7.7 Albumin 3.2 L COVID-19 Source Nasopharynx SARS-CoV-2 (PCR) Negative Influenza Type A (PCR) Negative Influenza Type B (PCR) Negative RSV (PCR) Negative 10/16/22 03:00 WBC RBC Hgb Hct MCV MCH MCHC RDW Plt Count MPV Immature Gran % Neutrophils % Lymphocytes % Monocytes % Eosinophils % Basophils % Nucleated RBC % Absolute Neutrophils Absolute Lymphocytes Absolute Monocytes Absolute Eosinophils Absolute Basophils Sodium 138 Potassium 3.1 L Chloride 98 Carbon Dioxide 35.0 H Anion Gap 5.0 BUN 8 Creatinine 0.6 Est GFR (CKD-EPI 2020) 95.90 Glucose 193 H Calcium 9.2 Magnesium Total Bilirubin AST ALT Alkaline Phosphatase Troponin I Total Protein Albumin COVID-19 Source SARS-CoV-2 (PCR) Influenza Type A (PCR) Influenza Type B (PCR) RSV (PCR) Last Vital Signs Temp 36.3 C L 10/15/22 23:51 Pulse 101 H 10/16/22 04:15 Resp 29 H 10/16/22 04:20 BP 107/57 L 10/16/22 04:15 Pulse Ox 96 10/16/22 04:20
[2022-10-16 06:30] LABS: BE (Venous) 13 mmol/L (-2-3); HCO3 (Venous) 37 mmol/L (23-28); O2 Sat (Venous) 91 %; TCO2 (Venous) 34 mmol/L (24-29); pCO2 (Venous) 58 mmHg (41-51); pH (Venous) 7.42 (7.31-7.41); pO2 (Venous) 60 mmHg
[2022-10-16 06:43] LABS: Anion Gap 2.6 mmol/L (3-11); BUN 9 mg/dL (7-18); CO2 37.4 mmol/L (21.0-32.0); CREATININE 0.7 mg/dL (0.55-1.02); Calcium 9.3 mg/dL (8.5-10.1); Chloride 100 mmol/L (98-107); Estimated GFR 92.41 (mL/min/1.73m2); Glucose 174 mg/dL (74-106); Magnesium 2.1 mg/dL (1.8-2.4); Potassium 3.4 mmol/L (3.5-5.1); Sodium 140 mmol/L (136-145)
[2022-10-16 06:54] LABS: NT-proBNP 1918 pg/mL (<300)
[2022-10-16 06:54] LABS: Lab Add On Test COMPLETED
[2022-10-16 07:31] LABS: Procalcitonin 0.1 ng/mL
[2022-10-16] MEDS: Fluticasone NASAL SPRAY 16 GM BTL NS ×2 (08:51→22:04)
[2022-10-16] MEDS: Normal Saline 500 ML 30 ML IV (08:51)
[2022-10-16] MEDS: Enoxaparin 40 MG/0.4 ML SYR SC (08:53)
--- NOTE | 2022-10-16 08:53 | INITIAL_ITS ---
- If Service Date Differs Date of service: 10/16/22 Time of Service: 08:53 Care Management Initial Assess REASON FOR HOSPITALIZATION:: Acute on chronic respiratory failure with hypoxia, Acute COPD exacerbation PAST MEDICAL HISTORY/PAST SURGICAL HISTORY:: All Active Problems (Updated 10/16/22 @ 05:40 by Skye Navas MD). Discharge planning issues (Acute). DVT prophylaxis (Acute). Acute on chronic respiratory failure with hypoxia (Acute). Acute exacerbation of chronic obstructive pulmonary disease (Acute). Hypokalemia (Acute). Hypomagnesemia (Acute). Pneumonia (Acute). Mass of upper lobe of right lung (Acute). Acute kidney injury (Acute). Acute exacerbation of congestive heart failure (Acute). Elevated troponin (Acute). CHF exacerbation (Acute). COPD exacerbation (Acute). Exercise hypoxemia (Acute). ENEDELIA FOWLER III, MD, PULMONOLOGY. Bronchiectasis without complication (Acute). Enedelia Fowler III, MD, associate director of sales. Nasal congestion (Acute 07/01/17). Lung nodules (Acute 04/16/17). 10/07/22 [facility] RAD/Oncology for Radiation Planning. H/O contact dermatitis and eczema (Acute 02/18/17). Affects Hands, including the palms and the anticubital fossa, and her neck. 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 Deviated nasal septum (Acute 07/01/17). DJD (degenerative joint disease) (Acute 02/18/17). Severe. Palpitations (Acute). Elevated troponin I level (Acute). COPD (chronic obstructive pulmonary disease) (Acute). Gold stage 3, Enedelia Fowler MD. Incidental lung nodule, > 3mm and < 8mm (Acute). Hypertension (Acute). Medical History . Anxiety. Cardiomyopathy. CHF (congestive heart failure). Chronic kidney disease (02/18/17). COPD (chronic obstructive pulmonary disease). on chronic supplemental oxygen. Depression (02/18/17). Fibromyalgia (02/18/17). Gastroesophageal reflux disease (02/18/17). Hyperlipidemia (02/18/17). LBBB (left bundle branch block). Non- ST elevation [place] (NSTEMI). Surgical History . Dilation and curettage (~1984). Ligation of fallopian tube (~1984). Open Carpal Tunnel release. Tonsillectomy and adenoidectomy PREVIOUS FUNCTIONAL STATUS/SOCIAL/FAMILY SUPPORTS:: Celia is retired and resides alone in her apartment in [place]. She is independent with most of ADLs. Her main support person is her daughter, Jame who is her appointed caregiver through [facility]. Jame helps her with transportation, housekeeping and grocery shopping. Celia shares that she has a large family, all who are all very supportive. She enjoys spending time with her children, grandchildren and likes to garden. Celia shares that she feels she is reaching the point where she needs more assistance, question of placement. CURRENT FUNCTIONAL STATUS:: Celia was lying in bed when CM met with her. She is alert, oriented and is able to engage in conversation. Per Celia, she is unable to manage at home and is agreeable to referral's for STR. Her daughter Joaquín has a LTM application from her last admission and agrees to fill it out this weekend. Per Jame, Celia was dx with Lung cancer a few weeks ago and is scheduled to start radiation in 2 weeks. Upcoming treatments may be a barrier to placement, especially if STR facility is out of town. If so, Joaquín shares that Celia will have family support if discharging home. CM will follow. ADVANCE DIRECTIVES:: On File, HCA is Jame Elizabethjero Has patient been provided with info about the portal/API?: Yes Did the patient sign up for the portal?: Yes (Prior to admission) CODE STATUS:: Full Code INSURANCE COVERAGE / FINANCIAL ISSUES:: Medicare. Financial asst 100 CURRENT HOME/COMMUNITY SERVICES/EQUIPMENT:: Caregiver/daughter Jame: helps with housekeeping, grocery shopping, transportation etc. Grab bars, tub seat, handra ils, ramp, FWW walker. Oxygen through [employer] PRIMARY CARE PHYSICIAN:: Kathleen Joyce POTENTIAL DISCHARGE NEEDS:: New [facility] RN/PT/OT/AIRFRAME AND POWERPLANT MECHANIC and increased home support if discharging home vs. SNF for STR. F/U appointments with Oncology. Palliative Consult. LTM application (daughter is working on). Referral to [facility] PATIENT/FAMILY EDUCATION NEEDS:: Review discharge instructions, limitations, medications and plan to follow up with community providers. Review Ask Me Three. TRANSPORTATION:: dependent on disposition. PLAN:: Celia may benefit from a Palliative consult to discuss goals of care and code status. At this time Celia shares that she is not strong enough to manage at home alone. Per pts daughter, Celia was recently dx with Lung cancer and is scheduled to start radiation in 2 weeks. Anticipate, Celia will discharge to SNF for STR vs. Home with full [facility] services with increased home support from her daughter and granddaughter. SNF referral's are pending. Transportation will be dependent on disposition. CM will continue to support patient and discharge plan sasha considerations.
[2022-10-16] MEDS: Ascorbic Acid 500 MG TAB 1000 MG PO (08:54)
[2022-10-16] MEDS: Normal Saline Flush 10 ML SYR IVP ×3 (08:54→21:51)
[2022-10-16] MEDS: guaiFENesin 600 MG TABCR PO ×2 (08:54→21:59)
[2022-10-16] MEDS: Lisinopril 10 MG TAB PO (08:54)
[2022-10-16] MEDS: Furosemide 20 MG/2 ML VIAL IVP (08:54)
[2022-10-16] MEDS: Cholecalciferol (Vitamin D3) 1,000 UNIT TAB 1000 UNITS PO (08:55)
[2022-10-16] MEDS: Omega-3 Fatty Acids 1000 MG CAP PO (08:55)
[2022-10-16] MEDS: Ondansetron 4 MG TAB PO ×3 (08:55→17:19)
[2022-10-16] MEDS: predniSONE 20 MG TAB 40 MG PO (08:55)
[2022-10-16] MEDS: Omeprazole 20 MG CAPCR 40 MG PO (08:56)
[2022-10-16] MEDS: Aspirin E.C. 81 MG TABEC PO (08:56)
[2022-10-16] MEDS: Pregabalin 50 MG CAP 150 MG PO ×2 (08:56→21:42)
[2022-10-16] MEDS: Atenolol 50 MG TAB PO (08:56)
[2022-10-16] MEDS: Benzonatate 200 MG CAP PO ×3 (08:56→21:42)
[2022-10-16] MEDS: Simvastatin 40 MG TAB PO (08:56)
[2022-10-16] MEDS: Citalopram 20 MG TAB 40 MG PO (08:56)
[2022-10-16] MEDS: Ipratropium 0.5 MG/2.5 ML UPD VIAL UPD ×4 (08:59→19:39)
[2022-10-16] MEDS: Umeclidinium 7 CAP INHALER 1 CAP IH (09:00)
--- NOTE | 2022-10-16 09:21 | NUR.NOTE ---
Nursing Note: On admission this scribe noted the order for 2 gm of mag. This scribe also noted that the level of the most recent mag was 2.1. This concern was raised to the CCC. She radioed me shortly there after that both MD's advised to administer the current ordered dose despite the level. Verbally confirmed this face to face with the CCC.
[2022-10-16] MEDS: Fenofibrate, Micronized 48 MG TAB PO (10:42)
[2022-10-16 13:24] LABS: BE 11 mmol/L (-2-3); HCO3 37 mmol/L (22-26); pH 7.34 (7.35-7.45); pO2 65 mmHg (80-105); sO2 92 % (95-98); tCO2 34 mmol/L (23-27)
[2022-10-16 13:25] LABS: FIO2L 3 L; Site Left Radial
[2022-10-16 13:26] LABS: pCO2 67 mmHg (35-45)
--- NOTE | 2022-10-16 15:05 | PGE_ITS ---
Date of Service Date of service: 10/16/22 Time of Service: 15:05 Assessment and Plan Assessment and plan (1) Acute on chronic respiratory failure with hypoxia: Status: Acute Assessment and plan: Suspect this is due to acute exacerbation of COPD in addition to some degree of acute on chronic systolic CHF. ProBNP 1917. Treat COPD exacerbation with steroids, scheduled + prn nebs, symbicort, antitussives. Obtain sputum culture. VBG -pH 7.42, PCO2 58 HCO3 37 ABG pH 7.34, PCO2 67, PO2 65 HCO3 37 SPO2 92 % 3 LPM . Home with Non invasive ventilator (2) Acute exacerbation of chronic obstructive pulmonary disease: Status: Acute Assessment and plan: As above (3) Cardiomyopathy: Assessment and plan: CHFrEF. LVEF 45% on echo from 06/08. ProBNP 1917. (4) Hypokalemia: Status: Acute Assessment and plan: Repleted - monitor potassium. (5) Hypomagnesemia: Status: Acute Assessment and plan: Replete, recheck in am (6) DVT prophylaxis: Status: Acute Assessment and plan: SC enoxaparin (7) Discharge planning issues: Status: Acute Assessment and plan: Full code Plan to discharge to home with noninvasive home ventilator due to Discussed with Dr Gibbs Subjective Subjective Patient reports: no new complaints, tolerating a regular diet, shortness of breath and afebrile; denies diarrhea, blood in stool or vomiting Interval history since last seen: Improved, home O2 is 3 LPM - 89-90 on 3 LPM here. It is medically necessary and beneficial that Celia receive NIV via the Astral Ventilator for treatment of her Chronic Respiratory Failure secondary to COPD. A traditional Bi-pap or Avaps or Ivaps Bi-pap is not the most effective device its considered tried and failed when used in this hospitalization due to repeated and elevated blood gas results and maxed out settings making ventilation extremely uncomfortable therefore it is determined it would not be the most appropriate device for the patients complex medical condition when she returns to her home. The Astral will be able to manage the patients current disease state and continue to adapt to her ventilation needs as a prison plan and it will mimic more normal breathing patterns making ventilation more comfortable at the higher pressures. The Astral modes are exclusive to only this device, Celia will utilizes IVAPS-AE as her primary ventilation mode during sleeping hours, this will treat her underlying conditions and have the benefits of a varying tidal volume, minute ventilation based on ideal body weight, decrease the work of breath, decreased co2 retention, increase oxygenation, reduce the effects of flow limitation, air trapping, breath stacking and provide a better quality of life. Celia will also utilize a secondary mode of MPV via P(a)CV to help with shortness of breath in daytime hours with a ?sip and puff? technology. As a treating provider of this patient it is medically necessary that she use NIV via Astral therapy in her home. The Astral also operates on a battery which will allow for continuous usage up to 24 hrs daily this [place] outages could be frequent and problematic as an interruption in therapy could have life threatening consequences, she woul d also be able to take the ventilator with her for long trips to MD appointments etc. Exam Narrative Exam Narrative: General: Pleasant elderly female who is not in respiratory distress, A&Ox3, appears quite comfortable, speaking in complete sentences Neurological: A&Ox3, no focal deficits Psychiatric: Appropriate speech pattern/content Skin: Visible skin intact HEENT: Atraumatic, normocephalic, EOMI, dry MM, clear oropharynx, no submandibular or cervical lymphadenopathy, no goiter or JVD Cardiovascular: RRR, tachycardic Lungs: Rales and expiratory rhonchi B Gastrointestinal: soft, nontender, nondistended Genitourinary: deferred Extremities: no edema BLEs, 1+ pedal pulses B Objective Last Vital Signs Temp 36.8 C 10/16/22 11:08 Pulse 75 10/16/22 12:04 Resp 12 10/16/22 12:04 BP 115/66 10/16/22 11:08 Pulse Ox 92 10/16/22 13:08 Laboratory Results - last 24 hr 10/16/22 10/16/22 10/16/22 00:08 00:43 00:43 WBC 14.88 H RBC 4.18 Hgb 12.3 Hct 37.4 MCV 90 MCH 29.4 MCHC 32.9 RDW 11.7 Plt Count 230 MPV 11.6 H Immature Gran % 0.7 Neutrophils % 79.7 Lymphocytes % 11.4 Monocytes % 7.8 Eosinophils % 0.1 Basophils % 0.3 Nucleated RBC % 0.0 Absolute Neutrophils 11.86 H Absolute Lymphocytes 1.70 Absolute Monocytes 1.16 H Absolute Eosinophils 0.01 Absolute Basophils 0.04 ABG Sample Site ABG pH ABG pCO2 ABG pO2 ABG HCO3 ABG Total CO2 ABG O2 Saturation ABG Base Excess VBG pH VBG pCO2 VBG pO2 VBG HCO3 VBG Total CO2 VBG O2 Saturation VBG Base Excess Oxygen Liter Flow Sodium 138 Potassium 2.9 L Chloride 96 L Carbon Dioxide 34.8 H Anion Gap 7.2 BUN 8 Creatinine 0.8 Est GFR (CKD-EPI 2020) 78.72 Glucose 167 H Calcium 9.4 Magnesium 1.2 L Total Bilirubin 0.4 AST 20 ALT 20 Alkaline Phosphatase 97 Troponin I < 50 NT-Pro-B Natriuret Pep Total Protein 7.7 Albumin 3.2 L Procalcitonin COVID-19 Source Nasopharynx SARS-CoV-2 (PCR) Negative Influenza Type A (PCR) Negative Influenza Type B (PCR) Negative RSV (PCR) Negative Add-On Test Request 10/16/22 10/16/22 10/16/22 03:00 06:25 06:25 WBC RBC Hgb Hct MCV MCH MCHC RDW Plt Count MPV Immature Gran % Neutrophils % Lymphocytes % Monocytes % Eosinophils % Basophils % Nucleated RBC % Absolute Neutrophils Absolute Lymphocytes Absolute Monocytes Absolute Eosinophils Absolute Basophils ABG Sample Site ABG pH ABG pCO2 ABG pO2 ABG HCO3 ABG Total CO2 ABG O2 Saturation ABG Base Excess VBG pH VBG pCO2 VBG pO2 VBG HCO3 VBG Total CO2 VBG O2 Saturation VBG Base Excess Oxygen Liter Flow Sodium 138 140 Potassium 3.1 L 3.4 L Chloride 98 100 Carbon Dioxide 35.0 H 37.4 H Anion Gap 5.0 2.6 L BUN 8 9 Creatinine 0.6 0.7 Est GFR (CKD-EPI 2020) 95.90 92.41 Glucose 193 H 174 H Calcium 9.2 9.3 Magnesium 2.1 Total Bilirubin AST ALT Alkaline Phosphatase Troponin I NT-Pro-B Natriuret Pep 1918 H Total Protein Albumin Procalcitonin COVID-19 Source SARS-CoV-2 (PCR) Influenza Type A (PCR) Influenza Type B (PCR) RSV (PCR) Add-On Test Request 10/16/22 10/16/22 10/16/22 06:25 06:25 06:52 WBC RBC Hgb Hct MCV MCH MCHC RDW Plt Count MPV Immature Gran % Neutrophils % Lymphocytes % Monocytes % Eosinophils % Basophils % Nucleated RBC % Absolute Neutrophils Absolute Lymphocytes Absolute Monocytes Absolute Eosinophils Absolute Basophils ABG Sample Site ABG pH ABG pCO2 ABG pO2 ABG HCO3 ABG Total CO2 ABG O2 Saturation ABG Base Excess VBG pH 7.42 H VBG pCO2 58 H VBG pO2 60 VBG HCO3 37 H VBG Total CO2 34 H VBG O2 Saturation 91 VBG Base Excess 13 H Oxygen Liter Flow Sodium Potassium Chloride Carbon Dioxide Anion Gap BUN Creatinine Est GFR (CKD-EPI 2020) Glucose Calcium Magnesium Total Bilirubin AST ALT Alkaline Phosphatase Troponin I NT-Pro-B Natriuret Pep Total Protein Albumin Procalcitonin 0.1 COVID-19 Source SARS-CoV-2 (PCR) Influenza Type A (PCR) Influenza Type B (PCR) RSV (PCR) Add-On Test Request COMPLETED 10/16/22 13:20 WBC RBC Hgb Hct MCV MCH MCHC RDW Plt Count MPV Immature Gran % Neutrophils % Lymphocytes % Monocytes % Eosinophils % Basophils % Nucleated RBC % Absolute Neutrophils Absolute Lymphocytes Absolute Monocytes Absolute Eosinophils Absolute Basophils ABG Sample Site Left Radial ABG pH 7.34 L ABG pCO2 67 H* ABG pO2 65 L ABG HCO3 37 H ABG Total CO2 34 H ABG O2 Saturation 92 L ABG Base Excess 11 H VBG pH VBG pCO2 VBG pO2 VBG HCO3 VBG Total CO2 VBG O2 Saturation VBG Base Excess Oxygen Liter Flow 3 Sodium Potassium Chloride Carbon Dioxide Anion Gap BUN Creatinine Est GFR (CKD-EPI 2020) Glucose Calcium Magnesium Total Bilirubin AST ALT Alkaline Phosphatase Troponin I NT-Pro-B Natriuret Pep Total Protein Albumin Procalcitonin COVID-19 Source SARS-CoV-2 (PCR) Influenza Type A (PCR) Influenza Type B (PCR) RSV (PCR) Add-On Test Request
[2022-10-16] MEDS: Levalbuterol 1.25 MG/3 ML UPD VIAL UPD (21:47)
[2022-10-17] VITALS (17 sets, daily range): BP systolic 109–165; BP diastolic 65–84; PULSE 77–89; RESP 4–22; TEMP 36.6–37.6; O2SAT 89–99
[2022-10-17] MEDS: Levalbuterol 1.25 MG/3 ML UPD VIAL UPD ×2 (03:57→13:26)
[2022-10-17 05:41] LABS: Abs Immature Grans 0.13 10^3/uL (0.0-0.06); Absolute Monocyte Count 0.99 10^3/uL (0.1-0.8); Basophils % 0.2; HCT 34.1 % (36.0-46.0); HGB 11.2 g/dL (11.2-15.7); Lymphocytes % 10.7; MCH 30.1 pg (27.0-33.0); MCHC 32.8 % (32.0-36.0); MCV 92 fL (80-95); MPV 10.9 fL (8.0-11.0); Monocytes % 7.9; Neutrophils % 80.2; Platelet Count 261 10^3/uL (130-400); RBC 3.72 10^6/uL (3.93-5.22); RDW-SD 40.6 fL; WBC 12.47 10^3/uL (4.4-10.8)
[2022-10-17 05:45] LABS: Absolute Basophil Count 0.02 10^3/uL (0.0-0.2); Absolute Lymphocyte Count 1.33 10^3/uL (1.2-3.4)
[2022-10-17 05:55] LABS: Anion Gap 2.4 mmol/L (3-11); BUN 20 mg/dL (7-18); CO2 38.6 mmol/L (21.0-32.0); CREATININE 0.9 mg/dL (0.55-1.02); Calcium 9.4 mg/dL (8.5-10.1); Chloride 103 mmol/L (98-107); Estimated GFR 68.35 (mL/min/1.73m2); Glucose 133 mg/dL (74-106); Potassium 3.6 mmol/L (3.5-5.1); Sodium 144 mmol/L (136-145)
[2022-10-17] MEDS: Ondansetron 4 MG TAB PO ×3 (06:24→17:15)
[2022-10-17] MEDS: predniSONE 20 MG TAB 40 MG PO (07:40)
[2022-10-17] MEDS: Ascorbic Acid 500 MG TAB 1000 MG PO (07:40)
[2022-10-17] MEDS: Cholecalciferol (Vitamin D3) 1,000 UNIT TAB 1000 UNITS PO (07:41)
[2022-10-17] MEDS: Benzonatate 200 MG CAP PO ×3 (07:41→19:18)
[2022-10-17] MEDS: Omeprazole 20 MG CAPCR 40 MG PO (07:41)
[2022-10-17] MEDS: Omega-3 Fatty Acids 1000 MG CAP PO (07:41)
[2022-10-17] MEDS: Pregabalin 50 MG CAP 150 MG PO ×2 (07:41→19:18)
[2022-10-17] MEDS: Aspirin E.C. 81 MG TABEC PO (07:42)
[2022-10-17] MEDS: Atenolol 50 MG TAB PO (07:42)
[2022-10-17] MEDS: Citalopram 20 MG TAB 40 MG PO (07:42)
[2022-10-17] MEDS: Simvastatin 40 MG TAB PO (07:42)
[2022-10-17] MEDS: Enoxaparin 40 MG/0.4 ML SYR SC (07:42)
[2022-10-17] MEDS: guaiFENesin 600 MG TABCR PO ×2 (07:42→19:18)
[2022-10-17] MEDS: Lisinopril 10 MG TAB PO (07:42)
[2022-10-17] MEDS: Fluticasone NASAL SPRAY 16 GM BTL NS ×2 (07:43→19:19)
[2022-10-17] MEDS: Ipratropium 0.5 MG/2.5 ML UPD VIAL UPD ×4 (08:32→19:27)
[2022-10-17] MEDS: Umeclidinium 7 CAP INHALER 1 CAP IH (08:32)
--- NOTE | 2022-10-17 17:37 | W.PM.PROGNOT ---
Date of Service Date of service: 10/17/22 Time of Service: 17:38 Assessment and Plan Assessment and plan (1) Acute on chronic respiratory failure with hypoxia: Status: Acute Assessment and plan: Suspect this is due to acute exacerbation of COPD in addition to some degree of acute on chronic systolic CHF. ProBNP 1917. Treat COPD exacerbation with steroids, scheduled + prn nebs, symbicort, antitussives. Obtain sputum culture. VBG -pH 7.42, PCO2 58 HCO3 37 ABG pH 7.34, PCO2 67, PO2 65 HCO3 37 SPO2 92 % 3 LPM Improving, at baseline; arranging to ho home with daughter tomorrow. . Home with Non invasive ventilator (2) Acute exacerbation of chronic obstructive pulmonary disease: Status: Acute Assessment and plan: As above (3) Cardiomyopathy: Assessment and plan: CHFrEF. LVEF 45% on echo from 06/08. ProBNP 1917. (4) Hypokalemia: Status: Acute Assessment and plan: K 3.6 today- monitor potassium. (5) Hypomagnesemia: Status: Acute Assessment and plan: Mag 2.0 today (6) DVT prophylaxis: Status: Acute Assessment and plan: SC enoxaparin (7) Discharge planning issues: Status: Acute Assessment and plan: Full code Plan to discharge to home with noninvasive home ventilator Discussed with Dr Gibbs Subjective Subjective Patient reports: no new complaints, feels better and voiding w/o difficulty Interval history since last seen: Celia says she is breathing better, she is feeling at her baseline. Her daughter is gathering stuff together for her to move in with her. She is on board with that plan. She feels that she is unable to stay home by herself any longer. She is recommended respiratory therapy to get a noninvasive ventilator at home. She is on baseline oxygen 3 L/min with sats over 90%. She does speak in full sentences and is conversant today. She voices concerns about her having lung cancer and her daughter just getting over breast cancer she is motivated to get radiation she said she has 5 scheduled and was told that that we will take care of this cancer which she feels quite positive about. Exam Narrative Exam Narrative: General: Pleasant elderly female who is not in respiratory distress, A&Ox3, appears quite comfortable, speaking in complete sentences Neurological: A&Ox3, no focal deficits Psychiatric: Appropriate speech pattern/content Skin: Visible skin intact HEENT: Atraumatic, normocephalic, EOMI, dry MM, clear oropharynx, no submandibular or cervical lymphadenopathy, no goiter or JVD Cardiovascular: RRR, tachycardic Lungs: Rales and expiratory rhonchi B Gastrointestinal: soft, nontender, nondistended Genitourinary: deferred Extremities: no edema BLEs, 1+ pedal pulses B Objective Last Vital Signs Temp 37.5 C 10/17/22 14:40 Pulse 85 10/17/22 14:40 Resp 20 10/17/22 14:40 BP 165/80 H 10/17/22 14:40 Pulse Ox 90 L 10/17/22 14:40 Laboratory Results - last 24 hr 10/17/22 10/17/22 05:30 05:30 WBC 12.47 H RBC 3.72 L Hgb 11.2 Hct 34.1 L MCV 92 MCH 30.1 MCHC 32.8 RDW 12.0 Plt Count 261 MPV 10.9 Immature Gran % 1.0 Neutrophils % 80.2 Lymphocytes % 10.7 Monocytes % 7.9 Eosinophils % 0.0 Basophils % 0.2 Nucleated RBC % 0.0 Absolute Neutrophils 10.00 H Absolute Lymphocytes 1.33 Absolute Monocytes 0.99 H Absolute Eosinophils 0.00 Absolute Basophils 0.02 Sodium 144 Potassium 3.6 Chloride 103 Carbon Dioxide 38.6 H Anion Gap 2.4 L BUN 20 H Creatinine 0.9 Est GFR (CKD-EPI 2020) 68.35 Glucose 133 H Calcium 9.4 Magnesium 2.0
[2022-10-17] MEDS: Budesonide/Formoterol 80/4.5 6.9 GM 60 PUFF INH IH (19:19)
[2022-10-17] MEDS: Normal Saline Flush 10 ML SYR IVP (19:29)
[2022-10-18 03:16] VITALS: BP 161/76; PULSE 83; RESP 19; TEMP 36.9; O2SAT 99
[2022-10-18 04:00] VITALS: RESP 7
[2022-10-18] MEDS: Levalbuterol 1.25 MG/3 ML UPD VIAL UPD ×2 (04:00→08:33)
[2022-10-18] MEDS: Acetaminophen 325 MG TAB PO (04:18)
[2022-10-18 06:25] LABS: Abs Immature Grans 0.31 10^3/uL (0.0-0.06); Absolute Basophil Count 0.01 10^3/uL (0.0-0.2); Absolute Eosinophil Count 0.04 10^3/uL (0.0-0.7); Absolute Lymphocyte Count 1.39 10^3/uL (1.2-3.4); Absolute Monocyte Count 0.96 10^3/uL (0.1-0.8); Absolute Neutrophil Count 5.84 10^3/uL (1.2-6.7); Basophils % 0.1; Eosinophils % 0.5; HCT 29.1 % (36.0-46.0); HGB 9.7 g/dL (11.2-15.7); Immature Grans % 3.6; Lymphocytes % 16.3; MCH 29.9 pg (27.0-33.0); MCHC 33.3 % (32.0-36.0); MCV 90 fL (80-95); MPV 10.7 fL (8.0-11.0); Monocytes % 11.2; Neutrophils % 68.3; Platelet Count 217 10^3/uL (130-400); RBC 3.24 10^6/uL (3.93-5.22); RDW 11.9 % (11.7-14.6); RDW-SD 38.5 fL; WBC 8.55 10^3/uL (4.4-10.8)
[2022-10-18 06:46] LABS: Anion Gap 0.1 mmol/L (3-11); BUN 16 mg/dL (7-18); CO2 38.9 mmol/L (21.0-32.0); CREATININE 0.7 mg/dL (0.55-1.02); Calcium 8.8 mg/dL (8.5-10.1); Chloride 104 mmol/L (98-107); Estimated GFR 92.41 (mL/min/1.73m2); Glucose 101 mg/dL (74-106); Magnesium 1.7 mg/dL (1.8-2.4); Potassium 3.1 mmol/L (3.5-5.1); Sodium 143 mmol/L (136-145)
[2022-10-18 07:41] VITALS: BP 144/69; PULSE 79; RESP 18; TEMP 37.4; O2SAT 95
[2022-10-18] MEDS: Enoxaparin 40 MG/0.4 ML SYR SC (08:13)
[2022-10-18] MEDS: guaiFENesin 600 MG TABCR PO (08:14)
[2022-10-18] MEDS: Lisinopril 10 MG TAB PO (08:14)
[2022-10-18] MEDS: Omeprazole 20 MG CAPCR 40 MG PO (08:14)
[2022-10-18] MEDS: Ascorbic Acid 500 MG TAB 1000 MG PO (08:15)
[2022-10-18] MEDS: Citalopram 20 MG TAB 40 MG PO (08:15)
[2022-10-18] MEDS: Cholecalciferol (Vitamin D3) 1,000 UNIT TAB 1000 UNITS PO (08:15)
[2022-10-18] MEDS: predniSONE 20 MG TAB 40 MG PO (08:15)
[2022-10-18] MEDS: Simvastatin 40 MG TAB PO (08:15)
[2022-10-18] MEDS: Pregabalin 50 MG CAP 150 MG PO (08:15)
[2022-10-18] MEDS: Fenofibrate, Micronized 48 MG TAB PO (08:15)
[2022-10-18] MEDS: Omega-3 Fatty Acids 1000 MG CAP PO (08:15)
[2022-10-18] MEDS: Aspirin E.C. 81 MG TABEC PO (08:16)
[2022-10-18] MEDS: Benzonatate 200 MG CAP PO (08:16)
[2022-10-18] MEDS: Atenolol 50 MG TAB PO (08:16)
[2022-10-18] MEDS: Fluticasone NASAL SPRAY 16 GM BTL NS (08:26)
[2022-10-18 08:31] VITALS: PULSE 81; RESP 4; RESP 8; O2SAT 92
[2022-10-18] MEDS: Ipratropium 0.5 MG/2.5 ML UPD VIAL UPD (08:31)
[2022-10-18] MEDS: Umeclidinium 7 CAP INHALER 1 CAP IH (08:31)
[2022-10-18] MEDS: Potassium Chloride 10 MEQ CAPCR 40 MEQ PO (10:17)
[2022-10-18] MEDS: Magnesium Oxide 400 MG TAB 800 MG PO (10:23)
--- NOTE | 2022-10-18 11:30 | DSE_ITS ---
Date of service: 10/18/22 Time of Service: 10:00 DS: Diagnosis Discharge Diagnosis (1) Acute on chronic respiratory failure with hypoxia: Status: Acute (2) Acute exacerbation of chronic obstructive pulmonary disease: Status: Acute (3) Hypokalemia: Status: Acute (4) Hypomagnesemia: Status: Acute (5) DVT prophylaxis: Status: Acute (6) Discharge planning issues: Status: Acute Discharge Plan Disposition Patient Disposition: Home W/Home Health Services Condition: Fair Discharge Details Reason For Visit: Acute COPD Exacerbation Admit Date/Time: 10/16/22 02:49 Admit Provider: Skye Navas Attending Provider: Skye Navas Primary Care Provider: Kathleen Joyce [facility] Course Hospital Course: Ms Nava is a 71 year old female with PMHx of oxygen-dependent COPD, chronic hypoxic respiratory failure on 3L of O2 by NC, past tobacco use, cardiomyopathy/CHFrEF (LVEF of 45%), HTN, Hyperlipidemia, GERD, who presented to [facility] ED c/o shortness of breath x 1 month, but getting worse since her 1 week of URI sx. Shortness of breath increasingly worse. The patient described subjective fevers, chills, runny nose, sore throat, productive cough of mejia sputum. On arrival to ED, the patient had an oxygen saturation of 88% on her usual 3L of O2 and was in moderate respiratory distress. [place] better with duonebs, but continued to feel short of breath. Overnight, ended up receiving ativan, morphine, and being placed on BiPAP, which was very helpful. She was admitted to the medical floor.? She was given steroids, scheduled and as needed nebulizers, symbicort and antitussives.? She did have hypokalemia and hypomagnesemia which were both repleted.? She improved and was discharged to home with a noninvasive home ventilator to be delivered.? She continued on Prednisone for 5 days and she can have Tussionex and Guaifenesin as needed for cough. She will maintain 3 LPM NC oxygen until then.? She is in agreement with this plan. She states she is going to go live with daughter, she is not feeling strong enough to be alone anymore.? She starts radiation for lung cancer next week.? She will have home [facility] nursing, PT and YEAST WASHER. ? The home noninvasive ventilator is medically necessary and beneficial that Celia receive NIV via the Astral Ventilator for treatment of her Chronic Respiratory Failure secondary to COPD. A traditional Bi-pap or Avaps or Ivaps Bi-pap is not the most effective device its considered tried and failed when used in this hospitalization due to repeated and elevated blood gas results and maxed out settings making ventilation extremely uncomfortable therefore it is determined it would not be the most appropriate device for the patients complex medical condition when she returns to her home. The Astral will be able to manage the patients current disease state and continue to adapt to her ventilation needs as a regional intermodal truck driver plan and it will mimic more normal breathing patterns making ventilation more comfortable at the higher pressures. The Astral modes are exclusive to only this device, Celia will utilizes IVAPS-AE as her primary ventilation mode during sleeping hours, this will treat her underlying conditions and have the benefits of a varying tidal volume, minute ventilation based on ideal body weight, decrease the work of breath, decreased co2 retention, increase oxygenation, reduce the effects of flow limitation, air trapping, breath stacking and provide a better quality of life. Celia will also utilize a secondary mode of MPV via P(a)CV to help with shortness of breath in daytime hours with a ?sip and puff? technology. As a treating provider of this patient it is medically necessary that she use NIV via Astral therapy in her home. The Astral also operates on a battery which will allow for continuous usage up to 24 hrs daily [place] out[place] could be frequent and problematic as an interruption in therapy could have life threatening consequences, she would also be able to take the ventilator with her for long trips to MD appointments etc. Discussed with Dr Gibbs Home Meds and New Rx's Prescriptions: New benzonatate 200 mg Capsule 200 mg PO TID Qty: 20 0RF guaifenesin [Mucus Relief ER] 600 mg Tablet Extended Release 12hr 600 mg PO BID Qty: 30 0RF prednisone 10 mg tablet See Taper PO DIRECTED Qty: 32 0RF Taper: Prednisone 20mg taper 40 mg Daily for 3 Days and 0 Hour 30 mg Daily for 3 Days and 0 Hour 20 mg Daily for 3 Days and 0 Hour 10 mg Daily for 3 Days and 0 Hour 5 mg Daily for 3 Days and 0 Hour Rx Instructions: see taper instructions Continued lorazepam 0.5 mg tablet 0.5 mg PO DAILY PRN (Reason: anxiety) Qty: 30 5RF (DME) Nasal Cannula O2 Tubing Qty: 2 12RF Rx Instructions: As directed lisinopril 10 mg tablet 10 mg PO DAILY Qty: 90 3RF (DME) Oxygen Concentrator with portability See Rx Instructions .Route .MEDSUPPLY Qty: 1 0RF Rx Instructions: As directed. Desaturates to 79% on RA at rest. ondansetron HCl 4 mg tablet 4 mg PO Q6H ipratropium bromide 0.02 % solution 2.5 ml INHALATION Q8H PRN PRN (Reason: Shortness Of Breath Or Wheezing) Qty: 150 3RF (DME) Nebulizer machine for HHN See Rx Instructions .Route .MEDSUPPLY Qty: 1 0RF Rx Instructions: As directed (DME) Nebulizer supplies/tubing See Rx Instructions .Route .MEDSUPPLY Qty: 1 12RF Rx Instructions: As directed Correctol 5 mg tablet 5 mg PO PRN PRN Pepto-Bismol 262 mg tablet 2 tab PO DAILY PRN Rx Instructions: do not exceed 16 tabs per 24 hrs menthol 8 mg lozenge 8 mg MM DAILY PRN (DME) Sensodyne Toothpaste See Rx Instructions .ROUTE .MEDSUPPLY Qty: 113 Rx Instructions: daily as needed (DME) denture care products Cream See Rx Instructions .ROUTE .MEDSUPPLY Qty: 1 Rx Instructions: daily (DME) denture cleanser Tablet, Effervescent See Rx Instructions .ROUTE .MEDSUPPLY Qty: 1 Rx Instructions: daily (DME) Inogen Oxygen Concentrator 3L NC Qty: 1 0RF Rx Instructions: 3L NC betamethasone valerate 0.1 % cream 1 applic Topical BID PRN (Reason: rash hands) Qty: 30 6RF Rx Instructions: APPLY TO HANDS NEEDED fenofibrate nanocrystallized 48 mg tablet See Rx Instructions .ROUTE .COMPLEX Qty: 90 3RF Dose Instruction: TAKE ONE TABLET BY MOUTH EVERY DAY Rx Instructions: TAKE ONE TABLET BY MOUTH EVERY DAY citalopram 20 mg tablet 40 mg PO DAILY Qty: 180 3RF atenolol 50 mg tablet 50 mg PO DAILY Qty: 90 3RF ascorbic acid (vitamin C) [C-1000] 1,000 mg tablet 1,000 mg PO DAILY Qty: 30 12RF aspirin 81 mg tablet,delayed release (DR/EC) 81 mg PO DAILY Qty: 30 12RF calcium carb-mag ox-zinc gluc 333-133-5 mg tablet 1 tab PO DAILY Qty: 30 12RF cholecalciferol (vitamin D3) 25 mcg (1,000 unit) capsule 1,000 unit PO DAILY Qty: 30 12RF melatonin 3 mg tablet 9 mg PO HS PRN PRN (Reason: Insomnia) Qty: 90 12RF omeprazole 40 mg capsule,delayed release(DR/EC) 40 mg PO DAILY Qty: 30 12RF pregabalin [Lyrica] 150 mg capsule 150 mg PO BID Qty: 60 5RF omega-3 fatty acids-fish oil [Fish Oil] 360-1,200 mg capsule 1 cap PO DAILY Qty: 30 12RF tetrahydrozoline 0.05 % drops 1 drp ophthalmic (eye) TID Qty: 15 12RF Rx Instructions: OU TID PRN fluticasone furoate-vilanterol [Breo Ellipta] 100-25 mcg/dose blister with device 1 inh inhalation DAILY Qty: 60 12RF fluticasone propionate 50 mcg/actuation spray,suspension See Rx Instructions .ROUTE .COMPLEX Qty: 48 3RF Dose Instruction: INSTILL 2 SPRAYS NASALLY TWICE DAILY Rx Instructions: INSTILL 2 SPRAYS NASALLY TWICE DAILY ibuprofen 400 mg tablet 400 mg PO TID PRN (Reason: fever or pain) Qty: 270 3RF Combivent Respimat 20-100 mcg/actuation mist 1 puff IH QID Qty: 12 3RF Rx Instructions: Please dispense 3 month supply if insurance allows umeclidinium 62.5 mcg/actuation blister with device 1 inh inhalation DAILY Qty: 30 12RF simvastatin 40 mg tablet 40 mg PO DAILY Qty: 90 3RF Discharge Instructions Instructions: Benzonatate (By mouth), Prednisone (By mouth), Guaifenesin (By mouth), Using Oxygen at Home (DC), COPD (Chronic Obstructive Pulmonary Disease) (DC) Additional Instructions: RESUME HOME HEALTH Respiratory therapy has arranged for you to receive a Non-invasive type ventilator for home, you should receive that this week. Home Health can help you with the set up. Stand Alone Forms: Nursing Discharge Form Referrals: Kathleen Joyce NP [Primary Care Provider] - (Please call Wednesday to make a follow up appointment for 1-2 weeks) Activity:: Activity as Tolerated Equipment/Supplies:: Oxygen (L/min Below) Diet:: Low Sodium Discharge Orders Discharge Orders: Discharge Order (Routine); Ordered 10/18/22 Ordered By: Jasmin Marquis Discharge Data Discharge Date/Time-TO BE ENTERED AT DEPARTURE: 10/18/22 12:47 DS: Summary Time Spent with Patient providing and/or coordinating discharge services: Greater than 30 minutes Status at Discharge Functional status at discharge: uses cane/walker Overall status at discharge: patient is back to baseline Mental Status: mental status grossly normal Speech and Movement: speech and movement normal Mood: congruent mood Affect: normal affect Exam Narrative Exam Narrative: General: Pleasant elderly female who is not in respiratory distress, A&Ox3, appears quite comfortable, speaking in complete sentences Neurological: A&Ox3, no focal deficits Psychiatric: Appropriate speech pattern/content Skin: Visible skin intact HEENT: Atraumatic, normocephalic, EOMI, dry MM, clear oropharynx, no submandibular or cervical lymphadenopathy, no goiter or JVD Cardiovascular: RRR, tachycardic Lungs: expiratory rhonchi B Gastrointestinal: soft, nontender, nondistended Genitourinary: deferred Extremities: no edema BLEs, 1+ pedal pulses B Psych Mental Status: mental status grossly normal Speech and Movement: speech and movement normal Mood: congruent mood Affect: normal affect DS: Data Vitals/I&O Vitals and I&O: Vital Signs Temperature 37.4 C 10/18/22 07:41 Temperature Source Tympanic 10/18/22 07:41 Pulse 81 10/18/22 08:31 Pulse Rhythm Regular 10/17/22 15:30 Pulse 101 H 10/16/22 06:15 Respiratory Rate 18 10/18/22 07:41 Respiratory Effort 10/18/22 04:30 Respiratory Depth Shallow 10/18/22 04:30 Respiratory Pattern Bradypnea 10/18/22 04:30 Blood Pressure 144/69 H 10/18/22 07:41 Blood Pressure Mean 84 10/16/22 06:15 Blood Pressure Position Supine 10/15/22 23:51 Pulse Oximetry 92 10/18/22 08:31 Oxygen Delivery Method Nasal Cannula 10/18/22 08:31 Oxygen Flow Rate 3 10/18/22 08:31 Fraction of Inspired Oxygen (FIO2) 36 10/16/22 16:31 Pain Level 0 10/18/22 07:41 Comment 10/17/22 14:40 Intake & Output 10/17/22 10/17/22 10/18/22 11:59 23:59 11:59 Intake Total 740 / 740 Balance 740 / 740 Weight 64.2 kg 64.6 kg Intake: IV 500 / 500 Oral 240 / 240 Other: Urine Color Yellow Urine Appearance Clear Clear Clear Comment pT removes hat from toliet unmeasured/ pT removes hat from toliet 1 uknown void. Voiding Methods Toilet Toilet Data Completed and Pending Labs on day of discharge: Labs from last 24 hours 10/18/22 10/18/22 06:16 06:16 WBC 8.55 RBC 3.24 L Hgb 9.7 L Hct 29.1 L MCV 90 MCH 29.9 MCHC 33.3 RDW 11.9 Plt Count 217 MPV 10.7 Immature Gran % 3.6 Neutrophils % 68.3 Lymphocytes % 16.3 Monocytes % 11.2 Eosinophils % 0.5 Basophils % 0.1 Nucleated RBC % 0.0 Absolute Neutrophils 5.84 Absolute Lymphocytes 1.39 Absolute Monocytes 0.96 H Absolute Eosinophils 0.04 Absolute Basophils 0.01 Sodium 143 Potassium 3.1 L Chloride 104 Carbon Dioxide 38.9 H Anion Gap 0.1 L BUN 16 Creatinine 0.7 Est GFR (CKD-EPI 2020) 92.41 Glucose 101 Calcium 8.8 Magnesium 1.7 L 10/17/22 04:15 Sputum Sputum Culture - Pending Preliminary micro results at discharge 10/17/22 04:15 Sputum Culture - Pending Sputum PFSH All Active Problems (Updated 10/16/22 @ 05:40 by Skye Navas MD) Discharge planning issues (Acute) DVT prophylaxis (Acute) Acute on chronic respiratory failure with hypoxia (Acute) Acute exacerbation of chronic obstructive pulmonary disease (Acute) Hypokalemia (Acute) Hypomagnesemia (Acute) Pneumonia (Acute) Mass of upper lobe of right lung (Acute) Acute kidney injury (Acute) Acute exacerbation of congestive heart failure (Acute) Elevated troponin (Acute) CHF exacerbation (Acute) COPD exacerbation (Acute) Exercise hypoxemia (Acute) ENEDELIA FOWLER III, MD, PULMONOLOGY Bronchiectasis without complication (Acute) Enedelia Fowler III, MD, technical training instructor Nasal congestion (Acute 07/01/17) Lung nodules (Acute 04/16/17) 10/07/22 [facility] RAD/Oncology for Radiation Planning H/O contact dermatitis and eczema (Acute 02/18/17) Affects Hands, including the palms and the anticubital fossa, and her neck. 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 Deviated nasal septum (Acute 07/01/17) DJD (degenerative joint disease) (Acute 02/18/17) Severe Palpitations (Acute) Elevated troponin I level (Acute) COPD (chronic obstructive pulmonary disease) (Acute) Gold stage 3, Enedelia Fowler MD Incidental lung nodule, > 3mm and < 8mm (Acute) Hypertension (Acute) Medical History Anxiety Cardiomyopathy CHF (congestive heart failure) Chronic kidney disease (02/18/17) COPD (chronic obstructive pulmonary disease) on chronic supplemental oxygen Depression (02/18/17) Fibromyalgia (02/18/17) Gastroesophageal reflux disease (02/18/17) Hyperlipidemia (02/18/17) LBBB (left bundle branch block) Non-ST elevation [place] (NSTEMI) Surgical History Dilation and curettage (~1984) Ligation of fallopian tube (~1984) Open Carpal Tunnel release Tonsillectomy and adenoidectomy Family History Mother Essential hypertension Heart disease COPD (chronic obstructive pulmonary disease) Father DJD (degenerative joint disease) Sister Hyperlipidemia Myocardial infarction Daughter Avujw-1-[id number] deficiency Social History Smoking/Tobacco Use Status: Former Tobacco Use tobacco type: cigarettes Quit Date: 10/18/13 Smoking risk assessment performed?: Yes Alcohol Intake: never Drug use: Never Substance use type: does not use Do you feel safe at home: Yes Do you feel safe in your relationship?: Yes History History Para 2 Hx # Term Pregnancies Multiple births Hx # Pregnancies Ectopic pregnancies AB induced Hx Number of Living Children AB spontaneous
--- NOTE | 2022-10-18 15:48 | PDOC.HHF2F_ITS ---
Home Health Referral Home Health Orders Clinical synopsis of why skilled professionals are needed: Ms Nava is a 71 year old female with PMHx of oxygen-dependent COPD, chronic hypoxic respiratory failure on 3L of O2 by [place], past tobacco use, cardiomyopathy/CHFrEF (LVEF of 45%), HTN, Hyperlipidemia, GERD, who presented to [facility] ED c/o shortness of breath x 1 month, but getting worse since her 1 week of URI sx. Shortness of breath increasingly worse. The patient described subjective fevers, chills, runny nose, sore throat, productive cough of mejia sputum. On arrival to ED, the patient had an oxygen saturation of 88% on her usual 3L of O2 and was in moderate respiratory distress. [place] better with duonebs, but continued to feel short of breath. Overnight, ended up receiving ativan, morphine, and being placed on BiPAP, which was very helpful. She was admitted to the medical floor.? She was given steroids, scheduled and as needed nebulizers, symbicort and antitussives.? She did have hypokalemia and hypomagnesemia which were both repleted.? She is being discharged to home with a noninvasive home ventilator to be delivered.? She will maintain 3 LPM NC oxygen until then.? She is in agreement with this plan. She states she is going to go live with daughter, she is not feeling strong enough to be alone anymore.? She starts radiation for lung cancer next week.? ? The home noninvasive ventilator is medically necessary and beneficial that Celia receive NIV via the Astral Ventilator for treatment of her Chronic Respiratory Failure secondary to COPD. A traditional Bi-pap or Avaps or Ivaps Bi-pap is not the most effective device its considered tried and failed when used in this hospitalization due to repeated and elevated blood gas results and maxed out settings making ventilation extremely uncomfortable therefore it is determined it would not be the most appropriate device for the patients complex medical condition when she returns to her home. The Astral will be able to manage the patients current disease state and continue to adapt to her ventilation needs as a machine long goods helper plan and it will mimic more normal breathing patterns making ventilation more comfortable at the higher pressures. The Astral modes are exclusive to only this device, Celia will utilizes IVAPS-AE as her primary ventilation mode during sleeping hours, this will treat her underlying conditions and have the benefits of a varying tidal volume, minute ventilation based on ideal body weight, decrease the work of breath, decreased co2 retention, increase oxygenation, reduce the effects of flow limitation, air trapping, breath stacking and provide a better quality of life. Celia will also utilize a secondary mode of MPV via P(a)CV to help with shortness of breath in daytime hours with a ?sip and puff? technology. As a treating provider of this patient it is medically necessary that she use NIV via Astral therapy in her home. The Astral also operates on a battery which will allow for continuous usage up to 24 hrs daily this is especially [place] as power outages could be frequent and problematic as an interruption in therapy could have life threatening consequences, she would also be able to take the ventilator with her for long trips to MD appointments etc. Medical diagnosis necessitation home health referral: CHF, Cardiomyopathy, COPD, CKD, Depression, GERD Registered Nurse: Check all that apply Instruct on new or changed medication(s)/assess compliance: Ordered Assess for exacerbation of medical condition, instruct patient/caregivers on signs and symptoms to report for early detection: Ordered Physical Therapist: Check all that apply Increase strength & endurance for safe mobility at home: Ordered To design/establish home maintenance program: Ordered Fall reduction therapy program for patient with history of frequent falls: Ordered Home safety evaluation and teaching/gait training including stair management (if applicable): Ordered Drafter Commercial: Assist with community resources: Ordered Assist with [facility] care planning: Ordered Home Bound Status Requires the aid of supportive device (check all that apply): Walker Assistance of another person (Describe assistance and medical necessity): unable to ambulate without oxygen and the assistance of at least one other person inside or outdoors. Describe why leaving home would require a considerable and taxing effort: Requires frequent rest periods, Oxygen and Safety Concerns: describe (oxygen) Encounter Date and Reason: I certify that a FTF encounter for this patient was performed on October 18, 2022 and that such encounter was related to the primary reason the patient requires home health services. The encounter was conducted in the following manner: * By me as the certifying physician, FARM MANAGEMENT TEACHER, PA or * By an inpatient physician, FARM MANAGEMENT TEACHER or PA during an inpatient stay who communicated findings to me, Certification And Authentication I certify that I composed the above information based on my clinical judgment relating to this patient's medical condition and, if applicable, clinical findings communicated to me by the NPP or inpatient physician who performed the FTF encounter. Name of Provider that will be monitoring home health services: Kathleen Joyce
== END 2022-10-18 12:47 | disposition home health service (06) | DRG 190 ==
LOC: ER 10-16 03:41 → MS 10-16 06:29
PROVIDERS: Nurse Practitioner Family; Admitting Provider Internal Medicine; Emergency Provider Physician Assistant; PCP Nurse Practitioner; Visit Provider Internal Medicine
DX: J44.1 Chronic obstructive pulmonary disease with (acute) exacerbation (principal); I50.23 Acute on chronic systolic (congestive) heart failure; J96.21 Acute and chronic respiratory failure with hypoxia; I42.9 Cardiomyopathy, unspecified; N17.9 Acute kidney failure, unspecified; E87.6 Hypokalemia; E83.42 Hypomagnesemia; Z99.81 Dependence on supplemental oxygen; Z87.891 Personal history of nicotine dependence; I11.0 Hypertensive heart disease with heart failure; E78.5 Hyperlipidemia, unspecified; K21.9 Gastro-esophageal reflux disease without esophagitis; R91.8 Other nonspecific abnormal finding of lung field; F41.9 Anxiety disorder, unspecified; F32.A Depression, unspecified; M79.7 Fibromyalgia; I44.7 Left bundle-branch block, unspecified; I25.2 Old myocardial infarction
CPT/HCPCS: 36415; 80048; 80053; 82805; 84145; 87077; 87637; 93005; 94640; 96365; 96366; 96367; 96375; 96376; 99285; J1650; 36600; 71045; 83735; 83880; 84484; 85025; 87070; 87205; 93010; 94660; 94667; 99223; 99232; 99239; J1941; J2060; J2270; J2930; J3480; J7512; J7614; J7620; J7644; J8597

== ENCOUNTER 2023-02-19 08:29 | Emergency (ER) | payer MEDICARE, SELFPAY ==
[2023-02-19] VITALS (11 sets, daily range): BP systolic 136–173; BP diastolic 61–75; PULSE 106–116; RESP 4–28; TEMP 36.8; O2SAT 87–97
--- NOTE | 2023-02-19 08:41 | ED.GENADUL_ITS ---
Discharge Plan Disposition Patient Disposition: Home Condition: Improving Discharge Details Chief Complaint: RespSymp Clinical Impression: COPD exacerbation, CHF (congestive heart failure) Primary Care Provider: Kathleen Joyce ED Provider: Darrell Roblero Home Meds and New Rx's Prescriptions: No Action lorazepam 0.5 mg tablet 0.5 mg PO DAILY PRN (Reason: anxiety) Qty: 30 5RF melatonin 3 mg tablet 9 mg PO HS PRN PRN (Reason: Insomnia) Qty: 90 3RF (DME) Nasal Cannula O2 Tubing Qty: 2 12RF Rx Instructions: As directed (DME) Oxygen Concentrator with portability See Rx Instructions .Route .MEDSUPPLY Qty: 1 0RF Rx Instructions: As directed. Desaturates to 79% on RA at rest. ondansetron HCl 4 mg tablet 4 mg PO Q6H ipratropium bromide 0.02 % solution 2.5 ml INHALATION Q8H PRN PRN (Reason: Shortness Of Breath Or Wheezing) Qty: 150 3RF (DME) Nebulizer machine for HHN See Rx Instructions .Route .MEDSUPPLY Qty: 1 0RF Rx Instructions: As directed (DME) Nebulizer supplies/tubing See Rx Instructions .Route .MEDSUPPLY Qty: 1 12RF Rx Instructions: As directed Correctol 5 mg tablet 5 mg PO PRN PRN Pepto-Bismol 262 mg tablet 2 tab PO DAILY PRN Rx Instructions: do not exceed 16 tabs per 24 hrs menthol 8 mg lozenge 8 mg MM DAILY PRN (DME) Sensodyne Toothpaste See Rx Instructions .ROUTE .MEDSUPPLY Qty: 113 Rx Instructions: daily as needed (DME) denture care products Cream See Rx Instructions .ROUTE .MEDSUPPLY Qty: 1 Rx Instructions: daily (DME) denture cleanser Tablet, Effervescent See Rx Instructions .ROUTE .MEDSUPPLY Qty: 1 Rx Instructions: daily (DME) Inogen Oxygen Concentrator 3L NC Qty: 1 0RF Rx Instructions: 3L NC betamethasone valerate 0.1 % cream 1 applic Topical BID PRN (Reason: rash hands) Qty: 30 6RF Rx Instructions: APPLY TO HANDS NEEDED atenolol 50 mg tablet 50 mg PO DAILY Qty: 90 3RF ascorbic acid (vitamin C) [C-1000] 1,000 mg tablet 1,000 mg PO DAILY Qty: 30 12RF aspirin 81 mg tablet,delayed release (DR/EC) 81 mg PO DAILY Qty: 30 12RF calcium carb-mag ox-zinc gluc 333-133-5 mg tablet 1 tab PO DAILY Qty: 30 12RF cholecalciferol (vitamin D3) 25 mcg (1,000 unit) capsule 1,000 unit PO DAILY Qty: 30 12RF melatonin 3 mg tablet 9 mg PO HS PRN PRN (Reason: Insomnia) Qty: 90 12RF omeprazole 40 mg capsule,delayed release(DR/EC) 40 mg PO DAILY Qty: 30 12RF pregabalin [Lyrica] 150 mg capsule 150 mg PO BID Qty: 60 5RF omega-3 fatty acids-fish oil [Fish Oil] 360-1,200 mg capsule 1 cap PO DAILY Qty: 30 12RF tetrahydrozoline 0.05 % drops 1 drp ophthalmic (eye) TID Qty: 15 12RF Rx Instructions: OU TID PRN fluticasone furoate-vilanterol [Breo Ellipta] 100-25 mcg/dose blister with device 1 inh inhalation DAILY Qty: 60 12RF fluticasone propionate 50 mcg/actuation spray,suspension See Rx Instructions .ROUTE .COMPLEX Qty: 48 3RF Dose Instruction: INSTILL 2 SPRAYS NASALLY TWICE DAILY Rx Instructions: INSTILL 2 SPRAYS NASALLY TWICE DAILY ibuprofen 400 mg tablet 400 mg PO TID PRN (Reason: fever or pain) Qty: 270 3RF Combivent Respimat 20-100 mcg/actuation mist 1 puff IH QID Qty: 12 3RF Rx Instructions: Please dispense 3 month supply if insurance allows umeclidinium 62.5 mcg/actuation blister with device 1 inh inhalation DAILY Qty: 30 12RF fenofibrate nanocrystallized 48 mg tablet See Rx Instructions .ROUTE .COMPLEX Qty: 90 3RF Dose Instruction: TAKE ONE TABLET BY MOUTH EVERY DAY Rx Instructions: TAKE ONE TABLET BY MOUTH EVERY DAY lisinopril 10 mg tablet 10 mg PO DAILY Qty: 90 3RF simvastatin 40 mg tablet 40 mg PO DAILY Qty: 90 3RF citalopram 40 mg tablet 40 mg PO DAILY Qty: 90 3RF benzonatate 200 mg Capsule 200 mg PO TID Qty: 20 0RF guaifenesin [Mucus Relief ER] 600 mg Tablet Extended Release 12hr 600 mg PO BID Qty: 30 0RF prednisone 10 mg tablet See Taper PO DIRECTED Qty: 32 0RF Taper: Prednisone 20mg taper 40 mg Daily for 3 Days and 0 Hour 30 mg Daily for 3 Days and 0 Hour 20 mg Daily for 3 Days and 0 Hour 10 mg Daily for 3 Days and 0 Hour 5 mg Daily for 3 Days and 0 Hour Rx Instructions: see taper instructions Discharge Instructions Instructions: Heart Failure (ED), COPD (Chronic Obstructive Pulmonary Disease) (ED) Additional Instructions: Please follow-up with your primary care physician. Please return to the emergency department for any worsening symptoms Medical Decision Making 72-year-old female history of COPD, CHF presents with diarrhea and shortness of breath, quiet lung agustin bilaterally with slight expiratory wheeze, holding yourself upright, tachypneic and tachycardic, trace edema bilateral ankles, bedside ultrasound showing some B-lines in lung agustin, saturating 95% on 3 L nasal cannula, patient is on baseline 3 L at home. We will start nebs steroids, basic labs chest x-ray EKG. Likely COPD exacerbation versus component of CHF exacerbation, no active nausea or vomiting, no active diarrhea consider resolving gastroenteritis. We will hold fluids given evidence of B-lines on ultrasound as well as history of CHF. Disposition pending reassessment after treatment 10: 22 patient subjectively feeling improved, offered patient BiPAP given borderline tripoding on arrival and quiet lung agustin with oxygen saturation 89%, however patient extremely anxious regarding the BiPAP mask. She assures me that she is feeling better we will continue with close reassessment of symptoms. I have added mag, will replete potassium. Disposition pending reassessment of symptom 11: 40 clinically improved speaking in full sentences. Will reassess 14: 17 patient resting more comfortably speaking full sentences saturating 95% on 3 to 4 L nasal cannula which she is at her baseline. Patient like to go home as she feels improvement. HPI General Date/Time Provider Initiated Documentation: 02/19/23 08:36 . HPI Narrative: 72-year-old female history of CHF COPD presents with shortness of breath, as well as diarrhea, nausea and 1 episode of vomiting earlier. No chest pain no fevers. No recent travel no recent antibiotics. No recent hospitalization. Related Data Home Medications Medication Instructions Recorded Confirmed bisacodyl 5 mg tablet (Correctol) 5 mg PO PRN PRN 01/19/20 02/19/23 bismuth subsalicylate 262 mg 2 tab PO DAILY PRN 01/19/20 02/19/23 tablet (Pepto-Bismol) denture care products ##1 01/19/20 02/19/23 denture cleanser #1 tab 01/19/20 02/19/23 menthol 8 mg lozenges 8 mg mucous membrane DAILY PRN 01/19/20 02/19/23 toothpaste (Sensodyne toothpaste) #113 grams 01/19/20 02/19/23 Inogen Oxygen Concentrator #1 ea 04/01/20 02/19/23 Nasal Cannula O2 Tubing #2 ea 05/23/20 02/19/23 betamethasone valerate 0.1 % 1 applic topical BID PRN rash 10/13/21 02/19/23 topical cream hands #30 grams Oxygen Concentrator #1 ea 01/27/22 02/19/23 ondansetron HCl 4 mg tablet 4 mg PO Q6H 06/23/22 02/19/23 Nebulizer machine for HHN #1 ea 06/24/22 02/19/23 Nebulizer supplies/tubing #1 ea 06/24/22 02/19/23 ipratropium bromide 0.02 % 2.5 ml inhalation Q8H PRN PRN 06/24/22 02/19/23 solution for inhalation Shortness Of Breath Or Wheezing #150 mL atenolol 50 mg tablet 50 mg PO DAILY #90 tab-caps 06/25/22 02/19/23 ascorbic acid (vitamin C) 1,000 mg 1,000 mg PO DAILY #30 tabs 08/24/22 02/19/23 tablet (C-1000) aspirin 81 mg tablet,delayed 81 mg PO DAILY #30 tabs 08/24/22 02/19/23 release calcium carbonate 333 mg-magnesium 1 tab PO DAILY #30 tabs 08/24/22 02/19/23 oxide 133 mg-zinc gluc 5 mg tablet cholecalciferol (vitamin D3) 25 1,000 unit PO DAILY #30 caps 08/24/22 02/19/23 mcg (1,000 unit) capsule melatonin 3 mg tablet 9 mg PO HS PRN PRN Insomnia #90 08/24/22 02/19/23 tabs omeprazole 40 mg capsule,delayed 40 mg PO DAILY #30 tab-caps 08/24/22 02/19/23 release pregabalin 150 mg capsule (Lyrica) 150 mg PO BID #60 tab-caps 08/24/22 02/19/23 omega-3 fatty acids-fish oil 360 1 cap PO DAILY #30 caps 08/25/22 02/19/23 mg-1,200 mg capsule (Fish Oil) fluticasone furoate 100 1 inh inhalation DAILY #60 ea 09/15/22 02/19/23 mcg-vilanterol 25 mcg/dose inhalation powder (Breo Ellipta) fluticasone propionate 50 See Rx Instructions .Route 09/15/22 02/19/23 mcg/actuation nasal .COMPLEX #48 mL spray,suspension ibuprofen 400 mg tablet 400 mg PO TID PRN fever or pain 09/15/22 02/19/23 #270 tab-caps ipratropium 20 mcg-albuterol 100 1 puff inhalation QID #12 grams 09/15/22 02/19/23 mcg/actuation mist for inhalation (Combivent Respimat) tetrahydrozoline 0.05 % eye drops 1 drp ophthalmic (eye) TID #15 mL 09/15/22 02/19/23 umeclidinium 62.5 mcg/actuation 1 inh inhalation DAILY #30 ea 09/15/22 02/19/23 blister powder for inhalation benzonatate 200 mg capsule 200 mg PO TID #20 caps 10/18/22 02/19/23 guaifenesin 600 mg tablet, 600 mg PO BID #30 tabs 10/18/22 02/19/23 extended release 12 hr (Mucus Relief ER) prednisone 10 mg tablet See Taper PO DIRECTED #32 tabs 10/18/22 02/19/23 fenofibrate nanocrystallized 48 mg See Rx Instructions .Route 11/23/22 02/19/23 tablet .COMPLEX #90 tabs lisinopril 10 mg tablet 10 mg PO DAILY #90 tab-caps 01/20/23 02/19/23 simvastatin 40 mg tablet 40 mg PO DAILY #90 tabs 01/20/23 02/19/23 citalopram 40 mg tablet 40 mg PO DAILY #90 tab-caps 01/25/23 02/19/23 lorazepam 0.5 mg tablet 0.5 mg PO DAILY PRN anxiety #30 01/26/23 02/19/23 tabs melatonin 3 mg tablet 9 mg PO HS PRN PRN Insomnia #90 01/26/23 02/19/23 tabs Previous Rx's Medication Instructions Recorded Inogen Oxygen Concentrator #1 ea 04/01/20 Nasal Cannula O2 Tubing #2 ea 05/23/20 betamethasone valerate 0.1 % 1 applic topical BID PRN rash 10/13/21 topical cream hands #30 grams Oxygen Concentrator #1 ea 01/27/22 Nebulizer machine for HHN #1 ea 06/24/22 Nebulizer supplies/tubing #1 ea 06/24/22 ipratropium bromide 0.02 % 2.5 ml inhalation Q8H PRN PRN 06/24/22 solution for inhalation Shortness Of Breath Or Wheezing #150 mL atenolol 50 mg tablet 50 mg PO DAILY #90 tab-caps 06/25/22 ascorbic acid (vitamin C) 1,000 mg 1,000 mg PO DAILY #30 tabs 08/24/22 tablet (C-1000) aspirin 81 mg tablet,delayed 81 mg PO DAILY #30 tabs 08/24/22 release calcium carbonate 333 mg-magnesium 1 tab PO DAILY #30 tabs 08/24/22 oxide 133 mg-zinc gluc 5 mg tablet cholecalciferol (vitamin D3) 25 1,000 unit PO DAILY #30 caps 08/24/22 mcg (1,000 unit) capsule melatonin 3 mg tablet 9 mg PO HS PRN PRN Insomnia #90 08/24/22 tabs omeprazole 40 mg capsule,delayed 40 mg PO DAILY #30 tab-caps 08/24/22 release pregabalin 150 mg capsule (Lyrica) 150 mg PO BID #60 tab-caps 08/24/22 omega-3 fatty acids-fish oil 360 1 cap PO DAILY #30 caps 08/25/22 mg-1,200 mg capsule (Fish Oil) fluticasone furoate 100 1 inh inhalation DAILY #60 ea 09/15/22 mcg-vilanterol 25 mcg/dose inhalation powder (Breo Ellipta) fluticasone propionate 50 See Rx Instructions .Route 09/15/22 mcg/actuation nasal .COMPLEX #48 mL spray,suspension ibuprofen 400 mg tablet 400 mg PO TID PRN fever or pain 09/15/22 #270 tab-caps ipratropium 20 mcg-albuterol 100 1 puff inhalation QID #12 grams 09/15/22 mcg/actuation mist for inhalation (Combivent Respimat) tetrahydrozoline 0.05 % eye drops 1 drp ophthalmic (eye) TID #15 mL 09/15/22 umeclidinium 62.5 mcg/actuation 1 inh inhalation DAILY #30 ea 09/15/22 blister powder for inhalation benzonatate 200 mg capsule 200 mg PO TID #20 caps 10/18/22 guaifenesin 600 mg tablet, 600 mg PO BID #30 tabs 10/18/22 extended release 12 hr (Mucus Relief ER) prednisone 10 mg tablet See Taper PO DIRECTED #32 tabs 10/18/22 fenofibrate nanocrystallized 48 mg See Rx Instructions .Route 11/23/22 tablet .COMPLEX #90 tabs lisinopril 10 mg tablet 10 mg PO DAILY #90 tab-caps 01/20/23 simvastatin 40 mg tablet 40 mg PO DAILY #90 tabs 01/20/23 citalopram 40 mg tablet 40 mg PO DAILY #90 tab-caps 01/25/23 lorazepam 0.5 mg tablet 0.5 mg PO DAILY PRN anxiety #30 01/26/23 tabs melatonin 3 mg tablet 9 mg PO HS PRN PRN Insomnia #90 01/26/23 tabs Allergies Allergy/AdvReac Type Severity Reaction Status Date / Time Latex, Natural Rubber Allergy Intermediate rash; Verified 02/19/23 08:40 contact dermatitis codeine [Codeine] AdvReac Intermediate Headache Verified 02/19/23 08:40 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 Intermediate contact Uncoded 02/19/23 08:40 dermatitis General Stated Complaint: RespSymp ZACKERY: 3 Review of Systems Narrative: Review of Systems Constitutional: negative Eyes: negative ENT: negative Cardiovascular: negative Respiratory: Shortness of breath Gastrointestinal: Nausea vomiting diarrhea : negative Musculoskeletal: negative Skin: negative Neurologic: negative Psych: negative PFSH All Active Problems (Updated 02/19/23 @ 14:18 by Darrell Roblero MD) COPD exacerbation (Acute) CHF (congestive heart failure) (Chronic) Lung cancer (Chronic) NSCLC of left lung Acute on chronic respiratory failure with hypoxia (Acute) Acute exacerbation of chronic obstructive pulmonary disease (Acute) Hypomagnesemia (Acute) Pneumonia (Acute) Mass of upper lobe of right lung (Acute) Acute kidney injury (Acute) Acute exacerbation of congestive heart failure (Acute) Elevated troponin (Acute) CHF exacerbation (Acute) COPD exacerbation (Acute) Exercise hypoxemia (Acute) ENEDELIA FOWLER III, MD, PULMONOLOGY Bronchiectasis without complication (Acute) Enedelia Fowler III, MD, orthotics prosthetics technician Nasal congestion (Acute 07/01/17) Lung nodules (Acute 04/16/17) 10/07/22 [facility] RAD/Oncology for Radiation Planning H/O contact dermatitis and eczema (Acute 02/18/17) Affects Hands, including the palms and the anticubital fossa, and her neck. 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 Deviated nasal septum (Acute 07/01/17) DJD (degenerative joint disease) (Acute 02/18/17) Severe Palpitations (Acute) Elevated troponin I level (Acute) COPD (chronic obstructive pulmonary disease) (Acute) Gold stage 3, Enedelia Fowler MD Incidental lung nodule, > 3mm and < 8mm (Acute) Hypertension (Acute) Medical History Anxiety Cardiomyopathy CHF (congestive heart failure) Chronic kidney disease (02/18/17) COPD (chronic obstructive pulmonary disease) on chronic supplemental oxygen Depression (02/18/17) Fibromyalgia (02/18/17) Gastroesophageal reflux disease (02/18/17) Hyperlipidemia (02/18/17) LBBB (left bundle branch block) Non-ST elevation [place] (NSTEMI) Surgical History Dilation and curettage (~1984) Ligation of fallopian tube (~1984) Open Carpal Tunnel release Tonsillectomy and adenoidectomy Family History Mother Essential hypertension Heart disease COPD (chronic obstructive pulmonary disease) Father DJD (degenerative joint disease) Sister Hyperlipidemia Myocardial infarction Daughter [id number] deficiency Social History Smoking/Tobacco Use Status: Former Tobacco Use tobacco type: cigarettes Quit Date: 10/18/13 Smoking risk assessment performed?: Yes Alcohol Intake: never Drug use: Never Substance use type: does not use Do you feel safe at home: Yes Do you feel safe in your relationship?: Yes History History Para 2 Hx # Term Pregnancies Multiple births Hx # Pregnancies Ectopic pregnancies AB induced Hx Number of Living Children AB spontaneous Exam Narrative Exam Narrative: Physical Examination General: alert, awake, cooperative, appears moderately uncomfortable HEENT: normocephalic, atraumatic; PERRL, EOM intact, conjunctiva normal; no nasal discharge; moist mucous membranes, oral and pharyngeal mucosa normal, tolerating secretions Neck: supple, trachea midline; full ROM Chest: normal to inspection Respiratory: Quiet lung agustin bilaterally slight expiratory wheeze bilaterally, sitting upright, tachypneic Cardiac: Tachycardia, regular rhythm, S1S2 intact, no murmurs rubs or gallops GI: abdomen soft, non-tender, non-distended; no palpable mass or hepatosple nomegaly Skin: no lesions, rashes or trauma appreciated Neuro: AAOx3, normal speech, moving all extremities Extremities: Trace edema to bilateral ankles Psych: Appropriate mood and affect Course Vital Signs Vital signs: Vital Signs Temperature 36.8 C 02/19/23 08:34 Pulse 106 H 02/19/23 08:34 Respiratory Rate 24 02/19/23 08:34 Blood Pressure 173/72 H 02/19/23 08:34 Pulse Oximetry 95 02/19/23 08:34 Temperature 36.8 C 02/19/23 08:34 Temperature Source Oral 02/19/23 08:34 Pulse 106 H 02/19/23 08:34 Respiratory Rate 24 02/19/23 08:34 Blood Pressure 173/72 H 02/19/23 08:34 Blood Pressure Position Sitting 02/19/23 08:34 Pulse Oximetry 95 02/19/23 08:34 Oxygen Delivery Method Nasal Cannula 02/19/23 08:34 Oxygen Flow Rate 3 02/19/23 08:34
--- NOTE | 2023-02-19 08:45 | RT.EKG_ITS ---
APPROVED REPORT Exam: Resting ECG Reason for Exam: sob Patient Location: E HR:111 bpm ECG Measurements Heart Rate 111 AXIS LA 115 P 81 QRSd 161 QRS 64 QT 387 T [id number] QTc 527 Conclusion Sinus tachycardia...rate> 99 Ventricular premature complex...V complex w/ short R-R interval IVCD, consider LBBB...QRSd>120, notch/slur R I aVL V5-6 sinus tachycardia, LBBB
[2023-02-19] MEDS: Albuterol/Ipratropium 3 ML UPD VIAL 9 ML UPD (09:00)
--- NOTE | 2023-02-19 09:00 | DI.RAD_ITS ---
Exam(s) XR PORTABLE CHEST AP EXAM: XR PORTABLE CHEST AP CLINICAL HISTORY: sob hx copd chf. TECHNIQUE: 2D digital imaging was performed. COMPARISON: CR,XR XR PORTABLE CHEST AP from 10/16/2022 FINDINGS: Single AP portable view. Heart size is upper normal. The mediastinum is not widened. There is there is some focal infiltrate in left upper lobe, similar to the previous study. Cannot ex clude mass. No pleural effusions. No pulmonary edema. IMPRESSION: Left upper lobe nodular infiltrate, possible mass. Similar to 10/16/2022. Follow-up CT scan recomme nded. DATA REPOSITORY: RADIATION DOSE DELIVERED:
[2023-02-19 09:12] LABS: Abs Immature Grans 0.09 10^3/uL (0.0-0.06); Absolute Basophil Count 0.04 10^3/uL (0.0-0.2); Basophils % 0.3; Eosinophils % 0.1; HCT 34.3 % (36.0-46.0); HGB 11.5 g/dL (11.2-15.7); Immature Grans % 0.6; Lymphocytes % 4.9; MCH 29.5 pg (27.0-33.0); MCHC 33.5 % (32.0-36.0); MCV 88 fL (80-95); MPV 10.3 fL (8.0-11.0); Monocytes % 4.9; Neutrophils % 89.2; Platelet Count 186 10^3/uL (130-400); RDW 11.8 % (11.7-14.6); RDW-SD 37.8 fL; WBC 14.59 10^3/uL (4.4-10.8)
[2023-02-19 09:14] LABS: Absolute Eosinophil Count 0.01 10^3/uL (0.0-0.7); Absolute Lymphocyte Count 0.71 10^3/uL (1.2-3.4); Absolute Monocyte Count 0.71 10^3/uL (0.1-0.8); Absolute Neutrophil Count 13.01 10^3/uL (1.2-6.7)
[2023-02-19] MEDS: Levalbuterol 1.25 MG/3 ML UPD VIAL UPD (09:15)
[2023-02-19] MEDS: Ipratropium 0.5 MG/2.5 ML UPD VIAL UPD (09:16)
[2023-02-19] MEDS: Dexamethasone 10 MG/ML VIAL IVP (09:16)
[2023-02-19] MEDS: Ondansetron 4 MG/2 ML VIAL IVP (09:16)
[2023-02-19] MEDS: LORazepam 2 MG/ML VIAL 0.5 MG IVP (09:34)
[2023-02-19 09:39] LABS: ALT 15 U/L (14-59); AST 19 U/L (15-37); Albumin 3.7 g/dL (3.4-5.0); Alkaline Phosphatase 61 U/L (46-116); Anion Gap 7.1 mmol/L (3-11); BUN 12 mg/dL (7-18); Bilirubin, Total 0.4 mg/dL (0.2-1.0); CO2 34.9 mmol/L (21.0-32.0); CREATININE 0.8 mg/dL (0.55-1.02); Calcium 9.3 mg/dL (8.5-10.1); Chloride 100 mmol/L (98-107); Estimated GFR 78.24 (mL/min/1.73m2); Glucose 147 mg/dL (74-106); NT-proBNP 4371 pg/mL (<300); Sodium 142 mmol/L (136-145); Total Protein 7.4 g/dL (6.4-8.2)
[2023-02-19 09:46] LABS: Potassium 2.9 mmol/L (3.5-5.1)
[2023-02-19] MEDS: MAGNESIUM SULFATE 1 GM/100 ML BAG IVPB (09:49)
[2023-02-19] MEDS: POTASSIUM CHLORIDE 10 MEQ/100 ML BAG 100 MEQ IVPB (10:47)
[2023-02-19] MEDS: Furosemide 40 MG/4 ML VIAL IVP (13:28)
== END 2023-02-19 14:54 | disposition home or self-care (01) ==
PROVIDERS: Emergency Provider Emergency Medicine; PCP Nurse Practitioner
DX: R11.2 Nausea with vomiting, unspecified (principal); R19.7 Diarrhea, unspecified; R05.9 Cough, unspecified; R06.02 Shortness of breath; J44.1 Chronic obstructive pulmonary disease with (acute) exacerbation; I50.9 Heart failure, unspecified
CPT/HCPCS: 80053; 93005; 96365; 96368; 96375; 99284; 71045; 83880; 85025; 93010; 94640; J1100; J1940; J2060; J2405; J3475; J3480; J7614; J7620; J7644

== ENCOUNTER 2023-02-22 07:03 | Emergency (ER) | payer MEDICARE, SELFPAY ==
[2023-02-22] VITALS (14 sets, daily range): BP systolic 134–182; BP diastolic 60–102; PULSE 74–83; RESP 8–46; TEMP 36.8; O2SAT 94–99
--- NOTE | 2023-02-22 07:00 | RT.EKG_ITS ---
APPROVED REPORT Exam: Resting ECG Reason for Exam: SOB Patient Location: E HR:78 bpm ECG Measurements Heart Rate 78 AXIS WA 140 P 57 QRSd 155 QRS 26 QT 444 T 85 QTc 508 Conclusion Sinus rhythm...normal P axis, V-rate 60- 99 Left bundle branch block...QRSd>120, broad/notched R ST elevation secondary to IVCD...Multiple VCG criteria. Sinus. Significant artifact. LBBB. No significant change from previous. No STEMI. I have reviewed and interpreted ECG and agree with software generated interpretation.
--- NOTE | 2023-02-22 07:04 | W.ED.GENAD ---
Discharge Plan Disposition Patient Disposition: Home Condition: Stable Discharge Details Clinical Impression: Acute hypokalemia, Hypomagnesemia, Bronchitis Primary Care Provider: Kathleen Joyce ED Provider: Jj Valenzuela Home Meds and New Rx's Prescriptions: Continued lorazepam 0.5 mg tablet 0.5 mg PO DAILY PRN (Reason: anxiety) Qty: 30 5RF melatonin 3 mg tablet 9 mg PO HS PRN PRN (Reason: Insomnia) Qty: 90 3RF (DME) Nasal Cannula O2 Tubing Qty: 2 12RF Rx Instructions: As directed (DME) Oxygen Concentrator with portability See Rx Instructions .Route .MEDSUPPLY Qty: 1 0RF Rx Instructions: As directed. Desaturates to 79% on RA at rest. ondansetron HCl 4 mg tablet 4 mg PO Q6H ipratropium bromide 0.02 % solution 2.5 ml INHALATION Q8H PRN PRN (Reason: Shortness Of Breath Or Wheezing) Qty: 150 3RF (DME) Nebulizer machine for HHN See Rx Instructions .Route .MEDSUPPLY Qty: 1 0RF Rx Instructions: As directed (DME) Nebulizer supplies/tubing See Rx Instructions .Route .MEDSUPPLY Qty: 1 12RF Rx Instructions: As directed Correctol 5 mg tablet 5 mg PO PRN PRN Pepto-Bismol 262 mg tablet 2 tab PO DAILY PRN Rx Instructions: do not exceed 16 tabs per 24 hrs menthol 8 mg lozenge 8 mg MM DAILY PRN (DME) Sensodyne Toothpaste See Rx Instructions .ROUTE .MEDSUPPLY Qty: 113 Rx Instructions: daily as needed (DME) denture care products Cream See Rx Instructions .ROUTE .MEDSUPPLY Qty: 1 Rx Instructions: daily (DME) denture cleanser Tablet, Effervescent See Rx Instructions .ROUTE .MEDSUPPLY Qty: 1 Rx Instructions: daily (DME) Inogen Oxygen Concentrator 3L NC Qty: 1 0RF Rx Instructions: 3L NC betamethasone valerate 0.1 % cream 1 applic Topical BID PRN (Reason: rash hands) Qty: 30 6RF Rx Instructions: APPLY TO HANDS NEEDED atenolol 50 mg tablet 50 mg PO DAILY Qty: 90 3RF ascorbic acid (vitamin C) [C-1000] 1,000 mg tablet 1,000 mg PO DAILY Qty: 30 12RF aspirin 81 mg tablet,delayed release (DR/EC) 81 mg PO DAILY Qty: 30 12RF calcium carb-mag ox-zinc gluc 333-133-5 mg tablet 1 tab PO DAILY Qty: 30 12RF cholecalciferol (vitamin D3) 25 mcg (1,000 unit) capsule 1,000 unit PO DAILY Qty: 30 12RF melatonin 3 mg tablet 9 mg PO HS PRN PRN (Reason: Insomnia) Qty: 90 12RF omeprazole 40 mg capsule,delayed release(DR/EC) 40 mg PO DAILY Qty: 30 12RF pregabalin [Lyrica] 150 mg capsule 150 mg PO BID Qty: 60 5RF omega-3 fatty acids-fish oil [Fish Oil] 360-1,200 mg capsule 1 cap PO DAILY Qty: 30 12RF tetrahydrozoline 0.05 % drops 1 drp ophthalmic (eye) TID Qty: 15 12RF Rx Instructions: OU TID PRN fluticasone furoate-vilanterol [Breo Ellipta] 100-25 mcg/dose blister with device 1 inh inhalation DAILY Qty: 60 12RF fluticasone propionate 50 mcg/actuation spray,suspension See Rx Instructions .ROUTE .COMPLEX Qty: 48 3RF Dose Instruction: INSTILL 2 SPRAYS NASALLY TWICE DAILY Rx Instructions: INSTILL 2 SPRAYS NASALLY TWICE DAILY ibuprofen 400 mg tablet 400 mg PO TID PRN (Reason: fever or pain) Qty: 270 3RF Combivent Respimat 20-100 mcg/actuation mist 1 puff IH QID Qty: 12 3RF Rx Instructions: Please dispense 3 month supply if insurance allows umeclidinium 62.5 mcg/actuation blister with device 1 inh inhalation DAILY Qty: 30 12RF fenofibrate nanocrystallized 48 mg tablet See Rx Instructions .ROUTE .COMPLEX Qty: 90 3RF Dose Instruction: TAKE ONE TABLET BY MOUTH EVERY DAY Rx Instructions: TAKE ONE TABLET BY MOUTH EVERY DAY lisinopril 10 mg tablet 10 mg PO DAILY Qty: 90 3RF simvastatin 40 mg tablet 40 mg PO DAILY Qty: 90 3RF citalopram 40 mg tablet 40 mg PO DAILY Qty: 90 3RF benzonatate 200 mg Capsule 200 mg PO TID Qty: 20 0RF guaifenesin [Mucus Relief ER] 600 mg Tablet Extended Release 12hr 600 mg PO BID Qty: 30 0RF prednisone 10 mg tablet See Taper PO DIRECTED Qty: 32 0RF Taper: Prednisone 20mg taper 40 mg Daily for 3 Days and 0 Hour 30 mg Daily for 3 Days and 0 Hour 20 mg Daily for 3 Days and 0 Hour 10 mg Daily for 3 Days and 0 Hour 5 mg Daily for 3 Days and 0 Hour Rx Instructions: see taper instructions Discharge Instructions Instructions: Acute Bronchitis (ED) Additional Instructions: Please read all of the information that accompanies these instructions. You were seen in the emergency department for your shortness of breath. Your CAT scan showed no sign of pneumonia but shows that you likely have bronchitis. Please schedule an appointment with your primary care provider later this week. Please return to the emergency department if your shortness of breath worsens or if you develop any chest pain or do not urinate at least once every 8 hours while awake. Discharge Data Discharge Date/Time-TO BE ENTERED AT DEPARTURE: 02/22/23 11:28 Medical Decision Making 72-year-old female with a history of COPD chronically on 3 L nasal cannula oxygen, CHF, coronary artery disease with NSTEMI, hypertension, hyperlipidemia, cardiomyopathy, GERD, fibromyalgia, anxiety and depression presents for 1 week of nausea, loose stools, decreased appetite, nasal congestion, dry cough and intermittent shortness of breath. Review of patient's medication list notes a steroid taper but she is unaware of this and she is unsure if she is taking it. Her chest x-ray from her ED visit 3 days ago noted a left upper lobe nodular infiltrate, possible mass and CT chest recommended. It appears that patient was not sent home on any antibiotics. Her EKG notes a rate of 78, sinus, left bundle branch block, significant artifact but no significant change from prior EKG. Patient appears anxious. She reports her baseline oxygen saturation is 94% on 3 L and she is currently 90 to 92% on 4 L. She has no fever or productive cough to suggest pneumonia. She has no crackles, rales or lower extremity edema to suggest CHF. She has no report of chest pain to suggest ACS. Suspect bronchitis, COPD, other viral process. Also consider UTI, influenza, COVID in addition to pneumonia and CHF. Will obtain screening labs, CT chest abdomen and pelvis to rule out pneumonia, mass or other acute process. We will give DuoNeb, IV Reglan, IV Tylenol, IV Ativan and reassess. Case endorsed to Dr. Valenzuela to follow-up on labs and imaging and final disposition. Medical Records Medical records reviewed: Yes I reviewed the patient's medical records. ECG Data Attestation: I personally reviewed and interpreted this ECG (s) as follows: Interpretation: rate of 78, sinus, significant artifact, left bundle branch block, no significant change compared to previous. No STEMI. HPI General Mode of arrival: EMS. Date/Time Provider Initiated Documentation: 02/22/23 07:10. Limitations to Documentation: no limitations. Information obtained by: patient. HPI Narrative: Patient is a 72-year-old female with a history of COPD, former tobacco smoker on 3 L nasal cannula oxygen, CHF, coronary artery disease, NSTEMI, GERD, hypertension, hyperlipidemia, fibromyalgia, chronic kidney disease, anxiety and depression who presents for multiple complaints including nausea, loose stools, nasal congestion, dry cough, decreased appetite and intermittent shortness of breath for the past week. She asked her daughter to call the ambulance for shortness of breath this morning. She feels that her nausea is secondary to anxiety. She reports that she also feels her blood pressure is high due to the nausea. She does not check her blood pressure medication at home. She states she has been taking her lorazepam every day this week for her nausea/anxiety but did not take it this morning. She reports she did take her blood pressure medication this morning but did not take her inhalers. She states she lives at home with her daughter and does not use assistance with ambulation. She states she has had not much of an appetite over the past week secondary to the nausea but denies any known fever, chest pain, abdominal pain or urinary symptoms. She was seen here 3 days ago for similar complaint and was diagnosed with COPD and CHF exacerbation and was discharged home. She reports she had been feeling better at that time upon discharge but then symptoms returned that night. She has prednisone on her medication list but she was unaware of this and she is not sure she is taking it. Related Data Home Medications Medication Instructions Recorded Confirmed bisacodyl 5 mg tablet (Correctol) 5 mg PO PRN PRN 01/19/20 02/22/23 bismuth subsalicylate 262 mg 2 tab PO DAILY PRN 01/19/20 02/22/23 tablet (Pepto-Bismol) denture care products ##1 01/19/20 02/22/23 denture cleanser #1 tab 01/19/20 02/22/23 menthol 8 mg lozenges 8 mg mucous membrane DAILY PRN 01/19/20 02/22/23 toothpaste (Sensodyne toothpaste) #113 grams 01/19/20 02/22/23 Inogen Oxygen Concentrator #1 ea 04/01/20 02/22/23 Nasal Cannula O2 Tubing #2 ea 05/23/20 02/22/23 betamethasone valerate 0.1 % 1 applic topical BID PRN rash 10/13/21 02/22/23 topical cream hands #30 grams Oxygen Concentrator #1 ea 01/27/22 02/22/23 ondansetron HCl 4 mg tablet 4 mg PO Q6H 06/23/22 02/22/23 Nebulizer machine for HHN #1 ea 06/24/22 02/22/23 Nebulizer supplies/tubing #1 ea 06/24/22 02/22/23 ipratropium bromide 0.02 % 2.5 ml inhalation Q8H PRN PRN 06/24/22 02/22/23 solution for inhalation Shortness Of Breath Or Wheezing #150 mL atenolol 50 mg tablet 50 mg PO DAILY #90 tab-caps 06/25/22 02/22/23 ascorbic acid (vitamin C) 1,000 mg 1,000 mg PO DAILY #30 tabs 08/24/22 02/22/23 tablet (C-1000) aspirin 81 mg tablet,delayed 81 mg PO DAILY #30 tabs 08/24/22 02/22/23 release calcium carbonate 333 mg-magnesium 1 tab PO DAILY #30 tabs 08/24/22 02/22/23 oxide 133 mg-zinc gluc 5 mg tablet cholecalciferol (vitamin D3) 25 1,000 unit PO DAILY #30 caps 08/24/22 02/22/23 mcg (1,000 unit) capsule melatonin 3 mg tablet 9 mg PO HS PRN PRN Insomnia #90 08/24/22 02/22/23 tabs omeprazole 40 mg capsule,delayed 40 mg PO DAILY #30 tab-caps 08/24/22 02/22/23 release pregabalin 150 mg capsule (Lyrica) 150 mg PO BID #60 tab-caps 08/24/22 02/22/23 omega-3 fatty acids-fish oil 360 1 cap PO DAILY #30 caps 08/25/22 02/22/23 mg-1,200 mg capsule (Fish Oil) fluticasone furoate 100 1 inh inhalation DAILY #60 ea 09/15/22 02/22/23 mcg-vilanterol 25 mcg/dose inhalation powder (Breo Ellipta) fluticasone propionate 50 See Rx Instructions .Route 09/15/22 02/22/23 mcg/actuation nasal .COMPLEX #48 mL spray,suspension ibuprofen 400 mg tablet 400 mg PO TID PRN fever or pain 09/15/22 02/22/23 #270 tab-caps ipratropium 20 mcg-albuterol 100 1 puff inhalation QID #12 grams 09/15/22 02/22/23 mcg/actuation mist for inhalation (Combivent Respimat) tetrahydrozoline 0.05 % eye drops 1 drp ophthalmic (eye) TID #15 mL 09/15/22 02/22/23 umeclidinium 62.5 mcg/actuation 1 inh inhalation DAILY #30 ea 09/15/22 02/22/23 blister powder for inhalation benzonatate 200 mg capsule 200 mg PO TID #20 caps 10/18/22 02/22/23 guaifenesin 600 mg tablet, 600 mg PO BID #30 tabs 10/18/22 02/22/23 extended release 12 hr (Mucus Relief ER) prednisone 10 mg tablet See Taper PO DIRECTED #32 tabs 10/18/22 02/22/23 fenofibrate nanocrystallized 48 mg See Rx Instructions .Route 11/23/22 02/22/23 tablet .COMPLEX #90 tabs lisinopril 10 mg tablet 10 mg PO DAILY #90 tab-caps 01/20/23 02/22/23 simvastatin 40 mg tablet 40 mg PO DAILY #90 tabs 01/20/23 02/22/23 citalopram 40 mg tablet 40 mg PO DAILY #90 tab-caps 01/25/23 02/22/23 lorazepam 0.5 mg tablet 0.5 mg PO DAILY PRN anxiety #30 01/26/23 02/22/23 tabs melatonin 3 mg tablet 9 mg PO HS PRN PRN Insomnia #90 01/26/23 02/22/23 tabs Previous Rx's Medication Instructions Recorded Inogen Oxygen Concentrator #1 ea 04/01/20 Nasal Cannula O2 Tubing #2 ea 05/23/20 betamethasone valerate 0.1 % 1 applic topical BID PRN rash 10/13/21 topical cream hands #30 grams Oxygen Concentrator #1 ea 01/27/22 Nebulizer machine for HHN #1 ea 06/24/22 Nebulizer supplies/tubing #1 ea 06/24/22 ipratropium bromide 0.02 % 2.5 ml inhalation Q8H PRN PRN 06/24/22 solution for inhalation Shortness Of Breath Or Wheezing #150 mL atenolol 50 mg tablet 50 mg PO DAILY #90 tab-caps 06/25/22 ascorbic acid (vitamin C) 1,000 mg 1,000 mg PO DAILY #30 tabs 08/24/22 tablet (C-1000) aspirin 81 mg tablet,delayed 81 mg PO DAILY #30 tabs 08/24/22 release calcium carbonate 333 mg-magnesium 1 tab PO DAILY #30 tabs 08/24/22 oxide 133 mg-zinc gluc 5 mg tablet cholecalciferol (vitamin D3) 25 1,000 unit PO DAILY #30 caps 08/24/22 mcg (1,000 unit) capsule melatonin 3 mg tablet 9 mg PO HS PRN PRN Insomnia #90 08/24/22 tabs omeprazole 40 mg capsule,delayed 40 mg PO DAILY #30 tab-caps 08/24/22 release pregabalin 150 mg capsule (Lyrica) 150 mg PO BID #60 tab-caps 08/24/22 omega-3 fatty acids-fish oil 360 1 cap PO DAILY #30 caps 08/25/22 mg-1,200 mg capsule (Fish Oil) fluticasone furoate 100 1 inh inhalation DAILY #60 ea 09/15/22 mcg-vilanterol 25 mcg/dose inhalation powder (Breo Ellipta) fluticasone propionate 50 See Rx Instructions .Route 09/15/22 mcg/actuation nasal .COMPLEX #48 mL spray,suspension ibuprofen 400 mg tablet 400 mg PO TID PRN fever or pain 09/15/22 #270 tab-caps ipratropium 20 mcg-albuterol 100 1 puff inhalation QID #12 grams 09/15/22 mcg/actuation mist for inhalation (Combivent Respimat) tetrahydrozoline 0.05 % eye drops 1 drp ophthalmic (eye) TID #15 mL 09/15/22 umeclidinium 62.5 mcg/actuation 1 inh inhalation DAILY #30 ea 09/15/22 blister powder for inhalation benzonatate 200 mg capsule 200 mg PO TID #20 caps 10/18/22 guaifenesin 600 mg tablet, 600 mg PO BID #30 tabs 10/18/22 extended release 12 hr (Mucus Relief ER) prednisone 10 mg tablet See Taper PO DIRECTED #32 tabs 10/18/22 fenofibrate nanocrystallized 48 mg See Rx Instructions .Route 11/23/22 tablet .COMPLEX #90 tabs lisinopril 10 mg tablet 10 mg PO DAILY #90 tab-caps 01/20/23 simvastatin 40 mg tablet 40 mg PO DAILY #90 tabs 01/20/23 citalopram 40 mg tablet 40 mg PO DAILY #90 tab-caps 01/25/23 lorazepam 0.5 mg tablet 0.5 mg PO DAILY PRN anxiety #30 01/26/23 tabs melatonin 3 mg tablet 9 mg PO HS PRN PRN Insomnia #90 01/26/23 tabs Allergies Allergy/AdvReac Type Severity Reaction Status Date / Time Latex, Natural Rubber Allergy Intermediate rash; Verified 02/19/23 08:40 contact dermatitis codeine [Codeine] AdvReac Intermediate Headache 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 Intermediate contact Uncoded 02/19/23 08:40 dermatitis General Stated Complaint: SOB ZACKERY: 3 Review of Systems All systems reviewed & are unremarkable except as noted in HPI and below Constitutional Constitutional: Reports as per HPI, Denies chills and Denies fever(s) Eyes Eyes: Denies blurry vision ENT Ears, Nose, Mouth, and Throat: Denies dizziness, Denies sore throat and Denies throat swelling Cardiovascular Cardiovascular: Denies chest pain and Reports dyspnea Respiratory Respiratory: Reports cough and Reports dyspnea Gastrointestinal Gastrointestinal: Denies abdominal pain, Reports diarrhea, Reports nausea and Denies vomiting Genitourinary Genitourinary: Denies hematuria and Denies dysuria Musculoskeletal Musculoskeletal: Denies back pain and Denies numbness Integumentary/Breasts Skin/Breast: Denies lesions and Denies rash Neurologic Neurologic: Denies dizziness, Denies localized weakness and Denies numbness Allergic/Immunologic Allergic/Immunologic: Denies throat swelling PFSH All Active Problems (Updated 02/22/23 @ 11:09 by Jj Valenzuela MD) COPD exacerbation (Acute) CHF (congestive heart failure) (Chronic) Acute hypokalemia (Acute) Hypomagnesemia (Acute) Bronchitis (Acute) Lung cancer (Chronic) NSCLC of left lung Acute on chronic respiratory failure with hypoxia (Acute) Acute exacerbation of chronic obstructive pulmonary disease (Acute) Hypomagnesemia (Acute) Pneumonia (Acute) Mass of upper lobe of right lung (Acute) Acute kidney injury (Acute) Acute exacerbation of congestive heart failure (Acute) Elevated troponin (Acute) CHF exacerbation (Acute) COPD exacerbation (Acute) Exercise hypoxemia (Acute) ENEDELIA FOWLER III, MD, PULMONOLOGY Bronchiectasis without complication (Acute) 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 Deviated nasal septum (Acute 07/01/17) DJD (degenerative joint disease) (Acute 02/18/17) Severe Palpitations (Acute) Elevated troponin I level (Acute) COPD (chronic obstructive pulmonary disease) (Acute) Gold stage 3, Enedelia Fowler MD Incidental lung nodule, > 3mm and < 8mm (Acute) Hypertension (Acute) Medical History Anxiety Cardiomyopathy CHF (congestive heart failure) Chronic kidney disease (02/18/17) COPD (chronic obstructive pulmonary disease) on chronic supplemental oxygen Depression (02/18/17) Fibromyalgia (02/18/17) Gastroesophageal reflux disease (02/18/17) Hyperlipidemia (02/18/17) LBBB (left bundle branch block) Non-ST elevation PR (NSTEMI) Surgical History Dilation and curettage (~1984) Ligation of fallopian tube (~1984) Open Carpal Tunnel release Tonsillectomy and adenoidectomy Family History Mother Essential hypertension Heart disease COPD (chronic obstructive pulmonary disease) Father DJD (degenerative joint disease) Sister Hyperlipidemia Myocardial infarction Daughter [id number] deficiency Social History Smoking/Tobacco Use Status: Former Tobacco Use tobacco type: cigarettes Quit Date: 10/18/13 Smoking risk assessment performed?: Yes Alcohol Intake: never Drug use: Never Substance use type: does not use Do you feel safe at home: Yes Do you feel safe in your relationship?: Yes History History Para 2 Hx # Term Pregnancies Multiple births Hx # Pregnancies Ectopic pregnancies AB induced Hx Number of Living Children AB spontaneous Exam Const General: cooperative and anxious Orientation: alert, awake and oriented x3 HENMT Head: normal to inspection Face and sinus: normal facial exam Eyes General: appearance normal, both eyes and all related structures Pupils: PERRL EOM: EOM intact bilaterally Neck Neck: normal visual inspection and No submandibular swelling Lymphatic: no lymphadenopathy noted Chest Chest: normal inspection of the chest and no tenderness Resp Effort & Inspection: normal respiratory effort and able to speak in complete sentences Auscultation: diminished lung sounds bilaterally throughout Cardio Rate: regular rate Rhythm: regular rhythm GI Inspection: normal to inspection Palpation: soft, not firm, not rigid and tender in the LLQ and in the LUQ Auscultation: hypoactive bowel sounds Back/Spine/Pelvis Thoracic/Lumbar Spine: thoracic and lumbar spine normal to inspection Pelvis: no pain with anterior-posterior compression Skin General skin exam: no rashes or lesions noted Neuro General: patient alert, patient awake and patient oriented x3 Cognition: normal cognition Speech: speech normal Motor: muscle tone normal throughout Sensory Exam: no sensory deficits noted Extrem General: normal to inspection, full ROM and no edema Psych Appearance: grossly normal Mental Status: mental status grossly normal Speech and Movement: speech and movement normal Affect: normal affect Sign Out Sign Out Data: Sign Out Comment: History of COPD on 3 L nasal cannula oxygen chronically and CHF here with 1 week of nausea, decreased appetite, loose stools, nasal congestion and dry cough. Called the ambulance this morning for shortness of breath. She feels a lot of her symptoms are secondary to anxiety. Her baseline O2 is 94% on 3 L, she is currently 92% on 4 L. She has diminished breath sounds throughout and is tender in the left upper and lower quadrants. Follow-up on labs, CT imaging and reassess after antiemetics, anxiolytics and DuoNeb. If patient feels better and work-up negative, likely discharge to home. Last updated by Cathryn Taylor DO at 02/22/23 08:03
--- NOTE | 2023-02-22 07:30 | DI.CT_ITS ---
Exam(s) CT CHEST PE ABD PELVIS W EXAM: CT CHEST PE ABD PELVIS W CLINICAL HISTORY: short of breath, nausea, diarrhea. TECHNIQUE: Imaging Protocol: Axial CT angiography was performed with multi-slice acquisition and mu lti-planar and/or 3D reconstructions. CONTRAST MATERIAL: Intravenous: Omnipaque 350 Contrast volume:98 mL COMPARISON: CT CHEST FOR PULMONARY EMBOLUS from 03/29/[address] CHEST PE CTA from 05/19/2022 CR XR PORTABLE CHEST AP from 02/19/2023 FINDINGS: CHEST: Pulmonary Arteries: No evidence of filling defect to suggest pulmonary emboli. Tracheobronchial tree: Bronchial wall thickening greatest in the right lower lobe. No mucous pluggin g identified. Mediastinum and Julia: No dominant adenopathy or fluid collection. Pulmonary parenchyma: Slight interval increase in size of previously noted left upper lobe mass. Emp hysematous changes, greatest in the left lower lobe. No infiltrates. Pleura: No effusion or pneumothorax. Heart: The heart is not dilated. No coronary artery calcifications are seen. Aorta: Thoracic aorta non-dilated. Mild atherosclerotic changes. Bones: Unremarkable for age. Tubes, Catheters, and Lines: None ABDOMEN: Liver: Normal density. No suspicious measurable mass. Portal, Superior Mesenteric, and Splenic Veins: Unremarkable. Gallbladder and Biliary Tract: Layering sludge versus multiple tiny stones. No wall thickening. No biliary dilation. Pancreas: Normal density, no abnormal calcifications or inflammatory process. Spleen: Normal. Adrenals: No masses seen. Kidneys: Normal size, contour and axis. No radiodense stones or obstructive uropathy. Left renal cys t. No suspicious masses seen. Abdominal Aorta: Abdominal portion non-dilated. Bowel: Sigmoid diverticulosis. No obstruction or bowel wall thickening. Some fluid in slight wall th ickening at the cecum and ascending colon. Suture material base of cecum. Peritoneal Cavity: No ascites, collection or mesenteric inflammatory response. Lymph Nodes: Within normal limits. Bones: Unremarkable. Soft Tissues: Small fatty containing right inguinal hernia. PELVIS: Bladder: nearly empty. No gross wall thickening. Reproductive Organs: Unremarkable as visualized. Lymph Nodes: Within normal limits. Bones: Degenerative disc changes at L4-5 and L5-S1. IMPRESSION: 1. No evidence of pulmonary embolism. Bronchial wall thickening greatest in the right lower lobe cons istent with bronchitis. No mucous plugging or infiltrate. 2. Slight interval increase in size of left upper lobe mass. 3. Question mild wall thickening of the cecum. Diverticulosis of the sigmoid without evidence of dive rticulitis. 4. Findings discussed with Dr. Valenzuela of the emergency department. RADIATION DOSE DELIVERED: 951.83mGy.cm Total DLP DATA REPOSITORY: All CT scans at this facility are submitted to the National Radiology Data Registry (NRDR) Dose Index Registry (DIR) with the [employer] (ACR). RADIATION OPTIMIZATION: All CT scans at this facility use at least one of these dose optimization te chniques: automated exposure control; mA and/or kV adjustment per patient size (includes targeted exa ms where dose is matched to clinical indication); or iterative reconstruction.
--- NOTE | 2023-02-22 07:35 | ED.PROG_ITS ---
Date of service: 02/22/23 Time of Service: 07:35 Medical Decision Making I received signout on this 72-year-old female with chronic respiratory failure on 3 L outpatient oxygen now in the emergency department in setting of worsening shortness of breath. Patient was in the emergency department 3 days ago and di agnosed with COPD and CHF. She was not started on any steroids antibiotics nor diuretics. She took her home medications this morning but has not had her anxiolysis with lorazepam. She is currently saturating well on 4 L nasal cannula. She is receiving a DuoNeb. She is pending a CT scan of her chest abdomen pelvis. Her chest x-ray from last week showed a left upper lobe infiltrate concerning for the possibility of a mass similar to prior imaging from last year. Patient has had no recent fevers to suggest pneumonia. No increased sputum production nor purulence to suggest COPD exacerbation. We will follow-up following DuoNeb to determine whether or not patient may benefit from steroids. 8:35 AM Comprehensive metabolic panel significant for mild hypokalemia with a serum potassium of 3.0. No TARIQ. Mild hyperglycemia but no anion gap and not consistent with DKA. Persistently elevated CO2. Mild hypomagnesemia. No anemia. No thrombocytopenia. No leukocytosis. Elevated proBNP slightly improved compared to prior from last week. Reassuring normal lipase. Negative troponin. Respiratory viral swab negative for RSV, COVID, and influenza. 10:10 AM UA nitrite negative leuk esterase negative not consistent with infection. No hematuria. On my review of the patient's CT scan she had persistent left-sided mass. I updated the patient on this finding. She reports she follows with [facility]. Per chart review she has a history of non-small cell lung cancer of her left lung. She has reportedly been deemed not a surgical candidate and has received radiation therapy. 02/23 Late charting due to patient care. Patient felt improved. She will take her outpatient lorazepam as needed. Sign Out Sign Out Data: Sign Out Comment: History of COPD on 3 L nasal cannula oxygen chronically and CHF here with 1 week of nausea, decreased appetite, loose stools, nasal congestion and dry cough. Called the ambulance this morning for shortness of breath. She feels a lot of her symptoms are secondary to anxiety. Her baseline O2 is 94% on 3 L, she is currently 92% on 4 L. She has diminished breath sounds throughout and is tender in the left upper and lower quadrants. Follow-up on labs, CT imaging and reassess after antiemetics, anxiolytics and DuoNeb. If patient feels better and work-up negative, likely discharge to home. Last updated by Cathryn Taylor DO at 02/22/23 08:03 Discharge Plan Disposition Patient Disposition: Home Condition: Stable Discharge Details Clinical Impression: Acute hypokalemia, Hypomagnesemia, Bronchitis Primary Care Provider: Kathleen Joyce ED Provider: Jj Valenzuela [place] Meds and New Rx's Prescriptions: Continued lorazepam 0.5 mg tablet 0.5 mg PO DAILY PRN (Reason: anxiety) Qty: 30 5RF melatonin 3 mg tablet 9 mg PO HS PRN PRN (Reason: Insomnia) Qty: 90 3RF (DME) Nasal Cannula O2 Tubing Qty: 2 12RF Rx Instructions: As directed (DME) Oxygen Concentrator with portability See Rx Instructions .Route .MEDSUPPLY Qty: 1 0RF Rx Instructions: As directed. Desaturates to 79% on RA at rest. ondansetron HCl 4 mg tablet 4 mg PO Q6H ipratropium bromide 0.02 % solution 2.5 ml INHALATION Q8H PRN PRN (Reason: Shortness Of Breath Or Wheezing) Qty: 150 3RF (DME) Nebulizer machine for HHN See Rx Instructions .Route .MEDSUPPLY Qty: 1 0RF Rx Instructions: As directed (DME) Nebulizer supplies/tubing See Rx Instructions .Route .MEDSUPPLY Qty: 1 12RF Rx Instructions: As directed Correctol 5 mg tablet 5 mg PO PRN PRN Pepto-Bismol 262 mg tablet 2 tab PO DAILY PRN Rx Instructions: do not exceed 16 tabs per 24 hrs menthol 8 mg lozenge 8 mg MM DAILY PRN (DME) Sensodyne Toothpaste See Rx Instructions .ROUTE .MEDSUPPLY Qty: 113 Rx Instructions: daily as needed (DME) denture care products Cream See Rx Instructions .ROUTE .MEDSUPPLY Qty: 1 Rx Instructions: daily (DME) denture cleanser Tablet, Effervescent See Rx Instructions .ROUTE .MEDSUPPLY Qty: 1 Rx Instructions: daily (DME) Inogen Oxygen Concentrator 3L NC Qty: 1 0RF Rx Instructions: 3L NC betamethasone valerate 0.1 % cream 1 applic Topical BID PRN (Reason: rash hands) Qty: 30 6RF Rx Instructions: APPLY TO HANDS NEEDED atenolol 50 mg tablet 50 mg PO DAILY Qty: 90 3RF ascorbic acid (vitamin C) [C-1000] 1,000 mg tablet 1,000 mg PO DAILY Qty: 30 12RF aspirin 81 mg tablet,delayed release (DR/EC) 81 mg PO DAILY Qty: 30 12RF calcium carb-mag ox-zinc gluc 333-133-5 mg tablet 1 tab PO DAILY Qty: 30 12RF cholecalciferol (vitamin D3) 25 mcg (1,000 unit) capsule 1,000 unit PO DAILY Qty: 30 12RF melatonin 3 mg tablet 9 mg PO HS PRN PRN (Reason: Insomnia) Qty: 90 12RF omeprazole 40 mg capsule,delayed release(DR/EC) 40 mg PO DAILY Qty: 30 12RF pregabalin [Lyrica] 150 mg capsule 150 mg PO BID Qty: 60 5RF omega-3 fatty acids-fish oil [Fish Oil] 360-1,200 mg capsule 1 cap PO DAILY Qty: 30 12RF tetrahydrozoline 0.05 % drops 1 drp ophthalmic (eye) TID Qty: 15 12RF Rx Instructions: OU TID PRN fluticasone furoate-vilanterol [Breo Ellipta] 100-25 mcg/dose blister with device 1 inh inhalation DAILY Qty: 60 12RF fluticasone propionate 50 mcg/actuation spray,suspension See Rx Instructions .ROUTE .COMPLEX Qty: 48 3RF Dose Instruction: INSTILL 2 SPRAYS NASALLY TWICE DAILY Rx Instructions: INSTILL 2 SPRAYS NASALLY TWICE DAILY ibuprofen 400 mg tablet 400 mg PO TID PRN (Reason: fever or pain) Qty: 270 3RF Combivent Respimat 20-100 mcg/actuation mist 1 puff IH QID Qty: 12 3RF Rx Instructions: Please dispense 3 month supply if insurance allows umeclidinium 62.5 mcg/actuation blister with device 1 inh inhalation DAILY Qty: 30 12RF fenofibrate nanocrystallized 48 mg tablet See Rx Instructions .ROUTE .COMPLEX Qty: 90 3RF Dose Instruction: TAKE ONE TABLET BY MOUTH EVERY DAY Rx Instructions: TAKE ONE TABLET BY MOUTH EVERY DAY lisinopril 10 mg tablet 10 mg PO DAILY Qty: 90 3RF simvastatin 40 mg tablet 40 mg PO DAILY Qty: 90 3RF citalopram 40 mg tablet 40 mg PO DAILY Qty: 90 3RF benzonatate 200 mg Capsule 200 mg PO TID Qty: 20 0RF guaifenesin [Mucus Relief ER] 600 mg Tablet Extended Release 12hr 600 mg PO BID Qty: 30 0RF prednisone 10 mg tablet See Taper PO DIRECTED Qty: 32 0RF Taper: Prednisone 20mg taper 40 mg Daily for 3 Days and 0 Hour 30 mg Daily for 3 Days and 0 Hour 20 mg Daily for 3 Days and 0 Hour 10 mg Daily for 3 Days and 0 Hour 5 mg Daily for 3 Days and 0 Hour Rx Instructions: see taper instructions Discharge Instructions Instructions: Acute Bronchitis (ED) Additional Instructions: Please read all of the information that accompanies these instructions. You were seen in the emergency department for your shortness of breath. Your CAT s can showed no sign of pneumonia but shows that you likely have bronchitis. Please schedule an appointment with your primary care provider later this week. Please return to the emergency department if your shortness of breath worsens or if you develop any chest pain or do not urinate at least once every 8 hours while awake. Discharge Data Discharge Date/Time-TO BE ENTERED AT DEPARTURE: 02/22/23 11:28
[2023-02-22 08:03] LABS: Abs Immature Grans 0.05 10^3/uL (0.0-0.06); Absolute Basophil Count 0.05 10^3/uL (0.0-0.2); Absolute Eosinophil Count 0.13 10^3/uL (0.0-0.7); Absolute Lymphocyte Count 0.55 10^3/uL (1.2-3.4); Absolute Monocyte Count 0.68 10^3/uL (0.1-0.8); Absolute Neutrophil Count 9.34 10^3/uL (1.2-6.7); Basophils % 0.5; Eosinophils % 1.2; HCT 34.8 % (36.0-46.0); HGB 11.7 g/dL (11.2-15.7); Immature Grans % 0.5; Lymphocytes % 5.1; MCH 29.9 pg (27.0-33.0); MCHC 33.6 % (32.0-36.0); MCV 89 fL (80-95); MPV 11.3 fL (8.0-11.0); Monocytes % 6.3; Neutrophils % 86.4; Platelet Count 218 10^3/uL (130-400); RBC 3.91 10^6/uL (3.93-5.22); RDW 11.9 % (11.7-14.6); RDW-SD 38.2 fL
[2023-02-22] MEDS: LORazepam 2 MG/ML VIAL 0.5 MG IVP (08:14)
[2023-02-22] MEDS: ACETAMINOPHEN 1,000 MG/100 ML BTL 400 MG IVPB (08:14)
[2023-02-22] MEDS: Metoclopramide 10 MG/2 ML VIAL IVP (08:14)
[2023-02-22] MEDS: Albuterol/Ipratropium 3 ML UPD VIAL UPD (08:14)
[2023-02-22 08:27] LABS: ALT 24 U/L (14-59); AST 26 U/L (15-37); Albumin 3.6 g/dL (3.4-5.0); Alkaline Phosphatase 56 U/L (46-116); Anion Gap 8.1 mmol/L (3-11); BUN 17 mg/dL (7-18); Bilirubin, Total 0.4 mg/dL (0.2-1.0); CO2 35.9 mmol/L (21.0-32.0); CREATININE 0.7 mg/dL (0.55-1.02); Calcium 9.2 mg/dL (8.5-10.1); Chloride 100 mmol/L (98-107); Estimated GFR 91.83 (mL/min/1.73m2); Glucose 117 mg/dL (74-106); Lipase 24 U/L (16-77); Magnesium 1.7 mg/dL (1.8-2.4); NT-proBNP 3409 pg/mL (<300); Sodium 144 mmol/L (136-145); Total Protein 7.2 g/dL (6.4-8.2); Troponin I < 50 ng/L (<or=60)
[2023-02-22 08:34] LABS: COVID-19 PCR Negative (Negative); Influenza A PCR Negative (Negative); Influenza B PCR Negative (Negative); RSV PCR Negative (Negative)
[2023-02-22 08:35] LABS: Source Nasopharynx
[2023-02-22] MEDS: Potassium Bicarbonate/Cit AC 25 MEQ TABLET.EFF 50 MEQ PO (09:01)
[2023-02-22] MEDS: Magnesium Oxide 400 MG TAB PO (09:01)
[2023-02-22 09:47] LABS: Bilirubin Small (Negative); Blood Negative (Negative); Clarity Sl Cloudy (Clear); Glucose Negative (Negative); Ketones 15 mg/dL (Negative); Leukocyte Esterase Negative (Negative); Nitrite Negative (Negative); Urobilinogen 0.2 mg/dL (Up to 0.2)
[2023-02-22] MEDS: Omnipaque 350 MG/ML 500 ML BTL-Imaging package IJ (10:03)
[2023-02-22] MEDS: Normal Saline - Diluent 50 ML VIAL IJ (10:04)
[2023-02-22 10:05] LABS: Bacteria Negative HPF (Negative); Crystals Moderate Amorphous HPF (Negative); Epithelial Cells Few HPF (Negative); RBC Negative HPF (0-2); WBC Negative HPF (0-5)
[2023-02-22 10:06] LABS: C & S Indicated? No; Casts 0-2 Hyaline LPF (Negative); Mucus Negative (Negative)
[2023-02-22 11:06] LABS: Troponin I < 50 ng/L (<or=60)
== END 2023-02-22 11:28 | disposition home or self-care (01) ==
PROVIDERS: Physician Assistant; Emergency Provider Emergency Medicine; PCP Nurse Practitioner
DX: E83.42 Hypomagnesemia (principal); E87.6 Hypokalemia; J40 Bronchitis, not specified as acute or chronic; R11.0 Nausea; R19.7 Diarrhea, unspecified; R06.02 Shortness of breath; Z99.81 Dependence on supplemental oxygen; J44.9 Chronic obstructive pulmonary disease, unspecified; I11.0 Hypertensive heart disease with heart failure; I50.9 Heart failure, unspecified; R91.8 Other nonspecific abnormal finding of lung field; R73.9 Hyperglycemia, unspecified; Z87.891 Personal history of nicotine dependence; F41.9 Anxiety disorder, unspecified
CPT/HCPCS: 71275; 74177; 80053; 83690; 87637; 93005; 96374; 96375; 99285; 81003; 81015; 83735; 83880; 84484; 85025; 93010; 99284; J0131; J2060; J2765; J7620

== ENCOUNTER 2023-02-24 10:43 | Inpatient (IN) | payer MEDICARE, SELFPAY ==
[2023-02-24] VITALS (47 sets, daily range): BP systolic 154–209; BP diastolic 68–94; PULSE 76–113; RESP 18–29; TEMP 36.6–37; O2SAT 84–98
--- NOTE | 2023-02-24 10:58 | W.ED.GENAD ---
Discharge Plan Disposition Patient Disposition: Admit to [facility] Discharge Details Clinical Impression: Acute hypokalemia, Hypomagnesemia, Lung cancer, Adult failure to thrive Admit Date/Time: 02/24/23 13:44 Admit Provider: Skye Navas Attending Provider: Skye Navas Primary Care Provider: Kathleen Joyce ED Provider: Jefferson Sargent Discharge Data Discharge Date/Time-TO BE ENTERED AT DEPARTURE: 02/24/23 15:02 Medical Decision Making Patient presenting to the emergency department via EMS for chief complaint of abdominal pain, nausea, and diarrhea. She states this has been going on for 10 days patient was seen in the emergency department [address] days [address] and had CT imaging and labs performed which did show some electrolyte abnormalities but otherwise scan showed chronic lung cancer but otherwise no emergent abdominal findings. Patient has significant past medical history of COPD, with oxygen dependence, CHF, acute kidney injury, hypertension. Physical exam shows diffuse nonfocal abdominal tenderness, hypoactive bowel sounds, slightly diminished lung sounds in bases. Patient appears chronically ill with no acute distress noted on initial exam. We will recheck patient's labs but will hold off on any imaging until results have returned. Pending lab results will give patient small fluid bolus along with antiemetic. Given that patient does state some shortness of breath will also perform EKG. Please see physician interpretation for full interpretation of EKG but upon my review patient is in sinus rhythm with no significant changes from EKG dated 02/22. Reviewed patient's labs and patient does have slight increase of WBC at 11.12 with elevated neutrophils and low lymphocytes. CMP shows a critically low potassium at 2.8 which we will start IV potassium of 2 mEq, chronically elevated carbon dioxide, glucose of 108, magnesium of 1.4 which we will orally replete. Patient does have a slightly elevated troponin of 87 which we will plan on rechecking that she does have history of chronically elevated troponins and her BNP is 3226 which is elevated for patient. Lipase is normal. We will recheck patient's COVID status to ensure this is not viral but patient has had symptoms for 10 days and so not overly concerned for contagion and patient was tested 2 days ago and also was negative. Discussed findings with patient and daughter who is now present. Daughter states that patient has been having more failure to thrive, has had some increase of anxiety due to Wednesday CT scan showing the continued mass with no significant change in size after radiation. Daughter states she is having more difficulty caring for patient at home due to patient's failure to thrive. Due to this we will plan on contacting hospitalist for discussion of admission for hypokalemia, failure to thrive, and need of long-term care along with consideration of hospice/palliative care consult. Spoke with hospitalist who agreed for admission of patient to inpatient unit for further electrolyte repletion monitoring and consult as needed. Medical Records Medical records reviewed: Yes I reviewed the patient's medical records. Medical records narrative: Last 2 previous emergency department visits Lab Data Lab results reviewed: Yes I reviewed the patient's lab results. HPI General Mode of arrival: EMS. Date/Time Provider Initiated Documentation: 02/24/23 10:47. Limitations to Documentation: no limitations. Information obtained by: patient and RN notes reviewed. History of Present Illness 72 year old F presents to the emergency department with the chief complaint of Nausea diarrhea abdominal pain headache, described as moderate and similar to prior episodes, with intensity rated at 6. Quality is described as aching, and is localized to the abdomen. Patient reports no radiation. Patient started experiencing this day(s) (10) and it has been constant. No relieving factors improve symptom(s), No exacerbating factors reported . Patient notes shortness of breath. Patient did receive the following treatments prior to arrival, none Related Data Home Medications Medication Instructions Recorded Confirmed bisacodyl 5 mg tablet (Correctol) 5 mg PO PRN PRN 01/19/20 02/24/23 bismuth subsalicylate 262 mg 2 tab PO DAILY PRN 01/19/20 02/24/23 tablet (Pepto-Bismol) denture care products ##1 01/19/20 02/24/23 denture cleanser #1 tab 01/19/20 02/24/23 menthol 8 mg lozenges 8 mg mucous membrane DAILY PRN 01/19/20 02/24/23 toothpaste (Sensodyne toothpaste) #113 grams 01/19/20 02/24/23 Inogen Oxygen Concentrator #1 ea 04/01/20 02/24/23 Nasal Cannula O2 Tubing #2 ea 05/23/20 02/24/23 betamethasone valerate 0.1 % 1 applic topical BID PRN rash 10/13/21 02/24/23 topical cream hands #30 grams Oxygen Concentrator #1 ea 01/27/22 02/24/23 ondansetron HCl 4 mg tablet 4 mg PO Q6H 06/23/22 02/24/23 Nebulizer machine for HHN #1 ea 06/24/22 02/24/23 Nebulizer supplies/tubing #1 ea 06/24/22 02/24/23 ipratropium bromide 0.02 % 2.5 ml inhalation Q8H PRN PRN 06/24/22 02/24/23 solution for inhalation Shortness Of Breath Or Wheezing #150 mL atenolol 50 mg tablet 50 mg PO DAILY #90 tab-caps 06/25/22 02/24/23 ascorbic acid (vitamin C) 1,000 mg 1,000 mg PO DAILY #30 tabs 08/24/22 02/24/23 tablet (C-1000) aspirin 81 mg tablet,delayed 81 mg PO DAILY #30 tabs 08/24/22 02/24/23 release calcium carbonate 333 mg-magnesium 1 tab PO DAILY #30 tabs 08/24/22 02/24/23 oxide 133 mg-zinc gluc 5 mg tablet cholecalciferol (vitamin D3) 25 1,000 unit PO DAILY #30 caps 08/24/22 02/24/23 mcg (1,000 unit) capsule omeprazole 40 mg capsule,delayed 40 mg PO DAILY #30 tab-caps 08/24/22 02/24/23 release pregabalin 150 mg capsule (Lyrica) 150 mg PO BID #60 tab-caps 08/24/22 02/24/23 omega-3 fatty acids-fish oil 360 1 cap PO DAILY #30 caps 08/25/22 02/24/23 mg-1,200 mg capsule (Fish Oil) fluticasone furoate 100 1 inh inhalation DAILY #60 ea 09/15/22 02/24/23 mcg-vilanterol 25 mcg/dose inhalation powder (Breo Ellipta) fluticasone propionate 50 See Rx Instructions .Route 09/15/22 02/24/23 mcg/actuation nasal .COMPLEX #48 mL spray,suspension ibuprofen 400 mg tablet 400 mg PO TID PRN fever or pain 09/15/22 02/24/23 #270 tab-caps ipratropium 20 mcg-albuterol 100 1 puff inhalation QID #12 grams 09/15/22 02/24/23 mcg/actuation mist for inhalation (Combivent Respimat) tetrahydrozoline 0.05 % eye drops 1 drp ophthalmic (eye) TID #15 mL 09/15/22 02/24/23 umeclidinium 62.5 mcg/actuation 1 inh inhalation DAILY #30 ea 09/15/22 02/24/23 blister powder for inhalation benzonatate 200 mg capsule 200 mg PO TID #20 caps 10/18/22 02/24/23 guaifenesin 600 mg tablet, 600 mg PO BID #30 tabs 10/18/22 02/24/23 extended release 12 hr (Mucus Relief ER) fenofibrate nanocrystallized 48 mg See Rx Instructions .Route 11/23/22 02/24/23 tablet .COMPLEX #90 tabs lisinopril 10 mg tablet 10 mg PO DAILY #90 tab-caps 01/20/23 02/24/23 simvastatin 40 mg tablet 40 mg PO DAILY #90 tabs 01/20/23 02/24/23 citalopram 40 mg tablet 40 mg PO DAILY #90 tab-caps 01/25/23 02/24/23 lorazepam 0.5 mg tablet 0.5 mg PO DAILY PRN anxiety #30 01/26/23 02/24/23 tabs melatonin 3 mg tablet 9 mg PO HS PRN PRN Insomnia #90 01/26/23 02/24/23 tabs Previous Rx's Medication Instructions Recorded Inogen Oxygen Concentrator #1 ea 04/01/20 Nasal Cannula O2 Tubing #2 ea 05/23/20 betamethasone valerate 0.1 % 1 applic topical BID PRN rash 10/13/21 topical cream hands #30 grams Oxygen Concentrator #1 ea 01/27/22 Nebulizer machine for HHN #1 ea 06/24/22 Nebulizer supplies/tubing #1 ea 06/24/22 ipratropium bromide 0.02 % 2.5 ml inhalation Q8H PRN PRN 06/24/22 solution for inhalation Shortness Of Breath Or Wheezing #150 mL atenolol 50 mg tablet 50 mg PO DAILY #90 tab-caps 06/25/22 ascorbic acid (vitamin C) 1,000 mg 1,000 mg PO DAILY #30 tabs 08/24/22 tablet (C-1000) aspirin 81 mg tablet,delayed 81 mg PO DAILY #30 tabs 08/24/22 release calcium carbonate 333 mg-magnesium 1 tab PO DAILY #30 tabs 08/24/22 oxide 133 mg-zinc gluc 5 mg tablet cholecalciferol (vitamin D3) 25 1,000 unit PO DAILY #30 caps 08/24/22 mcg (1,000 unit) capsule omeprazole 40 mg capsule,delayed 40 mg PO DAILY #30 tab-caps 08/24/22 release pregabalin 150 mg capsule (Lyrica) 150 mg PO BID #60 tab-caps 08/24/22 omega-3 fatty acids-fish oil 360 1 cap PO DAILY #30 caps 08/25/22 mg-1,200 mg capsule (Fish Oil) fluticasone furoate 100 1 inh inhalation DAILY #60 ea 09/15/22 mcg-vilanterol 25 mcg/dose inhalation powder (Breo Ellipta) fluticasone propionate 50 See Rx Instructions .Route 09/15/22 mcg/actuation nasal .COMPLEX #48 mL spray,suspension ibuprofen 400 mg tablet 400 mg PO TID PRN fever or pain 09/15/22 #270 tab-caps ipratropium 20 mcg-albuterol 100 1 puff inhalation QID #12 grams 09/15/22 mcg/actuation mist for inhalation (Combivent Respimat) tetrahydrozoline 0.05 % eye drops 1 drp ophthalmic (eye) TID #15 mL 09/15/22 umeclidinium 62.5 mcg/actuation 1 inh inhalation DAILY #30 ea 09/15/22 blister powder for inhalation benzonatate 200 mg capsule 200 mg PO TID #20 caps 10/18/22 guaifenesin 600 mg tablet, 600 mg PO BID #30 tabs 10/18/22 extended release 12 hr (Mucus Relief ER) fenofibrate nanocrystallized 48 mg See Rx Instructions .Route 11/23/22 tablet .COMPLEX #90 tabs lisinopril 10 mg tablet 10 mg PO DAILY #90 tab-caps 01/20/23 simvastatin 40 mg tablet 40 mg PO DAILY #90 tabs 01/20/23 citalopram 40 mg tablet 40 mg PO DAILY #90 tab-caps 01/25/23 lorazepam 0.5 mg tablet 0.5 mg PO DAILY PRN anxiety #30 01/26/23 tabs melatonin 3 mg tablet 9 mg PO HS PRN PRN Insomnia #90 01/26/23 tabs Allergies Allergy/AdvReac Type Severity Reaction Status Date / Time Latex, Natural Rubber Allergy Intermediate rash; Verified 02/24/23 10:48 contact dermatitis codeine [Codeine] AdvReac Intermediate Headache Verified 02/24/23 10:48 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 Allergy Intermediate contact Uncoded 02/24/23 10:48 dermatitis General Stated Complaint: Abd Prob ZACKERY: 3 Review of Systems Constitutional Constitutional: Denies chills, Denies fever(s), Reports headache(s) and Reports poor appetite ENT Ears, Nose, Mouth, and Throat: Reports headache(s) Cardiovascular Cardiovascular: Denies chest pain and Reports dyspnea Respiratory Respiratory: Denies cough and Reports dyspnea Gastrointestinal Gastrointestinal: Reports as per HPI, Reports abdominal pain, Denies melena, Denies change in bowel habits, Denies constipation, Reports diarrhea and Reports nausea Genitourinary Genitourinary: Denies hematuria, Denies urinary incontinence, Denies urinary hesitancy and Denies urinary urgency Integumentary/Breasts Skin/Breast: Denies rash Neurologic Neurologic: Reports headache(s) PFSH All Active Problems (Updated 02/24/23 @ 19:00 by Skye Navas MD) Discharge planning issues (Acute) DVT prophylaxis (Acute) Gastroenteritis (Acute) COPD exacerbation (Acute) CHF (congestive heart failure) (Chronic) Acute hypokalemia (Acute) Hypomagnesemia (Acute) Bronchitis (Acute) Adult failure to thrive (Acute) Lung cancer (Chronic) NSCLC of left lung Acute on chronic respiratory failure with hypoxia (Acute) Acute exacerbation of chronic obstructive pulmonary disease (Acute) Hypomagnesemia (Acute) Pneumonia (Acute) Mass of upper lobe of right lung (Acute) Acute kidney injury (Acute) Acute exacerbation of congestive heart failure (Acute) Elevated troponin (Acute) CHF exacerbation (Acute) COPD exacerbation (Acute) Exercise hypoxemia (Acute) ENEDELIA FOWLER III, MD, PULMONOLOGY Bronchiectasis without complication (Acute) Enedelia Fowler III, MD, volunteer patient representative Nasal congestion (Acute 07/01/17) Lung nodules (Acute 04/16/17) 10/07/22 [facility] RAD/Oncology for Radiation Planning H/O contact dermatitis and eczema (Acute 02/18/17) Affects Hands, including the palms and the anticubital fossa, and her neck. 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 Deviated nasal septum (Acute 07/01/17) DJD (degenerative joint disease) (Acute 02/18/17) Severe Palpitations (Acute) Elevated troponin I level (Acute) COPD (chronic obstructive pulmonary disease) (Acute) Gold stage 3, Enedelia Fowler MD Incidental lung nodule, > 3mm and < 8mm (Acute) Hypertension (Acute) Medical History Anxiety Cardiomyopathy CHF (congestive heart failure) Chronic kidney disease (02/18/17) COPD (chronic obstructive pulmonary disease) on chronic supplemental oxygen Depression (02/18/17) Fibromyalgia (02/18/17) Gastroesophageal reflux disease (02/18/17) Hyperlipidemia (02/18/17) LBBB (left bundle branch block) Non-ST elevation AL (NSTEMI) Surgical History Dilation and curettage (~1984) Ligation of fallopian tube (~1984) Open Carpal Tunnel release Tonsillectomy and adenoidectomy Family History Mother Essential hypertension Heart disease COPD (chronic obstructive pulmonary disease) Father DJD (degenerative joint disease) Sister Hyperlipidemia Myocardial infarction Daughter [id number] deficiency Social History Smoking/Tobacco Use Status: Former Tobacco Use tobacco type: cigarettes Quit Date: 10/18/13 Smoking risk assessment performed?: Yes Alcohol Intake: never Drug use: Never Substance use type: does not use Do you feel safe at home: Yes Do you feel safe in your relationship?: Yes History History Para 2 Hx # Term Pregnancies Multiple births Hx # Pregnancies Ectopic pregnancies AB induced Hx Number of Living Children AB spontaneous Exam Const General: cooperative, frail appearing and ill appearing chronically Orientation: alert, awake and oriented x3 Resp Effort & Inspection: normal respiratory effort and able to speak in complete sentences Auscultation: diminished lung sounds bilaterally in the lower lung agustin Cardio Rate: regular rate Rhythm: regular rhythm Heart Sounds: S1 normal and S2 normal GI Palpation: soft, no hepatosplenomegaly, not firm, guarding (Diffuse), no masses, no pulsatile masses, not rigid, no splenomegaly and tender (Diffuse nonfocal) Auscultation: hypoactive bowel sounds Back/Spine/Pelvis Back: no CVA tenderness Neuro General: patient alert, patient awake, patient oriented x3, gait normal and moves all extremities Course Vital Signs Vital signs: Vital Signs Temperature 36.6 C 02/24/23 10:43 Pulse 110 H 02/24/23 10:43 Respiratory Rate 22 02/24/23 10:43 Blood Pressure 209/80 H 02/24/23 10:43 Pulse Oximetry 96 02/24/23 10:43 Temperature 36.6 C 02/24/23 10:43 Temperature Source Oral 02/24/23 10:43 Pulse 110 H 02/24/23 10:43 Respiratory Rate 22 02/24/23 10:43 Respiratory Effort Normal 02/24/23 10:47 Blood Pressure 209/80 H 02/24/23 10:43 Pulse Oximetry 96 02/24/23 10:43 Oxygen Delivery Method Nasal Cannula 02/24/23 10:43 Oxygen Flow Rate 3 02/24/23 10:43 Pain Level 0 02/24/23 10:43
--- NOTE | 2023-02-24 11:00 | RT.EKG_ITS ---
APPROVED REPORT Exam: Resting ECG Reason for Exam: Shortness of breath Patient Location: E HR:95 bpm ECG Measurements Heart Rate 95 AXIS AR 134 P 75 QRSd 149 QRS 27 QT 420 T 99 QTc 530 Conclusion Sinus rhythm...normal P axis, V-rate 60- 99 Left bundle branch block...QRSd>120, broad/notched R ST elevation secondary to IVCD...Multiple VCG criteria
[2023-02-24 11:06] LABS: Abs Immature Grans 0.04 10^3/uL (0.0-0.06); Absolute Basophil Count 0.04 10^3/uL (0.0-0.2); Absolute Eosinophil Count 0.08 10^3/uL (0.0-0.7); Absolute Monocyte Count 0.77 10^3/uL (0.1-0.8); Basophils % 0.4; Eosinophils % 0.7; HCT 36.6 % (36.0-46.0); HGB 12.3 g/dL (11.2-15.7); Immature Grans % 0.4; Lymphocytes % 9.4; MCH 29.4 pg (27.0-33.0); MCHC 33.6 % (32.0-36.0); MCV 88 fL (80-95); MPV 10.7 fL (8.0-11.0); Monocytes % 6.9; Neutrophils % 82.2; Platelet Count 247 10^3/uL (130-400); RBC 4.18 10^6/uL (3.93-5.22); RDW 11.9 % (11.7-14.6); RDW-SD 38.1 fL; WBC 11.12 10^3/uL (4.4-10.8)
[2023-02-24 11:10] LABS: Absolute Lymphocyte Count 1.05 10^3/uL (1.2-3.4); Absolute Neutrophil Count 9.14 10^3/uL (1.2-6.7)
[2023-02-24 11:29] LABS: ALT 25 U/L (14-59); AST 20 U/L (15-37); Albumin 3.7 g/dL (3.4-5.0); Alkaline Phosphatase 64 U/L (46-116); Anion Gap 5.9 mmol/L (3-11); BUN 10 mg/dL (7-18); Bilirubin, Total 0.4 mg/dL (0.2-1.0); CO2 37.1 mmol/L (21.0-32.0); CREATININE 0.6 mg/dL (0.55-1.02); Calcium 9.6 mg/dL (8.5-10.1); Chloride 100 mmol/L (98-107); Estimated GFR 95.31 (mL/min/1.73m2); Glucose 108 mg/dL (74-106); Lipase 28 U/L (16-77); Magnesium 1.4 mg/dL (1.8-2.4); NT-proBNP 3226 pg/mL (<300); Sodium 143 mmol/L (136-145); Total Protein 7.4 g/dL (6.4-8.2)
[2023-02-24] MEDS: Normal Saline 250 ML IV (11:31)
[2023-02-24] MEDS: Ondansetron O.D.T. 4 MG TABEF PO (11:31)
[2023-02-24 11:33] LABS: Potassium 2.8 mmol/L (3.5-5.1); Troponin I 87 ng/L (<or=60)
[2023-02-24] MEDS: Magnesium Oxide 400 MG TAB PO (11:39)
[2023-02-24] MEDS: POTASSIUM CHLORIDE 20 MEQ/100 ML BAG 50 MEQ IVPB (11:39)
[2023-02-24 13:03] LABS: COVID-19 PCR Negative (Negative); Influenza A PCR Negative (Negative); Influenza B PCR Negative (Negative); RSV PCR Negative (Negative)
[2023-02-24 13:06] LABS: Source Nasopharynx
[2023-02-24 13:13] LABS: Bilirubin Moderate (Negative); Blood Trace-intact (Negative); Clarity Clear (Clear); Glucose Negative (Negative); Ketones 40 mg/dL (Negative); Leukocyte Esterase Negative (Negative); Nitrite Negative (Negative); Specific Gravity 1.025 (1.005-1.025); Urobilinogen 0.2 mg/dL (Up to 0.2)
[2023-02-24 13:25] LABS: Bacteria Rare HPF (Negative); C & S Indicated? No; Casts Negative LPF (Negative); Crystals Negative HPF (Negative); Epithelial Cells Rare HPF (Negative); Mucus Moderate (Negative); WBC 0-2 HPF (0-5)
[2023-02-24] MEDS: Acetaminophen 500 MG TAB PO (13:40)
[2023-02-24] MEDS: Potassium Chloride 20 MEQ TABCR 40 MEQ PO ×2 (13:41→19:27)
[2023-02-24] MEDS: Mylanta Suspension 30 ML CUP PO (14:01)
[2023-02-24 14:16] LABS: Lab Add On Test DONE
[2023-02-24 14:52] LABS: Troponin I 97 ng/L (<or=60)
[2023-02-24 14:55] LABS: Procalcitonin < 0.1 ng/mL
[2023-02-24] MEDS: Pantoprazole 40 MG VIAL IVP (17:02)
[2023-02-24] MEDS: Enoxaparin 40 MG/0.4 ML SYR SC (17:03)
[2023-02-24] MEDS: MAGNESIUM SULFATE 4 GM/100 ML BAG IVPB (17:03)
--- NOTE | 2023-02-24 18:00 | RT.EKG_ITS ---
APPROVED REPORT Exam: Resting ECG Reason for Exam: elevated troponin Patient Location: I HR:85 bpm ECG Measurements Heart Rate 85 AXIS MS 145 P 71 QRSd 146 QRS 13 QT 441 T 93 QTc 525 Conclusion Sinus rhythm...normal P axis, V-rate 50- 99 Left bundle branch block...QRSd>120, broad/notched R
[2023-02-24 18:17] LABS: C Diff PCR Negative (Negative)
--- NOTE | 2023-02-24 18:35 | HPE_ITS ---
Date of service: 02/24/23 Time of Service: 18:35 Assessment and Plan Assessment and plan (1) Gastroenteritis: Status: Acute Assessment and plan: C. diff negative, covid-19 negative. Await bacterial pathogens stool PCR. I am also checking rotavirus and norovirus studies. Will treat symptomatically with prn loperamide, zofran, and trial clears. Will give 1 L of IVF. Replete lytes. (2) Bronchitis: Status: Acute Assessment and plan: As seen on CT. Trial IV doxycycline. She is not bronchospastic, and I do not think that there is a role for steroids. Will continue home inhalers. (3) Elevated troponin: Status: Acute Assessment and plan: In setting of acute illness, suspect demand ischemia. The patient verbalized to the ER that she would not want intervention even if she had a true ACS. Having said this, I do not think that this is ACS and I do not plan on further ischemic workup at this time. (4) Hypomagnesemia: Status: Acute Assessment and plan: Replete, recheck in am (5) Acute hypokalemia: Status: Acute Assessment and plan: Replete, recheck in am (6) Lung cancer: Status: Chronic Assessment and plan: non-small cell lung ca s/p XRT. We will make sure that [facility] oncology has access to the images for comparison. (7) Adult failure to thrive: Status: Acute Assessment and plan: Will monitor and replete lytes C/s palliative care. Continue addition of mirtazapine. (8) DVT prophylaxis: Status: Acute Assessment and plan: Sc enoxaparin (9) Discharge planning issues: Status: Acute Assessment and plan: DNR/DNI C/s PT and palliative care History of Present Illness History of Present Illness Chief Complaint: nausea, diarrhea, abd pain, SOB, cough, failure to thrive at home Narrative: Ms Nava is a 72 year old female with PMHx of oxygen-dependent COPD, chronic hypoxic respiratory failure, on 3L of O2 by [place], as well as h/o non- small cell DOREEN lung cancer s/p XRT, Cardiomyopathy/CHFrEF w/ LVEF of 45%, CAD s/p NSTEMI/prior episode of demand ischemia, HTN, CKD, who presented to [facility] ED for the 3rd time in 1 week with 10 days of diffuse abdominal pain, nausea, and brown watery diarrhea multiple times per day. No one around her has been sick. She has not been vomiting, but her PO intake has been very poor. Along with this, she has been very anxious and thinks that this has been complicating her breathing. She does admit to a cough productive of mejia sputum. Reports sweats a t home, but no fever. On her visit to the ER on 02/22/23, she had a CT chest/abdomen/pelvis, which revealed a RLL bronchitis, slight increase in DOREEN mass, and slight wall thickening of the cecum w/o evidence of definite acute process in the abdomen. Per daughter who was with the patient in the ER, the patient was not eating at home. Her workup showed a potassium of 2.8, a magnesium of 1.4, a pro-BNP of 3226, and a troponin of 87 without evidence of CP, which went up to 97 on repeat. Her EKG showed a LBBB (old). C. diff PCR was negative. Test for COVID/influenza/RSV was also negative. Stool studies are pending. Daughter and patient expressed interest in meeting with palliative care while in the hospital. Additionally, the daughter had verbalized to the ER provider that she is having a hard time taking care of the patient at home and would be interested in SNF placement. Review of Systems All systems reviewed & are unremarkable except as noted in HPI and below PFSH All Active Problems (Updated 02/24/23 @ 19:00 by Skye Navas MD) Discharge planning issues (Acute) DVT prophylaxis (Acute) Gastroenteritis (Acute) COPD exacerbation (Acute) CHF (congestive heart failure) (Chronic) Acute hypokalemia (Acute) Hypomagnesemia (Acute) Bronchitis (Acute) Adult failure to thrive (Acute) Lung cancer (Chronic) NSCLC of left lung Acute on chronic respiratory failure with hypoxia (Acute) Acute exacerbation of chronic obstructive pulmonary disease (Acute) Hypomagnesemia (Acute) Pneumonia (Acute) Mass of upper lobe of right lung (Acute) Acute kidney injury (Acute) Acute exacerbation of congestive heart failure (Acute) Elevated troponin (Acute) CHF exacerbation (Acute) COPD exacerbation (Acute) Exercise hypoxemia (Acute) ENEDELIA FOWLER III, MD, PULMONOLOGY Bronchiectasis without complication (Acute) 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 Deviated nasal septum (Acute 07/01/17) DJD (degenerative joint disease) (Acute 02/18/17) Severe Palpitations (Acute) Elevated troponin I level (Acute) COPD (chronic obstructive pulmonary disease) (Acute) Gold stage 3, Enedelia Fowler MD Incidental lung nodule, > 3mm and < 8mm (Acute) Hypertension (Acute) Medical History Anxiety Cardiomyopathy CHF (congestive heart failure) Chronic kidney disease (02/18/17) COPD (chronic obstructive pulmonary disease) on chronic supplemental oxygen Depression (02/18/17) Fibromyalgia (02/18/17) Gastroesophageal reflux disease (02/18/17) Hyperlipidemia (02/18/17) LBBB (left bundle branch block) Non-ST elevation [place] (NSTEMI) Surgical History Dilation and curettage (~1984) Ligation of fallopian tube (~1984) Open Carpal Tunnel release Tonsillectomy and adenoidectomy Family History Mother Essential hypertension Heart disease COPD (chronic obstructive pulmonary disease) Father DJD (degenerative joint disease) Sister Hyperlipidemia Myocardial infarction Daughter Uhigc-[id number] deficiency Social History Smoking/Tobacco Use Status: Former Tobacco Use tobacco type: cigarettes Quit Date: 10/18/13 Smoking risk assessment performed?: Yes Alcohol Intake: never Drug use: Never Substance use type: does not use Do you feel safe at home: Yes Do you feel safe in your relationship?: Yes History History Para 2 Hx # Term Pregnancies Multiple births Hx # Pregnancies Ectopic pregnancies AB induced Hx Number of Living Children AB spontaneous Meds Allergies and Home Medications Allergies Allergy/AdvReac Type Severity Reaction Status Date / Time Latex, Natural Rubber Allergy Intermediate rash; Verified 02/24/23 10:48 contact dermatitis codeine [Codeine] AdvReac Intermediate Headache Verified 02/24/23 10:48 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 Allergy Intermediate contact Uncoded 02/24/23 10:48 dermatitis Home Medications Medication Instructions Recorded Confirmed Type bisacodyl 5 mg tablet (Correctol) 5 mg PO PRN PRN 01/19/20 02/24/23 History bismuth subsalicylate 262 mg 2 tab PO DAILY PRN 01/19/20 02/24/23 History tablet (Pepto-Bismol) denture care products ##1 01/19/20 02/24/23 History denture cleanser #1 tab 01/19/20 02/24/23 History menthol 8 mg lozenges 8 mg mucous membrane DAILY PRN 01/19/20 02/24/23 History toothpaste (Sensodyne toothpaste) #113 grams 01/19/20 02/24/23 History [employer] Oxygen Concentrator #1 ea 04/01/20 02/24/23 Rx Nasal Cannula O2 Tubing #2 ea 05/23/20 02/24/23 Rx betamethasone valerate 0.1 % 1 applic topical BID PRN rash 10/13/21 02/24/23 Rx topical cream hands #30 grams Oxygen Concentrator #1 ea 01/27/22 02/24/23 Rx ondansetron HCl 4 mg tablet 4 mg PO Q6H 06/23/22 02/24/23 History Nebulizer machine for HHN #1 ea 06/24/22 02/24/23 Rx Nebulizer supplies/tubing #1 ea 06/24/22 02/24/23 Rx ipratropium bromide 0.02 % 2.5 ml inhalation Q8H PRN PRN 06/24/22 02/24/23 Rx solution for inhalation Shortness Of Breath Or Wheezing #150 mL atenolol 50 mg tablet 50 mg PO DAILY #90 tab-caps 06/25/22 02/24/23 Rx ascorbic acid (vitamin C) 1,000 mg 1,000 mg PO DAILY #30 tabs 08/24/22 02/24/23 Rx tablet (C-1000) aspirin 81 mg tablet,delayed 81 mg PO DAILY #30 tabs 08/24/22 02/24/23 Rx release calcium carbonate 333 mg-magnesium 1 tab PO DAILY #30 tabs 08/24/22 02/24/23 Rx oxide 133 mg-zinc gluc 5 mg tablet cholecalciferol (vitamin D3) 25 1,000 unit PO DAILY #30 caps 08/24/22 02/24/23 Rx mcg (1,000 unit) capsule melatonin 3 mg tablet 9 mg PO HS PRN PRN Insomnia #90 08/24/22 02/24/23 Rx tabs omeprazole 40 mg capsule,delayed 40 mg PO DAILY #30 tab-caps 08/24/22 02/24/23 Rx release pregabalin 150 mg capsule (Lyrica) 150 mg PO BID #60 tab-caps 08/24/22 02/24/23 Rx omega-3 fatty acids-fish oil 360 1 cap PO DAILY #30 caps 08/25/22 02/24/23 Rx mg-1,200 mg capsule (Fish Oil) fluticasone furoate 100 1 inh inhalation DAILY #60 ea 09/15/22 02/24/23 Rx mcg-vilanterol 25 mcg/dose inhalation powder (Breo Ellipta) fluticasone propionate 50 See Rx Instructions .Route 09/15/22 02/24/23 Rx mcg/actuation nasal .COMPLEX #48 mL spray,suspension ibuprofen 400 mg tablet 400 mg PO TID PRN fever or pain 09/15/22 02/24/23 Rx #270 tab-caps ipratropium 20 mcg-albuterol 100 1 puff inhalation QID #12 grams 09/15/22 02/24/23 Rx mcg/actuation mist for inhalation (Combivent Respimat) tetrahydrozoline 0.05 % eye drops 1 drp ophthalmic (eye) TID #15 mL 09/15/22 02/24/23 Rx umeclidinium 62.5 mcg/actuation 1 inh inhalation DAILY #30 ea 09/15/22 02/24/23 Rx blister powder for inhalation benzonatate 200 mg capsule 200 mg PO TID #20 caps 10/18/22 02/24/23 Rx guaifenesin 600 mg tablet, 600 mg PO BID #30 tabs 10/18/22 02/24/23 Rx extended release 12 hr (Mucus Relief ER) fenofibrate nanocrystallized 48 mg See Rx Instructions .Route 11/23/22 02/24/23 Rx tablet .COMPLEX #90 tabs lisinopril 10 mg tablet 10 mg PO DAILY #90 tab-caps 01/20/23 02/24/23 Rx simvastatin 40 mg tablet 40 mg PO DAILY #90 tabs 01/20/23 02/24/23 Rx citalopram 40 mg tablet 40 mg PO DAILY #90 tab-caps 01/25/23 02/24/23 Rx lorazepam 0.5 mg tablet 0.5 mg PO DAILY PRN anxiety #30 01/26/23 02/24/23 Rx tabs melatonin 3 mg tablet 9 mg PO HS PRN PRN Insomnia #90 01/26/23 02/24/23 Rx tabs Exam Narrative Exam Narrative: General: Very pleasant anxious elderly female who looks tired, A&Ox3, NAD Neurological: A&Ox3, no focal deficits Psychiatric: Mildly anxious Skin: Visible skin intact HEENT: Atraumatic, normocephalic, EOMI, dry MM, clear oropharynx, no submandibular or cervical lymphadenopathy, no goiter or jVD Cardiovascular: RRR, no m/r/g Lungs: Diminished breath sounds B Gastrointestinal: soft, distended, diffusely tender, + BS Genitourinary: deferred Extremities: no edema BLEs, trace pedal pulses B Results Imaging Additional studies: EKG #1: ST, HR 95, LBBB EKG #2: SR, HR 84, LBBB CT chest/abdomen/pelvis: 1. No evidence of pulmonary embolism. Bronchial wall thickening greatest in the right lower lobe consistent with bronchitis.? No mucous plugging or infiltrate. 2. Slight interval increase in size of left upper lobe mass. 3. Question mild wall thickening of the cecum. Diverticulosis of the sigmoid without evidence of diverticulitis. Labs 02/24/23 10:45 02/24/23 10:45 Labs: Laboratory Results - last 24 hr 02/24/23 02/24/23 02/24/23 10:45 10:45 12:00 WBC 11.12 H RBC 4.18 Hgb 12.3 Hct 36.6 MCV 88 MCH 29.4 MCHC 33.6 RDW 11.9 Plt Count 247 MPV 10.7 Immature Gran % 0.4 Neutrophils % 82.2 Lymphocytes % 9.4 Monocytes % 6.9 Eosinophils % 0.7 Basophils % 0.4 Nucleated RBC % 0.0 Absolute Neutrophils 9.14 H Absolute Lymphocytes 1.05 L Absolute Monocytes 0.77 Absolute Eosinophils 0.08 Absolute Basophils 0.04 Sodium 143 Potassium 2.8 L* Chloride 100 Carbon Dioxide 37.1 H Anion Gap 5.9 BUN 10 Creatinine 0.6 Est GFR (CKD-EPI 2020) 95.31 Glucose 108 H Calcium 9.6 Magnesium 1.4 L Total Bilirubin 0.4 AST 20 ALT 25 Alkaline Phosphatase 64 Troponin I 87 H* NT-Pro-B Natriuret Pep 3226 H Total Protein 7.4 Albumin 3.7 Lipase 28 Procalcitonin Urine Color Urine Clarity Urine pH Ur Specific [place] Urine Protein Urine Ketones Urine Blood Urine Nitrite Urine Bilirubin Urine Urobilinogen Ur Leukocyte Esterase Urine RBC Urine WBC Ur Epithelial Cells Urine Crystals Urine Bacteria Urine Casts Urine Mucus Ur Culture Indicated? Urine Glucose Stl C.difficile Tox PCR COVID-19 Source Nasopharynx SARS-CoV-2 (PCR) Negative Influenza Type A (PCR) Negative Influenza Type B (PCR) Negative RSV (PCR) Negative Add-On Test Request 02/24/23 02/24/23 02/24/23 13:05 13:57 14:14 WBC RBC Hgb Hct MCV MCH MCHC RDW Plt Count MPV Immature Gran % Neutrophils % Lymphocytes % Monocytes % Eosinophils % Basophils % Nucleated RBC % Absolute Neutrophils Absolute Lymphocytes Absolute Monocytes Absolute Eosinophils Absolute Basophils Sodium Potassium Chloride Carbon Dioxide Anion Gap BUN Creatinine Est GFR (CKD-EPI 2020) Glucose Calcium Magnesium Total Bilirubin AST ALT Alkaline Phosphatase Troponin I NT-Pro-B Natriuret Pep Total Protein Albumin Lipase Procalcitonin < 0.1 Urine Color Yellow Urine Clarity Clear Urine pH 7.0 Ur Specific [place] 1.025 Urine Protein 30 H Urine Ketones 40 H Urine Blood Trace-intact H Urine Nitrite Negative Urine Bilirubin Moderate H Urine Urobilinogen 0.2 Ur Leukocyte Esterase Negative Urine RBC 3-5 H Urine WBC 0-2 Ur Epithelial Cells Rare Urine Crystals Negative Urine Bacteria Rare Urine Casts Negative Urine Mucus Moderate Ur Culture Indicated? No Urine Glucose Negative Stl C.difficile Tox PCR COVID-19 Source SARS-CoV-2 (PCR) Influenza Type A (PCR) Influenza Type B (PCR) RSV (PCR) Add-On Test Request DONE 02/24/23 02/24/23 14:14 17:10 WBC RBC Hgb Hct MCV MCH MCHC RDW Plt Count MPV Immature Gran % Neutrophils % Lymphocytes % Monocytes % Eosinophils % Basophils % Nucleated RBC % Absolute Neutrophils Absolute Lymphocytes Absolute Monocytes Absolute Eosinophils Absolute Basophils Sodium Potassium Chloride Carbon Dioxide Anion Gap BUN Creatinine Est GFR (CKD-EPI 2020) Glucose Calcium Magnesium Total Bilirubin AST ALT Alkaline Phosphatase Troponin I 97 H* NT-Pro-B Natriuret Pep Total Protein Albumin Lipase Procalcitonin Urine Color Urine Clarity Urine pH Ur Specific [place] Urine Protein Urine Ketones Urine Blood Urine Nitrite Urine Bilirubin Urine Urobilinogen Ur Leukocyte Esterase Urine RBC Urine WBC Ur Epithelial Cells Urine Crystals Urine Bacteria Urine Casts Urine Mucus Ur Culture Indicated? Urine Glucose Stl C.difficile Tox PCR Negative COVID-19 Source SARS-CoV-2 (PCR) Influenza Type A (PCR) Influenza Type B (PCR) RSV (PCR) Add-On Test Request Last Vital Signs Temp 37.0 C 02/24/23 15:13 Pulse 97 H 02/24/23 16:37 Resp 19 02/24/23 15:13 BP 171/90 H 02/24/23 15:13 Pulse Ox 89 L 02/24/23 15:13 Time Spent Time spent with Patient: 55-74 minutes Time was spent: preparing to see the patient(eg.review tests), obtaining and/or reviewing separately otained hiistory, ordering medications,tests, procedures, r eferring, communicating with other health healthcare administrator, indepentently interpreting results, counseling the patient and care coordination
[2023-02-24 18:47] LABS: Troponin I 81 ng/L (<or=60)
[2023-02-24] MEDS: guaiFENesin 600 MG TABCR PO (19:27)
[2023-02-24] MEDS: Benzonatate 200 MG CAP PO (19:27)
[2023-02-24] MEDS: Loperamide 2 MG CAP PO (19:27)
[2023-02-24] MEDS: LORazepam 0.5 MG TAB PO (19:28)
[2023-02-24] MEDS: Acetaminophen 325 MG TAB PO (19:28)
[2023-02-24] MEDS: Pregabalin 50 MG CAP 150 MG PO (20:20)
[2023-02-24] MEDS: Fluticasone NASAL SPRAY 16 GM BTL 2 GM NS (20:21)
[2023-02-24] MEDS: POTASSIUM CHLORIDE/D5-0.45NACL 1,000 ML 100 MEQ IV (20:22)
[2023-02-24] MEDS: DOXYCYCLINE 100 MG in Normal Saline 100 ML IVPB (20:22)
[2023-02-25] VITALS (9 sets, daily range): BP systolic 124–175; BP diastolic 71–95; PULSE 60–97; RESP 16–22; TEMP 36.1–37.1; O2SAT 92–100
[2023-02-25 06:52] LABS: Abs Immature Grans 0.02 10^3/uL (0.0-0.06); Absolute Basophil Count 0.03 10^3/uL (0.0-0.2); Absolute Eosinophil Count 0.28 10^3/uL (0.0-0.7); Absolute Monocyte Count 0.58 10^3/uL (0.1-0.8); Absolute Neutrophil Count 3.27 10^3/uL (1.2-6.7); Basophils % 0.6; Eosinophils % 5.6; HCT 30.1 % (36.0-46.0); HGB 9.7 g/dL (11.2-15.7); Immature Grans % 0.4; Lymphocytes % 16.1; MCH 29.2 pg (27.0-33.0); MCHC 32.2 % (32.0-36.0); MCV 91 fL (80-95); MPV 10.8 fL (8.0-11.0); Monocytes % 11.6; Neutrophils % 65.7; Platelet Count 182 10^3/uL (130-400); RBC 3.32 10^6/uL (3.93-5.22); RDW-SD 39.9 fL; WBC 4.98 10^3/uL (4.4-10.8)
[2023-02-25 07:10] LABS: Anion Gap 2.5 mmol/L (3-11); BUN 8 mg/dL (7-18); CO2 34.5 mmol/L (21.0-32.0); CREATININE 0.6 mg/dL (0.55-1.02); Calcium 8.4 mg/dL (8.5-10.1); Chloride 107 mmol/L (98-107); Estimated GFR 95.31 (mL/min/1.73m2); Glucose 118 mg/dL (74-106); Magnesium 2.1 mg/dL (1.8-2.4); Potassium 3.7 mmol/L (3.5-5.1); Sodium 144 mmol/L (136-145)
[2023-02-25] MEDS: Potassium Chloride 20 MEQ TABCR 40 MEQ PO ×2 (07:59→20:51)
[2023-02-25] MEDS: Loperamide 2 MG CAP PO (07:59)
[2023-02-25] MEDS: Umeclidinium 7 CAP INHALER 1 CAP IH (08:00)
[2023-02-25] MEDS: Ipratropium/Albuterol 4 GM 120 PUFF INH IH ×3 (08:00→20:09)
[2023-02-25] MEDS: Fenofibrate, Micronized 48 MG TAB PO (08:00)
[2023-02-25] MEDS: Pregabalin 50 MG CAP 150 MG PO ×2 (08:01→20:49)
[2023-02-25] MEDS: Lisinopril 10 MG TAB PO (08:01)
[2023-02-25] MEDS: Atenolol 50 MG TAB PO (08:01)
[2023-02-25] MEDS: Citalopram 20 MG TAB 40 MG PO (08:01)
[2023-02-25] MEDS: Omega-3 Fatty Acids 1000 MG CAP PO (08:01)
[2023-02-25] MEDS: Aspirin E.C. 81 MG TABEC PO (08:01)
[2023-02-25] MEDS: Ascorbic Acid 500 MG TAB 1000 MG PO (08:02)
[2023-02-25] MEDS: Fluticasone NASAL SPRAY 16 GM BTL NS ×2 (08:02→20:57)
[2023-02-25] MEDS: guaiFENesin 600 MG TABCR PO ×2 (08:02→20:56)
[2023-02-25] MEDS: Cholecalciferol (Vitamin D3) 1,000 UNIT TAB 1000 UNITS PO (08:02)
[2023-02-25] MEDS: Benzonatate 200 MG CAP PO ×3 (08:02→20:50)
[2023-02-25] MEDS: DOXYCYCLINE 100 MG in Normal Saline 100 ML IVPB ×2 (08:10→20:52)
--- NOTE | 2023-02-25 09:09 | TELEP.MEDREC ---
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 Allergy (Intermediate, Uncoded 02/24/23 10:48) contact dermatitis Interview Person Interviewed: patients daughter Quality Quality of Interview/Accuracy of Medication List: Good Sources Sources used to compile medication list: [employer]ist Medication List and [employer] Changes made to Home Medication List: ADDITIONS: none DELETIONS: benzonatate CHANGES: none Additional Notes Additional Notes: Daughter does not know the last dose taken, she also has a question as to wheter or not her mom is still taking atenolol maybe she is only taking lisinopril Recommended Changes Recommended Changes(reason for recommendation): none Attestation: The home medication list is now updated to the best of my knowledge and is ready to be reconciled by the provider. Please contact the [facility] Medication Reconciliation Pharmacist at for any questions.
--- NOTE | 2023-02-25 10:23 | PDOC.CMIN ---
Date of service: 02/25/23 Time of Service: 10:23 Care Management Initial Assmt Initial Assessment REASON FOR HOSPITALIZATION:: dehydration, intractable vomiting. hypokalemia PREVIOUS FUNCTIONAL STATUS/SOCIAL/FAMILY SUPPORTS:: Celia is retired and resides alone in her apartment in [place]. She worked for the [employer] for about 10 years when it was in [facility]. 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 and She is independent with most of ADLs. Her main support person is her daughter, Jame who she identifies as her paid caregiver through [employer]. Jame helps her with transportation, housekeeping and grocery shopping. Celia shares that she has a large family, all who are all very supportive. CURRENT FUNCTIONAL STATUS:: Celia was sitting up in bed when CM met with her. She appeared anxious and confirmed this during the course of conversation. Celia stated that she no longer wants to live alone. She identified her severe anxiety as the main reason. She also has a diagnosis of lung cancer but is unclear about the treatment plan or her prognosis. Celia verbalized that she wanted to go to a SNF but she may not meet criteria for insurance to pay. She was evaluated by PT who felt she was just standby assist and was able to walk 250 feet using a walker. Celia had a palliative care consult today as well. During the consultation she again identified her anxiety as a major problem and asked about Act 39. CM was unable to speak to her daughter Jennifer but left a message for her. ADVANCE DIRECTIVES:: On file - Jame Nava [facility] Has patient been provided with info about the portal/API?: Yes Did the patient sign up for the portal?: Yes CODE STATUS:: DNR/DNI INSURANCE COVERAGE / FINANCIAL ISSUES:: Medicare Financial assist 100 CURRENT HOME/COMMUNITY SERVICES/EQUIPMENT:: daughter Jame is her paid caregiver through [employer] Grab bars, tub seat, handrails, ramp, FWW walker. Oxygen through [employer] PRIMARY CARE PHYSICIAN:: Kathleen Joyce POTENTIAL DISCHARGE NEEDS:: follow up with PCP and plan of care PATIENT/FAMILY EDUCATION NEEDS:: Review of discharge instructions, limitations, follow up plan, discuss Ask Me Three TRANSPORTATION:: to be determined by disposition PLAN:: The discharge plan for Celia is unclear at this time. PT is recommending home health PT. Jame, Celia's daughter and paid caregiver has indicated that she is having difficulty caring for Celia and would like to pursue SNF placement. CM will discuss further with Celia and Jame. [facility] All Active Problems (Updated 02/24/23 @ 19:00 by Skye Navas MD) Discharge planning issues (Acute) DVT prophylaxis (Acute) Gastroenteritis (Acute) COPD exacerbation (Acute) CHF (congestive heart failure) (Chronic) Acute hypokalemia (Acute) Hypomagnesemia (Acute) Bronchitis (Acute) Adult failure to thrive (Acute) Lung cancer (Chronic) NSCLC of left lung Acute on chronic respiratory failure with hypoxia (Acute) Acute exacerbation of chronic obstructive pulmonary disease (Acute) Hypomagnesemia (Acute) Pneumonia (Acute) Mass of upper lobe of right lung (Acute) Acute kidney injury (Acute) Acute exacerbation of congestive heart failure (Acute) Elevated troponin (Acute) CHF exacerbation (Acute) COPD exacerbation (Acute) Exercise hypoxemia (Acute) ENEDELIA FOWLER III, MD, PULMONOLOGY Bronchiectasis without complication (Acute) Enedelia Fowler III, MD, 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 Deviated nasal septum (Acute 07/01/17) DJD (degenerative joint disease) (Acute 02/18/17) Severe Palpitations (Acute) Elevated troponin I level (Acute) COPD (chronic obstructive pulmonary disease) (Acute) Gold stage 3, Enedelia Fowler MD Incidental lung nodule, > 3mm and < 8mm (Acute) Hypertension (Acute) Medical History Anxiety Cardiomyopathy CHF (congestive heart failure) Chronic kidney disease (02/18/17) COPD (chronic obstructive pulmonary disease) on chronic supplemental oxygen Depression (02/18/17) Fibromyalgia (02/18/17) Gastroesophageal reflux disease (02/18/17) Hyperlipidemia (02/18/17) LBBB (left bundle branch block) Non-ST elevation [place] (NSTEMI) Surgical History Dilation and curettage (~1984) Ligation of fallopian tube (~1984) Open Carpal Tunnel release Tonsillectomy and adenoidectomy Family History Mother Essential hypertension Heart disease COPD (chronic obstructive pulmonary disease) Father DJD (degenerative joint disease) Sister Hyperlipidemia Myocardial infarction Daughter Fedot-[id number]-[id number] deficiency Social History Smoking/Tobacco Use Status: Former Tobacco Use tobacco type: cigarettes Quit Date: 10/18/13 Smoking risk assessment performed?: Yes Alcohol Intake: never Drug use: Never Substance use type: does not use Do you feel safe at home: Yes Do you feel safe in your relationship?: Yes History History Para 2 Hx # Term Pregnancies Multiple births Hx # Pregnancies Ectopic pregnancies AB induced Hx Number of Living Children AB spontaneous
[2023-02-25 11:58] LABS: HCT 33.3 % (36.0-46.0); HGB 10.7 g/dL (11.2-15.7)
--- NOTE | 2023-02-25 13:43 | PT.INIE ---
Date of service: 02/25/23 Time of Service: 09:28 PT Notes Visit Reasons: Dehydration,Intractable Diarrhea,Hypokalemia, Physical Therapy Inpatient Initial Evaluation Date: 02/25/2023 Referring Doctor: Skye Navas MD PT Orders: PT CONSULT: Limited ability Precautions: Fall. Standard. Activity as tolerated. Patient Profile/Admitting Diagnosis: Celia is a 72-year-old female on 02/24/2023 for management of gastroenteritis, bronchitis, elevated troponin, hypomagnesemia, acute hypokalemia, lung cancer, and adult failure to thrive. PMHX: All Active Problems?(Updated 02/24/23 @ 19:00 by Skye Navas MD) Discharge planning issues (Acute) DVT prophylaxis (Acute) Gastroenteritis (Acute) COPD exacerbation (Acute) CHF (congestive heart failure) (Chronic) Acute hypokalemia (Acute) Hypomagnesemia (Acute) Bronchitis (Acute) Adult failure to thrive (Acute) Lung cancer (Chronic) NSCLC of left lung Acute on chronic respiratory failure with hypoxia (Acute) Acute exacerbation of chronic obstructive pulmonary disease (Acute) Hypomagnesemia (Acute) Pneumonia (Acute) Mass of upper lobe of right lung (Acute) Acute kidney injury (Acute) Acute exacerbation of congestive heart failure (Acute) Elevated troponin (Acute) CHF exacerbation (Acute) COPD exacerbation (Acute) Exercise hypoxemia (Acute) ENEDELIA FOWLER III, MD, PULMONOLOGY Bronchiectasis without complication (Acute) Enedelia Fowler III, MD, channel marketing manager Nasal congestion (Acute 07/01/17) Lung nodules (Acute 04/16/17) 10/07/22 [facility] RAD/Oncology for Radiation Planning H/O contact dermatitis and eczema (Acute 02/18/17) Affects Hands, including the palms and the anticubital fossa, and her neck. 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 Deviated nasal septum (Acute 07/01/17) DJD (degenerative joint disease) (Acute 02/18/17) Severe Palpitations (Acute) Elevated troponin I level (Acute) COPD (chronic obstructive pulmonary disease) (Acute) Gold stage 3, Enedelia Fowler MDIncidental lung nodule, > 3mm and < 8mm (Acute) Hypertension (Acute) Medical History? Anxiety Cardiomyopathy CHF (congestive heart failure) Chronic kidney disease (02/18/17) COPD (chronic obstructive pulmonary disease) on chronic supplemental oxygen Depression (02/18/17) Fibromyalgia (02/18/17) Gastroesophageal reflux disease (02/18/17) Hyperlipidemia (02/18/17) LBBB (left bundle branch block) Non-ST elevation PA (NSTEMI) Surgical History? Dilation and curettage (~1984) Ligation of fallopian tube (~1984) Open Carpal Tunnel release Tonsillectomy and adenoidectomy Social History/Home Situation: Lives alone in a private home with 3 steps to enter without rails. Daughter able to help out as needed. And oxygen for the past 2 to 3 years. Equipment Owned/DME: SPC Subjective: Denies headache, chest pain, abdominal pain, nausea, and lightheadedness throughout session. Continues to report persistent diarrhea that has let up just a bit since admission. Express inability to effectively and safely be alone at home and is trying to look at LTC placement options. Objective: General Observation: Seated on bedside chair. telemetry monitoring in the L UE. Oxygen saturation via NC at 3 L/min Mental Status: Alert and oriented as to person, place, time, and purpose. Able to pay attention, focus, and respond appropriately. Pain: Denies Vital Signs: Closely monitored via tele ROM: Right Upper Extremity: Shoulder Flexion WFL. Shoulder abduction WFL. Elbow flexion WFL. Wrist flexion WFL. Functional opening and closing of hand WFL. Left Upper Extremity: Shoulder Flexion WFL. Shoulder abduction WFL. Elbow flexion WFL. Wrist flexion WFL. Functional opening and closing of hand WFL. Right Lower Extremity: Hip flexion WFL. Hip abduction WFL. Knee flexion WFL. Ankle dorsiflexion WFL. Ankle plantarflexion WFL. Left Lower Extremity: Hip flexion WFL. Hip abduction WFL. Knee flexion WFL. Ankle dorsiflexion WFL. Ankle plantarflexion WFL. Strength: Right Upper Extremity: Shoulder flexors 4/5. Shoulder abductors 4/5. Elbow flexors 4/5. Elbow extensors 4/5. Piped Buttonhole Machine Operator strong. Left Upper Extremity: Shoulder flexors 4/5. Shoulder abductors 4/5. Elbow flexors 4/5. Elbow extensors 4/5. Piped Buttonhole Machine Operator strong. Right Lower Extremity: Hip flexors 4/5. Hip abductors 4/5. Knee flexors 4/5. Knee extensors 4/5. Ankle dorsiflexors 4/5. Ankle plantarflexors 4/5. Left Lower Extremity: Hip flexors 4/5. Hip abductors 4/5. Knee flexors 4/5. Knee extensors 4/5. Ankle dorsiflexors 4/5. Ankle plantarflexors 4/5. Bed Mobility/Transfers: Supine to sit standby assist Sit to supine standby assist Sit to stand standby assist with FWW Stand to sit standby assist with FWW Bed to reclining chair with standby assist with FWW Reclining chair to bed with standby assist with FWW Gait: Instructed patient with level surface ambulation of 250 feet requiring stand by assist. Minimal shortness of breath. No LOB. Sandra decreased. Step height decreased. Step length decreased. Balance: Static Sitting: Normal Dynamic Sitting: Normal Static Standing: Fair Dynamic Standing: Fair Special Tests: Mobility Limitations Standardized Measure [facility] 6 clicks Basic Mobility Inpatient Short Form: Raw Score: 21 CMS Score: 29% deficit Informed Consent/Education: Patient was instructed in purpose of PT consult and plan of care. Agreeable to proceed with established PT POC to achieve personal goals. Assessment: Patient with functional mobility decline requiring use of front wheeled walker for all mobility ADL performance for energy conservation and fall reduction. Lives alone and expresses doubt as to the ability to thrive effectively at home. May require occupational therapy evaluation to determine ability to perform instrumental ADLs. Patient presents with clinical signs and symptoms consistent with current/admitting diagnoses that have resulted to mobility limitations, gait instability, generalized weakness, and overall ADL decline as demonstrated by the following impairment level findings: 1. Decreased strength to B UE/LE major muscle groups 2. Impaired sitting/standing balance 3. Impaired activity tolerance 4. Shortness of breath Impairments are contributing to the following functional limitations: 1. Decline in bed mobility skills 2. Decline in transfer skills 3. Difficulty with ambulation without assistive device and physical assistance 4. Increased completion time for mobility ADL performance 5. Increased risk for falls 6. Difficulty with managing steps alone safely Patient is assessed as a [id number] moderate complexity based on the following: History: 72-year-old female with past medical history as indicated above Examination: Demonstrable impairment in strength, balance, and mobility level with underlying impairments and functional limitations as exhibited above as well as deficit score of 29% deficit% utilizing the [facility] Mobility Inpatient Short Form Presentation: Evolving Decision Makin moderate complexity Goals: Goals X1 week 1. Supine-Sit independent 2. Sit-Supine independent 3. Sit-Stand independent 4. Stand-Sit independent with SPC 5. Bed-Chair independent with SPC 6. Chair-Bed independent with SPC 7. Independent gait on level surface with use of SPC for at least 300 feet without report of pain nor dyspnea 8. Independent stair negotiation while holding onto no rails for at least 3 steps without report of pain nor dyspnea 9. Independent with home exercise program 10. Good static and dynamic standing balance/tolerance Plan of Care/Treatment Plan: 1-2x/day, 7 days/week x 1 week. Plan of care has been reviewed with the PERFORMANCE IMPROVEMENT SPECIALIST providing the service under Physical Therapy direction. Initiate Physical Therapy intervention for pain management as needed, strengthening, bed mobility, transfers, gait, stairs, balance training, and use of assistive device. DISCHARGE RECOMMENDATIONS: [] Home with no services [] [X] Home with services. Patient will benefit from home health PT services in order to progress mobility level using least restrictive assistive ambulatory device, assess home safety, identify additional equipment needs, and establish a functional maintenance program that will increase ability of patient to remain at home. [] Home with outpatient PT [] [] SNF for continued rehabilitation [] [] Clerk Checker Care [] [] SNF versus LTC based on ability to participate and progress [] TREATMENT CODE/TIME: 98153 x 20 minutes, 89514 x 17 minutes beginning at 9:28 AM Thank you for the opportunity to participate in the care of this patient. Fernanda Mercado PT, DPT, CLT [facility] [place], [place]
--- NOTE | 2023-02-25 14:37 | CHAPLAIN ---
Celia was sitting up at the edge of her bed when I visited. She told me she'd had diarrhea for 12 and came the ED twice and returned home. She called 911 and came to the ED yesterday and was admitted. She's starting to feel better and eat some regular food today. Celia has has stage 1 lung cancer, but said the radiation that she had did not shrink the tumor so she isn't sure what the next plan is. She lives with her daughter, but may be going to a rehab from here to get stronger. Celia was pleased that she was able to walk around the loop today without her oxygen levels dropping, and hopes staff will walk with her again tonight. Celia told me that her daughter had breast cancer in her early 40s and had both chemo and radiation. She is now checked every 3years, but lives with that diagnosis in the back of her mind always, according to Celia. Celia couldn't think of anything when I asked what she does to relax. She said she watches tv but then gets bored. She also sits on her back porch and listens to the birds, she also seen a bear out there.
[2023-02-25] MEDS: Multivitamin TAB 1 TAB PO (14:41)
--- NOTE | 2023-02-25 15:58 | PCNE_ITS ---
Date of service: 02/25/23 Time of Service: 15:59 History of Present Illness Narrative: Celia was seen for initial palliative consultation. She has a past medical history significant for COPD, chronically on 3lpm oxygen, lung cancer, CHF, coronary artery disease with NSTEMI, hypertension, hyperlipidemia, cardiomyopathy, GERD, fibromyalgia, anxiety and depression. She presented to the ED with severe nausea and diarrhea. She is very anxious and feels that since her lung cancer diagnosis, her anxiety has been severe. She does not feel she can manage alone at home any longer. She needs help. She stayed with her daughter for a short time but her daughter works during the day and she was alone, which caused more anxiety. Discussed that [facility] may be helpful. She reports that her appetite has been poor for weeks. She has lost weight, she estimates approximately 10 pounds over the last month or so. She has had diarrhea several times today. she endorses SOB with activity. She also has a congested cough. She does not feel wheezy. She is ambulating with a walker. She has f/u scheduled with oncology. She does not know what the plan is. If she was offered treatment, she would be interested. She also asked about Act 39. She may be interested in meeting with Dr. Daly or Dr. Walls at some point but not at this time. Assessment and Plan Assessment and plan (1) Gastroenteritis: Status: Acute Assessment and plan: With intractable diarrhea, nausea improving, studies pending. (2) Bronchitis: Status: Acute (3) Elevated troponin: Status: Acute Assessment and plan: In setting of acute illness, likely demand ischemia. (4) Hypomagnesemia: Status: Resolved (5) Acute hypokalemia: Status: Resolved (6) Lung cancer: Status: Chronic Assessment and plan: non-small cell lung ca s/p XRT. Images [place] [facility] [place]. (7) Adult failure to thrive: Status: Acute (8) Palliative care patient: Status: Acute Assessment and plan: Celia was seen for initial palliative consultation. She has a past medical history significant for COPD, chronically on 3lpm oxygen, lung cancer, CHF, coronary artery disease with NSTEMI, hypertension, hyperlipidemia, cardiomyopathy, GERD, fibromyalgia, anxiety and depression. She presented to the ED with severe nausea and diarrhea. She does not feel she can return home and take care of herself. She has been very anxious since she was diagnosed with NSCLC. Her anxiety is preventing her from having a good quality of life and doing any advanced care planning. Discussed adding buspar and increasing PRN lorazepam with Dr. Navas, hospitalist. She will need support to assist with decision making and discussing GOC. She has f/u with oncology, she is not clear on the plan at this point. She has previously established that she is a DNR/DNI. She verbalized some interest in ACT 39. She does not want to meet with an MD that does ACT 39 at this point. Her anxiety needs to be addressed prior to this encounter. She may benefit from referral to [facility] to get her anxiety under control. JOSE M Rutherford CM to work on referral. Follow up with Palliative in 2-4 weeks, sooner as needed. Review of Systems Narrative: Per HPI PFSH All Active Problems (Updated 02/25/23 @ 21:09 by Amanda Thomason NP) Palliative care patient (Acute) Discharge planning issues (Acute) DVT prophylaxis (Acute) Gastroenteritis (Acute) COPD exacerbation (Acute) CHF (congestive heart failure) (Chronic) Hypomagnesemia (Acute) Bronchitis (Acute) Adult failure to thrive (Acute) Lung cancer (Chronic) NSCLC of left lung Acute on chronic respiratory failure with hypoxia (Acute) Acute exacerbation of chronic obstructive pulmonary disease (Acute) Pneumonia (Acute) Mass of upper lobe of right lung (Acute) Acute kidney injury (Acute) Acute exacerbation of congestive heart failure (Acute) Elevated troponin (Acute) CHF exacerbation (Acute) COPD exacerbation (Acute) Exercise hypoxemia (Acute) ENEDELIA FOWLER III, MD, PULMONOLOGY Bronchiectasis without complication (Acute) Enedelia Fowler III, MD, improvement advisor Nasal congestion (Acute 07/01/17) Lung nodules (Acute 04/16/17) 10/07/22 ST RAD/Oncology for Radiation Planning H/O contact dermatitis and eczema (Acute 02/18/17) Affects Hands, including the palms and the anticubital fossa, and her neck. 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 Deviated nasal septum (Acute 07/01/17) DJD (degenerative joint disease) (Acute 02/18/17) Severe Palpitations (Acute) Elevated troponin I level (Acute) COPD (chronic obstructive pulmonary disease) (Acute) Gold stage 3, Enedelia Fowler MD Incidental lung nodule, > 3mm and < 8mm (Acute) Hypertension (Acute) Medical History Anxiety Cardiomyopathy CHF (congestive heart failure) Chronic kidney disease (02/18/17) COPD (chronic obstructive pulmonary disease) on chronic supplemental oxygen Depression (02/18/17) Fibromyalgia (02/18/17) Gastroesophageal reflux disease (02/18/17) Hyperlipidemia (02/18/17) LBBB (left bundle branch block) Non-ST elevation [place] (NSTEMI) Surgical History Dilation and curettage (~1984) Ligation of fallopian tube (~1984) Open Carpal Tunnel release Tonsillectomy and adenoidectomy Family History Mother Essential hypertension Heart disease COPD (chronic obstructive pulmonary disease) Father DJD (degenerative joint disease) Sister Hyperlipidemia Myocardial infarction Daughter [id number] deficiency Social History Smoking/Tobacco Use Status: Former Tobacco Use tobacco type: cigarettes Quit Date: 10/18/13 Smoking risk assessment performed?: Yes Alcohol Intake: never Drug use: Never Substance use type: does not use Do you feel safe at home: Yes Do you feel safe in your relationship?: Yes History History Para 2 Hx # Term Pregnancies Multiple births Hx # Pregnancies Ectopic pregnancies AB induced Hx Number of Living Children AB spontaneous Exam Narrative Exam Narrative: General: elderly female, sitting at the edge of her bed, wearing O2, appears anxious, tearful at times. HEENT: normocephalic, atraumatic, EOMI, missing several teeth. Neck: supple. Respiratory: wearing O2, appears to have SOB with talking at times, +congested cough. Extremities: moves all 4 extremities freely. Results Last Vital Signs Temp 37.1 C 02/25/23 14:46 Pulse 69 02/25/23 14:46 Resp 18 02/25/23 14:46 BP 133/71 02/25/23 14:46 Pulse Ox 96 02/25/23 14:46 Labs 02/26/23 06:09 02/25/23 06:07 Labs: Laboratory Results - last 24 hr 02/24/23 02/24/23 02/24/23 17:10 18:20 Unknown WBC RBC Hgb Hct MCV MCH MCHC RDW Plt Count MPV Immature Gran % Neutrophils % Lymphocytes % Monocytes % Eosinophils % Basophils % Nucleated RBC % Absolute Neutrophils Absolute Lymphocytes Absolute Monocytes Absolute Eosinophils Absolute Basophils Sodium Potassium Chloride Carbon Dioxide Anion Gap BUN Creatinine Est GFR (CKD-EPI 2020) Glucose Calcium Magnesium Troponin I 81 H* Stl C.difficile Tox PCR Negative Add-On Test Request TNP 02/25/23 02/25/23 02/25/23 06:07 06:07 11:45 WBC 4.98 RBC 3.32 L Hgb 9.7 L D 10.7 L Hct 30.1 L 33.3 L MCV 91 MCH 29.2 MCHC 32.2 RDW 12.0 Plt Count 182 MPV 10.8 Immature Gran % 0.4 Neutrophils % 65.7 Lymphocytes % 16.1 Monocytes % 11.6 Eosinophils % 5.6 Basophils % 0.6 Nucleated RBC % 0.0 Absolute Neutrophils 3.27 Absolute Lymphocytes 0.80 L Absolute Monocytes 0.58 Absolute Eosinophils 0.28 Absolute Basophils 0.03 Sodium 144 Potassium 3.7 Chloride 107 Carbon Dioxide 34.5 H Anion Gap 2.5 L BUN 8 Creatinine 0.6 Est GFR (CKD-EPI 2020) 95.31 Glucose 118 H Calcium 8.4 L Magnesium 2.1 Troponin I Stl C.difficile Tox PCR Add-On Test Request
[2023-02-25] MEDS: Pantoprazole 40 MG VIAL IVP (16:14)
[2023-02-25] MEDS: Acetaminophen 325 MG TAB PO (16:14)
[2023-02-25] MEDS: Enoxaparin 40 MG/0.4 ML SYR SC (16:14)
[2023-02-25] MEDS: Normal Saline Flush 10 ML SYR IVP (16:14)
--- NOTE | 2023-02-25 19:41 | PGE_ITS ---
Date of Service Date of service: 02/25/23 Time of Service: 19:41 Assessment and Plan Assessment and plan (1) Gastroenteritis: Status: Acute Assessment and plan: With intractable diarrhea, which persists. Tolerating a regular diet. Add questran, continue prn imodium, await stool studies. C. diff negative, covid-19 negative. Await rotavirus and norovirus studies. (2) Bronchitis: Status: Acute Assessment and plan: As seen on CT. Continue doxycycline. Continue home inhalers. (3) Elevated troponin: Status: Acute Assessment and plan: In setting of acute illness, suspect demand ischemia. Her Troponins did turn around. No ACS. No further workup. D/c tele. (4) Hypomagnesemia: Status: Resolved Assessment and plan: Recheck in am (5) Acute hypokalemia: Status: Resolved Assessment and plan: Recheck in am (6) Lung cancer: Status: Chronic Assessment and plan: non-small cell lung ca s/p XRT. Images were pushed to [facility] oncology. (7) Adult failure to thrive: Status: Acute Assessment and plan: Continue to monitor and replete lytes Palliative care consulted. Some degree of this is associated with anxiety, and I agree with the recommendation to start buspar and increase lorazepam. (8) DVT prophylaxis: Status: Acute Assessment and plan: Sc enoxaparin (9) Discharge planning issues: Status: Acute Assessment and plan: DNR/DNI PT and palliative care are following. Subjective Subjective Interval history since last seen: Celia states that if [I] were to discharge [her] home tomorrow, [she] would be right back because of the anxiety. She states that the anxiety becomes overwhelming. She is sad that she was told that she wouldn't be able to go to a longterm. When I told her about the possibility of [facility], she promises to think about it, but at the same time states she is not interested because she wants to be closer to family who are in [place]. We talked about the plan to start buspar and increase the prn ativan frequency and that [facility] would help her manage her anxiety. She states her diarrhea is a lot better. She thinks she had it 5 times today. Her abdomen is not hurting, and she does not have nausea. She denies dizziness, chest pain, shortness of breath. Exam Narrative Exam Narrative: General: Very pleasant anxious elderly female who looks better, A&Ox3, NAD HEENT: EOMI, MMM Cardiovascular: RRR, no m/r/g Lungs: Diminished breath sounds B Gastrointestinal: soft, nontender, nondistended Extremities: no edema BLEs, trace pedal pulses B Objective Last Vital Signs Temp 37.1 C 02/25/23 14:46 Pulse 68 02/25/23 14:59 Resp 18 02/25/23 14:46 BP 133/71 02/25/23 14:46 Pulse Ox 96 02/25/23 14:46 Laboratory Results - last 24 hr 02/25/23 02/25/23 02/25/23 06:07 06:07 11:45 WBC 4.98 RBC 3.32 L Hgb 9.7 L D 10.7 L Hct 30.1 L 33.3 L MCV 91 MCH 29.2 MCHC 32.2 RDW 12.0 Plt Count 182 MPV 10.8 Immature Gran % 0.4 Neutrophils % 65.7 Lymphocytes % 16.1 Monocytes % 11.6 Eosinophils % 5.6 Basophils % 0.6 Nucleated RBC % 0.0 Absolute Neutrophils 3.27 Absolute Lymphocytes 0.80 L Absolute Monocytes 0.58 Absolute Eosinophils 0.28 Absolute Basophils 0.03 Sodium 144 Potassium 3.7 Chloride 107 Carbon Dioxide 34.5 H Anion Gap 2.5 L BUN 8 Creatinine 0.6 Est GFR (CKD-EPI 2020) 95.31 Glucose 118 H Calcium 8.4 L Magnesium 2.1 Time Spent with Patient Time Spent with Patient: 25-34 minutes Time was spent: preparing to see the patient(eg.review tests), obtaining and/or reviewing separately otained hiistory, ordering medications,tests, procedures, referring, communicating with other health healthcare architect, indepentently interpreting results, counseling the patient and care coordination
[2023-02-25] MEDS: Budesonide/Formoterol 80/4.5 6.9 GM 60 PUFF INH IH (20:11)
[2023-02-25] MEDS: Refresh PLUS Eye Drops 0.4ml 1 EACH OU (20:49)
[2023-02-25] MEDS: Simvastatin 40 MG TAB PO (20:50)
[2023-02-25] MEDS: busPIRone 5 MG TAB PO (20:50)
[2023-02-25] MEDS: Cholestyramine/Aspartame PKT 1 EACH PO (21:49)
[2023-02-25 22:50] LABS: Campylobacter PCR Negative (Negative); Salmonella PCR Negative (Negative); Shiga Toxin PCR Negative (Negative); Shigella/Enteroinvasive Ecoli Negative (Negative)
[2023-02-26 03:35] VITALS: BP 169/89; PULSE 71; RESP 18; TEMP 36.2; O2SAT 100
[2023-02-26 07:00] LABS: Abs Immature Grans 0.01 10^3/uL (0.0-0.06); Absolute Basophil Count 0.03 10^3/uL (0.0-0.2); Absolute Eosinophil Count 0.25 10^3/uL (0.0-0.7); Absolute Lymphocyte Count 1.08 10^3/uL (1.2-3.4); Absolute Monocyte Count 0.47 10^3/uL (0.1-0.8); Absolute Neutrophil Count 2.33 10^3/uL (1.2-6.7); Basophils % 0.7; HCT 30.8 % (36.0-46.0); HGB 9.9 g/dL (11.2-15.7); Immature Grans % 0.2; Lymphocytes % 25.9; MCH 29.5 pg (27.0-33.0); MCHC 32.1 % (32.0-36.0); MCV 92 fL (80-95); MPV 11.3 fL (8.0-11.0); Monocytes % 11.3; Neutrophils % 55.9; Platelet Count 164 10^3/uL (130-400); RBC 3.36 10^6/uL (3.93-5.22); RDW 12.1 % (11.7-14.6); RDW-SD 40.4 fL; WBC 4.17 10^3/uL (4.4-10.8)
[2023-02-26 07:40] LABS: Anion Gap 0.3 mmol/L (3-11); BUN 12 mg/dL (7-18); CO2 33.7 mmol/L (21.0-32.0); CREATININE 0.6 mg/dL (0.55-1.02); Calcium 8.8 mg/dL (8.5-10.1); Chloride 108 mmol/L (98-107); Estimated GFR 95.31 (mL/min/1.73m2); Glucose 91 mg/dL (74-106); Magnesium 1.6 mg/dL (1.8-2.4); Potassium 4.4 mmol/L (3.5-5.1); Sodium 142 mmol/L (136-145); TSH (W/Ref FT4) 1.02 uIU/mL (0.36-3.74)
[2023-02-26 08:01] VITALS: BP 163/82; PULSE 70; RESP 26; TEMP 36.9; O2SAT 97
[2023-02-26] MEDS: Refresh PLUS Eye Drops 0.4ml 1 EACH OU ×2 (08:18→21:10)
[2023-02-26] MEDS: Potassium Chloride 20 MEQ TABCR 40 MEQ PO ×2 (08:18→21:09)
[2023-02-26] MEDS: Benzonatate 200 MG CAP PO ×3 (08:18→21:09)
[2023-02-26] MEDS: Omega-3 Fatty Acids 1000 MG CAP PO (08:19)
[2023-02-26] MEDS: Citalopram 20 MG TAB 40 MG PO (08:19)
[2023-02-26] MEDS: guaiFENesin 600 MG TABCR PO ×2 (08:19→21:10)
[2023-02-26] MEDS: Ascorbic Acid 500 MG TAB 1000 MG PO (08:19)
[2023-02-26] MEDS: busPIRone 5 MG TAB PO ×2 (08:19→21:09)
[2023-02-26] MEDS: Fenofibrate, Micronized 48 MG TAB PO (08:19)
[2023-02-26] MEDS: Aspirin E.C. 81 MG TABEC PO (08:19)
[2023-02-26] MEDS: Multivitamin TAB 1 TAB PO (08:19)
[2023-02-26] MEDS: Cholecalciferol (Vitamin D3) 1,000 UNIT TAB 1000 UNITS PO (08:19)
[2023-02-26] MEDS: Lisinopril 10 MG TAB PO (08:19)
[2023-02-26] MEDS: Pregabalin 50 MG CAP 150 MG PO ×2 (08:19→21:10)
[2023-02-26] MEDS: Fluticasone NASAL SPRAY 16 GM BTL NS (08:20)
[2023-02-26] MEDS: Atenolol 50 MG TAB PO (08:20)
[2023-02-26] MEDS: DOXYCYCLINE 100 MG in Normal Saline 100 ML IVPB ×2 (08:41→21:10)
[2023-02-26] MEDS: LORazepam 0.5 MG TAB PO ×2 (08:41→21:09)
--- NOTE | 2023-02-26 08:46 | PDOC.CMPRO ---
Date of service: 02/26/23 Time of Service: 08:46 Care Management Progress Note Progress Note Text Progress Note Text: S/O:Celia was sitting up in bed when CM met with her. She was pleasant and appeared much less anxious than yesterday. Her Ativan has been increased to bid prn and she has been started on Buspar. A referral was sent to [facility] to help her deal with her anxiety, but they declined to offer her a bed. CM contacted [facility] crisis screeners to see Celia to evaluate if she might meet inpatient criteris for psychiatric stabilization. Unfortunately, Celia declined to participate in the interview. CM discussed this with Celia and the fact that she will likely be discharged in the next day or so as she does not meet inptient criteria for hospitalization either unless there is some new finding. While she verbalized understanding she also informed CM that she can already feel the anxiety increasing, just knowing she has to go home. CM met with Celia's daughter Jame this afternoon as well. Jame indicated that her mother has had anxiety for a long time, but she feels it has really been exacerbated since she was diagnosed with inoperable lung cancer last May. Celia herself identified that as a major stressor. Reportedly, Celia is supposed to meet with her Oncologist next week to explore other treatment options, if appropriate. Celia shared that she does want treatment if there is something that may help. She is not ready for hospice. A:Celia is a 72 year old woman admitted on 02/24/23 with diarrhea and dehydration P:The discharge plan for Celia is unclear at this time. PT is recommending home health PT. Jame, Celia's daughter and paid caregiver, has indicated that she is having difficulty caring for Celia and would like to pursue SNF placement. CM will discuss further with Celia and Jame.
[2023-02-26] MEDS: Umeclidinium 7 CAP INHALER 1 CAP IH (08:49)
[2023-02-26] MEDS: Budesonide/Formoterol 80/4.5 6.9 GM 60 PUFF INH IH ×2 (08:49→19:29)
[2023-02-26] MEDS: Ipratropium/Albuterol 4 GM 120 PUFF INH IH ×4 (08:49→19:29)
--- NOTE | 2023-02-26 10:47 | CHAPLAIN ---
I had brief visit with Celia this morning. She was trying to rest as she said her anxiety has been up. I brought her a prayer shawl and reminded her that chaplains are available 10/05 if she feels having someone be with her would be helpful. I will continue to visit. According to Palliative Care notes, Celia will consider going to [facility] to address her anxiety, but is hesitant to be distanced from her family in [place].
[2023-02-26] MEDS: MAGNESIUM SULFATE 2 GM/50 ML BAG IVPB (10:55)
[2023-02-26] MEDS: Cholestyramine/Aspartame PKT 1 EACH PO ×2 (11:04→18:04)
[2023-02-26 15:13] VITALS: BP 133/78; PULSE 75; RESP 19; TEMP 36.7; O2SAT 96
[2023-02-26] MEDS: Enoxaparin 40 MG/0.4 ML SYR SC (15:19)
--- NOTE | 2023-02-26 15:21 | PDOC.MHCN_ITS ---
Date of service: 02/26/23 Time of Service: 02:27 Mental Health Emergency Note Release [facility] release signed:: No Reason for Visit This typewriter operator automatic received incoming call from ELIZABETH Galicia requesting for F2F screening of client be completed. Frida reports client presented to [facility] ED of chief complaint of anxiety and diarrhea. In the last 2 weeks has the pt presented for ES prior to today?: No Impression [facility] Luizajulius Sharp was present during the screening. Client is unknown to [facility]. Client declined to complete intake paperwork/complete full assessment with [facility] at this time. Client confirmed chief complaint, however declined to provide any further information or further engage in conversation with this typewriter operator automatic at this time. Plan/Disposition Recommended Disposition: Other (no recommendation at this time, full assessment was not able to be completed). Plan: Client was provided [facility] contact information and was informed to outreach to MH is she changed her mind and decided she wanted to complete F2F screening with ES. Person reported agreement to plan: Yes Reports/communication Outcome discussed with: ED/Personnel ([facility] ELIZABETH Galicia, outcome was discussed prior to this typewriter operator automatic leaving [facility])
--- NOTE | 2023-02-26 15:21 | PDOC.MHCN ---
Date of service: 02/26/23 Time of Service: 02:27 Mental Health Emergency Note Release [facility] release signed:: No Reason for Visit This screenplay writer received incoming call from ELIZABETH Galicia requesting for F2F screening of client be completed. Frida reports client presented to [facility] ED of chief complaint of anxiety and diarrhea. In the last 2 weeks has the pt presented for ES prior to today?: No Impression ESC Luizajulius Sharp was present during the screening. Client is unknown to [facility]. Client declined to complete intake paperwork/complete full assessment with [facility] at this time. Client confirmed chief complaint, however declined to provide any further information or further engage in conversation with this screenplay writer at this time. Plan/Disposition Recommended Disposition: Other (no recommendation at this time, full assessment was not able to be completed). Plan: Client was provided [facility] contact information and was informed to outreach to MH is she changed her mind and decided she wanted to complete F2F screening with ES. Person reported agreement to plan: Yes Reports/communication Outcome discussed with: ED/Personnel ([facility] ELIZABETH Galicia, outcome was discussed prior to this screenplay writer leaving [facility])
[2023-02-26 15:25] LABS: Lab Add On Test DONE
--- NOTE | 2023-02-26 18:53 | W.PM.PROGNOT ---
Date of Service Date of service: 02/26/23 Time of Service: 18:56 Assessment and Plan Assessment and plan (1) Gastroenteritis: Status: Acute Assessment and plan: With intractable diarrhea, which persists. Tolerating a regular diet. I do wonder if IBS is not the etiology, although it is unusual to have nausea with that. Anxiety could be causing the nausea. Regardless, she seems to be responding to imodium + questran and is tolerating PO. I have ordered celiac disease studies as well as fecal fat. She will need a GI referral on discharge. C. diff negative, covid-19 negative. Stool bacterial pathogens are negative. No tick bites. Await rotavirus and norovirus studies. (2) Anxiety: Assessment and plan: The patient declined talking to [facility]. We will continue buspar BID and lorazepam BID prn. I think she could benefit from outpatient telehealth mental health. (3) Bronchitis: Status: Acute Assessment and plan: As seen on CT. Continue doxycycline. Continue home inhalers. (4) Elevated troponin: Status: Acute Assessment and plan: In setting of acute illness, suspect demand ischemia. Her Troponins did turn around. No ACS. No further workup. (5) Hypomagnesemia: Status: Acute Assessment and plan: Repleted, Recheck in am (6) Acute hypokalemia: Status: Resolved Assessment and plan: Recheck in am (7) Lung cancer: Status: Chronic Assessment and plan: non-small cell lung ca s/p XRT. Images were pushed to [facility] oncology. Will be followed by palliative care as outpatient. (8) Adult failure to thrive: Status: Acute Assessment and plan: Continue to monitor and replete lytes Palliative care consulted. Some degree of this is associated with anxiety. (9) DVT prophylaxis: Status: Acute Assessment and plan: Sc enoxaparin (10) Discharge planning issues: Status: Acute Assessment and plan: DNR/DNI PT and palliative care are following. Will need outpatient GI and mental health referrals. Anticipate discharge home tomorrow. Subjective Subjective Interval history since last seen: Celia states she is anxious. Her breathing is ok. Her diarrhea is much better. She denies n/v, CP. She is tolerating a regular diet. She does admit that she gets bouts of diarrhea when her anxiety is out of control. She has never been seen by GI. She has had a colonoscopy here. She is hesitant to make appointments with providers that would require her traveling because she does not have a car and because of her COPD. We discussed how she may not need to go in person, that there is telehealth, and that that could include mental health. She is actually open to that idea. Oh I could talk to them all day! She just does not want to do it in person or have people come to her house. She is anxious about going home tomorrow. Exam Narrative Exam Narrative: General: Very pleasant anxious elderly female who looks even better, A&Ox3, NAD HEENT: EOMI, MMM Cardiovascular: RRR, no m/r/g Lungs: Diminished breath sounds B Gastrointestinal: soft, nontender, nondistended Extremities: no edema BLEs, trace pedal pulses B Objective Last Vital Signs Temp 36.7 C 02/26/23 15:13 Pulse 75 02/26/23 15:13 Resp 19 02/26/23 15:13 BP 133/78 02/26/23 15:13 Pulse Ox 96 02/26/23 15:13 Laboratory Results - last 24 hr 02/24/23 02/26/23 02/26/23 17:10 06:09 06:09 WBC 4.17 L RBC 3.36 L Hgb 9.9 L Hct 30.8 L MCV 92 MCH 29.5 MCHC 32.1 RDW 12.1 Plt Count 164 MPV 11.3 H Immature Gran % 0.2 Neutrophils % 55.9 Lymphocytes % 25.9 Monocytes % 11.3 Eosinophils % 6.0 Basophils % 0.7 Nucleated RBC % 0.0 Absolute Neutrophils 2.33 Absolute Lymphocytes 1.08 L Absolute Monocytes 0.47 Absolute Eosinophils 0.25 Absolute Basophils 0.03 Sodium 142 Potassium 4.4 Chloride 108 H Carbon Dioxide 33.7 H Anion Gap 0.3 L BUN 12 Creatinine 0.6 Est GFR (CKD-EPI 2020) 95.31 Glucose 91 Calcium 8.8 Magnesium 1.6 L TSH 1.02 Stool Description Not Applicable Stool Campylobacter PCR Negative Stool Salmonella PCR Negative Stool Shigella PCR Negative Stool Ova & Parasites SEE BELOW Cryptosporidium/Giardia SEE BELOW Shiga Toxin (PCR) Negative Add-On Test Request 02/26/23 15:24 WBC RBC Hgb Hct MCV MCH MCHC RDW Plt Count MPV Immature Gran % Neutrophils % Lymphocytes % Monocytes % Eosinophils % Basophils % Nucleated RBC % Absolute Neutrophils Absolute Lymphocytes Absolute Monocytes Absolute Eosinophils Absolute Basophils Sodium Potassium Chloride Carbon Dioxide Anion Gap BUN Creatinine Est GFR (CKD-EPI 2020) Glucose Calcium Magnesium TSH Stool Description Stool Campylobacter PCR Stool Salmonella PCR Stool Shigella PCR Stool Ova & Parasites Cryptosporidium/Giardia Shiga Toxin (PCR) Add-On Test Request DONE Time Spent with Patient Time Spent with Patient: 25-34 minutes Time was spent: preparing to see the patient(eg.review tests), obtaining and/or reviewing separately otained hiistory, ordering medications,tests, procedures, referring, communicating with other health critical care unit nurse, indepentently interpreting results, counseling the patient and care coordination
[2023-02-26] MEDS: Simvastatin 40 MG TAB PO (21:09)
[2023-02-26] MEDS: Normal Saline Flush 10 ML SYR IVP (21:11)
[2023-02-26] MEDS: Acetaminophen 325 MG TAB PO (21:12)
[2023-02-26 23:20] VITALS: BP 150/74; PULSE 68; RESP 19; TEMP 36.6; O2SAT 95
[2023-02-27] MEDS: LORazepam 0.5 MG TAB PO (06:29)
[2023-02-27 06:31] LABS: Anion Gap 3.7 mmol/L (3-11); BUN 11 mg/dL (7-18); CO2 32.3 mmol/L (21.0-32.0); CREATININE 0.6 mg/dL (0.55-1.02); Chloride 105 mmol/L (98-107); Estimated GFR 95.31 (mL/min/1.73m2); Glucose 93 mg/dL (74-106); Magnesium 1.7 mg/dL (1.8-2.4); Potassium 4.6 mmol/L (3.5-5.1); Sodium 141 mmol/L (136-145)
[2023-02-27 07:37] VITALS: BP 155/84; PULSE 70; RESP 19; TEMP 36.5; O2SAT 99
[2023-02-27] MEDS: Umeclidinium 7 CAP INHALER 1 CAP IH (08:19)
[2023-02-27] MEDS: Ipratropium/Albuterol 4 GM 120 PUFF INH IH ×3 (08:19→16:03)
[2023-02-27] MEDS: Budesonide/Formoterol 80/4.5 6.9 GM 60 PUFF INH IH (08:20)
[2023-02-27] MEDS: busPIRone 5 MG TAB PO (08:45)
[2023-02-27] MEDS: guaiFENesin 600 MG TABCR PO (08:45)
[2023-02-27] MEDS: Magnesium Chloride 64 MG TABCR PO (08:45)
[2023-02-27] MEDS: Atenolol 50 MG TAB PO (08:45)
[2023-02-27] MEDS: Omega-3 Fatty Acids 1000 MG CAP PO (08:46)
[2023-02-27] MEDS: Potassium Chloride 20 MEQ TABCR 40 MEQ PO (08:46)
[2023-02-27] MEDS: Aspirin E.C. 81 MG TABEC PO (08:46)
[2023-02-27] MEDS: Fenofibrate, Micronized 48 MG TAB PO (08:46)
[2023-02-27] MEDS: Lisinopril 10 MG TAB PO (08:47)
[2023-02-27] MEDS: Pregabalin 50 MG CAP 150 MG PO (08:47)
[2023-02-27] MEDS: Benzonatate 200 MG CAP PO ×2 (08:47→14:44)
[2023-02-27] MEDS: Citalopram 20 MG TAB 40 MG PO (08:47)
[2023-02-27] MEDS: Multivitamin TAB 1 TAB PO (08:47)
[2023-02-27] MEDS: Loperamide 2 MG CAP PO (08:47)
[2023-02-27] MEDS: Refresh PLUS Eye Drops 0.4ml 1 EACH OU (08:48)
[2023-02-27] MEDS: DOXYCYCLINE 100 MG in Normal Saline 100 ML IVPB (08:48)
[2023-02-27] MEDS: Pantoprazole 40 MG TABCR PO (08:48)
[2023-02-27] MEDS: Ascorbic Acid 500 MG TAB 1000 MG PO (08:48)
[2023-02-27] MEDS: Cholecalciferol (Vitamin D3) 1,000 UNIT TAB 1000 UNITS PO (08:48)
[2023-02-27] MEDS: Fluticasone NASAL SPRAY 16 GM BTL NS (09:04)
[2023-02-27] MEDS: MAGNESIUM SULFATE 2 GM/50 ML BAG IVPB (10:59)
[2023-02-27] MEDS: Cholestyramine/Aspartame PKT 1 EACH PO (10:59)
--- NOTE | 2023-02-27 11:33 | PTTR_ITS ---
PT Notes Visit Reasons: Dehydration,Intractable Diarrhea,Hypokalemia, Subjective: Tired. Has been up using commode alone, asks to use toilet now. Refuses toilet, easier to use the commode here at the hospital due to all of her lines. Generally uses a cane at home. Objective: Observation: IV in place 3L o2 via NC with all activity and resting Therapeutic activities [id number]: Functional specific activities to insure safety for return home, and independent functioning STS x 5 with hands Functional ambulation maneuvering around debris and furniture with in room to simulate home environment, with RW. This does fatigue her, and she is ready for bed. Independent with bed mobility, and transfers, toileting hygiene and clothes m anipulation Height of IV pole not allowing for ambulation out of room - will not fit under door. However, fatigue post in room activities, likely would not have allowed for good tolerance to this. Assessment: Requiring use of RW for functioning and ambulation about room - she does have one at home. Demonstrates steadiness, and independence with basic transfers and ambulation, and self care ADL's. She is anticipating hopeful discharge. Demonstrates ability with basic in room distance ambulation tasks, but not able to comment on ambulation tolerance. Plan: Per POC, progressing patient onto preadmission SPC and ambulation distance. She is currently not demonstrating this ability during todays session, when considering discharge.
[2023-02-27] MEDS: hydrOXYzine PAMOATE 25 MG CAP PO (14:47)
--- NOTE | 2023-02-27 15:08 | W.PM.DS.N ---
Date of service: 02/27/23 Time of Service: 15:09 DS: Diagnosis Discharge Diagnosis (1) Intractable diarrhea: Status: Acute (2) IBS (irritable bowel syndrome): Status: Suspected (3) Anxiety: (4) Bronchitis: Status: Acute (5) Non-small cell carcinoma of left lung: Status: Acute (6) Elevated troponin: Status: Acute (7) Hypomagnesemia: Status: Acute (8) Acute hypokalemia: Status: Resolved (9) Adult failure to thrive: Status: Acute (10) Perioral dermatitis: Status: Acute Discharge Plan Disposition Patient Disposition: Home Condition: Fair Discharge Details Reason For Visit: Dehydration,Intractable Diarrhea,Hypokalemia, Admit Date/Time: 02/24/23 13:44 Admit Provider: Skye Navas Attending Provider: Skye Navas Primary Care Provider: Kathleen Joyce [place] [facility] Hospital Course: Ms Nava is a 72 year old female with PMHx of Oxygen-dependent COPD, chronic hypoxic respiratory failure on 3L of O2 by [place], as well as non-small cell DOREEN lung cancer s/p XRT, CHFrEF, CAD w/ h/o NSTEMI, anxiety, who was admitted to [facility] hospitalist service on 02/24/23 for intractable diarrhea and nausea. She did have evidence of hypokalemia and hypomagnesemia. She was started on IVF and her electrolytes were repleted. She was initiated on loperamide with addition of cholestyramine. This improved her symptoms. Her stool studies for bacterial pathogens including C.Diff were negative. Cryptosporidium/Giardia antigen testing was negative. Rotavirus and norovirus antigets are pending as are fecal calprotectin and fecal fat as wel as stool elastase. She is able to tolerate a regular diet. Upon further questioning, the patient admits to having diarrhea at home associated with anxiety. Her TSH was wnl. Because of the emotional trigger to her GI symptoms, IBS is very high on the differential.The patient is being referred to GI as outpatient. Meanwhile, she is being discharged home with loperamide prn and with scheduled cholestyramine while we are also addressing her anxiety. As far as that goes, she was started on buspar 5 mg PO BID. Her ativan was increased to 0.5 mg PO TID prn. These changes were made as the patient was describing incapacitating anxiety. We did ask for a mental health consult, but the patient politely declined to talk to the trailhead construction worker. She did agree to telehealth mental health as outpatient, and an [facility] referral is being made on discharge. I also added hydroxyzine to her regimen as she was reporting pruritis which might address both things. The patient was also reporting shortness of breath and a productive cough w/ ER workup suggesting bronchitis by imaging, for which she was started on doxycycline. Her breathing is also partially connected to her anxiety; however, there truly was bronchitis on this admission. The patient has received 6 doses of doxycycline and is being discharged home with the remainder of a 5 day course. Finally, the patient has met with palliative care. She is DNR/DNI and should continue to follow up with palliative care in the future. Her diarrhea has slowed down and she is medically stable for discharge today. She refused home health services. Care for patient as well as completion of her discharge summary on day of discharge took 45 minutes. Home Meds and New Rx's Prescriptions: New buspirone 5 mg Tablet 5 mg PO BID Qty: 60 0RF cholestyramine-aspartame [Prevalite] 4 gram Powder In Packet 1 packet PO 1000,1900 Qty: 60 0RF Rx Instructions: decrease to once daily once diarrhea has stopped. Do not take if no BM x 24 hours prior. hydrocortisone 1 % Cream 1 applic topical TID PRN PRN (Reason: skin irritation) Qty: 28.4 0RF loperamide 2 mg Capsule 2 mg PO QLOOSE PRNQty: 60 0RF hydroxyzine pamoate [Vistaril] 25 mg Capsule 25 mg PO TID PRN PRNQty: 90 0RF carboxymethylcellulose sodium [Refresh Plus] 0.5 % Dropperette 1 ea OU BID Qty: 0 0RF Mag 64 64 mg Tablet,Delayed Release (Dr/Ec) 64 mg PO BID Qty: 30 0RF doxycycline hyclate 100 mg capsule 100 mg PO BID Qty: 4 0RF Continued melatonin 3 mg tablet 9 mg PO HS PRN PRN (Reason: Insomnia) Qty: 90 3RF (DME) Nasal Cannula O2 Tubing Qty: 2 12RF Rx Instructions: As directed (DME) Oxygen Concentrator with portability See Rx Instructions .Route .MEDSUPPLY Qty: 1 0RF Rx Instructions: As directed. Desaturates to 79% on RA at rest. ondansetron HCl 4 mg tablet 4 mg PO Q6H ipratropium bromide 0.02 % solution 2.5 ml INHALATION Q8H PRN PRN (Reason: Shortness Of Breath Or Wheezing) Qty: 150 3RF (DME) Nebulizer machine for HHN See Rx Instructions .Route .MEDSUPPLY Qty: 1 0RF Rx Instructions: As directed (DME) Nebulizer supplies/tubing See Rx Instructions .Route .MEDSUPPLY Qty: 1 12RF Rx Instructions: As directed Correctol 5 mg tablet 5 mg PO PRN PRN Pepto-Bismol 262 mg tablet 2 tab PO DAILY PRN Rx Instructions: do not exceed 16 tabs per 24 hrs menthol 8 mg lozenge 8 mg MM DAILY PRN (DME) Sensodyne Toothpaste See Rx Instructions .ROUTE .MEDSUPPLY Qty: 113 Rx Instructions: daily as needed (DME) denture care products Cream See Rx Instructions .ROUTE .MEDSUPPLY Qty: 1 Rx Instructions: daily (DME) denture cleanser Tablet, Effervescent See Rx Instructions .ROUTE .MEDSUPPLY Qty: 1 Rx Instructions: daily (DME) Inogen Oxygen Concentrator 3L NC Qty: 1 0RF Rx Instructions: 3L NC betamethasone valerate 0.1 % cream 1 applic Topical BID PRN (Reason: rash hands) Qty: 30 6RF Rx Instructions: APPLY TO HANDS NEEDED atenolol 50 mg tablet 50 mg PO DAILY Qty: 90 3RF ascorbic acid (vitamin C) [C-1000] 1,000 mg tablet 1,000 mg PO DAILY Qty: 30 12RF aspirin 81 mg tablet,delayed release (DR/EC) 81 mg PO DAILY Qty: 30 12RF calcium carb-mag ox-zinc gluc 333-133-5 mg tablet 1 tab PO DAILY Qty: 30 12RF cholecalciferol (vitamin D3) 25 mcg (1,000 unit) capsule 1,000 unit PO DAILY Qty: 30 12RF omeprazole 40 mg capsule,delayed release(DR/EC) 40 mg PO DAILY Qty: 30 12RF pregabalin [Lyrica] 150 mg capsule 150 mg PO BID Qty: 60 5RF omega-3 fatty acids-fish oil [Fish Oil] 360-1,200 mg capsule 1 cap PO DAILY Qty: 30 12RF tetrahydrozoline 0.05 % drops 1 drp ophthalmic (eye) TID Qty: 15 12RF Rx Instructions: OU TID PRN fluticasone furoate-vilanterol [Breo Ellipta] 100-25 mcg/dose blister with device 1 inh inhalation DAILY Qty: 60 12RF fluticasone propionate 50 mcg/actuation spray,suspension See Rx Instructions .ROUTE .COMPLEX Qty: 48 3RF Dose Instruction: INSTILL 2 SPRAYS NASALLY TWICE DAILY Rx Instructions: INSTILL 2 SPRAYS NASALLY TWICE DAILY ibuprofen 400 mg tablet 400 mg PO TID PRN (Reason: fever or pain) Qty: 270 3RF Combivent Respimat 20-100 mcg/actuation mist 1 puff IH QID Qty: 12 3RF Rx Instructions: Please dispense 3 month supply if insurance allows umeclidinium 62.5 mcg/actuation blister with device 1 inh inhalation DAILY Qty: 30 12RF fenofibrate nanocrystallized 48 mg tablet See Rx Instructions .ROUTE .COMPLEX Qty: 90 3RF Dose Instruction: TAKE ONE TABLET BY MOUTH EVERY DAY Rx Instructions: TAKE ONE TABLET BY MOUTH EVERY DAY lisinopril 10 mg tablet 10 mg PO DAILY Qty: 90 3RF simvastatin 40 mg tablet 40 mg PO DAILY Qty: 90 3RF citalopram 40 mg tablet 40 mg PO DAILY Qty: 90 3RF guaifenesin [Mucus Relief ER] 600 mg Tablet Extended Release 12hr 600 mg PO BID Qty: 30 0RF Changed lorazepam 0.5 mg tablet 0.5 mg PO TID Qty: 15 5RF Discharge Instructions Instructions: Loperamide (By mouth), Doxycycline (By mouth), Buspirone (By mouth), Cholestyramine (By mouth), Hydrocortisone (On the skin), Irritable Bowel Syndrome (DC), Contact Dermatitis (DC), Acute Bronchitis (ED), Nutrition Tips for Relief of Diarrhea (DC), Anxiety (DC) Additional Instructions: Return to the hospital with any fever, bleeding, chest pain, or shortness of breath. Use loperamide and cholestyramine for your diarrhea. Follow up with your PCP, Gastroenterology, mental health. Stand Alone Forms: Nursing Discharge Form Referrals: [facility] [Outside] (Office will call you with appointment.) GASTROENTEROLOGY,[facility] [OTHER] - (referral was sent office will call you with appointment. ) Kathleen Joyce NP [Primary Care Provider] - (Please call Wednesday to make an appointment for 1-2 weeks) Activity:: Activity as Tolerated Equipment/Supplies:: No Equipment Needed Diet:: As Tolerated Discharge Orders Discharge Orders: Discharge Order (Routine); Ordered 02/27/23 Ordered By: Skye Navas DS: Summary Time Spent with Patient providing and/or coordinating discharge services: Greater than 30 minutes Status at Discharge Functional status at discharge: independent ambulation Overall status at discharge: patient is progressing back to baseline Mental Status: mental status grossly normal Speech and Movement: speech and movement normal Mood: anxious mood Affect: anxious affect Exam Narrative Exam Narrative: General: Very pleasant anxious elderly female, A&Ox3, NAD, on 3L of O2 by [place] HEENT: EOMI, MMM Cardiovascular: RRR, no m/r/g Lungs: CTAB Gastrointestinal: soft, nontender, nondistended Extremities: no edema BLEs, trace pedal pulses B Psych Mental Status: mental status grossly normal Speech and Movement: speech and movement normal Mood: anxious mood Affect: anxious affect DS: Data Vitals/I&O Vitals and I&O: Vital Signs Temperature 36.5 C 02/27/23 07:37 Temperature Source Tympanic 02/27/23 07:37 Pulse 70 02/27/23 07:37 Pulse Rhythm Regular 02/27/23 14:19 Pulse 94 H 02/24/23 14:40 Respiratory Rate 19 02/27/23 07:37 Respiratory Effort Normal, Non-Labored 02/27/23 14:19 Respiratory Depth Normal 02/27/23 14:19 Respiratory Pattern Normal 02/27/23 14:19 Blood Pressure 155/84 H 02/27/23 07:37 Blood Pressure Mean 105 02/24/23 14:00 Pulse Oximetry 99 02/27/23 07:37 Oxygen Delivery Method Nasal Cannula 02/27/23 07:37 Oxygen Flow Rate 3 02/27/23 07:37 Pain Level 0 02/27/23 14:19 Comment BP called over radio 02/27/23 07:37 Intake & Output 02/26/23 02/27/23 02/27/23 23:59 11:59 23:59 Intake Total 880 / 1220 100 / 460 360 / 460 Output Total 600 / 900 300 / 900 Balance 880 / 1020 -500 / -440 60 / -440 Weight 63.3 kg 64.2 kg Intake: IV 100 / 200 100 / 100 Oral 780 / 1020 360 / 360 Output: Urine 600 / 900 300 / 900 Other: Urine Color Yellow Pale Yellow Urine Appearance Clear Clear Clear Comment could not measure void mixed with stool Stool Size Small Moderate Stool Characteristics Soft Soft Formed Formed Brown Brown Voiding Methods Toilet Bedside Commode Bedside Commode Data Completed and Pending Completed studies during hospitalization [Text1]: CT chest/abdomen/pelvis: 1. No evidence of pulmonary embolism. Bronchial wall thickening greatest in the right lower lobe consistent with bronchitis.? No mucous plugging or infiltrate. 2. Slight interval increase in size of left upper lobe mass. 3. Question mild wall thickening of the cecum. Diverticulosis of the sigmoid without evidence of diverticulitis. Labs on day of discharge: Labs from last 24 hours 02/27/23 02/27/23 02/27/23 08:02 08:02 07:45 Sodium Potassium Chloride Carbon Dioxide Anion Gap BUN Creatinine Est GFR (CKD-EPI 2020) Glucose Calcium Magnesium Stool Collect Duration Pending Stool Weight Pending Stool Percent Fat Pending Stool Total Fats Pending Stool Calprotectin Pending Stool Pancreat Elastase Pending Tiss Transglutamin IgG Add-On Test Request 02/27/23 02/26/23 02/26/23 05:55 15:24 05:09 Sodium 141 Potassium 4.6 Chloride 105 Carbon Dioxide 32.3 H Anion Gap 3.7 BUN 11 Creatinine 0.6 Est GFR (CKD-EPI 2020) 95.31 Glucose 93 Calcium 9.0 Magnesium 1.7 L Stool Collect Duration Stool Weight Stool Percent Fat Stool Total Fats Stool Calprotectin Stool Pancreat Elastase Tiss Transglutamin IgG Pending Add-On Test Request DONE PFS All Active Problems (Updated 02/27/23 @ 15:12 by Skye Navas MD) Non-small cell carcinoma of left lung (Acute) Perioral dermatitis (Acute) Intractable diarrhea (Acute) Palliative care patient (Acute) Discharge planning issues (Acute) DVT prophylaxis (Acute) Gastroenteritis (Acute) COPD exacerbation (Acute) CHF (congestive heart failure) (Chronic) Hypomagnesemia (Acute) Bronchitis (Acute) Adult failure to thrive (Acute) Lung cancer (Chronic) NSCLC of left lung Acute on chronic respiratory failure with hypoxia (Acute) Acute exacerbation of chronic obstructive pulmonary disease (Acute) Hypomagnesemia (Acute) Pneumonia (Acute) Mass of upper lobe of right lung (Acute) Acute kidney injury (Acute) Acute exacerbation of congestive heart failure (Acute) Elevated troponin (Acute) CHF exacerbation (Acute) COPD exacerbation (Acute) Exercise hypoxemia (Acute) ENEDELIA FOWLER III, MD, PULMONOLOGY Bronchiectasis without complication (Acute) Enedelia Fowler III, MD, remediation project engineer Nasal congestion (Acute 07/01/17) Lung nodules (Acute 04/16/17) 10/07/22 [facility] RAD/Oncology for Radiation Planning H/O contact dermatitis and eczema (Acute 02/18/17) Affects Hands, including the palms and the anticubital fossa, and her neck. 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 Deviated nasal septum (Acute 07/01/17) DJD (degenerative joint disease) (Acute 02/18/17) Severe Palpitations (Acute) Elevated troponin I level (Acute) COPD (chronic obstructive pulmonary disease) (Acute) Gold stage 3, Enedelia Fowler MD Incidental lung nodule, > 3mm and < 8mm (Acute) Hypertension (Acute) Medical History Anxiety Cardiomyopathy CHF (congestive heart failure) Chronic kidney disease (02/18/17) COPD (chronic obstructive pulmonary disease) on chronic supplemental oxygen Depression (02/18/17) Fibromyalgia (02/18/17) Gastroesophageal reflux disease (02/18/17) Hyperlipidemia (02/18/17) LBBB (left bundle branch block) Non-ST elevation CA (NSTEMI) Surgical History Dilation and curettage (~1984) Ligation of fallopian tube (~1984) Open Carpal Tunnel release Tonsillectomy and adenoidectomy Family History Mother Essential hypertension Heart disease COPD (chronic obstructive pulmonary disease) Father DJD (degenerative joint disease) Sister Hyperlipidemia Myocardial infarction Daughter [id number] deficiency Social History Smoking/Tobacco Use Status: Former Tobacco Use tobacco type: cigarettes Quit Date: 10/18/13 Smoking risk assessment performed?: Yes Alcohol Intake: never Drug use: Never Substance use type: does not use Do you feel safe at home: Yes Do you feel safe in your relationship?: Yes History History Para 2 Hx # Term Pregnancies Multiple births Hx # Pregnancies Ectopic pregnancies AB induced Hx Number of Living Children AB spontaneous Time Spent with Patient Time Spent with Patient: 45-69 minutes Time was spent: preparing to see the patient(eg.review tests), obtaining and/or reviewing separately otained hiistory, ordering medications,tests, procedures, referring, communicating with other health caretaker resort, indepentently interpreting results, counseling the patient and care coordination
[2023-02-27 15:14] VITALS: BP 169/83; PULSE 75; RESP 18; TEMP 36.6; O2SAT 95
--- NOTE | 2023-02-27 15:24 | PDOC.CMDIS ---
Date of service: 02/27/23 Time of Service: 15:34 LACE Index Scoring Tool Questions: Length of Stay (in days): 3 Was the patient admitted via the E.D.?: Yes Comorbidities: Congestive Heart Failure, Chronic Pulmonary Disease and Metastatic Solid Tumor (Lung Carcinoma) E.D. Visits: 3 Answers: Total Score: 14 Risk of Readmission: High Risk Care Management Discharge Plan Reason for Hospitalization: dehydration, intractable vomiting. hypokalemia Discharge Plan: Celia is discharged home via private vehicle with Daughter Joaquín. Celia will follow up with her community providers and discharge plan of care as prescribed. Follow up with PCP, Gastroenterology and mental health is strongly encouraged. No VNA services are ordered, at patients request. Patient/Family Education Needs: Review discharge instructions, limitations, medication and plan to follow up with community providers. Discuss ask me three. Services Needed at Discharge: Home Health Care Services (Patient refused Order for [facility] RN/PT/OT/ROCK CLIMBING INSTRUCTOR.)
[2023-02-28 14:58] LABS: Norovirus G1 PCR Negative (Negative); Norovirus G2 PCR Negative (Negative)
[2023-03-01 16:10] LABS: Rotavirus Antigen, Feces Negative (Negative)
[2023-03-02 16:29] LABS: Calprotectin 87.4 mcg/g
[2023-03-03 13:18] LABS: Tissue Transglutaminase Ab IgG <1.2 U/mL
--- NOTE | 2023-03-04 17:57 | PT.INDS ---
Date of service: 03/01/23 PT Notes Visit Reasons: Dehydration,Intractable Diarrhea,Hypokalemia, Physical Therapy Inpatient Discharge Summary Date: 02/27/2023 Date of service: 02/25/2023 through 02/27/2023 This is a clinical summary of care provided for the duration of dates listed above. No charge was made in the completion of this documentation. Referring Doctor:Jerzy Navas? PT Orders: PT CONSULT: Limited ability Precautions: Fall. Standard. Activity as tolerated. Patient Profile/Admitting Diagnosis:Jerzy Yang is a 72-year-old female on 02/24/2023 for management of gastroenteritis, bronchitis, elevated troponin, hypomagnesemia, acute hypokalemia, lung cancer, and adult failure to thrive. PMHX: All Active Problems?(Updated 02/24/23 @ 19:00 by Skye Navas MD) Discharge planning issues (Acute) DVT prophylaxis (Acute) Gastroenteritis (Acute) COPD exacerbation (Acute) CHF (congestive heart failure) (Chronic) Acute hypokalemia (Acute) Hypomagnesemia (Acute) Bronchitis (Acute) Adult failure to thrive (Acute) Lung cancer (Chronic) NSCLC of left lung Acute on chronic respiratory failure with hypoxia (Acute) Acute exacerbation of chronic obstructive pulmonary disease (Acute) Hypomagnesemia (Acute) Pneumonia (Acute) Mass of upper lobe of right lung (Acute) Acute kidney injury (Acute) Acute exacerbation of congestive heart failure (Acute) Elevated troponin (Acute) CHF exacerbation (Acute) COPD exacerbation (Acute) Exercise hypoxemia (Acute) ENEDELIA FOWLER III, MD, PULMONOLOGY Bronchiectasis without complication (Acute) Enedelia Fowler III, MD, crystal mounter Nasal congestion (Acute 07/01/17) Lung nodules (Acute 04/16/17) 10/07/22 [facility] RAD/Oncology for Radiation Planning H/O contact dermatitis and eczema (Acute 02/18/17) Affects Hands, including the palms and the anticubital fossa, and her neck. 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 Deviated nasal septum (Acute 07/01/17) DJD (degenerative joint disease) (Acute 02/18/17) Severe Palpitations (Acute) Elevated troponin I level (Acute) COPD (chronic obstructive pulmonary disease) (Acute) Gold stage 3, Enedelia Fowler MDIncidental lung nodule, > 3mm and < 8mm (Acute) Hypertension (Acute) Medical History? Anxiety Cardiomyopathy CHF (congestive heart failure) Chronic kidney disease (02/18/17) COPD (chronic obstructive pulmonary disease) on chronic supplemental oxygen Depression (02/18/17) Fibromyalgia (02/18/17) Gastroesophageal reflux disease (02/18/17) Hyperlipidemia (02/18/17) LBBB (left bundle branch block) Non-ST elevation CT (NSTEMI) Surgical History? Dilation and curettage (~1984) Ligation of fallopian tube (~1984) Open Carpal Tunnel release Tonsillectomy and adenoidectomy Social History/Home Situation: Lives alone in a private home with 3 steps to enter without rails.? Daughter able to help out as needed.? And oxygen for the past 2 to 3 years. Equipment Owned/DME: SPC Subjective: NT. See most recent [employer] notes. Objective: General Observation: NT. See most recent [employer] notes. Mental Status: NT. See most recent [employer] notes. Pain: NT. See most recent [employer] notes. Vital Signs: NT. See most recent [employer] notes. ROM: Right Upper Extremity: ? Shoulder Flexion WFL. Shoulder abduction WFL. Elbow flexion WFL. Wrist flexion WFL. Functional opening and closing of hand WFL. Left Upper Extremity:? Shoulder Flexion WFL. Shoulder abduction WFL. Elbow flexion WFL. Wrist flexion WFL. Functional opening and closing of hand WFL. Right Lower Extremity: Hip flexion WFL. Hip abduction WFL. Knee flexion WFL. Ankle dorsiflexion WFL. Ankle plantarflexion WFL. Left Lower Extremity: Hip flexion WFL. Hip abduction WFL. Knee flexion WFL. Ankle dorsiflexion WFL. Ankle plantarflexion WFL. Strength: Right Upper Extremity: Shoulder flexors 4/5. Shoulder abductors 4/5. Elbow flexors 4/5. Elbow extensors 4/5. [employer] strong. Left Upper Extremity: Shoulder flexors 4/5. Shoulder abductors 4/5. Elbow flexors 4/5. Elbow extensors 4/5. [employer] Producer strong. Right Lower Extremity: Hip flexors 4/5. Hip abductors 4/5. Knee flexors 4/5. Knee extensors 4/5. Ankle dorsiflexors 4/5. Ankle plantarflexors 4/5. Left Lower Extremity: Hip flexors 4/5. Hip abductors 4/5. Knee flexors 4/5. Knee extensors 4/5. Ankle dorsiflexors 4/5. Ankle plantarflexors 4/5. Bed Mobility/Transfers: Supine to sit standby assist Sit to supine standby assist Sit to stand standby assist with FWW Stand to sit standby assist with FWW Bed to reclining chair with standby assist with FWW Reclining chair to bed with standby assist with FWW Gait: Instructed patient with level surface ambulation of 250 feet requiring stand by assist.? Minimal shortness of breath.? No LOB.? Sandra decreased. Step height decreased. Step length decreased. Balance: Static Sitting: Normal Dynamic Sitting: Normal Static Standing: Fair Dynamic Standing: Fair Assessment: Patient with functional mobility decline requiring use of front wheeled walker for all mobility ADL performance for energy conservation and fall reduction.? Lives alone and expresses doubt as to the ability to thrive effectively at home.? May require occupational therapy evaluation to determine ability to perform instrumental ADLs. Patient presents with clinical signs and symptoms consistent with current/admitting diagnoses that have resulted to mobility limitations, gait instability, generalized weakness, and overall ADL decline as demonstrated by the following impairment level findings: 1.? Decreased strength to B UE/LE major muscle groups 2.? Impaired sitting/standing balance 3.? Impaired activity tolerance 4.? Shortness of breath Impairments are contributing to the following functional limitations: 1.? Decline in bed mobility skills 2.? Decline in transfer skills 3.? Difficulty with ambulation without assistive device and physical assistance 4.? Increased completion time for mobility ADL performance 5.? Increased risk for falls 6.? Difficulty with managing steps alone safely Goals: Goals X1 week 1. Supine-Sit independent NOT MET 2. Sit-Supine independent NOT MET 3. Sit-Stand independent NOT MET 4. Stand-Sit independent with SPC NOT MET 5. Bed-Chair independent with SPC NOT MET 6. Chair-Bed independent with SPC NOT MET 7. Independent gait on level surface with use of SPC for at least 300 feet without report of pain nor dyspnea NOT MET 8. Independent stair negotiation while holding onto no rails for at least 3 steps without report of pain nor dyspnea NOT MET 9. Independent with home exercise program NOT MET 10. Good static and dynamic standing balance/tolerance NOT MET DISCHARGE RECOMMENDATIONS: [] ? Home with no services [] [X] ? Home with services.? Patient will benefit from home health PT services in order to progress mobility level using least restrictive assistive ambulatory device, assess home safety, identify additional equipment needs, and establish a functional maintenance program that will increase ability of patient to remain at home. [] ? Home with outpatient PT [] [] ? SNF for continued rehabilitation [] [] ? Group Home Care [] [] ? SNF versus LTC based on ability to participate and progress [] TREATMENT CODE/TIME: NC Thank you for the opportunity to participate in the care of this patient. Fernanda Mercado PT, DPT, CLT [facility] [place], [place]
== END 2023-02-27 16:51 | disposition home or self-care (01) | DRG 392 ==
LOC: ER 14:37 → MS 15:05
PROVIDERS: Admitting Provider Internal Medicine; Emergency Provider Nurse Practitioner Family; PCP Nurse Practitioner; Visit Provider Internal Medicine
DX: K58.0 Irritable bowel syndrome with diarrhea (principal); J44.0 Chronic obstructive pulmonary disease with (acute) lower respiratory infection; J44.1 Chronic obstructive pulmonary disease with (acute) exacerbation; N17.9 Acute kidney failure, unspecified; I42.9 Cardiomyopathy, unspecified; I13.0 Hypertensive heart and chronic kidney disease with heart failure and stage 1 through stage 4 chronic kidney disease, or unspecified chronic kidney disease; I24.8 Other forms of acute ischemic heart disease; C34.12 Malignant neoplasm of upper lobe, left bronchus or lung; J96.11 Chronic respiratory failure with hypoxia; E87.6 Hypokalemia; E83.42 Hypomagnesemia; R62.7 Adult failure to thrive; Z68.24 Body mass index [BMI] 24.0-24.9, adult; Z99.81 Dependence on supplemental oxygen; I50.9 Heart failure, unspecified; F41.9 Anxiety disorder, unspecified; N18.9 Chronic kidney disease, unspecified; M79.7 Fibromyalgia; K21.9 Gastro-esophageal reflux disease without esophagitis; E78.5 Hyperlipidemia, unspecified; I25.2 Old myocardial infarction; I44.7 Left bundle-branch block, unspecified; J20.9 Acute bronchitis, unspecified; Z66 Do not resuscitate; Z87.891 Personal history of nicotine dependence
CPT/HCPCS: 36415; 80048; 80053; 83690; 84145; 86364; 87329; 87425; 87493; 87505; 87637; 87798; 93005; 94640; 96365; 96366; 97162; 97530; 99285; J1650; 81003; 81015; 82656; 82710; 83630; 83735; 83880; 83993; 84443; 84484; 85014; 85018; 85025; 87177; 93010; 94664; 94667; 94668; 99223; 99232; 99239; J3475; J3480; J3490

== ENCOUNTER 2023-03-01 11:56 | Emergency (ER) | payer MEDICARE, SELFPAY ==
[2023-03-01] VITALS (19 sets, daily range): BP systolic 114–186; BP diastolic 50–97; PULSE 64–86; RESP 16–30; TEMP 36.5; O2SAT 91–97
--- NOTE | 2023-03-01 12:15 | RT.EKG_ITS ---
APPROVED REPORT Exam: Resting ECG Reason for Exam: SOB Patient Location: E HR:76 bpm ECG Measurements Heart Rate 76 AXIS NC 146 P 70 QRSd 141 QRS 14 QT 443 T 109 QTc 499 Conclusion Sinus rhythm...normal P axis, V-rate 60- 99 Left bundle branch block...QRSd>120, broad/notched R ST elevation secondary to IVCD...Multiple VCG criteria. Sinus. LBBB. No STEMI. No significant change from previous EKG. I have reviewed and interpreted ECG and agree with software generated interpretation.
[2023-03-01 12:19] LABS: Abs Immature Grans 0.04 10^3/uL (0.0-0.06); Absolute Basophil Count 0.03 10^3/uL (0.0-0.2); Absolute Eosinophil Count 0.11 10^3/uL (0.0-0.7); Absolute Lymphocyte Count 1.13 10^3/uL (1.2-3.4); Absolute Monocyte Count 0.61 10^3/uL (0.1-0.8); Basophils % 0.5; Eosinophils % 1.7; HCT 37.2 % (36.0-46.0); HGB 12.2 g/dL (11.2-15.7); Immature Grans % 0.6; Lymphocytes % 17.9; MCH 29.3 pg (27.0-33.0); MCHC 32.8 % (32.0-36.0); MCV 89 fL (80-95); MPV 10.8 fL (8.0-11.0); Monocytes % 9.7; Neutrophils % 69.6; Platelet Count 240 10^3/uL (130-400); RBC 4.16 10^6/uL (3.93-5.22); RDW-SD 38.6 fL; WBC 6.32 10^3/uL (4.4-10.8)
--- NOTE | 2023-03-01 12:32 | ED.GENADUL_ITS ---
Discharge Plan Disposition Patient Disposition: Home Condition: Improving Discharge Details Clinical Impression: Chronic shortness of breath, Chronic diarrhea, Chronic abdominal pain, Chronic anxiety Primary Care Provider: Kathleen Joyce ED Provider: Cathryn Taylor Home Meds and New Rx's Prescriptions: New metoclopramide HCl [Reglan] 10 mg tablet 10 mg PO Q6H PRN (Reason: nausea and vomiting) Qty: 7 1RF Continued melatonin 3 mg tablet 9 mg PO HS PRN PRN (Reason: Insomnia) Qty: 90 3RF (DME) Nasal Cannula O2 Tubing Qty: 2 12RF Rx Instructions: As directed (DME) Oxygen Concentrator with portability See Rx Instructions .Route .MEDSUPPLY Qty: 1 0RF Rx Instructions: As directed. Desaturates to 79% on RA at rest. ondansetron HCl 4 mg tablet 4 mg PO Q6H ipratropium bromide 0.02 % solution 2.5 ml INHALATION Q8H PRN PRN (Reason: Shortness Of Breath Or Wheezing) Qty: 150 3RF (DME) Nebulizer machine for HHN See Rx Instructions .Route .MEDSUPPLY Qty: 1 0RF Rx Instructions: As directed (DME) Nebulizer supplies/tubing See Rx Instructions .Route .MEDSUPPLY Qty: 1 12RF Rx Instructions: As directed Correctol 5 mg tablet 5 mg PO PRN PRN Pepto-Bismol 262 mg tablet 2 tab PO DAILY PRN Rx Instructions: do not exceed 16 tabs per 24 hrs menthol 8 mg lozenge 8 mg MM DAILY PRN (DME) Sensodyne Toothpaste See Rx Instructions .ROUTE .MEDSUPPLY Qty: 113 Rx Instructions: daily as needed (DME) denture care products Cream See Rx Instructions .ROUTE .MEDSUPPLY Qty: 1 Rx Instructions: daily (DME) denture cleanser Tablet, Effervescent See Rx Instructions .ROUTE .MEDSUPPLY Qty: 1 Rx Instructions: daily (DME) Inogen Oxygen Concentrator 3L NC Qty: 1 0RF Rx Instructions: 3L NC betamethasone valerate 0.1 % cream 1 applic Topical BID PRN (Reason: rash hands) Qty: 30 6RF Rx Instructions: APPLY TO HANDS NEEDED atenolol 50 mg tablet 50 mg PO DAILY Qty: 90 3RF ascorbic acid (vitamin C) [C-1000] 1,000 mg tablet 1,000 mg PO DAILY Qty: 30 12RF aspirin 81 mg tablet,delayed release (DR/EC) 81 mg PO DAILY Qty: 30 12RF calcium carb-mag ox-zinc gluc 333-133-5 mg tablet 1 tab PO DAILY Qty: 30 12RF cholecalciferol (vitamin D3) 25 mcg (1,000 unit) capsule 1,000 unit PO DAILY Qty: 30 12RF omeprazole 40 mg capsule,delayed release(DR/EC) 40 mg PO DAILY Qty: 30 12RF omega-3 fatty acids-fish oil [Fish Oil] 360-1,200 mg capsule 1 cap PO DAILY Qty: 30 12RF tetrahydrozoline 0.05 % drops 1 drp ophthalmic (eye) TID Qty: 15 12RF Rx Instructions: OU TID PRN fluticasone furoate-vilanterol [Breo Ellipta] 100-25 mcg/dose blister with device 1 inh inhalation DAILY Qty: 60 12RF fluticasone propionate 50 mcg/actuation spray,suspension See Rx Instructions .ROUTE .COMPLEX Qty: 48 3RF Dose Instruction: INSTILL 2 SPRAYS NASALLY TWICE DAILY Rx Instructions: INSTILL 2 SPRAYS NASALLY TWICE DAILY ibuprofen 400 mg tablet 400 mg PO TID PRN (Reason: fever or pain) Qty: 270 3RF Combivent Respimat 20-100 mcg/actuation mist 1 puff IH QID Qty: 12 3RF Rx Instructions: Please dispense 3 month supply if insurance allows umeclidinium 62.5 mcg/actuation blister with device 1 inh inhalation DAILY Qty: 30 12RF fenofibrate nanocrystallized 48 mg tablet See Rx Instructions .ROUTE .COMPLEX Qty: 90 3RF Dose Instruction: TAKE ONE TABLET BY MOUTH EVERY DAY Rx Instructions: TAKE ONE TABLET BY MOUTH EVERY DAY lisinopril 10 mg tablet 10 mg PO DAILY Qty: 90 3RF simvastatin 40 mg tablet 40 mg PO DAILY Qty: 90 3RF citalopram 40 mg tablet 40 mg PO DAILY Qty: 90 3RF pregabalin [Lyrica] 150 mg capsule 150 mg PO BID Qty: 60 5RF buspirone 5 mg Tablet 5 mg PO BID Qty: 60 0RF cholestyramine-aspartame [Prevalite] 4 gram Powder In Packet 1 packet PO 1000,1900 Qty: 60 0RF Rx Instructions: decrease to once daily once diarrhea has stopped. Do not take if no BM x 24 hours prior. hydrocortisone 1 % Cream 1 applic topical TID PRN PRN (Reason: skin irritation) Qty: 28.4 0RF loperamide 2 mg Capsule 2 mg PO QLOOSE PRNQty: 60 0RF hydroxyzine pamoate [Vistaril] 25 mg Capsule 25 mg PO TID PRN PRNQty: 90 0RF carboxymethylcellulose sodium [Refresh Plus] 0.5 % Dropperette 1 ea OU BID Qty: 0 0RF Mag 64 64 mg Tablet,Delayed Release (Dr/Ec) 64 mg PO BID Qty: 30 0RF lorazepam 0.5 mg tablet 0.5 mg PO TID Qty: 15 5RF doxycycline hyclate 100 mg capsule 100 mg PO BID Qty: 4 0RF guaifenesin [Mucus Relief ER] 600 mg Tablet Extended Release 12hr 600 mg PO BID Qty: 30 0RF Discharge Instructions Instructions: Chronic Pain (ED), Acute Diarrhea (ED), Dyspnea (ED), Anxiety (ED) Additional Instructions: Your blood tests, EKG and imaging today are reassuring and show no evidence of acute concerning findings. Drink plenty of fluids and get plenty of rest. A prescription for nausea medication has been sent electronically to your pharmacy to take as needed and directed for nausea and vomiting. An order for home health has been placed. You will be receiving a visit from home health to do a home safety assessment and determine if you have a additional needs regarding activities of daily living or medications. Follow-up with your primary care doctor in 1 week. Return to the emergency department with any worsening or new concerning symptoms. Discharge Data Discharge Physician: Cathryn Taylor Medical Decision Making 1215 -- 72-year-old female with a history of oxygen-dependent COPD, chronic hypoxic respiratory failure on 3L of O2 by MA, as well as non-small cell DOREEN lung cancer s/p XRT, CHFrEF, CAD w/ h/o NSTEMI, anxiety, who was admitted to [facility] hospitalist service on 02/24/23 for intractable diarrhea and nausea and treated for what patient described as incapacitating anxiety now presents for abdominal pain and shortness of breath. EKG notes a rate of 76, sinus, left bundle branch block and no significant change from prior. Her blood pressure is moderately hypertensive but the remainder vitals are reassuring. Her oxygen saturation is 95% on her baseline 3 L. Patient appears anxious but otherwise in no acute distress. Lung sounds diminished throughout but otherwise no wheezing, rhonchi or crackles noted. She is denying any current shortness of breath. Her abdomen is soft throughout but diffusely tender, worse in the upper abdomen. Differential diagnosis includes gastritis, gastroenteritis, colitis, UTI, chronic diarrhea, electrolyte abnormality, dehydration. Discharge summary from recent admission had mentioned a diagnosis of IBS in the setting of her incapacitating anxiety . We will give a dose of Ativan and Pepcid IV in addition to IV fluid hydration, screening labs and CT chest abdomen pelvis. 1430 -- Labs and imaging reviewed. Normal white blood cell count. Magnesium 1.7, will replete. Troponin negative. Lipase within normal limits. Urinalysis negative. CT chest/abdomen/pelvis negative for acute findings. Patient reassessed and she feels much better. She was able to take sips of water and eat crackers. She feels comfortable going home. Patient is now agreeable with home health. Discussed with care management and will arrange for home health assessment for safety, activities of daily living and medications. An order has been placed for home health by me through the emergency department. Advised to follow up with the primary care doctor for re-evaluation. Usual and customary return precautions given prior to discharge. Medical Records Medical records reviewed: Yes I reviewed the patient's medical records. Imaging Data Radiologic Study: Radiologist's impression: CT CHEST PE ABD ? PELVIS W CLINICAL HISTORY: ? sob, upper abd pain, nausea, diarrhea. ? TECHNIQUE:? Imaging Protocol: Axial computed tomography images with coronal and sagittal reformatted images were created and reviewed CONTRAST MATERIAL:? Intravenous: Omnipaque 350 Contrast volume:90 ml Oral:? no COMPARISON:? CT CT CHEST PE CTA from 05/19/[address] CHEST PE ABD ? PELVIS W from 02/22/2023 FINDINGS: CHEST: Tracheobronchial tree: He will wall thickening again present in the lower lobes.? No mucous plugging.? Pulmonary parenchyma: Emphysematous changes. Significant air trapping in the lower lobes. 12 x 7 millimeters spiculated mass right lung base, unchanged from prior. No change left upper lobe mass, 2 cm in diameter. Pleura: No effusion or pneumothorax. Lymph nodes: Within normal limits. Aorta: Thoracic portion non-dilated.? Mild atherosclerotic changes. Heart: Normal size. No pericardial effusion. No visible coronary artery calcifications. Bones: Unremarkable for age.? No lytic or blastic lesions.No compression fractures. ABDOMEN: Liver: Normal density. No measurable mass. Gallbladder and biliary tract: Layering stones versus sludge. No gallbladder wall thickening or biliary dilatation. Pancreas: Normal density, no abnormal calcifications or inflammatory process. Spleen: Normal. Kidneys: Normal size, contour and axis. No radiodense stones or obstructive uropathy. Small bilateral cysts.. No suspicious masses seen. Adrenal glands: No masses seen. Aorta: Abdominal portion non-dilated. Lymph nodes: Within normal limits. Soft tissues: Unremarkable. PELVIS:? Bladder: Symmetric distention, no gross wall thickening. Bowel: Some high density material within colon and within the sigmoid diverticula. No evidence of diverticulitis.. No obstruction or bowel wall thickening.? Appendix normal. Peritoneal cavity: No ascites, collection or mesenteric inflammatory response. Bones: Unremarkable for age..? Reproductive organs: Within normal limits. IMPRESSION: No acute abnormality in the chest, abdomen or pelvis..? Stable left upper lobe mass stable area spiculation at the right lung base. Diverticulosis. No evidence of diverticulitis. Lab Data Lab results reviewed: Yes I reviewed the patient's lab results. Labs: Laboratory Tests Range/Units 03/01/23 03/01/23 03/01/23 12:06 12:06 13:05 WBC (4.4-10.8) 10^3/uL 6.32 RBC (3.93-5.22) 10^6/uL 4.16 Hgb (11.2-15.7) g/dL 12.2 Hct (36.0-46.0) % 37.2 MCV (80-95) fL 89 MCH (27.0-33.0) pg 29.3 MCHC (32.0-36.0) % 32.8 RDW (11.7-14.6) % 12.0 Plt Count (130-400) 10^3/uL 240 MPV (8.0-11.0) fL 10.8 Immature Gran % 0.6 Neutrophils % 69.6 Lymphocytes % 17.9 Monocytes % 9.7 Eosinophils % 1.7 Basophils % 0.5 Nucleated RBC % (0.0-0.3) % 0.0 Absolute Neutrophils (1.2-6.7) 10^3/uL 4.40 Absolute Lymphocytes (1.2-3.4) 10^3/uL 1.13 L Absolute Monocytes (0.1-0.8) 10^3/uL 0.61 Absolute Eosinophils (0.0-0.7) 10^3/uL 0.11 Absolute Basophils (0.0-0.2) 10^3/uL 0.03 Sodium (136-145) mmol/L 140 Potassium (3.5-5.1) mmol/L 4.3 Chloride (98-107) mmol/L 102 Carbon Dioxide (21.0-32.0) mmol/L 36.3 H Anion Gap (3-11) mmol/L 1.7 L BUN (7-18) mg/dL 12 Creatinine (0.55-1.02) mg/dL 0.8 Est GFR (CKD-EPI 2020) (mL/min/1.73m2) 78.24 Glucose (74-106) mg/dL 135 H Calcium (8.5-10.1) mg/dL 9.6 Magnesium (1.8-2.4) mg/dL 1.5 L Total Bilirubin (0.2-1.0) mg/dL 0.4 AST (15-37) U/L 33 ALT (14-59) U/L 36 Alkaline Phosphatase (46-116) U/L 69 Troponin I (<or=60) ng/L < 50 Total Protein (6.4-8.2) g/dL 7.2 Albumin (3.4-5.0) g/dL 3.5 Lipase (16-77) U/L 28 Urine Color (Yellow) Yellow Urine Clarity (Clear) Clear Urine pH (5-8) 6.0 Ur Specific [place] (1.005-1.025) 1.015 Urine Protein (Negative) mg/dL Negative Urine Ketones (Negative) mg/dL Negative Urine Blood (Negative) Negative Urine Nitrite (Negative) Negative Urine Bilirubin (Negative) Negative Urine Urobilinogen (Up to 0.2) mg/dL 0.2 Ur Leukocyte Esterase (Negative) Negative Urine Glucose (Negative) mg/dL Negative ECG Data Attestation: I personally reviewed and interpreted this ECG (s) as follows: Interpretation: Rate of 76, sinus, left bundle branch block, no change from previous EKG, no acute ischemic findings. HPI General Mode of arrival: EMS . Date/Time Provider Initiated Documentation: 03/01/23 12:09 . Limitations to Documentation: no limitations . Information obtained by: patient . HPI Narrative: Patient is a 72-year-old female with a history of oxygen-dependent COPD, chronic hypoxic respiratory failure on 3L of O2 by MA, as well as non-small cell DOREEN lung cancer s/p XRT, CHFrEF, CAD w/ h/o NSTEMI, anxiety, who was admitted to [facility] hospitalist service on 02/24/23 for intractable diarrhea and nausea and treated for what patient described as incapacitating anxiety now presents for abdominal pain and shortness of breath. EMS reported her oxygen saturation was mid 90s on her baseline 3 L. Patient states her abdominal pain and diarrhea has slightly improved since her admission here to the hospital but states it returned today. She states she has ongoing intermittent shortness of breath and states this is no worse than her usual. She states she has a chronic cough and states is no worse than usual. She states her abdominal pain is achy, upper and states she feels like it feels like I am hungry . Patient states she did eat breakfast this morning and had some nausea but denied any vomiting. She states she did have a few episodes of loose yellow diarrhea today. She denies any fever, chest pain, urinary symptoms. Related Data Home Medications Medication Instructions Recorded Confirmed bisacodyl 5 mg tablet (Correctol) 5 mg PO PRN PRN 01/19/20 03/01/23 bismuth subsalicylate 262 mg 2 tab PO DAILY PRN 01/19/20 03/01/23 tablet (Pepto-Bismol) denture care products ##1 01/19/20 03/01/23 denture cleanser #1 tab 01/19/20 03/01/23 menthol 8 mg lozenges 8 mg mucous membrane DAILY PRN 01/19/20 03/01/23 toothpaste (Sensodyne toothpaste) #113 grams 01/19/20 03/01/23 InoNewzstand Oxygen Concentrator #1 ea 04/01/20 03/01/23 Nasal Cannula O2 Tubing #2 ea 05/23/20 03/01/23 betamethasone valerate 0.1 % 1 applic topical BID PRN rash 10/13/21 03/01/23 topical cream hands #30 grams Oxygen Concentrator #1 ea 01/27/22 03/01/23 ondansetron HCl 4 mg tablet 4 mg PO Q6H 06/23/22 03/01/23 Nebulizer machine for HHN #1 ea 06/24/22 03/01/23 Nebulizer supplies/tubing #1 ea 06/24/22 03/01/23 ipratropium bromide 0.02 % 2.5 ml inhalation Q8H PRN PRN 06/24/22 03/01/23 solution for inhalation Shortness Of Breath Or Wheezing #150 mL atenolol 50 mg tablet 50 mg PO DAILY #90 tab-caps 06/25/22 03/01/23 ascorbic acid (vitamin C) 1,000 mg 1,000 mg PO DAILY #30 tabs 08/24/22 03/01/23 tablet (C-1000) aspirin 81 mg tablet,delayed 81 mg PO DAILY #30 tabs 08/24/22 03/01/23 release calcium carbonate 333 mg-magnesium 1 tab PO DAILY #30 tabs 08/24/22 03/01/23 oxide 133 mg-zinc gluc 5 mg tablet cholecalciferol (vitamin D3) 25 1,000 unit PO DAILY #30 caps 08/24/22 03/01/23 mcg (1,000 unit) capsule omeprazole 40 mg capsule,delayed 40 mg PO DAILY #30 tab-caps 08/24/22 03/01/23 release omega-3 fatty acids-fish oil 360 1 cap PO DAILY #30 caps 08/25/22 03/01/23 mg-1,200 mg capsule (Fish Oil) fluticasone furoate 100 1 inh inhalation DAILY #60 ea 09/15/22 03/01/23 mcg-vilanterol 25 mcg/dose inhalation powder (Breo Ellipta) fluticasone propionate 50 See Rx Instructions .Route 09/15/22 03/01/23 mcg/actuation nasal .COMPLEX #48 mL spray,suspension ibuprofen 400 mg tablet 400 mg PO TID PRN fever or pain 09/15/22 03/01/23 #270 tab-caps ipratropium 20 mcg-albuterol 100 1 puff inhalation QID #12 grams 09/15/22 03/01/23 mcg/actuation mist for inhalation (Combivent Respimat) tetrahydrozoline 0.05 % eye drops 1 drp ophthalmic (eye) TID #15 mL 09/15/22 03/01/23 umeclidinium 62.5 mcg/actuation 1 inh inhalation DAILY #30 ea 09/15/22 03/01/23 blister powder for inhalation guaifenesin 600 mg tablet, 600 mg PO BID #30 tabs 10/18/22 03/01/23 extended release 12 hr (Mucus Relief ER) fenofibrate nanocrystallized 48 mg See Rx Instructions .Route 11/23/22 03/01/23 tablet .COMPLEX #90 tabs lisinopril 10 mg tablet 10 mg PO DAILY #90 tab-caps 01/20/23 03/01/23 simvastatin 40 mg tablet 40 mg PO DAILY #90 tabs 01/20/23 03/01/23 citalopram 40 mg tablet 40 mg PO DAILY #90 tab-caps 01/25/23 03/01/23 melatonin 3 mg tablet 9 mg PO HS PRN PRN Insomnia #90 01/26/23 03/01/23 tabs buspirone 5 mg tablet 5 mg PO BID #60 tabs 02/27/23 03/01/23 carboxymethylcellulose sodium 0.5 1 ea OU BID #0 ea 02/27/23 03/01/23 % eye drops in a dropperette (Refresh Plus) cholestyramine-aspartame 4 gram 1 packet PO 1000,1900 #60 ea 02/27/23 03/01/23 oral powder for susp in a packet (Prevalite) doxycycline hyclate 100 mg capsule 100 mg PO BID #4 caps 02/27/23 03/01/23 hydrocortisone 1 % topical cream 1 applic topical TID PRN PRN skin 02/27/23 03/01/23 irritation #28.4 grams hydroxyzine pamoate 25 mg capsule 25 mg PO TID PRN PRN #90 caps 02/27/23 03/01/23 (Vistaril) loperamide 2 mg capsule 2 mg PO QLOOSE PRN #60 caps 02/27/23 03/01/23 lorazepam 0.5 mg tablet 0.5 mg PO TID #15 tabs 02/27/23 03/01/23 magnesium chloride 64 mg 64 mg PO BID #30 tabs 02/27/23 03/01/23 (magnesium chloride) tablet,delayed release (Mag 64) metoclopramide HCl 10 mg tablet 10 mg PO Q6H PRN nausea and 03/01/23 (Reglan) vomiting #7 tabs pregabalin 150 mg capsule (Lyrica) 150 mg PO BID #60 tab-caps 03/01/23 Previous Rx's Medication Instructions Recorded Inogen Oxygen Concentrator #1 ea 04/01/20 Nasal Cannula O2 Tubing #2 ea 05/23/20 betamethasone valerate 0.1 % 1 applic topical BID PRN rash 10/13/21 topical cream hands #30 grams Oxygen Concentrator #1 ea 01/27/22 Nebulizer machine for HHN #1 ea 06/24/22 Nebulizer supplies/tubing #1 ea 06/24/22 ipratropium bromide 0.02 % 2.5 ml inhalation Q8H PRN PRN 06/24/22 solution for inhalation Shortness Of Breath Or Wheezing #150 mL atenolol 50 mg tablet 50 mg PO DAILY #90 tab-caps 06/25/22 ascorbic acid (vitamin C) 1,000 mg 1,000 mg PO DAILY #30 tabs 08/24/22 tablet (C-1000) aspirin 81 mg tablet,delayed 81 mg PO DAILY #30 tabs 08/24/22 release calcium carbonate 333 mg-magnesium 1 tab PO DAILY #30 tabs 08/24/22 oxide 133 mg-zinc gluc 5 mg tablet cholecalciferol (vitamin D3) 25 1,000 unit PO DAILY #30 caps 08/24/22 mcg (1,000 unit) capsule omeprazole 40 mg capsule,delayed 40 mg PO DAILY #30 tab-caps 08/24/22 release omega-3 fatty acids-fish oil 360 1 cap PO DAILY #30 caps 08/25/22 mg-1,200 mg capsule (Fish Oil) fluticasone furoate 100 1 inh inhalation DAILY #60 ea 09/15/22 mcg-vilanterol 25 mcg/dose inhalation powder (Breo Ellipta) fluticasone propionate 50 See Rx Instructions .Route 09/15/22 mcg/actuation nasal .COMPLEX #48 mL spray,suspension ibuprofen 400 mg tablet 400 mg PO TID PRN fever or pain 09/15/22 #270 tab-caps ipratropium 20 mcg-albuterol 100 1 puff inhalation QID #12 grams 09/15/22 mcg/actuation mist for inhalation (Combivent Respimat) tetrahydrozoline 0.05 % eye drops 1 drp ophthalmic (eye) TID #15 mL 09/15/22 umeclidinium 62.5 mcg/actuation 1 inh inhalation DAILY #30 ea 09/15/22 blister powder for inhalation guaifenesin 600 mg tablet, 600 mg PO BID #30 tabs 10/18/22 extended release 12 hr (Mucus Relief ER) fenofibrate nanocrystallized 48 mg See Rx Instructions .Route 11/23/22 tablet .COMPLEX #90 tabs lisinopril 10 mg tablet 10 mg PO DAILY #90 tab-caps 01/20/23 simvastatin 40 mg tablet 40 mg PO DAILY #90 tabs 01/20/23 citalopram 40 mg tablet 40 mg PO DAILY #90 tab-caps 01/25/23 melatonin 3 mg tablet 9 mg PO HS PRN PRN Insomnia #90 01/26/23 tabs buspirone 5 mg tablet 5 mg PO BID #60 tabs 02/27/23 carboxymethylcellulose sodium 0.5 1 ea OU BID #0 ea 02/27/23 % eye drops in a dropperette (Refresh Plus) cholestyramine-aspartame 4 gram 1 packet PO 1000,1900 #60 ea 02/27/23 oral powder for susp in a packet (Prevalite) doxycycline hyclate 100 mg capsule 100 mg PO BID #4 caps 02/27/23 hydrocortisone 1 % topical cream 1 applic topical TID PRN PRN skin 02/27/23 irritation #28.4 grams hydroxyzine pamoate 25 mg capsule 25 mg PO TID PRN PRN #90 caps 02/27/23 (Vistaril) loperamide 2 mg capsule 2 mg PO QLOOSE PRN #60 caps 02/27/23 lorazepam 0.5 mg tablet 0.5 mg PO TID #15 tabs 02/27/23 magnesium chloride 64 mg 64 mg PO BID #30 tabs 02/27/23 (magnesium chloride) tablet,delayed release (Mag 64) metoclopramide HCl 10 mg tablet 10 mg PO Q6H PRN nausea and 03/01/23 (Reglan) vomiting #7 tabs pregabalin 150 mg capsule (Lyrica) 150 mg PO BID #60 tab-caps 03/01/23 Allergies Allergy/AdvReac Type Severity Reaction Status Date / Time Latex, Natural Rubber Allergy Intermediate rash; Verified 03/01/23 12:03 contact dermatitis codeine [Codeine] AdvReac Intermediate Headache Verified 03/01/23 12:03 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 Allergy Intermediate contact Uncoded 03/01/23 12:03 dermatitis General Stated Complaint: Abd Prob ZACKERY: 3 Review of Systems All systems reviewed & are unremarkable except as noted in HPI and below Constitutional Constitutional: Reports as per HPI, Denies chills and Denies fever(s) Eyes Eyes: Denies blurry vision ENT Ears, Nose, Mouth, and Throat: Denies dizziness, Denies sore throat and Denies throat swelling Cardiovascular Cardiovascular: Denies chest pain and Reports dyspnea Respiratory Respiratory: Denies cough and Reports dyspnea Gastrointestinal Gastrointestinal: Reports abdominal pain, Reports diarrhea, Reports nausea and Denies vomiting Genitourinary Genitourinary: Denies hematuria and Denies dysuria Musculoskeletal Musculoskeletal: Denies back pain and Denies numbness Integumentary/Breasts Skin/Breast: Denies lesions and Denies rash Neurologic Neurologic: Denies dizziness, Denies localized weakness and Denies numbness Allergic/Immunologic Allergic/Immunologic: Denies throat swelling PFSH All Active Problems (Updated 03/01/23 @ 14:53 by Cathryn Taylor DO) Chronic shortness of breath (Acute) Chronic diarrhea (Acute) Chronic abdominal pain (Acute) Chronic anxiety (Acute) Non-small cell carcinoma of left lung (Acute) Perioral dermatitis (Acute) Intractable diarrhea (Acute) Palliative care patient (Acute) Gastroenteritis (Acute) COPD exacerbation (Acute) CHF (congestive heart failure) (Chronic) Hypomagnesemia (Acute) Bronchitis (Acute) Adult failure to thrive (Acute) Lung cancer (Chronic) NSCLC of left lung Acute on chronic respiratory failure with hypoxia (Acute) Acute exacerbation of chronic obstructive pulmonary disease (Acute) Hypomagnesemia (Acute) Pneumonia (Acute) Mass of upper lobe of right lung (Acute) Acute kidney injury (Acute) Acute exacerbation of congestive heart failure (Acute) Elevated troponin (Acute) CHF exacerbation (Acute) COPD exacerbation (Acute) Exercise hypoxemia (Acute) ENEDELIA GREEN III MD, PULMONOLOGY Bronchiectasis without complication (Acute) Enedelia Fabian III, MD, bulb grader Nasal congestion (Acute 07/01/17) Lung nodules (Acute 04/16/17) 10/07/22 [facility] RAD/Oncology for Radiation Planning H/O contact dermatitis and eczema (Acute 02/18/17) Affects Hands, including the palms and the anticubital fossa, and her neck. 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 Deviated nasal septum (Acute 07/01/17) DJD (degenerative joint disease) (Acute 02/18/17) Severe Palpitations (Acute) Elevated troponin I level (Acute) COPD (chronic obstructive pulmonary disease) (Acute) Gold stage 3, Enedelia Fabian MD Incidental lung nodule, > 3mm and < 8mm (Acute) Hypertension (Acute) Medical History Anxiety Cardiomyopathy CHF (congestive heart failure) Chronic kidney disease (02/18/17) COPD (chronic obstructive pulmonary disease) on chronic supplemental oxygen Depression (02/18/17) Fibromyalgia (02/18/17) Gastroesophageal reflux disease (02/18/17) Hyperlipidemia (02/18/17) LBBB (left bundle branch block) Non-ST elevation PA (NSTEMI) Surgical History Dilation and curettage (~1984) Ligation of fallopian tube (~1984) Open Carpal Tunnel release Tonsillectomy and adenoidectomy Family History Mother Essential hypertension Heart disease COPD (chronic obstructive pulmonary disease) Father DJD (degenerative joint disease) Sister Hyperlipidemia Myocardial infarction Daughter [id number] deficiency Social History Smoking/Tobacco Use Status: Former Tobacco Use tobacco type: cigarettes Quit Date: 10/18/13 Smoking risk assessment performed?: Yes Alcohol Intake: never Drug use: Never Substance use type: does not use Do you feel safe at home: Yes Do you feel safe in your relationship?: Yes History History Para 2 Hx # Term Pregnancies Multiple births Hx # Pregnancies Ectopic pregnancies AB induced Hx Number of Living Children AB spontaneous Exam Const General: cooperative, no acute distress and anxious Orientation: alert, awake and oriented x3 HENMT Head: normal to inspection Face and sinus: normal facial exam Eyes General: appearance normal, both eyes and all related structures Pupils: PERRL EOM: EOM intact bilaterally Neck Neck: normal visual inspection and No submandibular swelling Lymphatic: no lymphadenopathy noted Chest Chest: normal inspection of the chest and no tenderness Resp Effort & Inspection: normal respiratory effort and able to speak in complete sentences Auscultation: clear to auscultation bilaterally Cardio Rate: regular rate Rhythm: regular rhythm GI Inspection: normal to inspection Palpation: soft, not firm, not rigid and tender (diffuse, mainly in upper abdom en) Auscultation: hypoactive bowel sounds Skin General skin exam: no rashes or lesions noted Neuro General: patient alert, patient awake and patient oriented x3 Cognition: normal cognition Speech: speech normal Motor: muscle tone normal throughout Sensory Exam: no sensory deficits noted Extrem General: normal to inspection and no edema Psych Appearance: grossly normal Mental Status: mental status grossly normal Speech and Movement: speech and movement normal Affect: normal affect Course Vital Signs Vital signs: Vital Signs Temperature 97.7 F 03/01/23 11:57 Pulse 86 03/01/23 11:57 Respiratory Rate 30 H 03/01/23 11:57 Blood Pressure 186/80 H 03/01/23 11:57 Pulse Oximetry 91 L 03/01/23 11:57 Temperature 97.7 F 03/01/23 11:57 Temperature Source Temporal Artery Scan 03/01/23 11:57 Pulse 78 03/01/23 12:21 Pulse 80 03/01/23 12:21 Respiratory Rate 20 03/01/23 12:21 Respiratory Effort Short of Breath, Incrsd Work of Breathing 03/01/23 12:03 Blood Pressure 142/88 H 03/01/23 12:21 Blood Pressure Mean 100 03/01/23 12:21 Blood Pressure Position Sitting 03/01/23 11:57 Pulse Oximetry 95 03/01/23 12:21 Oxygen Delivery Method Nasal Cannula 03/01/23 11:57 Oxygen Flow Rate 3 03/01/23 11:57 Pain Level 4 03/01/23 11:57 Lab/Test Results Lab/Test Results: Laboratory Tests Range/Units 03/01/23 12:06 WBC (4.4-10.8) 10^3/uL 6.32 RBC (3.93-5.22) 10^6/uL 4.16 Hgb (11.2-15.7) g/dL 12.2 Hct (36.0-46.0) % 37.2 MCV (80-95) fL 89 MCH (27.0-33.0) pg 29.3 MCHC (32.0-36.0) % 32.8 RDW (11.7-14.6) % 12.0 Plt Count (130-400) 10^3/uL 240 MPV (8.0-11.0) fL 10.8 Immature Gran % 0.6 Neutrophils % 69.6 Lymphocytes % 17.9 Monocytes % 9.7 Eosinophils % 1.7 Basophils % 0.5 Nucleated RBC % (0.0-0.3) % 0.0 Absolute Neutrophils (1.2-6.7) 10^3/uL 4.40 Absolute Lymphocytes (1.2-3.4) 10^3/uL 1.13 L Absolute Monocytes (0.1-0.8) 10^3/uL 0.61 Absolute Eosinophils (0.0-0.7) 10^3/uL 0.11 Absolute Basophils (0.0-0.2) 10^3/uL 0.03
--- NOTE | 2023-03-01 12:45 | DI.CT_ITS ---
Exam(s) CT CHEST PE ABD PELVIS W EXAM: CT CHEST PE ABD PELVIS W CLINICAL HISTORY: sob, upper abd pain, nausea, diarrhea. TECHNIQUE: Imaging Protocol: Axial computed tomography images with coronal and sagittal reformatted images were created and reviewed CONTRAST MATERIAL: Intravenous: Omnipaque 350 Contrast volume:90 ml Oral: no COMPARISON: CT CT CHEST PE CTA from 05/19/[address] CHEST PE ABD PELVIS W from 02/22/2023 FINDINGS: CHEST: Tracheobronchial tree: He will wall thickening again present in the lower lobes. No mucous plugging. Pulmonary parenchyma: Emphysematous changes. Significant air trapping in the lower lobes. 12 x 7 mill imeters spiculated mass right lung base, unchanged from prior. No change left upper lobe mass, 2 cm i n diameter. Pleura: No effusion or pneumothorax. Lymph nodes: Within normal limits. Aorta: Thoracic portion non-dilated. Mild atherosclerotic changes. Heart: Normal size. No pericardial effusion. No visible coronary artery calcifications. Bones: Unremarkable for age. No lytic or blastic lesions.No compression fractures. ABDOMEN: Liver: Normal density. No measurable mass. Gallbladder and biliary tract: Layering stones versus sludge. No gallbladder wall thickening or bilia ry dilatation. Pancreas: Normal density, no abnormal calcifications or inflammatory process. Spleen: Normal. Kidneys: Normal size, contour and axis. No radiodense stones or obstructive uropathy. Small bilateral cysts.. No suspicious masses seen. Adrenal glands: No masses seen. Aorta: Abdominal portion non-dilated. Lymph nodes: Within normal limits. Soft tissues: Unremarkable. PELVIS: Bladder: Symmetric distention, no gross wall thickening. Bowel: Some high density material within colon and within the sigmoid diverticula. No evidence of div erticulitis.. No obstruction or bowel wall thickening. Appendix normal. Peritoneal cavity: No ascites, collection or mesenteric inflammatory response. Bones: Unremarkable for age.. Reproductive organs: Within normal limits. IMPRESSION: No acute abnormality in the chest, abdomen or pelvis.. Stable left upper lobe mass stable area spiculation at the right lung base. Diverticulosis. No evidence of diverticulitis. RADIATION DOSE DELIVERED: 1,142.46mGy.cm Total DLP DATA REPOSITORY: All CT scans at this facility are submitted to the National Radiology Data Registry (NRDR) Dose Index Registry (DIR) with the [employer] (A[employer]). RADIATION OPTIMIZATION: All CT scans at this facility use at least one of these dose optimization te chniques: automated exposure control; mA and/or kV adjustment per patient size (includes targeted exa ms where dose is matched to clinical indication); or iterative reconstruction.
[2023-03-01 12:46] LABS: ALT 36 U/L (14-59); AST 33 U/L (15-37); Albumin 3.5 g/dL (3.4-5.0); Alkaline Phosphatase 69 U/L (46-116); Anion Gap 1.7 mmol/L (3-11); BUN 12 mg/dL (7-18); Bilirubin, Total 0.4 mg/dL (0.2-1.0); CO2 36.3 mmol/L (21.0-32.0); CREATININE 0.8 mg/dL (0.55-1.02); Calcium 9.6 mg/dL (8.5-10.1); Chloride 102 mmol/L (98-107); Estimated GFR 78.24 (mL/min/1.73m2); Glucose 135 mg/dL (74-106); Lipase 28 U/L (16-77); Magnesium 1.5 mg/dL (1.8-2.4); Potassium 4.3 mmol/L (3.5-5.1); Sodium 140 mmol/L (136-145); Total Protein 7.2 g/dL (6.4-8.2); Troponin I < 50 ng/L (<or=60)
[2023-03-01] MEDS: LORazepam 2 MG/ML VIAL 0.5 MG IVP (13:24)
[2023-03-01] MEDS: Famotidine 20 MG/2 ML VIAL IVP (13:24)
[2023-03-01] MEDS: Metoclopramide 10 MG/2 ML VIAL IVP (13:25)
[2023-03-01] MEDS: MAGNESIUM SULFATE 2 GM/50 ML BAG IVPB (13:25)
[2023-03-01] MEDS: Normal Saline 500 ML IV (13:26)
[2023-03-01] MEDS: Omnipaque 350 MG/ML 100 ML BTL IJ (13:38)
[2023-03-01] MEDS: Normal Saline - Diluent 50 ML VIAL IJ (13:39)
[2023-03-01 14:21] LABS: Bilirubin Negative (Negative); Blood Negative (Negative); Clarity Clear (Clear); Glucose Negative (Negative); Ketones Negative (Negative); Leukocyte Esterase Negative (Negative); Nitrite Negative (Negative); Specific Gravity 1.015 (1.005-1.025); Urobilinogen 0.2 mg/dL (Up to 0.2)
[2023-03-01] MEDS: ACETAMINOPHEN 1,000 MG/100 ML BTL 400 MG IVPB (14:35)
== END 2023-03-01 16:39 | disposition home or self-care (01) ==
PROVIDERS: Emergency Provider Physician Assistant; PCP Nurse Practitioner
DX: R06.02 Shortness of breath (principal); R19.7 Diarrhea, unspecified; R10.10 Upper abdominal pain, unspecified; F41.9 Anxiety disorder, unspecified; Z87.891 Personal history of nicotine dependence; Z99.81 Dependence on supplemental oxygen; J44.9 Chronic obstructive pulmonary disease, unspecified; R11.0 Nausea; C34.12 Malignant neoplasm of upper lobe, left bronchus or lung
CPT/HCPCS: 36415; 71275; 74177; 80053; 83690; 93005; 96365; 96368; 96375; 99285; 81003; 83735; 84484; 85025; 93010; 99284; J0131; J2060; J2765; J3490